=== PATIENT | female | born 1965 | race Caucasian/White ===

== ENCOUNTER 2016-08-20 14:30 | Emergency (ER) | payer OTHER ==
[~2016-08-20] VITALS: Ht 170.2 cm; Wt 111.0 kg
[~2016-08-20 14:30] MED LIST: ACET-1311 PO; FLVHFA110 INH; HYDR-5688 PO; LISI-729 PO; TRIA1SPR4 NAE
[2016-08-20 14:40] VITALS: TEMP 36.8; Ht 170.2 cm; Wt 111.0 kg
[2016-08-20] MEDS ORDERED: HYDROCODONE/ACETAMOPHEN 5/325MG TAB PO ONE (15:15)
--- NOTE | 2016-08-20 15:47 | DIAGNOSTIC IMAGING REPORT ---
LEFT FEMUR 2 VIEWS ROUTINE CLINICAL HISTORY: Pain status post fall COMPARISON: Left hip radiographs June 28, 2016. FINDINGS: Alignment of the left hip is anatomic. No acute fracture is identified. Joint space is preserved. There is mild osteophytosis of the left hip. There is mild arthritis of the left knee. There is spurring of the patella at insertion the quadriceps. There may be a trace left knee joint effusion. IMPRESSION: No acute fracture of the left femur. Electronically signed by: Anthony Ortiz M.D. 08/20/2016 3:45 PM Dictated Date/Time: 08/20/2016 3:44 PM
--- NOTE | 2016-08-20 15:48 | DIAGNOSTIC IMAGING REPORT ---
CT SCAN OF THE BRAIN WITHOUT IV CONTRAST CLINICAL HISTORY: Fall. Headache. COMPARISON STUDY: CT of the brain dated 06/29/2016. TECHNIQUE: Unenhanced axial CT scan of the brain is performed from the vertex to the skull base. Automated dose control exposure was utilized. FINDINGS: Brain parenchyma: The brain parenchyma is normal in appearance. There is no hemorrhage, mass effect, or evidence of acute territorial ischemia by CT criteria. Ralph-white matter is preserved. No extra-axial fluid collection is seen. Ventricles, sulci, cisterns: Normal in configuration. Intracranial vasculature: There is mild atherosclerotic calcification of the cavernous carotid and vertebral arteries. Calvarium: There is no depressed calvarial fracture. Sinuses and mastoids: The visualized paranasal sinuses are clear. The mastoid air cells are well pneumatized. Orbits: The bony orbits are grossly intact. IMPRESSION: No acute intracranial abnormality. Electronically signed by: Everett Boland M.D. 08/20/2016 3:46 PM Dictated Date/Time: 08/20/2016 3:44 PM
--- NOTE | 2016-08-20 15:49 | DIAGNOSTIC IMAGING REPORT ---
PELVIS 1 OR 2 VIEW ROUTINE CLINICAL HISTORY: LEFT hip pain s/p fall COMPARISON STUDY: Left hip 06/28/2016. FINDINGS: No fracture or dislocation within the pelvis or hips. The sacrum appears intact. Moderate osteoarthritis within the bilateral hips is again noted. IMPRESSION: No fracture or dislocation within the pelvis or hips. Electronically signed by: Fortunato Weston M.D. 08/20/2016 3:47 PM Dictated Date/Time: 08/20/2016 3:45 PM
--- NOTE | 2016-08-20 15:49 | DIAGNOSTIC IMAGING REPORT ---
RIGHT ELBOW 3 VIEWS CLINICAL HISTORY: Fall with right arm pain. FINDINGS: 3 views of the right elbow are obtained. No prior studies are available for comparison at the time of dictation. The skeletal structures are osteopenic. There is no radiographic evidence of acute fracture. Enthesophytes arise from the humeral epicondyles, and there is also a large enthesophyte at the triceps insertion. There is spurring seen along the medial joint space, as well as minimal spurring from the radial head. No joint effusion is identified. Mild dorsal soft tissue edema is noted. IMPRESSION: 1. Mild dorsal soft tissue swelling with no radiographic evidence of right elbow fracture. 2. Osteopenia and degenerative changes/spurring is above. Electronically signed by: Everett Boland M.D. 08/20/2016 3:48 PM Dictated Date/Time: 08/20/2016 3:44 PM
[2016-08-20] MEDS ORDERED: DiphenhydrAMINE HCL 50 MG/ML VIAL IV STA (15:50)
[2016-08-20] MEDS ORDERED: METHYLPREDNISOLONE 125 MG VIAL IV STA (15:50)
[2016-08-20] MEDS ORDERED: FAMOTIDINE 20MG/102 ML D5W IV STA (15:50)
[2016-08-20] MEDS ORDERED: SODIUM CHLORIDE 0.9% 1000ML 1,000 ML IV STA (15:50)
--- NOTE | 2016-08-20 15:53 | DIAGNOSTIC IMAGING REPORT ---
CT SCAN OF THE CERVICAL SPINE CLINICAL HISTORY: Fall. Neck pain. COMPARISON STUDY: CT scan of cervical spine dated 06/29/2016. TECHNIQUE: CT scan of the cervical spine is performed from the skull base to the upper thoracic spine. Images are reviewed in the axial, sagittal, and coronal planes. IV contrast was not administered for this examination. CT DOSE: 1141.73 mGy.cm FINDINGS: Skeletal structures: The skeletal structures are osteopenic. There is no evidence of fracture or subluxation involving the cervical spine. Vertebral body height and alignment are maintained. The odontoid process and lateral masses are intact. The atlantoaxial articulation is preserved noting productive degenerative change. The spinous processes appear intact. Anterior osteophytes are seen throughout. There is mild to moderate multilevel cervical spondylosis. Uncovertebral and facet arthropathy contribute to foraminal narrowing at several levels. Intervertebral discs: There is mild to moderate degenerative disc space narrowing seen at C7-T1. Only mild narrowing is seen at the remaining cervical levels. Central canal: Posterior disc osteophyte complexes at C3-C4 and C4-C5 may contribute to mild acquired compromise of the central canal. Soft tissues: The prevertebral and paraspinous soft tissues are within normal limits. There is atherosclerotic calcification of the carotid bulbs. There is a 1.6 cm low-attenuation nodule seen in the left lobe of the thyroid gland. Calvarium: The visualized calvarium at the skull base appears intact. Brain parenchyma: Partially visualized brain parenchyma the skull base is within normal limits. Sinuses and mastoids: The visualized paranasal sinuses are clear. The mastoid air cells are well pneumatized. Lung apices: Clear as visualized. IMPRESSION: 1. There is no evidence of fracture or subluxation involving the cervical spine. 2. Osteopenia and spondylotic change as above. 3. There is a 1.6 cm low-attenuation nodule in the left lobe of the thyroid gland. If not previously performed, a nonemergent thyroid ultrasound is recommended for further assessment. Electronically signed by: Everett Boland M.D. 08/20/2016 3:52 PM Dictated Date/Time: 08/20/2016 3:48 PM
[2016-08-20 16:19] VITALS: O2SAT 98
[2016-08-20] MEDS ORDERED: OXYCODONE HCL IR 5 MG TAB (IMMEDIATE RELEASE) PO STA (17:36)
[2016-08-20] MEDS ORDERED: OXYC1TAB3 PO (17:44)
--- NOTE | 2016-08-20 17:46 | EMERGENCY ROOM VISIT NOTE ---
History First contact with patient: 14:54 Chief Complaint: FALL Stated Complaint: FALL/HIP PAIN/ HEADACHE History of Present Illness The patient is a 51 year old female who presents to the Emergency Department via EMS for evaluation of her LEFT hip pain, RIGHT elbow pain, headache, neck pain. The patient reports that she was sustaining next to a table and clean backwards onto the table. The table was on wheels. It gave out from under her causing her to fall and strike her hip, elbow, and head on the ground. She did not lose consciousness. She was unable to ambulate secondary to discomfort to the LEFT hip. The patient complains of pain rating her discomfort 8/10. She denies any numbness or tingling is the distal extremities. Patient reports a history of injury to her neck similar type of fall recently. The patient has tried Tylenol and routes the emergency department with moderate relief of symptoms. Patient denies any blurry vision, double vision, slurred speech, facial droop, unilateral weakness/numbness, low back pain, chest pain, palpitations, or abdominal pain. Review of Systems A complete 10-point Review of Systems was discussed with the patient, with pertinent positives and negatives listed in the History of Present Illness. All remaining Review of Systems questions can be considered negative unless otherwise specified. Past Medical/Surgical History Medical Problems: (1) CAD (coronary artery disease) (2) Chronic bronchitis (3) Depression (4) Dyslipidemia (5) Dyslipidemia (6) History of heart disease (7) HTN (hypertension) (8) HTN (hypertension) Surgical Problems: (1) History of coronary artery stent placement (2) Hx of cholecystectomy Family History Diabetes mellitus BROTHER SISTER Gallbladder disease Heart disease Hypertension Kidney disease Social History Smoking Status: Former Smoker Alcohol Use: none Drug Use: none Housing Status: lives with family Occupation Status: employed Current/Historical Medications Scheduled Aspirin (Aspirin Ec), 81 MG PO DAILY Atorvastatin (Atorvastatin Calcium), 20 MG PO DAILY Fluticasone Propionate (Flovent Hfa), 2 PUFFS INH BID Lisinopril (Zestril), 5 MG PO DAILY Metoprolol Tartrate (Lopressor) (Lopressor), 12.5 MG PO BID Sertraline (Zoloft), 50 MG PO DAILY Trazodone Hcl (Trazodone), 50 MG PO HS Scheduled PRN Acetaminophen (Tylenol), 650 MG PO Q4H PRN for Pain Albuterol (Ventolin Hfa), 2 PUFFS INH QID PRN for SOB/Wheezing Hydrocodone/Acetaminophen 5MG/325MG (Emily 5MG/325MG), 1-2 TABLET PO Q4H PRN for Pain Ibuprofen (Motrin), 800 MG PO Q6H PRN for Pain Mometasone Furoate-Formoterol (Dulera 200/5 Mcg), 2 PUFFS INH BID PRN for SOB/ Wheezing Nitroglycerin (Nitrostat), 0.4 MG UT UD PRN for Chest Pain Oxycodone Ir (Roxicodone Ir), 1-2 TAB PO Q4H PRN for Pain Allergies Coded Allergies: Loratadine (Verified Allergy, Severe, 06/29/16) FACE SWELLED--NEEDED O2 Ketorolac Tromethamine (Verified Allergy, Intermediate, DIAPHORESIS, RASH , 06/29/16) Iodinated Diagnostic Agents (Verified Allergy, Mild, ITCHING, 06/29/16) Physical Exam Vital Signs Date Time Temp Pulse Resp B/P Pulse Ox O2 Delivery O2 Flow Rate FiO2 08/20/16 17:49 80 18 143/81 95 Room Air 08/20/16 16:27 75 08/20/16 16:19 98 Room Air 08/20/16 16:15 78 16 134/83 98 08/20/16 14:40 36.8 78 18 158/107 97 Room Air Pain Rating (0-10): 8 Physical Exam VITAL SIGNS - Vital signs and nursing notes were reviewed. GENERAL - 51-year-old female appearing her stated age. Communicates well with provider and answers questions appropriately. HEAD - Normocephalic, Atraumatic. No Ma's Sign or Raccoon's Eyes. No depressed skull fractures palpable. EYES - PERRL with EOMI bilaterally. Without subconjunctival hemorrhage. Palpebral conjunctiva pink and moist with no injection. EARS - No deformities of external structures noted on gross examination bilaterally. No hemotympanum present. No tympanic perforation noted. Handle of malleus, umbo, cone of light, pars tensa/flaccid all easily visualized. NOSE - Midline and without cyanosis. No epistaxis or clear watery discharge noted. Septum midline without deviation. No septal hematoma noted. No overlying ecchymosis noted. MOUTH/OROPHARYNX - Without perioral cyanosis. Tongue midline with equal elevation of palate bilaterally. No blood noted in the oropharynx. No tonsillar hypertrophy, erythema, or exudates noted. No dental fractures noted. NECK - No tenderness to palpation over the cervical spinous processes. No cervical paraspinal muscle tenderness noted. LUNGS - Chest wall symmetric without accessory muscle use, intercostals retractions, or central cyanosis. Normal vesicular breath sounds CTA B/L. No wheezes, rales, or rhonchi appreciated. CARDIAC - RRR with S1/S2. No murmur, rubs, or gallops appreciated. ABDOMEN - Abdominal contour obese without pulsations or visible masses. BS normoactive all four quadrants. No rebound tenderness or guarding noted. Negative Cadillac's or Abraham Hendrix's Signs. No tenderness, palpable masses, hepatosplenomegaly, or ascites noted. EXTREMITIES - No gross deformities noted of the extremities. Moderate tenderness to palpation to the lateral aspect of the LEFT hip and RIGHT elbow. + 3/5 radial and dorsalis pedis pulses palpated throughout. FROM with no tremors, fasciculations, or clonus noted on PROM throughout. +5/5 strength noted in UE/ LE bilaterally. NEUROLOGIC - Cranial nerves II through XII grossly intact. Sensory intact to light touch throughout. Patellar reflexes +2/4. Patient able to perform rapid alternating movements appropriately. PSYCH - A&Ox3 and cooperates fully with examiner. Pt is very pleasant and interacts well with examiner. Medical Decision & Procedures ER Provider Diagnostic Interpretation: Radiological imaging and reports were reviewed by myself. Radiologist's Interpretation as follows: PELVIS 1 OR 2 VIEW ROUTINE CLINICAL HISTORY: LEFT hip pain s/p fall COMPARISON STUDY: Left hip 06/28/2016. FINDINGS: No fracture or dislocation within the pelvis or hips. The sacrum appears intact. Moderate osteoarthritis within the bilateral hips is again noted. IMPRESSION: No fracture or dislocation within the pelvis or hips. LEFT FEMUR 2 VIEWS ROUTINE CLINICAL HISTORY: Pain status post fall COMPARISON: Left hip radiographs June 28, 2016. FINDINGS: Alignment of the left hip is anatomic. No acute fracture is identified. Joint space is preserved. There is mild osteophytosis of the left hip. There is mild arthritis of the left knee. There is spurring of the patella at insertion the quadriceps. There may be a trace left knee joint effusion. IMPRESSION: No acute fracture of the left femur. RIGHT ELBOW 3 VIEWS CLINICAL HISTORY: Fall with right arm pain. FINDINGS: 3 views of the right elbow are obtained. No prior studies are available for comparison at the time of dictation. The skeletal structures are osteopenic. There is no radiographic evidence of acute fracture. Enthesophytes arise from the humeral epicondyles, and there is also a large enthesophyte at the triceps insertion. There is spurring seen along the medial joint space, as well as minimal spurring from the radial head. No joint effusion is identified. Mild dorsal soft tissue edema is noted. IMPRESSION: 1. Mild dorsal soft tissue swelling with no radiographic evidence of right elbow fracture. 2. Osteopenia and degenerative changes/spurring is above. CT SCAN OF THE BRAIN WITHOUT IV CONTRAST CLINICAL HISTORY: Fall. Headache. COMPARISON STUDY: CT of the brain dated 06/29/2016. TECHNIQUE: Unenhanced axial CT scan of the brain is performed from the vertex to the skull base. Automated dose control exposure was utilized. FINDINGS: Brain parenchyma: The brain parenchyma is normal in appearance. There is no hemorrhage, mass effect, or evidence of acute territorial ischemia by CT criteria. Ralph-white matter is preserved. No extra-axial fluid collection is seen. Ventricles, sulci, cisterns: Normal in configuration. Intracranial vasculature: There is mild atherosclerotic calcification of the cavernous carotid and vertebral arteries. Calvarium: There is no depressed calvarial fracture. Sinuses and mastoids: The visualized paranasal sinuses are clear. The mastoid air cells are well pneumatized. Orbits: The bony orbits are grossly intact. IMPRESSION: No acute intracranial abnormality. CT SCAN OF THE CERVICAL SPINE CLINICAL HISTORY: Fall. Neck pain. COMPARISON STUDY: CT scan of cervical spine dated 06/29/2016. TECHNIQUE: CT scan of the cervical spine is performed from the skull base to the upper thoracic spine. Images are reviewed in the axial, sagittal, and coronal planes. IV contrast was not administered for this examination. CT DOSE: 1141.73 mGy.cm FINDINGS: Skeletal structures: The skeletal structures are osteopenic. There is no evidence of fracture or subluxation involving the cervical spine. Vertebral body height and alignment are maintained. The odontoid process and lateral masses are intact. The atlantoaxial articulation is preserved noting productive degenerative change. The spinous processes appear intact. Anterior osteophytes are seen throughout. There is mild to moderate multilevel cervical spondylosis. Uncovertebral and facet arthropathy contribute to foraminal narrowing at several levels. Intervertebral discs: There is mild to moderate degenerative disc space narrowing seen at C7-T1. Only mild narrowing is seen at the remaining cervical levels. Central canal: Posterior disc osteophyte complexes at C3-C4 and C4-C5 may contribute to mild acquired compromise of the central canal. Soft tissues: The prevertebral and paraspinous soft tissues are within normal limits. There is atherosclerotic calcification of the carotid bulbs. There is a 1.6 cm low-attenuation nodule seen in the left lobe of the thyroid gland. Calvarium: The visualized calvarium at the skull base appears intact. Brain parenchyma: Partially visualized brain parenchyma the skull base is within normal limits. Sinuses and mastoids: The visualized paranasal sinuses are clear. The mastoid air cells are well pneumatized. Lung apices: Clear as visualized. IMPRESSION: 1. There is no evidence of fracture or subluxation involving the cervical spine. 2. Osteopenia and spondylotic change as above. 3. There is a 1.6 cm low-attenuation nodule in the left lobe of the thyroid gland. If not previously performed, a nonemergent thyroid ultrasound is recommended for further assessment. Medications Administered Medications (Trade) Dose Ordered Sig/Gerda Route Start Time Stop Time Status Last Admin Dose Admin Acetaminophen/ Hydrocodone Bitart (Emily 5/325 Tab) 1 tab NOW ONCE PO 08/20/16 15:15 08/20/16 15:16 DC 08/20/16 15:15 1 TAB Methylprednisolone Sodium Succinate (Solu-Medrol IV) 125 mg NOW STAT IV 08/20/16 15:50 08/20/16 15:51 DC 08/20/16 16:15 125 MG Diphenhydramine HCl (Benadryl Inj) 25 mg NOW STAT IV 08/20/16 15:50 08/20/16 15:51 DC 08/20/16 16:15 25 MG Famotidine 20 mg 20 mg ONE STAT IV 08/20/16 15:50 08/20/16 15:51 DC 08/20/16 16:15 20 MG Sodium Chloride (Nss 1000ml) 1,000 ml @ 999 mls/hr Q1H1M STAT IV 08/20/16 15:50 08/20/16 16:50 DC 2/15/17 16:16 999 MLS/HR Oxycodone HCl (Roxicodone Immediate Rel Tab) 5 mg NOW STAT PO 08/20/16 17:36 08/20/16 17:37 DC 08/20/16 17:51 5 MG ED Course Patient was seen and evaluated by myself. Patient was provided one Emily for pain. CT of the head and neck as well as x-rays of the pelvis, femur, and elbow were obtained. Upon returning from CT, the patient is complaining of itchiness. IV lock was established and the patient was treated with 125 mg Solu -Medrol, 25 mg Benadryl, 20 mg Pepcid, and a 1000 mL normal saline bolus. Imaging studies were otherwise unremarkable. The patient was educated on imaging studies. She was provided a walker for ambulation. She'll follow-up with Worker's Compensation from today's visit. She will return for any changing /worsening symptoms. Patient discharged home afebrile and in good condition. Medical Decision Given the patient's presentation and stated complaints, I did elect to perform the above-mentioned workup. The patient presents today after sustaining a mechanical fall. There is no loss of consciousness. She has multiple areas of his comfort. Her exam is otherwise unremarkable. She has no focal neurological deficits. CT the head, cervical spine, and x-rays were otherwise unremarkable. She did have a reaction and I'm suspicious that this may be related to nausea received in route. Regardless, she responded to the medications as prescribed. She will be placed on oxycodone for breakthrough symptoms. She'll follow-up with her primary care provider or Workmen's Compensation provider. She will return for any changing/worsening symptoms. Patient discharged home afebrile and in good condition. In the evaluation and treatment of this patient, the following differential diagnoses were considered: Concussion, Contrecoup Injury, Brain Tumor, Depression, Encephalitis, Hypothyroidism, Meningitis, CVA, TIA, Migraine, Cluster Headache, Intracranial Abnormality, Intracranial Hemorrhage, Subdural Hematoma, Subarachnoid Hemorrhage, Hydrocephalus. Impression Primary Impression: Fall Additional Impressions: Contusion of left hip Elbow contusion Departure Information Dispostion Home / Self-Care Condition GOOD Prescriptions Oxycodone Ir (Roxicodone Ir) 5 Mg Tab 1-2 TAB PO Q4H Y for Pain, #6 TAB For Initial Treatment Prov: Tunde Lindsay, PALizabeth 08/20/16 Referrals Lennie Steven DO (PCP) Patient Instructions My [facility] Additional Instructions You've been seen in the emergency department today for your LEFT hip contusion and RIGHT elbow contusion after sustaining a fall. You have been prescribed OxyIR to be used for pain control. This is a narcotic medication. You cannot drive or consume alcohol while on this medicine. This medicine should only be used for pain that cannot be controlled with over-the- counter pain medicines. For pain control, you can use the following [id number] medicines (if >12 yo): - Regular strength (325mg/tab) Tylenol (acetaminophen) 2 tabs every 4-6 hours as needed. Do not exceed 12 tablets in a 24 hour period. Avoid taking more than 4 grams (4000 mg) of Tylenol per day. This includes any other sources of acetaminophen you may take on a regular basis. - Regular strength (200 mg/tab) Advil (ibuprofen) 1-2 tabs every 4-6 hours as needed. Do not exceed a dose of 3200 mg per day. Follow-up with workman's compensation approval provider in the next 24-48 hours for recheck. Return for any changing or worsening symptoms. Problem Qualifiers Primary Impression: Fall Encounter type: initial encounter Qualified Codes: W19.XXXA - Unspecified fall, initial encounter Additional Impressions: Contusion of left hip Encounter type: initial encounter Qualified Codes: S70.02XA - Contusion of left hip, initial encounter Elbow contusion Encounter type: initial encounter Laterality: right Qualified Codes: S50.01XA - Contusion of right elbow, initial encounter
[2016-08-20 17:49] VITALS: BP 143/81; PULSE 80; O2SAT 95
[2016-11-23] MEDS ORDERED: IBUP-1428 PO (06:08)
[2016-11-23] MEDS ORDERED: TRAZ50TA35 PO (11:11)
[2016-11-23] MEDS ORDERED: PRVHFAIN INH (13:12)
[2016-11-23] MEDS ORDERED: SERT50TA PO (13:54)
== END 2016-08-20 18:13 | disposition home or self-care (01) ==
LOC: EDBD 14:30 → C.EDA 14:31
DX: S70.02XA Contusion of left hip, initial encounter (principal); S50.01XA Contusion of right elbow, initial encounter; R51 Headache; M54.2 Cervicalgia; I25.10 Atherosclerotic heart disease of native coronary artery without angina pectoris; E78.5 Hyperlipidemia, unspecified; I10 Essential (primary) hypertension; F32.9 Major depressive disorder, single episode, unspecified; E66.9 Obesity, unspecified; Z79.82 Long term (current) use of aspirin; Z79.899 Other long term (current) drug therapy; Z88.8 Allergy status to other drugs, medicaments and biological substances; Z91.041 Radiographic dye allergy status; Z98.61 Coronary angioplasty status; Z82.49 Family history of ischemic heart disease and other diseases of the circulatory system; Z83.3 Family history of diabetes mellitus; Z83.79 Family history of other diseases of the digestive system; Z84.1 Family history of disorders of kidney and ureter; W19.XXXA Unspecified fall, initial encounter

== ENCOUNTER 2016-08-25 09:02 | Emergency (ER) | payer OTHER ==
[~2016-08-25] VITALS: Ht 167.6 cm; Wt 120.4 kg
[~2016-08-25 09:02] MED LIST changes: +OXYC1TAB3 PO; -TRIA1SPR4 NAE
[2016-08-25 09:06] VITALS: TEMP 37; Ht 167.6 cm; Wt 120.4 kg
[2016-08-25] MEDS ORDERED: HYDROmorphone INJ 0.5 MG/0.5 ML SYR IV STA (10:18)
[2016-08-25] MEDS ORDERED: SODIUM CHLORIDE 0.9% 1000ML 1,000 ML IV STA (10:18)
[2016-08-25] MEDS ORDERED: ONDANSETRON 8 MG/54 ML D5W IV STA (10:18)
[2016-08-25] MEDS ORDERED: METOPROLOL TARTRATE 25 MG TAB PO STA (10:24)
[2016-08-25 10:28] VITALS: O2SAT 96
[2016-08-25] MEDS ORDERED: LISINOPRIL 5 MG TAB PO ONE (10:30)
[2016-08-25] MEDS ORDERED: ATORVASTATIN 10 MG TAB PO ONE (10:30)
[2016-08-25 10:53] LABS: BASO % 0.5 %; BASO ABS # 0.04 K/uL (0-0.2); COMPLETE YES; EOS % 3.3 %; HEMATOCRIT 36.9 % (37-47); IG% 0.3 %; LYMPH ABS # 1.89 K/uL (1.2-3.4); MEAN CELL VOLUME 80.7 fL (80-100); MEAN CORPUSCULAR HEMOGLOBIN 26.3 pg (25-34); MEAN CORPUSCULAR HGB CONC 32.5 g/dl (32-36); MEAN PLATELET VOLUME 8.8 fL (7.4-10.4); MONO % 7.7 %; NEUT % 64.2 %; PLATELET COUNT 370 K/uL (130-400); RED BLOOD COUNT 4.57 M/uL (4.2-5.4); WHITE BLOOD COUNT 7.89 K/uL (4.8-10.8)
[2016-08-25 11:01] LABS: PROTHROMBIN TIME (PATIENT) 10.7 SECONDS (9.0-12.0)
--- NOTE | 2016-08-25 11:06 | DIAGNOSTIC IMAGING REPORT ---
CT HEAD WITHOUT CONTRAST (CT) CLINICAL HISTORY: Severe headache status post head trauma COMPARISON STUDY: 08/20/2016 TECHNIQUE: Axial CT of the brain is performed from the vertex to the skull base. IV contrast was not administered for this examination. CT DOSE: 537.48 mGy.cm FINDINGS: No intra or extra-axial mass lesions are visualized. There is no CT evidence of acute cortical infarction. There is no evidence of midline shift. There is no acute hemorrhage. No calvarial fractures are visualized. There is no evidence of pathologic ventricular dilatation. There is no evidence of acute sinusitis IMPRESSION: No change from the prior study. No acute intracranial findings. Electronically signed by: Juno Sanchez M.D. 08/25/2016 11:04 AM Dictated Date/Time: 08/25/2016 11:03 AM
[2016-08-25 11:13] LABS: ALT/SGPT 110 U/L (12-78); AST/SGOT 30 U/L (15-37); BLOOD UREA NITROGEN 11 mg/dl (7-18); BUN/CREATININE RATIO 17.9 (10-20); CALCIUM 9.2 mg/dl (8.5-10.1); CARBON DIOXIDE 29 mmol/L (21-32); CHLORIDE 104 mmol/L (98-107); CREATININE 0.62 mg/dl (0.60-1.20); GLUCOSE 85 mg/dl (70-99); POTASSIUM 4.1 mmol/L (3.5-5.1); SODIUM 141 mmol/L (136-145)
[2016-08-25 11:23] LABS: ALKALINE PHOSPHATASE 143 U/L (45-117); THYROID STIMULATING HORMONE < 0.005 uIu/ml (0.300-4.500)
[2016-08-25 12:52] LABS: URINE APPEARANCE CLEAR (CLEAR); URINE BILIRUBIN NEG (NEG); URINE COLOR YELLOW; URINE EPITHELIAL CELL AUTO 0-5 /lpf (0-5); URINE NITRITE NEG (NEG); URINE PH 5.5 (4.5-7.5); URINE SPECIFIC GRAVITY 1.007 (1.000-1.030); UROBILINOGEN NEG (NEG)
[2016-08-25 12:55] LABS: MANUAL MICROSCOPIC REQUIRED? NO; REVIEW REQ? NO
[2016-08-25 14:57] VITALS: BP 167/96; PULSE 84; O2SAT 96
--- NOTE | 2016-08-25 15:53 | EMERGENCY ROOM VISIT NOTE ---
History Report prepared by Jose: Hollie Norton Under the Supervision of: Dr. Alessandro Bower M.D. First contact with patient: 09:45 Chief Complaint: HEAD PAIN Stated Complaint: HEADACHE, PAIN IN BACK OF NECK History of Present Illness The patient is a 51 year old female who presents to the Emergency Room with complaints of persistent headache and neck pain which started 5 days ago after she fell at work. The patient currently rates her discomfort as a 9/10. The patient reports that last week she fell backwards into a metal table injuring her head and neck. Prior to the fall, she was feeling well. She visited the ED where they did CT of her head and neck which were found to be normal, so she was discharged home with pain medication. The patient reports feeling nauseous and vomiting 2 days ago. She also felt like she was gasping for air and used her inhaler with complete relief. She does notes that she has a history of asthma. She has no breathing issues currently. She went to urgent care initially this morning for her pain but was sent to the ED. She has not had any additional falls since last week. She reports that she is currently hypertensive , but reports that she has not missed any of her medications other than this morning's doses. Currently, she is feeling slightly nauseated. Pt denies LOC, fevers, chills, diaphoresis, visual changes, chest pain, abdominal pain, back pain, melena, hematochezia, urinary symptoms, numbness, weakness, lymphadenopathy, rash, or other complaints. Source of History: patient Onset: 5 days ago Position: head, neck Symptom Intensity: 9/10 Timing: other (persistent) Associated Symptoms: + SOB (resolved with Inhaler), + nausea, + vomiting ( resolved) Review of Systems See HPI for pertinent positives and negatives. A total of ten systems were reviewed and were otherwise negative. Past Medical & Surgical Medical Problems: (1) CAD (coronary artery disease) (2) Chronic bronchitis (3) Depression (4) Dyslipidemia (5) Dyslipidemia (6) History of heart disease (7) HTN (hypertension) (8) HTN (hypertension) Surgical Problems: (1) History of coronary artery stent placement (2) Hx of cholecystectomy Family History Diabetes mellitus BROTHER SISTER Gallbladder disease Heart disease Hypertension Kidney disease Social History Smoking Status: Former Smoker Alcohol Use: none Drug Use: none Housing Status: lives with family Occupation Status: employed Current/Historical Medications Scheduled Aspirin (Aspirin Ec), 81 MG PO DAILY Atorvastatin (Atorvastatin Calcium), 20 MG PO DAILY Lisinopril (Zestril), 5 MG PO DAILY Metoprolol Tartrate (Lopressor) (Lopressor), 12.5 MG PO BID Sertraline (Zoloft), 50 MG PO DAILY Trazodone Hcl (Trazodone), 50 MG PO HS Scheduled PRN Acetaminophen (Tylenol), 650 MG PO Q4H PRN for Pain Albuterol (Ventolin Hfa), 2 PUFFS INH QID PRN for SOB/Wheezing Hydrocodone/Acetaminophen 5MG/325MG ([place] 5MG/325MG), 1-2 TABLET PO Q4H PRN for Pain Ibuprofen (Motrin), 800 MG PO Q6H PRN for Pain Mometasone Furoate-Formoterol (Dulera 200/5 Mcg), 2 PUFFS INH BID PRN for SOB/ Wheezing Nitroglycerin (Nitrostat), 0.4 MG UT UD PRN for Chest Pain Oxycodone Ir (Roxicodone Ir), 1-2 TAB PO Q4H PRN for Pain Allergies Coded Allergies: Loratadine (Verified Allergy, Severe, 08/25/16) FACE SWELLED--NEEDED O2 Ketorolac Tromethamine (Verified Allergy, Intermediate, DIAPHORESIS, RASH , 08/25/16) Iodinated Diagnostic Agents (Verified Allergy, Mild, ITCHING, 08/25/16) Physical Exam Vital Signs Date Time Temp Pulse Resp B/P Pulse Ox O2 Delivery O2 Flow Rate FiO2 08/25/16 14:57 84 16 167/96 96 Room Air 08/25/16 14:26 84 12 165/102 98 Room Air 08/25/16 12:17 72 16 154/82 98 Room Air 08/25/16 10:41 81 08/25/16 10:38 78 16 137/81 96 Room Air 08/25/16 10:28 96 Room Air 08/25/16 09:06 37.0 87 18 190/93 96 Room Air Physical Exam GENERAL: Awake, alert, well-appearing, in no distress HENT: Normocephalic, atraumatic. Oropharynx unremarkable. EYES: Normal conjunctiva. Sclera non-icteric. PERRLA. EOMI. NECK: Supple. No nuchal rigidity. FROM. No JVD. Tender in cervical paraspinal muscles. RESPIRATORY: Clear to auscultation. CARDIAC: Regular rate, normal rhythm. Extremities warm and well perfused. Pulses equal. ABDOMEN: Soft, non-distended. No tenderness to palpation. No rebound or guarding. No masses. RECTAL: Deferred. MUSCULOSKELETAL: Chest examination reveals no tenderness. The back is symmetrical on inspection without obvious abnormality. There is no CVA tenderness to palpation. No joint edema. LOWER EXTREMITIES: Calves are equal size bilaterally and non-tender. No edema. No discoloration. NEURO: Normal sensorium. No sensory or motor deficits noted. SKIN: No rash or jaundice noted. Medical Decision & Procedures ER Provider Diagnostic Interpretation: Radiology results as stated below per my review and radiologist interpretation: CT HEAD WITHOUT CONTRAST (CT) CLINICAL HISTORY: Severe headache status post head trauma COMPARISON STUDY: 08/20/2016 TECHNIQUE: Axial CT of the brain is performed from the vertex to the skull base. IV contrast was not administered for this examination. CT DOSE: 537.48 mGy.cm FINDINGS: No intra or extra-axial mass lesions are visualized. There is no CT evidence of acute cortical infarction. There is no evidence of midline shift. There is no acute hemorrhage. No calvarial fractures are visualized. There is no evidence of pathologic ventricular dilatation. There is no evidence of acute sinusitis IMPRESSION: No change from the prior study. No acute intracranial findings. Electronically signed by: Juno Sanchez M.D. 08/25/2016 11:04 AM Dictated Date/Time: 08/25/2016 11:03 AM Laboratory Results 08/25/16 10:20 Red Blood Count 4.57, Mean Corpuscular Volume 80.7, Mean Corpuscular Hemoglobin 26.3, Mean Corpuscular Hemoglobin Concent 32.5, Mean Platelet Volume 8.8, Neutrophils (%) (Auto) 64.2, Lymphocytes (%) (Auto) 24.0, Monocytes (%) (Auto) 7.7, Eosinophils (%) (Auto) 3.3, Basophils (%) (Auto) 0.5, Neutrophils # (Auto) 5.07, Lymphocytes # (Auto) 1.89, Monocytes # (Auto) 0.61, Eosinophils # (Auto) 0.26, Basophils # (Auto) 0.04 08/25/16 10:20 Test 08/25/16 10:20 08/25/16 12:25 White Blood Count 7.89 K/uL (4.8-10.8) Red Blood Count 4.57 M/uL (4.2-5.4) Hemoglobin 12.0 g/dL (12.0-16.0) Hematocrit 36.9 % (37-47) Mean Corpuscular Volume 80.7 fL (80-100) Mean Corpuscular Hemoglobin 26.3 pg (25-34) Mean Corpuscular Hemoglobin Concent 32.5 g/dl (32-36) Platelet Count 370 K/uL (130-400) Mean Platelet Volume 8.8 fL (7.4-10.4) Neutrophils (%) (Auto) 64.2 % Lymphocytes (%) (Auto) 24.0 % Monocytes (%) (Auto) 7.7 % Eosinophils (%) (Auto) 3.3 % Basophils (%) (Auto) 0.5 % Neutrophils # (Auto) 5.07 K/uL (1.4-6.5) Lymphocytes # (Auto) 1.89 K/uL (1.2-3.4) Monocytes # (Auto) 0.61 K/uL (0.11-0.59) Eosinophils # (Auto) 0.26 K/uL (0-0.5) Basophils # (Auto) 0.04 K/uL (0-0.2) RDW Standard Deviation 40.0 fL (36.4-46.3) RDW Coefficient of Variation 13.5 % (11.5-14.5) Immature Granulocyte % (Auto) 0.3 % Immature Granulocyte # (Auto) 0.02 K/uL (0.00-0.02) Prothrombin Time 10.7 SECONDS (9.0-12.0) Prothromb Time International Ratio 1.0 (0.9-1.1) Activated Partial Thromboplast Time 27.1 SECONDS (21.0-31.0) Partial Thromboplastin Ratio 1.0 Anion Gap 8.0 mmol/L (3-11) Est Creatinine Clear Calc Drug Dose 140.3 ml/min Estimated GFR () 120.2 Estimated GFR (Non- 103.7 BUN/Creatinine Ratio 17.9 (10-20) Calcium Level 9.2 mg/dl (8.5-10.1) Total Bilirubin 0.2 mg/dl (0.2-1) Direct Bilirubin < 0.1 mg/dl (0-0.2) Aspartate Amino Transf (AST/SGOT) 30 U/L (15-37) Alanine Aminotransferase (ALT/SGPT) 110 U/L (12-78) Alkaline Phosphatase 143 U/L (45-117) Troponin I < 0.015 ng/ml (0-0.045) Total Protein 7.7 gm/dl (6.4-8.2) Albumin 3.4 gm/dl (3.4-5.0) Lipase 212 U/L (73-393) Thyroid Stimulating Hormone (TSH) < 0.005 uIu/ml (0.300-4.500) Free Thyroxine 1.44 ng/dl (0.80-1.60) Free Triiodothyronine 5.24 pg/ml (2.30-4.20) Urine Color YELLOW Urine Appearance CLEAR (CLEAR) Urine pH 5.5 (4.5-7.5) Urine Specific [place] 1.007 (1.000-1.030) Urine Protein NEG (NEG) Urine Glucose (UA) NEG (NEG) Urine Ketones NEG (NEG) Urine Occult Blood TRACE (NEG) Urine Nitrite NEG (NEG) Urine Bilirubin NEG (NEG) Urine Urobilinogen NEG (NEG) Urine Leukocyte Esterase NEG (NEG) Urine WBC (Auto) 0 /hpf (0-5) Urine RBC (Auto) 0-4 /hpf (0-4) Urine Hyaline Casts (Auto) 0 /lpf (0-5) Urine Epithelial Cells (Auto) 0-5 /lpf (0-5) Urine Bacteria (Auto) NEG (NEG) Laboratory results reviewed by me Medications Administered Medications (Trade) Dose Ordered Sig/Gerda Route Start Time Stop Time Status Last Admin Dose Admin Sodium Chloride (Nss 1000ml) 1,000 ml @ 999 mls/hr Q1H1M STAT IV 08/25/16 10:18 08/25/16 11:18 DC 08/25/16 10:35 999 MLS/HR Ondansetron HCl (Zofran 8mg Iv) 8 mg NOW STAT IV 08/25/16 10:18 08/25/16 10:20 DC 08/25/16 10:33 8 MG Hydromorphone HCl (Dilaudid Inj) 0.5 mg NOW STAT IV 08/25/16 10:18 08/25/16 10:20 DC 08/25/16 10:35 0.5 MG Lisinopril (Zestril Tab) 5 mg NOW ONCE PO 08/25/16 10:30 08/25/16 10:31 DC 08/25/16 11:12 5 MG Atorvastatin Calcium (Lipitor Tab) 20 mg NOW ONCE PO 08/25/16 10:30 08/25/16 10:31 DC 08/25/16 11:12 20 MG Metoprolol Tartrate (Lopressor Tab) 12.5 mg NOW STAT PO 08/25/16 10:24 08/25/16 10:25 DC 08/25/16 11:12 12.5 MG ECG Indication: nausea Rate (beats per minute): 78 Rhythm: normal sinus Findings: no acute ischemic change, no ectopy ED Course 1014: The patient was evaluated in room B4. A complete history and physical exam was performed. 1018: Ordered Dilaudid Inj 0.5 mg IV, Zofran 8 mg IV, NSS 1000 ml @ 999 mls/hr IV, NSS 1000 ml @ 999 mls/hr IV. 1024: Ordered Metoprolol Tartrate 12.5 mg PO. 1030: Ordered Lipitor Tab 20 mg PO, Lisinopril 5 mg PO. 1330: I reassessed the patient. She is doing better and feeling well. 1451: I reevaluated the patient. Discussed results and discharge instructions: She verbalized understanding and agreement. The patient is ready for discharge. Case management is setting the patient up for an outpatient appointment. Medical Decision Triage Nursing notes reviewed. The patient's presentation and history were concerning for concussion symptoms, neck strain, hypertension. Etiologies such as cervical strain, intracranial bleed, hypertensive emergency, benign hypertension, cardiovascular pathology, pheochromocytoma, electrolyte abnormality, renal disease, endorgan damage, as well as others were entertained. Patient was evaluated here a few days ago. CT imaging of the neck were unremarkable. She didn't have a thyroid nodule noted. Blood work was obtained. The patient had a unremarkable CBC, chemistry panel, cardiac markers however her TSH was low. T4 was normal but free T3 was elevated. The patient was given a blood pressure medication and this improved. She was given normal saline and Dilaudid for symptom control and felt much better. I suspect that she has a cervical strain given her tenderness is over her lateral neck musculature and she has concussive symptoms. She has mild hypertension with a negative head CT scan. Her blood work is unremarkable. We did contact her primary office to set up a follow-up appointment for this Thursday. The patient will need further evaluation of this thyroid nodule and mild hyperthyroidism. The patient will also need her blood pressure evaluated and the concussive symptoms as well. The patient has a few oxycodone at home and will use this and Tylenol. If she has any problems persist or recur she will come back to the emergency from for reevaluation. By the evaluation outlined above other emergent etiologies such as those listed in the differential, as well as others, were deemed relatively unlikely. The patient was informed about the findings as listed above. All questions were answered and she was pleased with the treatment. Return instructions were outlined and the patient was discharged in stable condition. The patient was referred to her primary physician this Thursday for follow-up for a recheck of the current condition. The chart was completed utilizing [employer] Speech voice recognition software. Grammatical errors, random word insertions, pronoun errors, and incomplete sentences are an occasional consequence of this system due to software limitations, ambient noise, and hardware issues. Any formal questions or concerns about the content, text, or information contained within the body of this dictation should be directly addressed to the physician for clarification. Impression Primary Impression: Concussion Additional Impressions: Hypertension Hyperthyroidism Cervical strain Scribe Attestation The scribe's documentation has been prepared under my direction and personally reviewed by me in its entirety. I confirm that the note above accurately reflects all work, treatment, procedures, and medical decision making performed by me. Departure Information Dispostion Home / Self-Care Referrals Lennie Steven DO (PCP) Patient Instructions My [facility] Additional Instructions Blood pressure was elevated. This will need close outpatient follow-up with your primary doctor. Continue current medications. Your thyroid function is also elevated. This needs further evaluation by your primary doctor. CONCUSSION DISCHARGE INSTRUCTIONS: What is a concussion? A concussion is a disturbance in the function of the brain caused by a direct or indirect force to the head. It results in a variety of symptoms like: headache, balance problems, nausea, vomiting, vision problems, hearing problems/ringing, drowsiness, irritability, and/or difficulty concentrating or remembering. A concussion may, or may not involve memory problems or loss of consciousness. Concussion instructions: Stop and stay away from ALL physical activity until you are symptom free from: Headaches Balance problems Feeling "dinged" Poor concentration Drowsy Fatigued Rest and avoid strenuous activities for the next few days. Get 8-10 hours of sleep per night. Limit activities that involve significant concentration and attention during this time to speed your recovery. This includes studying, attending school, playing video games, and heavy reading. Your brain needs to rest. Eat right and eat often. Now is the time to feed your brain. Well balanced diets that avoid high sugar foods, sodas, caffeine, etc. are better for your brain. NO ALCOHOL OR DRUGS! Avoid stimulants like caffeine, red bull, mountain dew, "energy" drinks, etc. Tylenol(acetaminophen) may be used for headaches. Use 1000mg every six hours as needed. Avoid using more than 4000mg in a 24 hour period. Avoid anti-inflammatories such as aspirin, ibuprofen, Alleve, naprosyn, Motrin, or Advil as these can interfere with blood clotting and lead to bleeding within the brain after a traumatic injury. FOLLOW UP INSTRUCTIONS: Follow-up with your primary physician as scheduled by us on August 29 at 11:20 AM. POST CONCUSSIVE SYNDROME: Occasionally patients can experience a postconcussive syndrome which includes prolonged headaches and memory difficulties. This may occur over the next several days, weeks or rarely, even months. It is important to have a primary care physician follow-up in order to help if the situation develops. Problems could arise over the next 24 to 48 hours. You should not be left alone and MUST go to the hospital immediately if you: -Have a headache that suddenly gets worse. -Are very drowsy or cannot be woken up from sleep. -Can't recognize people or places. -Have repeated vomiting. -Behave unusually, seemed confused, or start acting irritable. -Have a seizure (arms and legs start jerking uncontrollably). -Have weak or numb arms or legs. -Are unsteady on your feet -Experience slurred speech or difficulty speaking. Problem Qualifiers
[2016-11-23] MEDS ORDERED: IBUP-1428 PO (06:08)
[2016-11-23] MEDS ORDERED: TRAZ50TA35 PO (11:11)
[2016-11-23] MEDS ORDERED: PRVHFAIN INH (13:12)
[2016-11-23] MEDS ORDERED: SERT50TA PO (13:54)
== END 2016-08-25 15:15 | disposition home or self-care (01) ==
LOC: C.EDB 09:04
DX: S06.0X0A Concussion without loss of consciousness, initial encounter (principal); S16.1XXA Strain of muscle, fascia and tendon at neck level, initial encounter; W19.XXXA Unspecified fall, initial encounter; Y92.89 Other specified places as the place of occurrence of the external cause; Y99.0 Civilian activity done for income or pay; I10 Essential (primary) hypertension; E05.90 Thyrotoxicosis, unspecified without thyrotoxic crisis or storm; I25.10 Atherosclerotic heart disease of native coronary artery without angina pectoris; F32.9 Major depressive disorder, single episode, unspecified; E78.5 Hyperlipidemia, unspecified; Z83.3 Family history of diabetes mellitus; Z83.79 Family history of other diseases of the digestive system; Z82.49 Family history of ischemic heart disease and other diseases of the circulatory system; Z84.1 Family history of disorders of kidney and ureter; Z87.891 Personal history of nicotine dependence; Z79.899 Other long term (current) drug therapy

== ENCOUNTER 2016-11-23 16:44 | Emergency (ER) | payer OTHER ==
[~2016-11-23] VITALS: Ht 170.2 cm; Wt 128.0 kg
[~2016-11-23 16:44] MED LIST changes: -FLVHFA110 INH; +IBUP-1428 PO; +PRVHFAIN INH; +SERT50TA PO; +TRAZ50TA35 PO
[2016-11-23 16:57] VITALS: TEMP 36.5; Ht 170.2 cm; Wt 128.0 kg
[2016-11-23] MEDS ORDERED: LORAZEPAM 1 MG TAB SL STA (17:05)
[2016-11-23] MEDS ORDERED: ACETAMINOPHEN 500 MG TAB PO STA (17:05)
[2016-11-23 17:32] LABS: URINE APPEARANCE CLEAR (CLEAR); URINE BILIRUBIN NEG (NEG); URINE COLOR YELLOW; URINE EPITHELIAL CELL AUTO >30 /lpf (0-5); URINE NITRITE NEG (NEG); URINE PH 5.5 (4.5-7.5); UROBILINOGEN NEG (NEG)
[2016-11-23 17:33] LABS: MANUAL MICROSCOPIC REQUIRED? NO; REVIEW REQ? NO
[2016-11-23 17:46] LABS: BASO % 0.3 %; BASO ABS # 0.03 K/uL (0-0.2); COMPLETE YES; EOS % 0.9 %; HEMATOCRIT 34.3 % (37-47); IG% 0.3 %; LYMPH % 17.6 %; LYMPH ABS # 1.64 K/uL (1.2-3.4); MEAN CELL VOLUME 82.3 fL (80-100); MEAN CORPUSCULAR HEMOGLOBIN 26.1 pg (25-34); MEAN CORPUSCULAR HGB CONC 31.8 g/dl (32-36); MEAN PLATELET VOLUME 8.4 fL (7.4-10.4); MONO % 8.7 %; NEUT % 72.2 %; PLATELET COUNT 353 K/uL (130-400); RED BLOOD COUNT 4.17 M/uL (4.2-5.4); WHITE BLOOD COUNT 9.31 K/uL (4.8-10.8)
[2016-11-23 17:49] LABS: BENZODIAZEPINE, URINE NEG (NEG); COCAINE,URINE NEG (NEG); PHENCYCLIDINE, URINE NEG (NEG)
[2016-11-23 18:07] LABS: ALT/SGPT 19 U/L (12-78); AST/SGOT 16 U/L (15-37); BLOOD UREA NITROGEN 16 mg/dl (7-18); BUN/CREATININE RATIO 20.3 (10-20); CALCIUM 8.8 mg/dl (8.5-10.1); CARBON DIOXIDE 31 mmol/L (21-32); CHLORIDE 105 mmol/L (98-107); CREATININE 0.77 mg/dl (0.60-1.20); GLUCOSE 88 mg/dl (70-99); POTASSIUM 4.4 mmol/L (3.5-5.1); PREG INTERNAL NEGATIVE QC NEG CLEAR BACKGROUND; PREG INTERNAL POSITIVE QC POS CONTROL LINE; SODIUM 142 mmol/L (136-145)
[2016-11-23 18:18] LABS: ALKALINE PHOSPHATASE 89 U/L (45-117); THYROID STIMULATING HORMONE < 0.005 uIu/ml (0.300-4.500)
[2016-11-23 18:20] LABS: ACETAMINOPHEN < 2 ug/ml (10-30)
[2016-11-23] MEDS ORDERED: LISI-461 PO (18:40)
[2016-11-23] MEDS ORDERED: ACET500T57 PO (18:40)
[2016-11-23] MEDS ORDERED: MOME200A INH (19:11)
[2016-11-23] MEDS ORDERED: LPT/20 PO (19:11)
[2016-11-23] MEDS ORDERED: ASPI81TA28 PO (20:03)
[2016-11-23] MEDS ORDERED: METO25TA56 PO (20:03)
[2016-11-23] MEDS ORDERED: NITR0.4S UT (20:03)
[2016-11-23 21:04] VITALS: BP 142/77; PULSE 78; O2SAT 95
--- NOTE | 2016-11-23 23:01 | EMERGENCY ROOM VISIT NOTE ---
History Report prepared by Jose: Ovidio Perera Under the Supervision of: Dr. Alessandro Bower M.D. First contact with patient: 16:49 Stated Complaint: MHID History of Present Illness The patient is a 51 year old female who presents to the Emergency Room via ambulance for an acute mental health evaluation. The patient has been extremely stressed out over the past week. She states that "she just wants to go to sleep. " The patient denies any specific suicidal plans or homicidal ideations. The patient's best friend committed suicide six days ago. She was very close to this individual and was even engaged to him in the past. The patient came home from work today to her roommate "screaming at her." Her blood pressure became excessively high at 195 systolic today. She also complains of a headache. The patient has been admitted at [facility] before for depression. She notes that her mental health was worse when she was admitted at [facility]. She has a prescription for Zoloft. The patient follows up with the [facility] group. The patient has a history of coronary artery disease s/p stent placement. She also has history of asthma. She also takes baby aspirin, metoprolol, lisinopril, and trazodone. Source of History: patient Onset: today Position: other (psyche) Quality: other (mental health evaluation) Timing: other (acute) Associated Symptoms: + headache Review of Systems See HPI for pertinent positives and negatives. A total of ten systems were reviewed and were otherwise negative. Past Medical & Surgical Medical Problems: (1) CAD (coronary artery disease) (2) Chronic bronchitis (3) Depression (4) Dyslipidemia (5) Dyslipidemia (6) History of heart disease (7) HTN (hypertension) (8) HTN (hypertension) Surgical Problems: (1) History of coronary artery stent placement (2) Hx of cholecystectomy Family History Diabetes mellitus BROTHER SISTER Gallbladder disease Heart disease Hypertension Kidney disease Social History Smoking Status: Former Smoker Alcohol Use: none Drug Use: none Housing Status: lives with family Occupation Status: employed Current/Historical Medications Scheduled Aspirin (Aspirin Ec), 81 MG PO DAILY Atorvastatin (Atorvastatin Calcium), 20 MG PO DAILY Lisinopril (Zestril), 10 MG PO DAILY Metoprolol Tartrate (Lopressor) (Lopressor), 12.5 MG PO BID Sertraline (Zoloft), 50 MG PO DAILY Trazodone Hcl (Trazodone), 50 MG PO HS Scheduled PRN Acetaminophen (Acetaminophen), 1,000 MG PO Q6H PRN for Pain Albuterol (Ventolin Hfa), 2 PUFFS INH QID PRN for SOB/Wheezing Ibuprofen (Motrin), 800 MG PO Q6H PRN for Pain Mometasone Furoate-Formoterol (Dulera 200/5 Mcg), 2 PUFFS INH BID PRN for SOB/ Wheezing Nitroglycerin (Nitrostat), 0.4 MG UT UD PRN for Chest Pain Allergies Coded Allergies: Loratadine (Verified Allergy, Severe, 08/25/16) FACE SWELLED--NEEDED O2 Ketorolac Tromethamine (Verified Allergy, Intermediate, DIAPHORESIS, RASH , 08/25/16) Iodinated Diagnostic Agents (Verified Allergy, Mild, ITCHING, 08/25/16) Physical Exam Vital Signs Date Time Temp Pulse Resp B/P Pulse Ox O2 Delivery O2 Flow Rate FiO2 11/23/16 21:04 78 16 142/77 95 11/23/16 18:51 76 18 147/80 99 Room Air 11/23/16 16:57 36.5 93 22 178/82 97 Room Air Physical Exam GENERAL: Awake, alert, tearful and anxious appearing. HENT: Normocephalic, atraumatic. TM's normal. Oropharynx unremarkable. EYES: PERRL. EOMI. Normal conjunctiva. Sclera non-icteric. NECK: Supple. No nuchal rigidity. FROM. No JVD or bruit. RESPIRATORY: CTA CARDIAC: RRR. No murmur. ABDOMEN: Soft, non distended. No tenderness to palpation. No rebound or guarding. No masses. MUSCULOSKELETAL: Unremarkable. No edema. No discoloration. Gross motor strength symmetric. NEURO: Cranial nerves 2-12 grossly intact. Normal sensorium. No sensory or motor deficits noted. Speech normal. No pronator drift. SKIN: No rash or jaundice noted. LYMPH: No adenopathy. PSYCH: Depressed mood, flat affect. No suicidal ideation currently. No homicidal ideation. Moderate insight and judgement. Medical Decision & Procedures Laboratory Results 11/23/16 17:33 Red Blood Count 4.17, Mean Corpuscular Volume 82.3, Mean Corpuscular Hemoglobin 26.1, Mean Corpuscular Hemoglobin Concent 31.8, Mean Platelet Volume 8.4, Neutrophils (%) (Auto) 72.2, Lymphocytes (%) (Auto) 17.6, Monocytes (%) (Auto) 8.7, Eosinophils (%) (Auto) 0.9, Basophils (%) (Auto) 0.3, Neutrophils # (Auto) 6.72, Lymphocytes # (Auto) 1.64, Monocytes # (Auto) 0.81, Eosinophils # (Auto) 0.08, Basophils # (Auto) 0.03 11/23/16 17:33 Test 11/23/16 17:00 11/23/16 17:15 11/23/16 17:33 Urine Color YELLOW Urine Appearance CLEAR (CLEAR) Urine pH 5.5 (4.5-7.5) Urine Specific [place] 1.010 (1.000-1.030) Urine Protein NEG (NEG) Urine Glucose (UA) NEG (NEG) Urine Ketones NEG (NEG) Urine Occult Blood TRACE (NEG) Urine Nitrite NEG (NEG) Urine Bilirubin NEG (NEG) Urine Urobilinogen NEG (NEG) Urine Leukocyte Esterase TRACE (NEG) Urine WBC (Auto) 1-5 /hpf (0-5) Urine RBC (Auto) 5-10 /hpf (0-4) Urine Hyaline Casts (Auto) 1-5 /lpf (0-5) Urine Epithelial Cells (Auto) >30 /lpf (0-5) Urine Bacteria (Auto) NEG (NEG) Urine Opiates Screen NEG (NEG) Urine Methadone, Qualitative NEG (NEG) Urine Barbiturates NEG (NEG) Urine Phencyclidine (PCP) Level NEG (NEG) Ur Amphetamine/Methamphetamine NEG (NEG) MDMA (Ecstasy) Screen NEG (NEG) Urine Benzodiazepines Screen NEG (NEG) Urine Cocaine Metabolite NEG (NEG) Urine Marijuana (THC) NEG (NEG) Bedside Glucose 97 mg/dl (70-90) White Blood Count 9.31 K/uL (4.8-10.8) Red Blood Count 4.17 M/uL (4.2-5.4) Hemoglobin 10.9 g/dL (12.0-16.0) Hematocrit 34.3 % (37-47) Mean Corpuscular Volume 82.3 fL (80-100) Mean Corpuscular Hemoglobin 26.1 pg (25-34) Mean Corpuscular Hemoglobin Concent 31.8 g/dl (32-36) Platelet Count 353 K/uL (130-400) Mean Platelet Volume 8.4 fL (7.4-10.4) Neutrophils (%) (Auto) 72.2 % Lymphocytes (%) (Auto) 17.6 % Monocytes (%) (Auto) 8.7 % Eosinophils (%) (Auto) 0.9 % Basophils (%) (Auto) 0.3 % Neutrophils # (Auto) 6.72 K/uL (1.4-6.5) Lymphocytes # (Auto) 1.64 K/uL (1.2-3.4) Monocytes # (Auto) 0.81 K/uL (0.11-0.59) Eosinophils # (Auto) 0.08 K/uL (0-0.5) Basophils # (Auto) 0.03 K/uL (0-0.2) RDW Standard Deviation 41.0 fL (36.4-46.3) RDW Coefficient of Variation 13.6 % (11.5-14.5) Immature Granulocyte % (Auto) 0.3 % Immature Granulocyte # (Auto) 0.03 K/uL (0.00-0.02) Anion Gap 6.0 mmol/L (3-11) Est Creatinine Clear Calc Drug Dose 119.0 ml/min Estimated GFR () 102.9 Estimated GFR (Non- 88.8 BUN/Creatinine Ratio 20.3 (10-20) Calcium Level 8.8 mg/dl (8.5-10.1) Total Bilirubin 0.1 mg/dl (0.2-1) Direct Bilirubin < 0.1 mg/dl (0-0.2) Aspartate Amino Transf (AST/SGOT) 16 U/L (15-37) Alanine Aminotransferase (ALT/SGPT) 19 U/L (12-78) Alkaline Phosphatase 89 U/L (45-117) Total Protein 7.6 gm/dl (6.4-8.2) Albumin 3.4 gm/dl (3.4-5.0) Thyroid Stimulating Hormone (TSH) < 0.005 uIu/ml (0.300-4.500) Free Thyroxine 1.00 ng/dl (0.80-1.60) Free Triiodothyronine 3.72 pg/ml (2.30-4.20) Human Chorionic Gonadotropin, Qual NEG (NEG) Salicylates Level < 1.7 mg/dl (2.8-20) Acetaminophen Level < 2 ug/ml (10-30) Ethyl Alcohol mg/dL < 3.0 mg/dl (0-3) Laboratory results reviewed by me Medications Administered Medications (Trade) Dose Ordered Sig/Gerda Route Start Time Stop Time Status Last Admin Dose Admin Acetaminophen (Tylenol Tab) 1,000 mg NOW STAT PO 11/23/16 17:05 11/23/16 17:06 DC 11/23/16 17:23 1,000 MG Lorazepam (Ativan Tab) 1 mg NOW STAT SL 11/23/16 17:05 11/23/16 17:06 DC 11/23/16 17:23 1 MG ECG Indication: other (hypothyroidism) Rate (beats per minute): 79 Rhythm: normal sinus Findings: no acute ischemic change, no ectopy ED Course 1699: The patient was evaluated in room A7. A complete history and physical exam was performed. 1704: Ativan 1 mg SL, Tylenol 1000 mg PO. 1908: The patient is feeling better. The bottle caser is seeing her. The patient states that her family doctor told her that "her thyroid is off." The patient is not sure what this means. 2044: Updated the patient. She met with case management and does not meet admission criteria. The patient is comfortable going home. Medical Decision Prior records/ancillary studies reviewed. Triage Nursing notes reviewed and agree them. The patient's history was concerning for possible psychiatric disturbance. Differential diagnosis: Etiologies such as mood disorder, infection, hypoglycemia, electrolyte abnormalities, cardiac sources, intracerebral event, toxicologic, neurologic, as well as others were entertained. Physical examination: The physical examination was performed as above and was completely benign. No emergent medical pathologies were noted. Mild hypertension noted. The patient was informed. ER treatment provided: Tylenol Ativan sublingual On reassessment the patient felt much better. She was not suicidal. Diagnostic interpretation by me: No diagnostic studies were performed based upon the history and physical examination. The electrocardiogram was negative for pathologic change. The labs revealed an unremarkable CBC and chemistry panel. TSH was low however T3 and T4 were normal. Imaging studies: Deferred The patient was evaluated by the mental health bottle caser in the emergency department and admission was felt to be not warranted. The patient is not suicidal or homicidal. She was stressed and upset because of her friend's suicide. After rest here she was feeling much better. I discussed conservative management with her. She felt comfortable. Case management found no issues warranting admission at this time. The patient wishes to follow-up as an outpatient. Case management did refer the patient. She will also follow- up with her primary physician for that low TSH. By the evaluation outlined above emergent etiologies such as infection, hypoglycemia, electrolyte abnormalities, cardiac sources, intracerebral event, toxicologic, neurologic,as well as others were deemed relatively unlikely. It appears the patient is dealing with a psychiatric disturbance. The patient was informed about the findings as listed above. All questions were answered and she was pleased with the treatment. Return instructions were outlined and the patient was discharged in stable condition. Outpatient prescription management: No change Referral: Outpatient services were discussed by case management. The patient will follow- up this week or return to the emergency department if symptoms worsen. The patient was referred back to her primary care physician for follow-up in 2 to 3 days for a recheck of the current condition. The chart was completed utilizing [employer] voice recognition software. Grammatical errors, random word insertions, pronoun errors, and incomplete sentences are an occasional consequence of this system due to software limitations, ambient noise, and hardware issues. Any formal questions or concerns about the content, text, or information contained within the body of this dictation should be directly addressed to the physician for clarification. Impression Primary Impression: Mood disorder Scribe Attestation The scribe's documentation has been prepared under my direction and personally reviewed by me in its entirety. I confirm that the note above accurately reflects all work, treatment, procedures, and medical decision making performed by me. Departure Information Dispostion Home / Self-Care Referrals Lennie Steven DO (PCP) Forms HOME CARE DOCUMENTATION FORM, IMPORTANT VISIT INFORMATION Patient Instructions My [facility] Additional Instructions PSYCHIATRIC INSTRUCTIONS: Continue your current medications. Return to the ER for severe anxiety or depression, thoughts of hurting yourself or others, inability to function, hallucinations, worsening of your condition, or as needed. Follow up with outpatient services as arranged by psychiatry/mental health. Follow up with your primary care physician this week for a recheck of your current condition and continued care. Discuss your thyroid function. Your TSH measurement was low in the Emergency Room. Basic thyroid hormone levels were normal.
== END 2016-11-23 21:05 | disposition home or self-care (01) ==
LOC: EDBD 16:44 → C.EDA 16:45
DX: F39 Unspecified mood [affective] disorder (principal); E78.5 Hyperlipidemia, unspecified; I10 Essential (primary) hypertension; I25.10 Atherosclerotic heart disease of native coronary artery without angina pectoris; F32.9 Major depressive disorder, single episode, unspecified; I51.9 Heart disease, unspecified; Z98.61 Coronary angioplasty status; Z90.49 Acquired absence of other specified parts of digestive tract; Z87.891 Personal history of nicotine dependence; Z79.82 Long term (current) use of aspirin; Z79.899 Other long term (current) drug therapy; Z88.8 Allergy status to other drugs, medicaments and biological substances; Z91.041 Radiographic dye allergy status; Z83.3 Family history of diabetes mellitus; Z83.79 Family history of other diseases of the digestive system; Z82.49 Family history of ischemic heart disease and other diseases of the circulatory system; Z84.1 Family history of disorders of kidney and ureter

== ENCOUNTER 2016-12-08 23:45 | Emergency (ER) | payer OTHER ==
[~2016-12-08] VITALS: Ht 167.6 cm; Wt 128.0 kg
[~2016-12-08 23:45] MED LIST changes: -ACET-1311 PO; +ACET500T57 PO; +ASPI81TA28 PO; -HYDR-5688 PO; +LISI-461 PO; -LISI-729 PO; +LPT/20 PO; +METO25TA56 PO; +MOME200A INH; +NITR0.4S UT; -OXYC1TAB3 PO
[2016-12-08 23:49] VITALS: Ht 167.6 cm; Wt 128.0 kg
[2016-12-09 00:19] LABS: BASO % 0.3 %; BASO ABS # 0.03 K/uL (0-0.2); COMPLETE YES; EOS % 1.6 %; HEMATOCRIT 36.1 % (37-47); IG% 0.3 %; LYMPH % 6.9 %; LYMPH ABS # 0.74 K/uL (1.2-3.4); MEAN CELL VOLUME 81.9 fL (80-100); MEAN CORPUSCULAR HEMOGLOBIN 26.3 pg (25-34); MEAN CORPUSCULAR HGB CONC 32.1 g/dl (32-36); MEAN PLATELET VOLUME 8.7 fL (7.4-10.4); MONO % 6.9 %; PLATELET COUNT 308 K/uL (130-400); RED BLOOD COUNT 4.41 M/uL (4.2-5.4); WHITE BLOOD COUNT 10.68 K/uL (4.8-10.8)
[2016-12-09] MEDS ORDERED: ACETAMINOPHEN 500 MG TAB PO STA (00:28)
[2016-12-09 00:32] LABS: PARTIAL THROMBOPLASTIN RATIO 1.2; PROTHROMBIN TIME (PATIENT) 10.7 SECONDS (9.0-12.0)
[2016-12-09 00:34] VITALS: O2SAT 93
[2016-12-09 00:36] LABS: BUN/CREATININE RATIO 15.5 (10-20); CREATININE 0.66 mg/dl (0.60-1.20); POTASSIUM 3.8 mmol/L (3.5-5.1)
[2016-12-09 00:38] LABS: ALB/GLOB RATIO 0.7 (0.9-2)
[2016-12-09 01:06] LABS: MANUAL MICROSCOPIC REQUIRED? NO; REVIEW REQ? NO; URINE APPEARANCE CLEAR (CLEAR); URINE BILIRUBIN NEG (NEG); URINE COLOR YELLOW; URINE EPITHELIAL CELL AUTO >30 /lpf (0-5); URINE NITRITE NEG (NEG); URINE SPECIFIC GRAVITY 1.022 (1.000-1.030); UROBILINOGEN NEG (NEG); ZZUR CULT IF INDIC CLEAN CATCH NO
[2016-12-09] MEDS ORDERED: OXYCODONE HCL IR 5 MG TAB (IMMEDIATE RELEASE) PO STA (01:06)
[2016-12-09] MEDS ORDERED: AZITHROMYCIN 250 MG TAB PO STA (01:07)
[2016-12-09 01:16] VITALS: TEMP 37.2
[2016-12-09] MEDS ORDERED: HYDR5SYP11 PO (01:59)
[2016-12-09] MEDS ORDERED: AZIT500T26 PO (01:59)
[2016-12-09 02:18] VITALS: BP 137/76; PULSE 84; O2SAT 95
--- NOTE | 2016-12-09 06:08 | EMERGENCY ROOM VISIT NOTE ---
History Report prepared by Jose: Kelly Ramos Under the Supervision of: Dr. Kaitlin Monet D.O. First contact with patient: 23:51 Chief Complaint: RESPIRATORY PROBLEMS Stated Complaint: RESPIRATORY DIFFICULTY Nursing Triage Summary: Patient with cold symptoms for about 2 days. Tonight told by PCP to take Robitussin which she did about 1800 but then tonight began to feel worse. Increased SOB and chest tightness. History of 2 cardiac stents and HTN. History of Present Illness The patient is a 51 year old female who presents to the Emergency Room with complaints of an episode of shortness of breath starting prior to arrival. The patient reports that yesterday she woke up with a sore throat and a cough. She states that she does cough up a substance. She notes that she has coughed so hard that she has vomited today. The patient reports that she called her PCP this morning, but they were out of town. The patient reports that she went to sleep tonight but awoke with chest pain and shortness of breath. She states that she was going to take her inhaler, but had already done so earlier and didn 't want to again. The patient complains of a fever, left sided back pain, diaphoresis, and chills. She notes that she took Tylenol and Robitussin for her symptom with little relief. The patient denies abdominal pain, difficulty moving bowels, urinary symptoms, and cramping in legs. The patient notes a history of bronchitis and pneumonia. Source of History: patient Onset: prior to arrival Position: other (global) Quality: other (global) Timing: other (episode) Associated Symptoms: + fevers, + chills, + diaphoresis, + cough, + chest pain, + vomiting (from coughing so hard), + back pain, No abdominal pain, No urinary symptoms Note: The patient complains of a sore throat, coughing up a substance. The patient denies difficulty moving her bowels and cramping in her legs. Review of Systems See HPI for pertinent positives & negatives. A total of 10 systems reviewed and were otherwise negative. Past Medical & Surgical Medical Problems: (1) Acute asthma (2) CAD (coronary artery disease) (3) Chronic bronchitis (4) Depression (5) Dyslipidemia (6) Dyslipidemia (7) History of heart disease (8) HTN (hypertension) (9) HTN (hypertension) Surgical Problems: (1) History of coronary artery stent placement (2) Hx of cholecystectomy Family History Diabetes mellitus BROTHER SISTER Gallbladder disease Heart disease Hypertension Kidney disease Social History Smoking Status: Never Smoker Alcohol Use: none Drug Use: none Housing Status: lives with family Occupation Status: employed Current/Historical Medications Scheduled Aspirin (Aspirin Ec), 81 MG PO DAILY Atorvastatin (Atorvastatin Calcium), 20 MG PO DAILY Azithromycin (Zithromax), 500 MG PO DAILY Hydrocodone W/ Homatropine (Hycodan 5/1.5MG 5 Ml), 10 ML PO Q6 Lisinopril (Zestril), 10 MG PO DAILY Metoprolol Tartrate (Lopressor) (Lopressor), 12.5 MG PO BID Sertraline (Zoloft), 50 MG PO DAILY Trazodone Hcl (Trazodone), 50 MG PO HS Scheduled PRN Acetaminophen (Acetaminophen), 1,000 MG PO Q6H PRN for Pain Albuterol (Ventolin Hfa), 2 PUFFS INH QID PRN for SOB/Wheezing Ibuprofen (Motrin), 800 MG PO Q6H PRN for Pain Mometasone Furoate-Formoterol (Dulera 200/5 Mcg), 2 PUFFS INH BID PRN for SOB/ Wheezing Nitroglycerin (Nitrostat), 0.4 MG UT UD PRN for Chest Pain Allergies Coded Allergies: Loratadine (Verified Allergy, Severe, 12/09/16) FACE SWELLED--NEEDED O2 Ketorolac Tromethamine (Verified Allergy, Intermediate, DIAPHORESIS, RASH , 12/09/16) Iodinated Diagnostic Agents (Verified Allergy, Mild, ITCHING, 12/09/16) Physical Exam Vital Signs Date Time Temp Pulse Resp B/P (MAP) Pulse Ox O2 Delivery O2 Flow Rate FiO2 12/09/16 02:18 84 18 137/76 95 12/09/16 01:16 37.2 94 20 146/69 94 Room Air 12/09/16 00:34 93 Room Air 12/08/16 23:55 111 12/08/16 23:52 Room Air 12/08/16 23:49 38.0 111 24 184/84 92 Room Air Physical Exam HEENT: Head - normocephalic and atraumatic. Pupils are equal, round, and reactive to light. Extraocular eye muscles are intact and sclera are anicteric. Ears - bilaterally patent canals with noninjected tympanic membranes and no evidence of hemotympanum. Nose - moist nasal mucosa without discharge. Mouth - moist buccal mucosa. Oropharynx is nonerythematous and there is no tonsillar exudate or edema noted. Oropharynx has moderate post nasal drip. Neck: Supple; no JVD, nuchal rigidity, cervical lymphadenopathy. Heart: Regular rhythm. Tachycardic rate. There is a normal S1 and S2 with no murmurs, clicks, or gallops appreciated. Lungs: Clear to auscultation bilaterally with no wheezes, rales, or rhonchi. Abdomen: Soft, completely nontender, nondistended, with good bowel sounds. There are no palpable pulsatile masses or hepatosplenomegaly. There is no guarding, rigidity, or rebound noted. Extremities: No evidence of cyanosis, clubbing, or edema. There are easily palpable peripheral pulses. Neuro:The patient is awake and alert, oriented to day, time, and place. Muscle strength is 5/5 in all 4 extremities. The patient has equal mechanical engineering director strength and equal pedal push and pull. There are no cerebellar signs. Skin: cheeks are flushed and skin is hot. Medical Decision & Procedures ER Provider Diagnostic Interpretation: Radiology results as stated below per my review and the radiologist's interpretation: CHEST XRAY Findings: no cardiomegaly, no pulmonary or infiltrated consolidation Laboratory Results 12/08/16 23:35 Red Blood Count 4.41, Mean Corpuscular Volume 81.9, Mean Corpuscular Hemoglobin 26.3, Mean Corpuscular Hemoglobin Concent 32.1, Mean Platelet Volume 8.7, Neutrophils (%) (Auto) 84.0, Lymphocytes (%) (Auto) 6.9, Monocytes (%) (Auto) 6.9, Eosinophils (%) (Auto) 1.6, Basophils (%) (Auto) 0.3, Neutrophils # (Auto) 8.97, Lymphocytes # (Auto) 0.74, Monocytes # (Auto) 0.74, Eosinophils # (Auto) 0.17, Basophils # (Auto) 0.03 12/08/16 23:35 Test 12/08/16 23:35 12/09/16 00:43 12/09/16 00:50 White Blood Count 10.68 K/uL (4.8-10.8) Red Blood Count 4.41 M/uL (4.2-5.4) Hemoglobin 11.6 g/dL (12.0-16.0) Hematocrit 36.1 % (37-47) Mean Corpuscular Volume 81.9 fL (80-100) Mean Corpuscular Hemoglobin 26.3 pg (25-34) Mean Corpuscular Hemoglobin Concent 32.1 g/dl (32-36) Platelet Count 308 K/uL (130-400) Mean Platelet Volume 8.7 fL (7.4-10.4) Neutrophils (%) (Auto) 84.0 % Lymphocytes (%) (Auto) 6.9 % Monocytes (%) (Auto) 6.9 % Eosinophils (%) (Auto) 1.6 % Basophils (%) (Auto) 0.3 % Neutrophils # (Auto) 8.97 K/uL (1.4-6.5) Lymphocytes # (Auto) 0.74 K/uL (1.2-3.4) Monocytes # (Auto) 0.74 K/uL (0.11-0.59) Eosinophils # (Auto) 0.17 K/uL (0-0.5) Basophils # (Auto) 0.03 K/uL (0-0.2) RDW Standard Deviation 41.6 fL (36.4-46.3) RDW Coefficient of Variation 13.7 % (11.5-14.5) Immature Granulocyte % (Auto) 0.3 % Immature Granulocyte # (Auto) 0.03 K/uL (0.00-0.02) Prothrombin Time 10.7 SECONDS (9.0-12.0) Prothromb Time International Ratio 1.0 (0.9-1.1) Activated Partial Thromboplast Time 32.0 SECONDS (21.0-31.0) Partial Thromboplastin Ratio 1.2 Anion Gap 7.0 mmol/L (3-11) Est Creatinine Clear Calc Drug Dose 136.6 ml/min Estimated GFR () 117.7 Estimated GFR (Non- 101.6 BUN/Creatinine Ratio 15.5 (10-20) Calcium Level 9.0 mg/dl (8.5-10.1) Total Bilirubin 0.4 mg/dl (0.2-1) Aspartate Amino Transf (AST/SGOT) 18 U/L (15-37) Alanine Aminotransferase (ALT/SGPT) 18 U/L (12-78) Alkaline Phosphatase 95 U/L (45-117) Total Protein 8.1 gm/dl (6.4-8.2) Albumin 3.4 gm/dl (3.4-5.0) Globulin 4.7 gm/dl (2.5-4.0) Albumin/Globulin Ratio 0.7 (0.9-2) Bedside Lactic Acid Venous 0.50 mmol/L (0.90-1.70) Urine Color YELLOW Urine Appearance CLEAR (CLEAR) Urine pH 5.0 (4.5-7.5) Urine Specific [place] 1.022 (1.000-1.030) Urine Protein TRACE (NEG) Urine Glucose (UA) NEG (NEG) Urine Ketones TRACE (NEG) Urine Occult Blood 2+ (NEG) Urine Nitrite NEG (NEG) Urine Bilirubin NEG (NEG) Urine Urobilinogen NEG (NEG) Urine Leukocyte Esterase NEG (NEG) Urine WBC (Auto) 1-5 /hpf (0-5) Urine RBC (Auto) 5-10 /hpf (0-4) Urine Hyaline Casts (Auto) 1-5 /lpf (0-5) Urine Epithelial Cells (Auto) >30 /lpf (0-5) Urine Bacteria (Auto) NEG (NEG) Laboratory results per my review. Medications Administered Medications (Trade) Dose Ordered Sig/Gerda Route Start Time Stop Time Status Last Admin Dose Admin Acetaminophen (Tylenol Tab) 1,000 mg NOW STAT PO 12/09/16 00:28 12/09/16 00:29 DC 12/09/16 00:44 1,000 MG Oxycodone HCl (Roxicodone Immediate Rel Tab) 10 mg NOW STAT PO 12/09/16 01:06 12/09/16 01:08 DC 12/09/16 01:17 10 MG Azithromycin (Zithromax Tab) 500 mg NOW STAT PO 12/09/16 01:07 12/09/16 01:09 DC 12/09/16 01:17 500 MG Procedure Tylenol Tab PO Oxycodone HCl PO Zithromax PO ECG Indication: SOB/dyspnea Rate (beats per minute): 107 Rhythm: sinus tachycardia Findings: no acute ischemic change, no ectopy ED Course 2355: Past medical records reviewed. The patient was evaluated in room C3. A complete history and physical exam was performed. An IV lock was initiated and labs were drawn as above. A twelve-lead EKG was obtained as described above. The patient went for chest x-ray as described above. 0028: Ordered Tylenol Tab 1000 mg PO. 0104: I revaluated the patient and she is still complaining of a severe sore throat and cough. I ordered her Oxy IR and Zithromax. I discussed her lab findings and results. We are currently waiting on the results of urinalysis. 0106: Ordered Oxycodone HCl 10 mg PO. 0107: Ordered Zithromax Tab 500 mg PO. 0150: I went over the urinalysis with the patient. She has hematuria. She proceeded to tell me that she is coughing up a brown substance. The patient verbalized agreement of the treatment plan. The patient will be discharged home. Medical Decision The patient is a 51 year old female who presents to the Emergency Room with complaints of an episode of sore throat and cough I attest that I have personally reviewed the patient's current medication list. Patient was found to have an elevated blood pressure and was referred to their primary doctor for recheck and further treatment. Differential diagnoses include bronchitis, pneumonia, sepsis, URI, asthma exacerbation. LABS: No leukocytosis Hemoglobin 11.6 Lactic acid 0.5 Glucose 124 Normal renal functions Noraml LFTs Coags neg Urine 2+ blood With 5-10 red blood cells This is a 51-year-old male patient with asthma who presents to the emergency department with sore throat, cough, and posttussive emesis. Vital signs remained stable here in the emergency department. She had no significant leukocytosis. She was not wheezing on my exam. She was given an initial dose of Zithromax for bronchitis. She does have a history of bronchitis and pneumonia. I also gave her prescription for Hycodan cough syrup to use. I've asked her to follow-up with her PCP within the next 48 hours if symptoms are not improving. She will also need to have repeat urinalysis by the PCPIf symptoms worsen, she should return here to the ER Impression Primary Impression: Acute bronchitis Additional Impression: Hematuria Scribe Attestation The scribe's documentation has been prepared under my direction and personally reviewed by me in its entirety. I confirm that the note above accurately reflects all work, treatment, procedures, and medical decision making performed by me. Departure Information Dispostion Home / Self-Care Prescriptions Azithromycin (Zithromax) 500 Mg Tab 500 MG PO DAILY, #6 TAB Prov: Kaitlin Monet D.O. 12/09/16 Hydrocodone W/ Homatropine (HYCODAN 5/1.5MG 5 ML) 1 Syp Syp 10 ML PO Q6 for Cough, #100 ML Prov: Kaitlin Monet D.O. 12/09/16 Referrals Lennie Steven, (PCP) Forms HOME CARE DOCUMENTATION FORM, IMPORTANT VISIT INFORMATION, WORK / SCHOOL INSTRUCTIONS Patient Instructions My [facility] Additional Instructions Rest. Take zithromax daily for next 6 days Hycodan - 10ml every 6 hours for cough. No driving while on this med. Follow up with PCP in next 1-2 weeks for a recheck of the urine Problem Qualifiers
--- NOTE | 2016-12-09 06:40 | DIAGNOSTIC IMAGING REPORT ---
CHEST 2 VIEWS ROUTINE CLINICAL HISTORY: Cough. Fever. COMPARISON STUDY: Chest radiograph May 04, 2016. FINDINGS: Lung volumes are normal. There is no pneumothorax or pleural effusion. Cardiac size is normal. Mediastinal contours are normal. There is no evidence of pulmonary edema. IMPRESSION: No acute cardiopulmonary findings. Electronically signed by: Anthony Ortiz M.D. 12/09/2016 6:38 AM Dictated Date/Time: 12/09/2016 6:38 AM
== END 2016-12-09 02:19 | disposition home or self-care (01) ==
LOC: EDBD 23:45 → C.EDC 23:49
DX: J20.9 Acute bronchitis, unspecified (principal); R31.9 Hematuria, unspecified; I10 Essential (primary) hypertension; Z87.01 Personal history of pneumonia (recurrent); I25.10 Atherosclerotic heart disease of native coronary artery without angina pectoris; F32.9 Major depressive disorder, single episode, unspecified; E78.5 Hyperlipidemia, unspecified; Z90.49 Acquired absence of other specified parts of digestive tract; Z83.3 Family history of diabetes mellitus; Z82.49 Family history of ischemic heart disease and other diseases of the circulatory system; Z84.1 Family history of disorders of kidney and ureter; Z79.82 Long term (current) use of aspirin; Z79.899 Other long term (current) drug therapy

== ENCOUNTER 2017-08-31 21:20 | Emergency (ER) | payer OTHER ==
[~2017-08-31] VITALS: Ht 167.6 cm; Wt 131.5 kg
[~2017-08-31 21:20] MED LIST changes: -ACET500T57 PO; +ACET500T58 PO; -LPT/20 PO; +LPT20 PO
[2017-08-31 21:26] VITALS: TEMP 37; Ht 167.6 cm; Wt 131.5 kg
[2017-08-31] MEDS ORDERED: LORAZEPAM 2 MG/ML 1 ML VIAL IV STA (22:00)
[2017-08-31 22:12] LABS: BASO % 0.6 %; BASO ABS # 0.06 K/uL (0-0.2); EOS % 2.9 %; EOS ABS # 0.28 K/uL (0-0.5); HEMOGLOBIN 10.7 g/dL (12.0-16.0); IG# 0.02 K/uL (0.00-0.02); LYMPH % 27.3 %; LYMPH ABS # 2.64 K/uL (1.2-3.4); MEAN CELL VOLUME 79.5 fL (80-100); MEAN CORPUSCULAR HEMOGLOBIN 25.8 pg (25-34); MEAN CORPUSCULAR HGB CONC 32.4 g/dl (32-36); MEAN PLATELET VOLUME 8.4 fL (7.4-10.4); MONO % 8.8 %; MONO ABS # 0.85 K/uL (0.11-0.59); NEUT % 60.2 %; NEUT ABS # 5.83 K/uL (1.4-6.5); PLATELET COUNT 343 K/uL (130-400); RED CELL DISTRIBUTION WIDTH CV 13.6 % (11.5-14.5); RED CELL DISTRIBUTION WIDTH SD 39.3 fL (36.4-46.3); WHITE BLOOD COUNT 9.68 K/uL (4.8-10.8)
[2017-08-31 22:22] LABS: ALBUMIN 3.1 gm/dl (3.4-5.0); ALT/SGPT 20 U/L (12-78); BLOOD UREA NITROGEN 19 mg/dl (7-18); CALCIUM 8.5 mg/dl (8.5-10.1); CARBON DIOXIDE 27 mmol/L (21-32); CREATININE 0.71 mg/dl (0.60-1.20); GLUCOSE 124 mg/dl (70-99); LIPASE 289 U/L (73-393); POTASSIUM 3.8 mmol/L (3.5-5.1); SODIUM 136 mmol/L (136-145)
[2017-08-31] MEDS ORDERED: ATOR-22 PO (22:25)
[2017-08-31] MEDS ORDERED: ACET-1256 PO (22:26)
[2017-08-31 22:27] LABS: ALKALINE PHOSPHATASE 96 U/L (45-117); AST/SGOT 14 U/L (15-37); TOTAL PROTEIN 7.5 gm/dl (6.4-8.2)
[2017-08-31] MEDS ORDERED: VNTHFA/IN INH (22:28)
[2017-08-31] MEDS ORDERED: IBUP-1428 PO (22:30)
[2017-08-31] MEDS ORDERED: LISI-461 PO (22:32)
[2017-08-31] MEDS ORDERED: METO25TA56 PO (22:33)
[2017-08-31] MEDS ORDERED: MOME200A INH (22:34)
[2017-08-31] MEDS ORDERED: NTRGSL/4 UT (22:35)
[2017-08-31] MEDS ORDERED: SERT50TA PO (22:38)
--- NOTE | 2017-08-31 22:42 | DIAGNOSTIC IMAGING REPORT ---
CERVICAL SPINE CT CT DOSE: 452.37 mGy.cm HISTORY: neck pain down left arm TECHNIQUE: Multiaxial CT images of the cervical spine were performed and reformatted in the sagittal and coronal plane without the use of contrast. A dose lowering technique was utilized adhering to the principles of ALARA. COMPARISON: Cervical spine CT 08/20/2016. FINDINGS: No fracture or subluxation. Prevertebral soft tissues and the C1-C2 interval are intact. The visualized posterior fossa appears unremarkable. There is a heterogeneous 2.7 cm nodule within the left thyroid lobe. This was likely under estimated on the prior study. The lung apices are clear. No pneumothorax. Mild to moderate multilevel cervical spondylosis is again noted. Evaluation of the central canal suboptimal due to the CT technique. However, there is ossification of the posterior longitudinal ligament at the C3 and C4 levels resulting and [id number] central canal narrowing. This is not significantly changed. There is also multilevel bilateral neural foraminal narrowing most pronounced at the right side of the C2-C3 level due to the vertebral and facet hypertrophy. Large anterior osteophytes seen within the lower cervical spine. IMPRESSION: 1. No significant change compared to the prior study. 2. No fracture or subluxation. 3. Multilevel cervical spondylosis as described above. This is most pronounced at the C3 and C4 levels where there is mild to moderate central canal narrowing due to the ossification of the posterior longitudinal ligament. 4. A 2.7 cm heterogeneous nodule within the left thyroid lobe. Recommend nonemergent thyroid ultrasound follow-up for further evaluation. Electronically signed by: Fortunato Weston M.D. 08/31/2017 10:41 PM Dictated Date/Time: 08/31/2017 10:34 PM
--- NOTE | 2017-08-31 23:03 | DIAGNOSTIC IMAGING REPORT ---
CHEST ONE VIEW PORTABLE HISTORY: Atypical CHEST PAIN COMPARISON: Chest 12/09/2016. FINDINGS: The heart is top normal in size. No pleural effusions. No pneumothorax. The right lung is clear. Questionable 9 mm left suprahilar nodule. This may be due to the overlapping second rib. IMPRESSION: No acute process within the chest. Questionable left suprahilar 9 mm nodule. This is likely due to the adjacent pulmonary vessels and overlapping second rib. Nonemergent PA and lateral view of the chest or chest CT can be used for confirmation. Electronically signed by: Fortunato Weston M.D. 08/31/2017 11:02 PM Dictated Date/Time: 08/31/2017 10:59 PM
[2017-09-01 00:56] VITALS: BP 163/86; PULSE 78; O2SAT 95
--- NOTE | 2017-09-01 04:52 | EMERGENCY ROOM VISIT NOTE ---
History First contact with patient: 21:53 Chief Complaint: CHEST PAIN Stated Complaint: CHEST PAIN Nursing Triage Summary: pt reports started with L shoulder pain this AM pt reports taking tylenol for this when it did not go away called for EMS pt took nitro X 1 at home give [id number] by EMS pt reports pain in L shoulder cont. with tingling down L arm pt reports hx of asthma denies increased sob History of Present Illness The patient is a 52 year old female who presents to the Emergency Room with complaints of neck pain that radiates down her left arm for the past day described as aching, ranging in severity 6 out of 10. Nothing makes it better or worse. EMS gave her aspirin and she took a nitro with no change of her symptoms. Patient is concerned this could be her heart. She has had prior heart disease. Her pain has been ongoing throughout the day. There was no injury. Patient denies chest pain, dyspnea, back pain, leg pain or swelling, numbness, tingling, weakness, abdominal pain, recent illness. No trauma to the area. Review of Systems An 10 system review of systems was completed with positives and pertinent negatives listed in the HPI. Past Medical/Surgical History Medical Problems: (1) Acute asthma (2) CAD (coronary artery disease) (3) Chronic bronchitis (4) Depression (5) Dyslipidemia (6) Dyslipidemia (7) History of heart disease (8) HTN (hypertension) (9) HTN (hypertension) Surgical Problems: (1) History of coronary artery stent placement (2) Hx of cholecystectomy Family History Diabetes mellitus BROTHER SISTER Gallbladder disease Heart disease Hypertension Kidney disease Social History Smoking Status: Never Smoker Alcohol Use: none Drug Use: none Housing Status: lives with family Occupation Status: employed Current/Historical Medications Scheduled Atorvastatin (Lipitor), 20 MG PO DAILY Lisinopril (Zestril), 10 MG PO DAILY Metoprolol Tartrate (Lopressor) (Lopressor), 12.5 MG PO BID Nitroglycerin (Nitrostat), 0.4 MG UT PRN Sertraline (Zoloft), 50 MG PO DAILY Scheduled PRN Acetaminophen (Tylenol), 1,000 MG PO Q6H PRN for Pain Albuterol Hfa (Ventolin Hfa), 22 PUFFS INH Q6H PRN for SOB/Wheezing Ibuprofen (Motrin), 800 MG PO Q6H PRN for Pain Mometasone Furoate-Formoterol (Dulera 200/5 Mcg), 2 PUFFS INH BID PRN for SOB/ Wheezing Physical Exam Vital Signs Date Time Temp Pulse Resp B/P (MAP) Pulse Ox O2 Delivery O2 Flow Rate FiO2 09/01/17 00:56 78 18 163/86 95 09/01/17 00:40 81 18 163/86 97 Room Air 08/31/17 23:11 87 18 176/88 98 Room Air 08/31/17 21:32 89 08/31/17 21:26 37.0 88 18 169/82 99 Room Air Physical Exam VITALS: Vitals are noted on the nurse's note and reviewed by myself. Vital signs hypertensive GENERAL: Pleasant female, in no acute distress, nondiaphoretic, well-developed well-nourished. SKIN: The skin was without rashes, erythema, edema, or bruising. There is no tenting of the skin. Capillary reflex less than 2 seconds. HEAD: Normocephalic atraumatic. EARS: External auditory canals clear, tympanic membranes pearly avina without erythema or effusion bilaterally. EYES: Pupils equal round and reactive to light and accommodation. Conjunctivae without injection, sclerae without icterus. Extraocular movements intact. NOSE: Patent, turbinates without inflammation or discharge. MOUTH: Mucous membranes moist. Pharynx without erythema or exudate. Uvula midline. Airway patent. Tongue does not deviate. NECK: Supple without nuchal rigidity. No lymphadenopathy. No thyromegaly. Cervical spine is nontender. No JVD. HEART: Regular rate and rhythm without murmurs gallops or rubs. LUNGS: Clear to auscultation bilaterally without wheezes, rales or rhonchi. No dullness to percussion. No retractions or accessory muscle use. ABDOMEN: Positive bowel sounds x 4. Normal tympanic percussion. Soft, nontender, without masses or organomegaly. Douglass sign negative. No guarding or rebound tenderness. MUSCULOSKELETAL: No muscle atrophy, erythema, or edema noted. Full range of motion without joint tenderness in all extremities. No tenderness to palpation. Normal gait. Strength 5/5 throughout. NEURO: Patient was alert and oriented to person place and time. Normal sensation to light and sharp touch. No focal neurological deficits. Medical Decision & Procedures Laboratory Results 08/31/17 21:33 Red Blood Count 4.15, Mean Corpuscular Volume 79.5, Mean Corpuscular Hemoglobin 25.8, Mean Corpuscular Hemoglobin Concent 32.4, Mean Platelet Volume 8.4, Neutrophils (%) (Auto) 60.2, Lymphocytes (%) (Auto) 27.3, Monocytes (%) (Auto) 8.8, Eosinophils (%) (Auto) 2.9, Basophils (%) (Auto) 0.6, Neutrophils # (Auto) 5.83, Lymphocytes # (Auto) 2.64, Monocytes # (Auto) 0.85, Eosinophils # (Auto) 0.28, Basophils # (Auto) 0.06 08/31/17 21:33 Test 08/31/17 21:33 09/01/17 00:05 White Blood Count 9.68 K/uL (4.8-10.8) Red Blood Count 4.15 M/uL (4.2-5.4) Hemoglobin 10.7 g/dL (12.0-16.0) Hematocrit 33.0 % (37-47) Mean Corpuscular Volume 79.5 fL (80-100) Mean Corpuscular Hemoglobin 25.8 pg (25-34) Mean Corpuscular Hemoglobin Concent 32.4 g/dl (32-36) Platelet Count 343 K/uL (130-400) Mean Platelet Volume 8.4 fL (7.4-10.4) Neutrophils (%) (Auto) 60.2 % Lymphocytes (%) (Auto) 27.3 % Monocytes (%) (Auto) 8.8 % Eosinophils (%) (Auto) 2.9 % Basophils (%) (Auto) 0.6 % Neutrophils # (Auto) 5.83 K/uL (1.4-6.5) Lymphocytes # (Auto) 2.64 K/uL (1.2-3.4) Monocytes # (Auto) 0.85 K/uL (0.11-0.59) Eosinophils # (Auto) 0.28 K/uL (0-0.5) Basophils # (Auto) 0.06 K/uL (0-0.2) RDW Standard Deviation 39.3 fL (36.4-46.3) RDW Coefficient of Variation 13.6 % (11.5-14.5) Immature Granulocyte % (Auto) 0.2 % Immature Granulocyte # (Auto) 0.02 K/uL (0.00-0.02) Anion Gap 6.0 mmol/L (3-11) Est Creatinine Clear Calc Drug Dose 127.5 ml/min Estimated GFR () 112.7 Estimated GFR (Non- 97.2 BUN/Creatinine Ratio 26.9 (10-20) Calcium Level 8.5 mg/dl (8.5-10.1) Total Bilirubin 0.1 mg/dl (0.2-1) Direct Bilirubin < 0.1 mg/dl (0-0.2) Aspartate Amino Transf (AST/SGOT) 14 U/L (15-37) Alanine Aminotransferase (ALT/SGPT) 20 U/L (12-78) Alkaline Phosphatase 96 U/L (45-117) Total Protein 7.5 gm/dl (6.4-8.2) Albumin 3.1 gm/dl (3.4-5.0) Lipase 289 U/L (73-393) Troponin I < 0.015 ng/ml (0-0.045) Medications Administered Medications (Trade) Dose Ordered Sig/Gerda Route Start Time Stop Time Status Last Admin Dose Admin Lorazepam (Ativan Inj) 0.5 mg NOW STAT IV 08/31/17 22:00 08/31/17 22:02 DC 08/31/17 22:07 0.5 MG ED Course Prior records/ancillary studies reviewed. Triage Nursing notes reviewed. The patient's history was concerning for neck pain that goes down her left arm Differential diagnosis: Etiologies such as cervical radiculopathy, brachial plexus problem, muscle skeletal, cardiac ischemia, aortic dissection, pulmonary embolism, pneumonia, pneumothorax, musculoskeletal, infections, pericarditis, myocarditis, esophageal rupture, gastrointestinal, as well as others were entertained. Physical examination: As above. ER treatment provided: Ativan On reassessment the patient felt better. Diagnostic interpretation by me: The electrocardiogram was negative for pathologic change. Normal sinus, normal intervals, no acute ST-T wave changes. Impression normal size and debris by myself. Repeat EKG is unchanged. The labs revealed 2 negative troponins greater than 2 hours apart, mild anemia. Hyperglycemia without DKA Imaging studies: Chest x-ray as above CHEST ONE VIEW PORTABLE HISTORY: Atypical CHEST PAIN COMPARISON: Chest 12/09/2016. FINDINGS: The heart is top normal in size. No pleural effusions. No pneumothorax. The right lung is clear. Questionable 9 mm left suprahilar nodule. This may be due to the overlapping second rib. IMPRESSION: No acute process within the chest. Questionable left suprahilar 9 mm nodule. This is likely due to the adjacent pulmonary vessels and overlapping second rib. Nonemergent PA and lateral view of the chest or chest CT can be used for confirmation. CT DOSE: 452.37 mGy.cm HISTORY: neck pain down left arm TECHNIQUE: Multiaxial CT images of the cervical spine were performed and reformatted in the sagittal and coronal plane without the use of contrast. A dose lowering technique was utilized adhering to the principles of ALARA. COMPARISON: Cervical spine CT 08/20/2016. FINDINGS: No fracture or subluxation. Prevertebral soft tissues and the C1-C2 interval are intact. The visualized posterior fossa appears unremarkable. There is a heterogeneous 2.7 cm nodule within the left thyroid lobe. This was likely under estimated on the prior study. The lung apices are clear. No pneumothorax. Mild to moderate multilevel cervical spondylosis is again noted. Evaluation of the central canal suboptimal due to the CT technique. 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 This is not significantly changed. There is also multilevel bilateral neural foraminal narrowing most pronounced at the right side of the C2-C3 level due to the vertebral and facet hypertrophy. Large anterior osteophytes seen within the lower cervical spine. IMPRESSION: 1. No significant change compared to the prior study. 2. No fracture or subluxation. 3. Multilevel cervical spondylosis as described above. This is most pronounced at the C3 and C4 levels where there is mild to moderate central canal narrowing due to the ossification of the posterior longitudinal ligament. 4. A 2.7 cm heterogeneous nodule within the left thyroid lobe. Recommend nonemergent thyroid ultrasound follow-up for further evaluation. Electronically signed by: Fortunato Weston M.D. Electronically signed by: Fortunato Weston M.D. Exam and history seem consistent with cervical radiculopathy. Patient had a normal EKG. [address] of the C-spine was concerning for degenerative disc disease. Patient was neurovascularly and neurologically intact. Patient had no deficits on exam. She is well-appearing. She is advised to follow-up with family care in a few days for further evaluation and workup for her symptoms and for abnormalities found on imaging today. She is advised to return to the ER admitted for chest pain, difficulty breathing, numbness, tingling, weakness, worsening signs or symptoms or as needed. By the evaluation outlined above emergent etiologies such as cardiac ischemia, aortic dissection, pulmonary embolism, pneumonia, pneumothorax, infections, pericarditis, myocarditis, gastrointestinal, as well as others were deemed relatively unlikely. The pt informed about the findings as listed above. All questions were answered and pleased with the treatment. Return instructions were outlined and the patient was discharged in stable condition. Case reviewed with my attending Referral: The patient was referred back to primary care physician for follow-up in 2 to 3 days for a recheck of the current condition. The chart was completed utilizing [employer] voice recognition software. Grammatical errors, random word insertions, pronoun errors, and incomplete sentences are an occassional consequence of this system due to software limitations, ambient noise, and hardware issues. Any formal questions or concerns about the content, text, or information contained within the body of this dictation should be directly addressed to the physician executive sales assistant for clarification. Medical Decision As above Medication Reconcilliation Current Medication List: was personally reviewed by me Blood Pressure Screening Patient's blood pressure: Elevated blood pressure Blood pressure disposition: Referred to PCP Impression Primary Impression: Cervical radiculopathy Departure Information Dispostion Home / Self-Care Condition GOOD Forms Call Back Authorization, HOME CARE DOCUMENTATION FORM, Work Instructions, Return To Work: 1 day IMPORTANT VISIT INFORMATION Patient Instructions [facility], ED Cervical Radiculopathy Additional Instructions Ibuprofen(Motrin, Advil) may be used for fever or pain. Use 600mg every six hours as needed. Take with food. Avoid using more than 2400mg in a 24 hour period. Do not use 2400mg per day for more than three consecutive days without physician direction. Prolonged inappropriate use can lead to stomach upset or ulcers. (AND/OR) Acetaminophen(Tylenol) may be used for fever or pain. Use 1000mg every six hours as needed. Avoid using more than 3000mg in a 24 hour period. Rest and drink plenty of fluids as tolerated. Continue current medications. Avoid strenuous activities and anything that worsens your pain. Resume normal activities once your symptoms resolve. Return to the ER immediately for worsening or persistent chest pain, abdominal pain, vomiting, fevers, chest pains, difficulty breathing, worsening of your condition, or as needed. Follow up with your primary physician in 2-3 days for a recheck of your current condition. Work Instructions Return To Work: 1 day
== END 2017-09-01 00:58 | disposition home or self-care (01) ==
LOC: EDBD 21:20 → C.EDA 21:22
DX: M54.12 Radiculopathy, cervical region (principal); J45.909 Unspecified asthma, uncomplicated; I25.10 Atherosclerotic heart disease of native coronary artery without angina pectoris; F32.9 Major depressive disorder, single episode, unspecified; E78.5 Hyperlipidemia, unspecified; I10 Essential (primary) hypertension; Z95.5 Presence of coronary angioplasty implant and graft; Z83.3 Family history of diabetes mellitus; Z83.79 Family history of other diseases of the digestive system; Z82.49 Family history of ischemic heart disease and other diseases of the circulatory system; Z84.1 Family history of disorders of kidney and ureter

== ENCOUNTER 2017-09-05 20:04 | Inpatient (IN) | payer OTHER ==
[~2017-09-05] VITALS: Ht 170.2 cm; Wt 133.3 kg
[~2017-09-05 20:04] MED LIST changes: +ACET-1256 PO; -ACET500T58 PO; -ASPI81TA28 PO; +ATOR-22 PO; -LPT20 PO; -NITR0.4S UT; +NTRGSL/4 UT; -PRVHFAIN INH; -TRAZ50TA35 PO; +VNTHFA/IN INH
[2017-09-05] MEDS ORDERED: MoRPHine SULFATE 4 MG/ML 1 ML CARP\\VIAL IV STA (20:23)
[2017-09-05] MEDS ORDERED: ASPIRIN 81 MG CHEW PO STA (20:23)
[2017-09-05 20:33] LABS: BASO % 0.2 %; BASO ABS # 0.02 K/uL (0-0.2); EOS % 0.2 %; EOS ABS # 0.02 K/uL (0-0.5); HEMATOCRIT 32.1 % (37-47); HEMOGLOBIN 10.3 g/dL (12.0-16.0); IG# 0.02 K/uL (0.00-0.02); LYMPH % 18.3 %; LYMPH ABS # 1.79 K/uL (1.2-3.4); MEAN CELL VOLUME 81.7 fL (80-100); MEAN CORPUSCULAR HEMOGLOBIN 26.2 pg (25-34); MEAN CORPUSCULAR HGB CONC 32.1 g/dl (32-36); MEAN PLATELET VOLUME 8.4 fL (7.4-10.4); MONO % 9.5 %; MONO ABS # 0.93 K/uL (0.11-0.59); NEUT % 71.6 %; NEUT ABS # 6.98 K/uL (1.4-6.5); PLATELET COUNT 371 K/uL (130-400); RED CELL DISTRIBUTION WIDTH CV 13.8 % (11.5-14.5); WHITE BLOOD COUNT 9.76 K/uL (4.8-10.8)
[2017-09-05] MEDS ORDERED: FAMOTIDINE 20MG/5ML IV PUSH IV STA (20:37)
[2017-09-05] MEDS ORDERED: GI COCKTAIL PO STA (20:37)
[2017-09-05 20:52] LABS: INR 0.9 (0.9-1.1); PTT PATIENT 26.3 SECONDS (21.0-31.0)
[2017-09-05 20:54] LABS: ALBUMIN 2.9 gm/dl (3.4-5.0); BLOOD UREA NITROGEN 19 mg/dl (7-18); CARBON DIOXIDE 28 mmol/L (21-32); CREATININE 0.73 mg/dl (0.60-1.20); GLUCOSE 165 mg/dl (70-99); LIPASE 245 U/L (73-393); POTASSIUM 4.1 mmol/L (3.5-5.1); SODIUM 139 mmol/L (136-145)
[2017-09-05 20:59] LABS: ALKALINE PHOSPHATASE 113 U/L (45-117); ALT/SGPT 21 U/L (12-78); AST/SGOT 14 U/L (15-37); TOTAL PROTEIN 7.3 gm/dl (6.4-8.2)
[2017-09-05] MEDS ORDERED: LIDOCAINE HCL 2% VISC SOLN 20 ML UDC ONE (20:59)
[2017-09-05] MEDS ORDERED: ALUMINUM/MAGNESIUM SUSP 30 ML UDC ONE (20:59)
--- NOTE | 2017-09-05 21:07 | DIAGNOSTIC IMAGING REPORT ---
CHEST 2 VIEWS ROUTINE CLINICAL HISTORY: 52 years-old Female presenting with CHEST PAIN. TECHNIQUE: PA and lateral views of the chest were obtained. COMPARISON: 08/31/2017. FINDINGS: Cardiomediastinal silhouette normal. Lungs and pleural spaces clear. Degenerative changes of the thoracic spine. Upper abdomen normal. IMPRESSION: 1. No acute cardiopulmonary disease. Electronically signed by: Angel Garg M.D. 09/05/2017 9:06 PM Dictated Date/Time: 09/05/2017 9:05 PM
[2017-09-05] MEDS ORDERED: PRED10TA PO (21:36)
[2017-09-05] MEDS ORDERED: RANI300T2 PO (21:36)
--- NOTE | 2017-09-05 21:37 | EMERGENCY ROOM VISIT NOTE ---
ED Visit Note First contact with patient: 20:07 CHIEF COMPLAINT: Shortness of breath and chest pain HISTORY OF PRESENTING ILLNESS: This is a 52-year-old female who presents to the emergency department via EMS with complaint of shortness of breath and chest pain. She states her symptoms started this morning at around 7 AM while she was at work. Patient states that the chest pain is in the center of her chest, radiates to her right shoulder blade, describes as a burning sensation like indigestion and a constant pressure, worse with exertion and lying flat, better with sitting upright and rest, currently rates as 7/10. Patient states she thought that she was having an asthma attack, she took her albuterol inhaler with no improvement. She also took some Zantac this morning without any improvement in her chest pain. She does have a history of coronary artery disease with 2 stents placed about 5 years ago, she states after she had an abnormal stress test. She denies a history of SD. She takes a baby aspirin daily, she is no longer on Plavix and she does not take any other blood thinners. She is a former smoker, she is obese, she has a history of hypertension and hyperlipidemia, and she has family history for heart disease as well. She denies any headaches, vision changes, abdominal pain, nausea or vomiting, diaphoresis, dizziness or syncope, leg pain or swelling, hemoptysis, recent travel or immobilization, exogenous estrogen, diarrhea or constipation, bloody or black stools, urinary symptoms, or rash. REVIEW OF SYSTEMS: A complete 10 point review of systems was reviewed with the patient with pertinent positives and negatives as per history of present illness. All else were negative. PAST MEDICAL HISTORY: SOCIAL HISTORY: Lives at home. She denies tobacco use, alcohol or recreational drug use. ALLERGIES: Reviewed in chart. PHYSICAL EXAM: CONSTITUTIONAL: Pleasant and cooperative. No acute distress, but appears uncomfortable and in pain. Obese. Able to speak in full sentences. HEENT: Normocephalic, atraumatic. Pupils equal, round and reactive to light, EOMI. TMs normal. Pharynx normal. NECK: Supple, full active range of motion without discomfort. RESPIRATORY: Clear to auscultation bilaterally with no wheezing, crackles, rhonchi or stridor. Slightly diminished in the bases. No tachypnea. No accessory muscle use. Equal expansion bilaterally. CARDIOVASCULAR: Regular rate and rhythm with no murmurs, rubs or gallops. Normal peripheral perfusion. No edema. GASTROINTESTINAL: Soft, nontender, nondistended, obese. No palpable masses or HSM. Bowel sounds present in all quadrants. MUSCULOSKELETAL: Full range of motion of all joints without discomfort. INTEGUMENTARY: No rash or other significant dermatologic conditions noted. NEUROLOGIC: Alert and oriented X 4 with normal affect. Cranial nerves II-XII grossly intact. No focal neurologic deficits noted. Normal strength and sensation in all 4 extremities. Normal speech. ED COURSE AND MEDICAL DECISION MAKING: CC: Patient presenting with complaint of shortness of breath and chest pain DIFFERENTIAL DIAGNOSIS: Includes, but not limited to acute coronary syndrome, pulmonary embolism, aortic dissection, pneumothorax, pericarditis, asthma exacerbation, COPD, CHF, bronchitis, pneumonia, anxiety, musculoskeletal pain, GERD, costochondritis, among others. INTERPRETATION OF LABS: No leukocytosis, mild anemia (appears consistent with baseline), no significant loculated abnormalities, elevated BUN with normal creatinine, normal liver enzymes and lipase. Elevated troponin. Mildly elevated pro-BNP. Coagulation factors within normal limits. IMAGIN view chest x-ray reviewed by myself and radiology and shows no acute cardiopulmonary abnormality by my interpretation. EKG: Shows normal sinus rhythm with a rate of 94 bpm, no ectopy, no acute ischemic changes noted, no significant change when compared to EKG from 2017 by my interpretation. MEDICATION RECONCILIATION: I attest that I have personally reviewed the patient 's current medication list. INITIAL VITAL SIGNS REVIEW: I reviewed the patient's initial vital signs and interpret them as follows: T: Afebrile; BP: Hypertensive; HR: Within normal limits; RR: Within normal limits; Pulse Ox: Within normal limits on room air. Blood pressure screening: The patient was found to have an elevated blood pressure and was referred to the inpatient hospitalist team for further management. SUMMARY: Patient was evaluated at bedside, history and physical exam performed. Patient is alert and oriented, no acute distress, but does appear uncomfortable , resting in the stretcher. The lungs are clear throughout with no wheezes on auscultation. She is not tachypneic. Sats 99% on room air. Patient describing a constant indigestion-like chest pain that radiates into her right shoulder blade. Her symptoms have been unrelieved with antacids and use of her albuterol inhaler. Patient's past medical history was reviewed with her, she does report a history of coronary artery disease and placement of 2 stents approximately 5 years ago. She states she did take a baby aspirin earlier today. She has not taken any of her nitroglycerin. EKG reviewed at bedside, noting normal sinus rhythm with no acute ischemic changes noted. Orders were placed at bedside for labs, aspirin, IV morphine for pain, IV Pepcid and GI cocktail to treat indigestion, CXR to evaluate for cardiopulmonary disease. Patient discussed with Dr. Duff, who agrees with my assessment and plan. Labs and imaging reviewed as above, notable for elevated troponin of 0.140 in the setting of chest pain and shortness of breath. Patient was reassessed after aspirin, morphine, Pepcid and GI cocktail. She states her pain is slightly improved, she now rates as 5/10. She states her shortness of breath also feels slightly improved, but is not resolved. Sublingual nitroglycerin ordered, on reassessment she states her pain is now 1/10. Patient was offered a second sublingual nitroglycerin and attempts to get her chest pain to 0, however she refused at this time. I spoke with Dr. Barry, hospitalist, who agrees to evaluate the patient for admission. Patient reassessed multiple times throughout ED stay, patient remains stable, her blood pressure has improved after the nitro and her pain remains at a 1/10. Patient was updated on all results and plan for admission, she verbalized understanding and was agreeable to this plan. The patient was stable at time of admission. Problem List Medical Problems: (1) CAD (coronary artery disease) Status: Chronic (2) Chronic bronchitis Status: Chronic (3) Depression Status: Chronic (4) Dyslipidemia Status: Chronic (5) Dyslipidemia Status: Chronic (6) History of heart disease Status: Chronic (7) HTN (hypertension) Status: Chronic (8) HTN (hypertension) Status: Chronic Surgical Problems: (1) History of coronary artery stent placement Permanent Comment: stent x 2 in mid LAD in 2012 Status: Resolved (2) Hx of cholecystectomy Status: Resolved Current/Historical Medications Scheduled Atorvastatin (Lipitor), 20 MG PO DAILY Lisinopril (Zestril), 10 MG PO DAILY Metoprolol Tartrate (Lopressor) (Lopressor), 12.5 MG PO BID Nitroglycerin (Nitrostat), 0.4 MG UT PRN Prednisone Tab (Prednisone), Unknown Dose PO TAPER UD Sertraline (Zoloft), 50 MG PO DAILY Scheduled PRN Acetaminophen (Tylenol), 1,000 MG PO Q6H PRN for Pain Albuterol Hfa (Ventolin Hfa), 22 PUFFS INH Q6H PRN for SOB/Wheezing Ibuprofen (Motrin), 800 MG PO Q6H PRN for Pain Mometasone Furoate-Formoterol (Dulera 200/5 Mcg), 2 PUFFS INH BID PRN for SOB/ Wheezing Ranitidine Hcl (Zantac), 300 MG PO DAILY PRN for ACID REFLUX Allergies Coded Allergies: Loratadine (Verified Allergy, Severe, 12/09/16) FACE SWELLED--NEEDED O2 Ketorolac Tromethamine (Verified Allergy, Intermediate, DIAPHORESIS, RASH , 12/09/16) Iodinated Diagnostic Agents (Verified Allergy, Mild, ITCHING, 12/09/16) Vital Signs Date Time Temp Pulse Resp B/P (MAP) Pulse Ox O2 Delivery O2 Flow Rate FiO2 09/05/17 22:05 90 20 127/67 98 Room Air 09/05/17 21:51 90 20 151/88 98 Room Air 09/05/17 20:28 96 Room Air 09/05/17 20:22 96 Room Air 09/05/17 20:22 92 09/05/17 20:20 96 Room Air 09/05/17 20:12 36.7 91 18 156/122 98 Room Air Laboratory Results 09/05/17 20:15 Red Blood Count 3.93, Mean Corpuscular Volume 81.7, Mean Corpuscular Hemoglobin 26.2, Mean Corpuscular Hemoglobin Concent 32.1, Mean Platelet Volume 8.4, Neutrophils (%) (Auto) 71.6, Lymphocytes (%) (Auto) 18.3, Monocytes (%) (Auto) 9.5, Eosinophils (%) (Auto) 0.2, Basophils (%) (Auto) 0.2, Neutrophils # (Auto) 6.98, Lymphocytes # (Auto) 1.79, Monocytes # (Auto) 0.93, Eosinophils # (Auto) 0.02, Basophils # (Auto) 0.02 3/3/18 20:15 Test 09/05/17 20:15 09/05/17 20:30 09/05/17 22:40 White Blood Count 9.76 K/uL (4.8-10.8) Red Blood Count 3.93 M/uL (4.2-5.4) Hemoglobin 10.3 g/dL (12.0-16.0) Hematocrit 32.1 % (37-47) Mean Corpuscular Volume 81.7 fL (80-100) Mean Corpuscular Hemoglobin 26.2 pg (25-34) Mean Corpuscular Hemoglobin Concent 32.1 g/dl (32-36) Platelet Count 371 K/uL (130-400) Mean Platelet Volume 8.4 fL (7.4-10.4) Neutrophils (%) (Auto) 71.6 % Lymphocytes (%) (Auto) 18.3 % Monocytes (%) (Auto) 9.5 % Eosinophils (%) (Auto) 0.2 % Basophils (%) (Auto) 0.2 % Neutrophils # (Auto) 6.98 K/uL (1.4-6.5) Lymphocytes # (Auto) 1.79 K/uL (1.2-3.4) Monocytes # (Auto) 0.93 K/uL (0.11-0.59) Eosinophils # (Auto) 0.02 K/uL (0-0.5) Basophils # (Auto) 0.02 K/uL (0-0.2) RDW Standard Deviation 42.0 fL (36.4-46.3) RDW Coefficient of Variation 13.8 % (11.5-14.5) Immature Granulocyte % (Auto) 0.2 % Immature Granulocyte # (Auto) 0.02 K/uL (0.00-0.02) Prothrombin Time 9.6 SECONDS (9.0-12.0) Prothromb Time International Ratio 0.9 (0.9-1.1) Activated Partial Thromboplast Time 26.3 SECONDS (21.0-31.0) Partial Thromboplastin Ratio 1.0 Anion Gap 6.0 mmol/L (3-11) Est Creatinine Clear Calc Drug Dose 124.8 ml/min Estimated GFR () 109.0 Estimated GFR (Non- 94.0 BUN/Creatinine Ratio 26.2 (10-20) Calcium Level 9.0 mg/dl (8.5-10.1) Total Bilirubin < 0.1 mg/dl (0.2-1) Direct Bilirubin < 0.1 mg/dl (0-0.2) Aspartate Amino Transf (AST/SGOT) 14 U/L (15-37) Alanine Aminotransferase (ALT/SGPT) 21 U/L (12-78) Alkaline Phosphatase 113 U/L (45-117) Pro-B-Type Natriuretic Peptide 939 pg/ml (0-900) Total Protein 7.3 gm/dl (6.4-8.2) Albumin 2.9 gm/dl (3.4-5.0) Lipase 245 U/L (73-393) Bedside Troponin I 0.140 ng/ml (0-0.045) Medications Administered Medications (Trade) Dose Ordered Sig/Gerda Route Start Time Stop Time Status Last Admin Dose Admin Morphine Sulfate (MoRPHine SULFATE INJ) 4 mg NOW STAT IV 09/05/17 20:23 09/05/17 20:28 DC 09/05/17 20:33 4 MG Aspirin (Aspirin Chew) 243 mg NOW STAT PO 09/05/17 20:23 09/05/17 20:28 DC 09/05/17 20:32 243 MG Famotidine (Pepcid 20mg Iv Push) 20 mg NOW STAT IV 09/05/17 20:37 09/05/17 20:39 DC 09/05/17 21:01 20 MG Al Hydroxide/Mg Hydroxide (Maalox Susp) 30 ml STK-MED ONCE .ROUTE 09/05/17 20:59 09/05/17 21:00 DC 09/05/17 21:01 30 ML Lidocaine HCl (Viscous Lidocaine 2% Soln) 20 ml STK-MED ONCE .ROUTE 09/05/17 20:59 09/05/17 21:00 DC 09/05/17 21:01 20 ML Nitroglycerin (Nitrostat Tab) 0.4 mg ONE STAT SL 09/05/17 21:45 09/05/17 21:46 DC 09/05/17 21:51 0.4 MG Departure Information Impression Primary Impression: Elevated troponin I level Additional Impression: Acute chest pain Dispostion Admitted as an inpatient Condition FAIR Referrals Lennie Steven DO (PCP) Patient Instructions Formerly [facility] Problem Qualifiers
[2017-09-05] MEDS ORDERED: NITROGLYCERIN 0.4 MG SL PER TAB CHARGE SL STA (21:45)
[2017-09-05] MEDS ORDERED: METOPROLOL TARTRATE 25 MG TAB PO ONE ×2 (23:08→23:39)
[2017-09-05] MEDS ORDERED: IV FLUIDS COMPLETED PRN (23:15)
[2017-09-05] MEDS ORDERED: ACETAMINOPHEN 325 MG TAB PO PRN (23:30)
[2017-09-05] MEDS ORDERED: LEVALBUTEROL/IPRATROPIUM NEB INH PRN (23:30)
[2017-09-05] MEDS ORDERED: LORAZEPAM 2 MG/ML 1 ML VIAL IV PRN (23:30)
[2017-09-05] MEDS ORDERED: SODIUM CHLORIDE 0.9% 1000ML 1,000 ML IV ONE (23:30)
[2017-09-05] MEDS ORDERED: NITROGLYCERIN 0.4 MG SL PER TAB CHARGE SL PRN (23:30)
[2017-09-05] MEDS ORDERED: RANITIDINE HCL 150 MG TAB PO PRN (23:30)
[2017-09-05] MEDS ORDERED: PROCHLORPERAZINE INJ 5 MG in SYRINGE 4 ML IV PRN (23:30)
[2017-09-05] MEDS ORDERED: TRAMADOL HCL 50 MG TAB PO PRN (23:30)
[2017-09-05] MEDS ORDERED: HYDROmorphone INJ 1 MG/ML SYR IV PRN (23:30)
[2017-09-06] VITALS (10 sets, daily range): BP systolic 124–169; BP diastolic 76–91; PULSE 79–122; TEMP 36.5–37; O2SAT 94–98; Ht 170.2 cm; Wt 133.3 kg
[2017-09-06] MEDS ORDERED: PANTOprazole INJ 40 MG in SYRINGE 0 ML IV ONE (01:00)
[2017-09-06] MEDS ORDERED: LEVALBUTEROL 1.25MG/0.5ML NEB INH PRN (02:15)
[2017-09-06] MEDS ORDERED: LORAZEPAM INJ 0.5 MG in SYRINGE 0.75 ML IV PRN (02:15)
[2017-09-06] MEDS ORDERED: IPRATROPIUM BROMIDE NEB SOLN 0.02% 2.5 ML VIAL INH PRN (02:15)
[2017-09-06] MEDS: ENOXAPARIN 40 MG/0.4 ML SYR SC SCH (05:42)
[2017-09-06 06:58] LABS: BASO % 0.5 %; BASO ABS # 0.04 K/uL (0-0.2); EOS % 1.1 %; EOS ABS # 0.09 K/uL (0-0.5); HEMATOCRIT 29.9 % (37-47); HEMOGLOBIN 9.5 g/dL (12.0-16.0); IG# 0.03 K/uL (0.00-0.02); LYMPH % 29.8 %; LYMPH ABS # 2.54 K/uL (1.2-3.4); MEAN CELL VOLUME 81.3 fL (80-100); MEAN CORPUSCULAR HEMOGLOBIN 25.8 pg (25-34); MEAN CORPUSCULAR HGB CONC 31.8 g/dl (32-36); MEAN PLATELET VOLUME 8.4 fL (7.4-10.4); MONO % 9.6 %; MONO ABS # 0.82 K/uL (0.11-0.59); NEUT % 58.6 %; NEUT ABS # 5.01 K/uL (1.4-6.5); PLATELET COUNT 344 K/uL (130-400); RED CELL DISTRIBUTION WIDTH CV 14.3 % (11.5-14.5); RED CELL DISTRIBUTION WIDTH SD 42.3 fL (36.4-46.3); WHITE BLOOD COUNT 8.53 K/uL (4.8-10.8)
[2017-09-06 07:00] LABS: CALCIUM 8.4 mg/dl (8.5-10.1); CREATININE 0.58 mg/dl (0.60-1.20); POTASSIUM 3.7 mmol/L (3.5-5.1)
[2017-09-06] MEDS: ATORVASTATIN 20 MG TAB PO SCH (07:58)
[2017-09-06] MEDS: SERTRALINE HCL 50 MG TAB PO SCH (07:58)
[2017-09-06] MEDS: LISINOPRIL 10 MG TAB PO SCH (07:59)
[2017-09-06] MEDS ORDERED: NURSING VERBAL MED ORDER ONE (08:45)
[2017-09-06] MEDS ORDERED: METOPROLOL TARTRATE 25 MG TAB PO SCH (09:00)
[2017-09-06] MEDS ORDERED: OPTIRAY 320 IV PRN (10:30)
--- NOTE | 2017-09-06 11:37 | HISTORY & PHYSICAL EXAMINATION ---
DATE OF ADMISSION: 09/05/2017 PRIMARY CARE PHYSICIAN: Dr. Steven. CHIEF COMPLAINT: Right-sided chest pain. HISTORY OF PRESENT ILLNESS: History obtained from patient and records. Medical history significant for CAD status post stenting, hypertension, hyperlipidemia, past tobacco abuse, chronic anemia (baseline hemoglobin 10) Recent confinement April 2016 for atypical chest pain. Negative dobutamine stress study during confinement. Patient seen in the ER last week for left shoulder pain. The patient had a cervical spine CT which showed no fracture or subluxation, multilevel bilateral neural foraminal narrowing, most pronounced in the right side due to vertebral facet hypertrophy. Prescribed prednisone course for cervical radiculopathy, increased heartburn noted. Increasing reflux symptoms going to the chest, right-sided chest pain with some shortness of breath, no fever, no chills. Some relief with nitroglycerin in the Emergency Room. As per patient, home blood pressure uncontrolled. SBP 180s occasionally. MEDICAL HISTORY: As above. Patient also noted painful swallowing issues for some time now. PCP concerned about possible thyroid issues Outpatient neck ultrasound to be scheduled. SURGERIES: She has had cholecystectomy. HOME MEDICATIONS: Include Ventolin, Lipitor, Tylenol, Motrin, Zestril, Dulera, Lopressor, Nitrostat, Zantac, Zoloft. ALLERGIES: LORATADINE, DYE, TORADOL. FAMILY HISTORY: Diabetes, heart disease. PERSONAL AND SOCIAL HISTORY: Past tobacco use. No chronic intake of alcoholic beverages. [employer] employee. REVIEW OF SYSTEMS: As per HPI, all 10 systems reviewed. All other ROS negative. PHYSICAL EXAMINATION: VITAL SIGNS: Blood pressure noted to be 156/122, pulse rate 91, RR 18, temperature 37 O2 98RA. GENERAL: Obese, comfortable, pleasant, no respiratory distress. SKIN: Pallor, warm. HEENT: Pale palpebral conjunctiva. No ptosis. Dry mucosa. minimal pharyngeal congestion NECK: Short neck. Nontender. LUNGS: Decreased breath sounds. No tenderness. HEART: Regular rate and rhythm, no murmur. ABDOMEN: Some distention, nontender. EXTREMITIES: Minimal LE edema, no tenderness. No gross deformities. NEUROLOGIC: Coherent. No gross focality. LABORATORY DATA: Hemoglobin was noted to be 10.2, hematocrit 32, white blood cell count 9, platelets 371. Sodium 139, potassium 4.1, chloride 101, BUN 19, creatinine 0.7, glucose 162. Troponin was noted to be 0.268. Chest x-ray showed no acute cardiopulmonary disease. EKG as per my interpretation, normal sinus rhythm, normal axis, no ischemia. ASSESSMENT: 1. Atypical chest pain likely secondary to worsening reflux after ongoing steroid course for cervical radiculopathy. 2. troponin elevation may be from suboptimal HTN control Suboptimal BP control at home by patient's admission. SBP 180s at home. 3. Coronary artery disease status post stenting. 4. Past tobacco abuse. 5. Chronic anemia, hemoglobin baseline. 6. Odynophagia Subacute symptoms possible thyroid enlargement as etio as per patient's PCP. PLAN: Observation PCU initiate PPI for uncontrolled reflux while on steroid therapy for cervical radiculopathy Follow cardiac markers. 2D echo RE troponin elevation. May need Cardio consult if with progression of troponin elevation. (Patient known to [facility].) Titrate antihypertensive meds outpatient neck ultrasound for odynophagia secondary to possible thyroid enlargement. DVT prophylaxis with Lovenox subQ. Full code. MTDD
--- NOTE | 2017-09-06 12:57 | DIAGNOSTIC IMAGING REPORT ---
CT ANGIOGRAM OF THE CHEST CLINICAL HISTORY: Atypical chest pain. COMPARISON STUDY: Chest x-ray dated 09/05/2017. Chest CT scans dated 09/22/2015 and 05/21/2009. TECHNIQUE: Following the IV administration of 95 cc of Optiray 320, CT angiogram of the chest was performed from the upper abdomen to the thoracic inlet utilizing the pulmonary embolus protocol. Images are reviewed in the axial, sagittal, and coronal planes. 3-D MIPS images are created and assessed. The patient was reportedly premedicated for history of contrast allergy. IV contrast was administered without complication. A dose lowering technique was utilized adhering to the principles of ALARA. The examination is compromised by motion artifact. CT DOSE: 532.86 mGy.cm FINDINGS: Thyroid: The left thyroid lobe appears enlarged. Low-attenuation nodules in the left lobe measure up to 1.4 cm. Thoracic aorta: The thoracic aorta is normal in caliber and demonstrates 5-vessel arch anatomy. 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 No dissection is seen. Pulmonary vasculature: The pulmonary trunk is normal in caliber. There are no filling defects identified in main, lobar, or proximal segmental pulmonary branches to suggest pulmonary embolus. Evaluation of the peripheral branches is degraded by motion artifact. Heart: The heart is normal in size and without pericardial effusion. The coronary arteries are densely calcified. Lungs and pleural spaces: Evaluation of the lung parenchyma is degraded by motion artifact. No airspace consolidation or pleural effusion is identified. The trachea and central airways are clear. Mediastinum: There is no mediastinal lymphadenopathy. Candice: Clear. Axillae: There is no axillary lymphadenopathy. Upper abdomen: There is a small hiatal hernia. Partially visualized upper abdominal viscera is otherwise within normal limits. Skeletal structures: The skeletal structures appear osteopenic. Degenerative change is noted throughout the thoracic spine. No lytic or blastic bony lesions are seen. IMPRESSION: 1. There is no evidence of central pulmonary embolus in the main, lobar, or proximal segmental pulmonary arteries. 2. There is no airspace consolidation or pleural effusion. 3. The lungs are clear. 4. Nodules are present in the left thyroid lobe. These have been present dating back to 2008. If not already performed, consider nonemergent sonographic follow-up. 5. An aberrant right subclavian artery is incidentally noted. Electronically signed by: Everett Boland M.D. 09/06/2017 12:56 PM Dictated Date/Time: 09/06/2017 12:50 PM
[2017-09-06] MEDS ORDERED: ALUMINUM/MAGNESIUM/SIMETH (MAALOX MAX) 30 ML UDC PO STA (13:49)
[2017-09-06] MEDS ORDERED: ALUMINUM/MAGNESIUM SUSP 30 ML UDC ONE (13:51)
[2017-09-06] MEDS ORDERED: ALUMINUM/MAGNESIUM/SIMETH (MAALOX MAX) 30 ML UDC PO PRN ×2 (14:15)
--- NOTE | 2017-09-06 16:06 | ECHOCARDIOGRAM REPORT ---
*NOTICE TO RECEIVING CONSTITUTION PARTY AGENCY This information is strictly Confidential and protected under [place] law. [place] law prohibits you from making any further disclosure of this information unless further disclosure is expressly permitted by the written consent of the person to whom it pertains or is authorized by law. A general authorization for the release of medical or other information is not sufficient for this purpose. Hospital accepts no responsibility if the information is made available to any other person, INCLUDING THE PATIENT. Interpretation Summary * Name: JULISSA CHEEMA Study Date: 09/06/2017 01:22 PM BP: 124/81 mmHg * Patient Location: .2T\S\S238\S\1 HR: 85 * : 1965 (M/d/yyyy) Gender: Female Height: 67 in * Age: 52 yrs Ethnicity: CA Weight: 294 lb * Ordering Physician: Pradeep Ortiz * Referring Physician: UNKNOWN * Performed By: Marcie Blakely RDCS * * Reason For Study: Trop elevation * BSA: 2.4 m2 * -- Conclusions -- * The left ventricle is normal in size. * Left ventricular systolic function is normal. * Ejection Fraction = 60-65%. * The right ventricular systolic function is normal. * The left atrial size is normal. * Right atrial size is normal. * No significant valvular pathology. Procedure Details * A complete two-dimensional transthoracic echocardiogram was performed (2D, M-mode, Doppler and color flow Doppler). * A contrast injection of Definity was performed to improve assessment of LV function. * Contrast was injected into an intravenous site in the left arm. * One vial of Definity ultrasound contrast was diluted in normal saline to a total volume of 10 ml. A total of '2' ml of solution was administered during imaging. * Lot # [id number] of Definity utilized for procedure. * Expiration date AUG 24. * The attending nurse who injected the contrast agent was Angelina Burt RN. Left Ventricle * The left ventricle is normal in size. * There is normal left ventricular wall thickness. * Ejection Fraction = 60-65%. * Left ventricular systolic function is normal. * The left ventricular wall motion is normal. Right Ventricle * The right ventricle is normal size. * The right ventricular systolic function is normal. Atria * The left atrial size is normal. * Right atrial size is normal. * The interatrial septum is intact with no evidence for an atrial septal defect. Mitral Valve * The mitral valve anatomy is normal. * Significant mitral regurgitation is absent. Tricuspid Valve * The tricuspid valve anatomy is normal. * Significant tricuspid regurgitation is absent. Aortic Valve * The aortic valve is tricuspid. The leaflet thickness if normal. There is no aortic stenosis, and no significant insufficiency. * The aortic valve is normal in structure and function. * No hemodynamically significant valvular aortic stenosis. * There is no significant aortic regurgitation. Pulmonic Valve * The pulmonic valve is not well visualized. Great Vessels * The aortic root and proximal ascending aorta are normal sized. Pericardium/Pleural * There is no pericardial effusion. MMode 2D Measurements and Calculations IVSd 0.74 cm LVIDd 4.6 cm LVIDs 3.1 cm LVPWd 0.68 cm IVS/LVPW 1.1 FS 31.9 % EDV(Teich) 98.0 ml ESV(Teich) 39.1 ml EF(Teich) 60.1 % EDV(cubed) 98.2 ml ESV(cubed) 31.0 ml EF(cubed) 68.5 % LV mass(C)d 101.7 grams LV mass(C)dI 42.7 grams/m\S\2 SV(Teich) 58.9 ml SI(Teich) 24.7 ml/m\S\2 SV(cubed) 67.2 ml SI(cubed) 28.2 ml/m\S\2 Ao root diam 2.0 cm Ao root area 3.0 cm\S\2 ACS 1.5 cm LA dimension 3.4 cm asc Aorta Diam 2.3 cm LA/Ao 1.7 LVOT diam 2.0 cm LVOT area 3.0 cm\S\2 LVAd ap4 32.9 cm\S\2 LVLd ap4 8.5 cm EDV(MOD-sp4) 100.0 ml EDV(sp4-el) 107.3 ml LVAs ap4 17.2 cm\S\2 LVLs ap4 6.7 cm ESV(MOD-sp4) 36.1 ml ESV(sp4-el) 37.4 ml EF(MOD-sp4) 63.9 % EF(sp4-el) 65.2 % LVAd ap2 31.0 cm\S\2 LVLd ap2 7.6 cm EDV(MOD-sp2) 102.2 ml EDV(sp2-el) 107.9 ml LVAs ap2 18.6 cm\S\2 LVLs ap2 7.0 cm ESV(MOD-sp2) 39.3 ml ESV(sp2-el) 42.2 ml EF(MOD-sp2) 61.6 % EF(sp2-el) 60.9 % LVLd %diff -12.75 % EDV(MOD-bp) 108.4 ml LVLs %diff 3.4 % ESV(MOD-bp) 38.5 ml EF(MOD-bp) 64.5 % SV(MOD-sp4) 63.9 ml SI(MOD-sp4) 26.8 ml/m\S\2 SV(MOD-sp2) 62.9 ml SI(MOD-sp2) 26.4 ml/m\S\2 SV(MOD-bp) 69.9 ml SI(MOD-bp) 29.3 ml/m\S\2 SV(sp4-el) 69.9 ml SI(sp4-el) 29.4 ml/m\S\2 SV(sp2-el) 65.7 ml SI(sp2-el) 27.6 ml/m\S\2 Doppler Measurements and Calculations MV E max soumya 143.3 cm/sec MV A max soumya 134.0 cm/sec MV E/A 1.1 MV dec time 0.20 sec Ao V2 max 157.1 cm/sec Ao max PG 9.9 mmHg Ao max PG (full) 5.0 mmHg SHIRLEY(V,A) 2.1 cm\S\2 SHIRLEY(V,D) 2.1 cm\S\2 LV V1 max PG 4.8 mmHg LV V1 max 109.9 cm/sec PA V2 max 120.8 cm/sec PA max PG 5.8 mmHg PA acc slope 1126.7 cm/sec\S\2 PA acc time 0.10 sec PA pr(Accel) 34.6 mmHg
--- NOTE | 2017-09-06 17:23 | Progress Note ---
Internal Med Progress Note Date of Service: Sep 06, 2017. Provider Documentation: SUBJECTIVE: says she had right sided chest pain radiating to neck and shoulder yesterday also having heart burn from prednisone denies sob no nausea currently resting comfortably and hemodynamically stable no abdominal pain OBJECTIVE: Vital Signs-as noted below Exam: General-alert and Oriented. Not in distress.Obese ENT-Normal hearing Neck-no neck masses Lungs-cta b/l no wheezing or crackles Heart-s1 and s2 heard regular no murmurs Abdomen-soft bowel sounds present non tender no distension Extremities-no erythema Neuro-alert and awake moves extremities Lab data as noted below. ASSESSMENT & PLAN: 1. Atypical chest pain likely secondary to worsening reflux after ongoing steroid course for cervical radiculopathy. Mild troponin elevation posble demand ischemia from uncontrolled htn? CT chest No PE Echo unremarkable consulted cardiology monitor in tele' 3. Coronary artery disease status post stenting. on statin and b parisa. 4. Past tobacco abuse. 5. Chronic anemia, hemoglobin baseline. hb 9.5 today 6. Odynophagia Subacute symptoms possible thyroid enlargement as etio as per patient's PCP. f/u with pcp DVT PROPHYLAXIS Lovenox DISPOSITION monitor in tele possible d/c in am Vital Signs: Date Time Temp Pulse Resp B/P (MAP) Pulse Ox O2 Delivery O2 Flow Rate FiO2 09/06/17 16:00 Room Air 09/06/17 15:27 37.0 92 20 144/81 (102) 96 Room Air 09/06/17 12:50 122 20 154/91 (112) 95 09/06/17 12:00 Room Air 09/06/17 11:56 36.9 109 18 132/76 (94) 94 09/06/17 08:00 Room Air 09/06/17 07:42 36.9 85 20 124/81 (95) 97 Room Air 09/06/17 04:00 97 Room Air 09/06/17 04:00 36.7 79 20 147/81 (103) 97 Room Air 09/06/17 00:32 36.6 84 18 156/90 94 Room Air 09/05/17 23:40 84 20 148/79 98 Room Air 09/05/17 22:05 90 20 127/67 98 Room Air 09/05/17 21:51 90 20 151/88 98 Room Air 09/05/17 20:28 96 Room Air 09/05/17 20:22 96 Room Air 09/05/17 20:22 92 09/05/17 20:20 96 Room Air 09/05/17 20:12 36.7 91 18 156/122 98 Room Air Lab Results: Results Past 24 Hours Test 09/05/17 20:15 09/05/17 20:30 09/05/17 23:42 09/06/17 05:25 Range/Units White Blood Count 9.76 8.53 4.8-10.8 K/uL Red Blood Count 3.93 3.68 4.2-5.4 M/uL Hemoglobin 10.3 9.5 12.0-16.0 g/dL Hematocrit 32.1 29.9 37-47 % Mean Corpuscular Volume 81.7 81.3 80-100 fL Mean Corpuscular Hemoglobin 26.2 25.8 25-34 pg Mean Corpuscular Hemoglobin Concent 32.1 31.8 32-36 g/dl Platelet Count 371 344 130-400 K/uL Mean Platelet Volume 8.4 8.4 7.4-10.4 fL Neutrophils (%) (Auto) 71.6 58.6 % Lymphocytes (%) (Auto) 18.3 29.8 % Monocytes (%) (Auto) 9.5 9.6 % Eosinophils (%) (Auto) 0.2 1.1 % Basophils (%) (Auto) 0.2 0.5 % Neutrophils # (Auto) 6.98 5.01 1.4-6.5 K/uL Lymphocytes # (Auto) 1.79 2.54 1.2-3.4 K/uL Monocytes # (Auto) 0.93 0.82 0.11-0.59 K/uL Eosinophils # (Auto) 0.02 0.09 0-0.5 K/uL Basophils # (Auto) 0.02 0.04 0-0.2 K/uL RDW Standard Deviation 42.0 42.3 36.4-46.3 fL RDW Coefficient of Variation 13.8 14.3 11.5-14.5 % Immature Granulocyte % (Auto) 0.2 0.4 % Immature Granulocyte # (Auto) 0.02 0.03 0.00-0.02 K/uL Prothrombin Time 9.6 9.0-12.0 SECONDS Prothromb Time International Ratio 0.9 0.9-1.1 Activated Partial Thromboplast Time 26.3 21.0-31.0 SECONDS Partial Thromboplastin Ratio 1.0 Sodium Level 139 140 136-145 mmol/L Potassium Level 4.1 3.7 3.5-5.1 mmol/L Chloride Level 106 107 98-107 mmol/L Carbon Dioxide Level 28 25 21-32 mmol/L Anion Gap 6.0 8.0 3-11 mmol/L Blood Urea Nitrogen 19 20 7-18 mg/dl Creatinine 0.73 0.58 0.60-1.20 mg/dl Est Creatinine Clear Calc Drug Dose 124.8 160.1 ml/min Estimated GFR () 109.0 122.0 Estimated GFR (Non- 94.0 105.2 BUN/Creatinine Ratio 26.2 35.5 10-20 Random Glucose 165 81 70-99 mg/dl Calcium Level 9.0 8.4 8.5-10.1 mg/dl Magnesium Level 2.0 1.8-2.4 mg/dl Total Bilirubin < 0.1 0.2-1 mg/dl Direct Bilirubin < 0.1 0-0.2 mg/dl Aspartate Amino Transf (AST/SGOT) 14 15-37 U/L Alanine Aminotransferase (ALT/SGPT) 21 12-78 U/L Alkaline Phosphatase 113 45-117 U/L Pro-B-Type Natriuretic Peptide 939 0-900 pg/ml Total Protein 7.3 6.4-8.2 gm/dl Albumin 2.9 3.4-5.0 gm/dl Lipase 245 73-393 U/L Thyroid Stimulating Hormone (TSH) < 0.005 0.300-4.500 uIu/ml Bedside Troponin I 0.140 0-0.045 ng/ml Troponin I 0.268 0.338 0-0.045 ng/ml Free Thyroxine 1.36 0.80-1.60 ng/dl Total Triiodothyronine 1.75 0.60-1.81 ng/ml Test 09/06/17 05:38 09/06/17 05:43 09/06/17 09:45 09/06/17 12:48 Range/Units Hepatitis C Antibody Screen NEG NEG Activated Partial Thromboplast Time 25.0 21.0-31.0 SECONDS Partial Thromboplastin Ratio 1.0 Troponin I 0.312 0.166 0-0.045 ng/ml
[2017-09-06] MEDS: PANTOprazole SOD 40 MG TAB PO SCH (20:10)
[2017-09-06] MEDS: METOPROLOL TARTRATE 25 MG TAB PO SCH (20:12)
[2017-09-07] VITALS (17 sets, daily range): BP systolic 128–155; BP diastolic 67–86; PULSE 71–86; TEMP 36.2–37; O2SAT 93–98
[2017-09-07] MEDS: ENOXAPARIN 40 MG/0.4 ML SYR SC SCH (05:52)
--- NOTE | 2017-09-07 08:01 | Cardiology Consultation ---
Cardiology Consultation Date of Service Sep 06, 2017. Cardiology Consultation Indication: Consultation for chest pain History: This is a 52-year-old female who was living in [place] in 2013 drug- eluting stents within the LAD and diagonal arteries. After that procedure from a cardiac standpoint she did well. She was followed by Dr. Reddy until 2016, thereafter there are multiple cancellations and she was lost to follow-up. She has a history of hypertension, obesity, dyslipidemia, polycystic kidney disease and asthmatic lung disease. The patient was in her usual state health until approximately a week ago she began to have cervical discomfort radiating into her arms and chest. She was seen in the emergency department, evaluated and discharged. Cervical radiculopathy and started on prednisone. The patient has a strong history for GERD. She states that almost immediately after starting the prednisone she began to have what she describes as severe heartburn and reflux.. The chest pain is atypical in that it is not related to activity. It's been more or less continuous for several days. She has been taking Zantac 150 mg twice a day on her own. She presented to the emergency department where she is now admitted. She has had 2 EKGs on admission which are completely normal. Her cardiac markers have been persistently borderline elevated with no significant increase or decrease indicating most likely a type II elevation. Presently with no complaints. Allergies: Iodinated contrast agents, Ketorolac, Loratadine Past medical history: As outlined above the patient has a history of coronary artery disease and received coronary stents 2013 while in [place]. Patient has a history of hypertension, obesity, dyslipidemia, polycystic kidney and asthma. She also has a history of severe GERD reflux. She has no history in the medical record diabetes but does mention that her blood sugars have been elevated while on the prednisone. Social history: There is history of cigarette smoking. Family medical history: Noncontributory General: The patient denies weight change, night sweats, fever, chills. Head: The patient denies headache and prior head trauma. Cardiovascular: The patient denies chest pain or chest discomfort, dyspnea on exertion, palpitations, PND, orthopnea, edema, spontaneous shortness of breath, syncope and near syncope. Pulmonary: The patient denies cough, wheeze, pleurisy, hemoptysis, sputum, and excessive snoring. Gastrointestinal: The patient denies nausea, vomiting, diarrhea, constipation, bloating, hematemesis, hematochezia, and abdominal pain. Skin: The patient denies diaphoresis and rash. Musculoskeletal: The patient denies joint pain, joint swelling, myalgia, back pain, neck pain and prior injuries. Neurological: The patient denies prior stroke and seizures Vital Signs Past 12 Hours Date Time Temp Pulse Resp B/P (MAP) Pulse Ox O2 Delivery O2 Flow Rate FiO2 09/06/17 11:56 36.9 109 18 132/76 (94) 94 09/06/17 08:00 Room Air 09/06/17 07:42 36.9 85 20 124/81 (95) 97 Room Air 09/06/17 04:00 97 Room Air 09/06/17 04:00 36.7 79 20 147/81 (103) 97 Room Air 09/06/17 00:32 36.6 84 18 156/90 94 Room Air General Appearance: Alert and Oriented x3. NAD. Head: Normocephalic Atraumatic. Eyes: PERRLA, EOMI, conjunctiva and sclera clear Neck: Supple. No carotid bruits noted. No JVD. No HJD. Respiratory: Breath sounds clear to auscultation bilaterally. No w/r/r. Cardiovascular: Reg rate and rhythm. S1 and S2 noted. No murmurs, rubs, gallops. PMI non displace. Abdomen: Normal bowel sounds, soft nontender. no abdominal bruits. Extremities: No edema, no clubbing or cyanosis. distal pulses 2/4 bilaterally. Neuro: No focal deficits. Psychiatric: Normal affect. Last 24 Hours Test 09/05/17 20:15 09/05/17 20:30 09/05/17 23:42 09/06/17 05:25 White Blood Count 9.76 K/uL 8.53 K/uL Red Blood Count 3.93 M/uL 3.68 M/uL Hemoglobin 10.3 g/dL 9.5 g/dL Hematocrit 32.1 % 29.9 % Mean Corpuscular Volume 81.7 fL 81.3 fL Mean Corpuscular Hemoglobin 26.2 pg 25.8 pg Mean Corpuscular Hemoglobin Concent 32.1 g/dl 31.8 g/dl Platelet Count 371 K/uL 344 K/uL Mean Platelet Volume 8.4 fL 8.4 fL Neutrophils (%) (Auto) 71.6 % 58.6 % Lymphocytes (%) (Auto) 18.3 % 29.8 % Monocytes (%) (Auto) 9.5 % 9.6 % Eosinophils (%) (Auto) 0.2 % 1.1 % Basophils (%) (Auto) 0.2 % 0.5 % Neutrophils # (Auto) 6.98 K/uL 5.01 K/uL Lymphocytes # (Auto) 1.79 K/uL 2.54 K/uL Monocytes # (Auto) 0.93 K/uL 0.82 K/uL Eosinophils # (Auto) 0.02 K/uL 0.09 K/uL Basophils # (Auto) 0.02 K/uL 0.04 K/uL RDW Standard Deviation 42.0 fL 42.3 fL RDW Coefficient of Variation 13.8 % 14.3 % Immature Granulocyte % (Auto) 0.2 % 0.4 % Immature Granulocyte # (Auto) 0.02 K/uL 0.03 K/uL Prothrombin Time 9.6 SECONDS Prothromb Time International Ratio 0.9 Activated Partial Thromboplast Time 26.3 SECONDS Partial Thromboplastin Ratio 1.0 Sodium Level 139 mmol/L 140 mmol/L Potassium Level 4.1 mmol/L 3.7 mmol/L Chloride Level 106 mmol/L 107 mmol/L Carbon Dioxide Level 28 mmol/L 25 mmol/L Anion Gap 6.0 mmol/L 8.0 mmol/L Blood Urea Nitrogen 19 mg/dl 20 mg/dl Creatinine 0.73 mg/dl 0.58 mg/dl Est Creatinine Clear Calc Drug Dose 124.8 ml/min 160.1 ml/min Estimated GFR () 109.0 122.0 Estimated GFR (Non- 94.0 105.2 BUN/Creatinine Ratio 26.2 35.5 Random Glucose 165 mg/dl 81 mg/dl Calcium Level 9.0 mg/dl 8.4 mg/dl Magnesium Level 2.0 mg/dl Total Bilirubin < 0.1 mg/dl Direct Bilirubin < 0.1 mg/dl Aspartate Amino Transf (AST/SGOT) 14 U/L Alanine Aminotransferase (ALT/SGPT) 21 U/L Alkaline Phosphatase 113 U/L Pro-B-Type Natriuretic Peptide 939 pg/ml Total Protein 7.3 gm/dl Albumin 2.9 gm/dl Lipase 245 U/L Thyroid Stimulating Hormone (TSH) < 0.005 uIu/ml Bedside Troponin I 0.140 ng/ml Troponin I 0.268 ng/ml 0.338 ng/ml Free Thyroxine 1.36 ng/dl Total Triiodothyronine 1.75 ng/ml Test 09/06/17 05:38 09/06/17 05:43 09/06/17 09:45 Hepatitis C Antibody Screen NEG Activated Partial Thromboplast Time 25.0 SECONDS Partial Thromboplastin Ratio 1.0 Troponin I 0.312 ng/ml Impression/recommendations: This is a 52-year-old female with a history of coronary artery disease and prior coronary stents were placed in 2012. She has been lost to follow-up. Recently she was started on prednisone for cervical radiculopathy and she developed severe epigastric and retrosternal discomfort along with reflux. She does have a history of GERD. She has a normal EKG on presentation however, her troponins were borderline elevated. My clinical impression is that this is noncardiac, but I will draw additional troponins and wait for the echocardiogram to be completed for my review. If she has no significant increase or decrease in the troponins with time, and she has no additional chest pain, then I believe we can proceed with a screening dobutamine stress echocardiogram and proceed from there.
--- NOTE | 2017-09-07 09:36 | Progress Note ---
Internal Med Progress Note Date of Service: Sep 07, 2017. Provider Documentation: SUBJECTIVE: says did not sleep well last night feels heavy in chest slightly anxious' denies sob no fevrs no nausea or abdominal pain awaiting stress test OBJECTIVE: Vital Signs-as noted below Exam: General-alert and Oriented. Not in distress.Obese ENT-Normal hearing Neck-no neck masses Lungs-cta b/l no wheezing or crackles Heart-s1 and s2 heard regular no murmurs Abdomen-soft bowel sounds present non tender no distension Extremities-no erythema Neuro-alert and awake moves extremities Lab data as noted below. ASSESSMENT & PLAN: 1. Atypical chest pain likely secondary to worsening reflux after ongoing steroid course for cervical radiculopathy. Mild troponin elevation possible demand ischemia from uncontrolled htn? CT chest No PE Echo unremarkable consulted cardiology-possible stress test? monitor in tele' 3. Coronary artery disease status post stenting. on statin and b parisa.Will monitor 4. Past tobacco abuse. 5. Chronic anemia, hemoglobin baseline. hb 9.5 today 6. Odynophagia Subacute symptoms possible thyroid enlargement as etio as per patient's PCP. f/u with pcp DVT PROPHYLAXIS Lovenox DISPOSITION monitor in tele possible d/c if stress negative Vital Signs: Date Time Temp Pulse Resp B/P (MAP) Pulse Ox O2 Delivery O2 Flow Rate FiO2 09/07/17 08:00 Room Air 09/07/17 07:37 36.2 76 19 155/83 (107) 95 Room Air 09/07/17 04:00 36.7 76 20 135/79 (97) 97 Room Air 09/07/17 04:00 98 Room Air 09/06/17 23:59 98 Room Air 09/06/17 23:08 36.5 82 20 142/78 (99) 98 Room Air 09/06/17 20:00 96 Room Air 09/06/17 19:33 36.6 84 18 169/85 (113) 96 Room Air 09/06/17 16:00 Room Air 09/06/17 15:27 37.0 92 20 144/81 (102) 96 Room Air 09/06/17 12:50 122 20 154/91 (112) 95 09/06/17 12:00 Room Air 09/06/17 11:56 36.9 109 18 132/76 (94) 94 Lab Results: Results Past 24 Hours Test 09/06/17 09:45 3/4/18 12:48 Range/Units Troponin I 0.312 0.166 0-0.045 ng/ml
--- NOTE | 2017-09-07 10:52 | Cardiology Follow-Up ---
Subjective Subjective Date of Service: Sep 07, 2017. Pt evaluation today including: conversation w/ patient, physical exam, chart review, lab review, review of studies, conversation w/ showroom consultant, review of inpatient medication list Additional Details: The patient had an uneventful night. No additional chest pain. Cardiac markers are trending and had not gone 0. Plan will be to check another troponin. If they have completely normalized then I am concerned that she probably received a cardiac catheterization. If they remain borderline elevated however, and I think this is less likely to be a cardiac origin and we can proceed with a stress test. We will await the next troponin. Problem List Medical Problems: (1) Acute chest pain Status: Acute (2) Bronchitis Status: Acute (3) Cervical radiculopathy Status: Acute (4) Cervical strain Status: Acute (5) Cervical strain Status: Acute (6) Concussion Status: Acute (7) Dyslipidemia Status: Chronic (8) Elbow contusion Status: Acute (9) Elevated troponin I level Status: Acute (10) Fall Status: Acute (11) Fall Status: Acute (12) Headache Status: Acute (13) Hematuria Status: Acute (14) History of heart disease Status: Chronic (15) HTN (hypertension) Status: Chronic (16) Hypertension Status: Acute (17) Hyperthyroidism Status: Acute (18) Precordial chest pain Status: Acute Objective Vital Signs Last Vital Signs Documentation Date Time Temp Pulse Resp B/P (MAP) Pulse Ox O2 Delivery O2 Flow Rate FiO2 09/07/17 08:00 Room Air 09/07/17 07:37 36.2 76 19 155/83 (107) 95 Physical Exam: General Appearance: WD/WN, no apparent distress ENT: normal ENT inspection Neck: no adenopathy, thyroid normal, no JVD Respiratory/Chest: lungs clear, normal breath sounds Cardiovascular: regular rate, rhythm, no JVD, no murmur Abdomen: normal bowel sounds, non tender, soft Extremities: no pedal edema, no calf tenderness 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 Chest pain 2. History of coronary artery disease with prior coronary stents 2012 3. GERD Recommendations: As outlined in my consult the patient has a normal EKG and her symptoms are somewhat atypical. With her history of GERD and starting recently on steroids which seems to have flared her reflux, we have to consider that the and troponin elevation is a type II. I rashawn another troponin today. If it remains borderline elevated then I think that this is most likely noncardiac and we will proceed with a dobutamine stress echocardiogram. If the troponin completely normalizes however, then I am concerned that this may be acute coronary syndrome and we will proceed with cardiac catheterization. Medications: Current Inpatient Medications Medications (Trade) Dose Ordered Sig/Gerda Route Start Time Stop Time Status Last Admin Dose Admin Miscellaneous (Iv Fluids Completed) 1 ea PRN PRN N/A 09/05/17 23:15 09/05/18 23:14 Enoxaparin Sodium (Lovenox Inj) 40 mg Q24H SC 09/06/17 06:00 10/06/17 05:59 09/07/17 05:52 40 MG Acetaminophen (Tylenol Tab) 650 mg Q4H PRN PO 09/05/17 23:30 10/05/17 23:29 Nitroglycerin (Nitrostat Tab) 0.4 mg UD PRN SL 09/05/17 23:30 10/05/17 23:29 Tramadol HCl (Ultram Tab) not relieved ... Q6H PRN PO 09/05/17 23:30 10/05/17 23:29 Hydromorphone HCl (Dilaudid Inj) 1 mg Q3H PRN IV 09/05/17 23:30 09/19/17 23:29 Prochlorperazine Edisylate 5 mg/ Syringe 5 ml @ 5 mls/min Q6H PRN IV 09/05/17 23:30 10/05/17 23:29 Atorvastatin Calcium (Lipitor Tab) 20 mg DAILY PO 09/06/17 09:00 10/06/17 08:59 09/06/17 07:58 20 MG Lisinopril (Zestril Tab) 10 mg DAILY PO 09/06/17 09:00 10/06/17 08:59 09/06/17 07:59 10 MG Ranitidine HCl (zANTac TAB) 300 mg DAILY PRN PO 09/05/17 23:30 10/05/17 23:29 Sertraline HCl (Zoloft Tab) 50 mg DAILY PO 09/06/17 09:00 10/06/17 08:59 09/06/17 07:58 50 MG Miscellaneous Information (Order Awaiting Action) 1 ea QS N/A 09/06/17 08:00 10/06/17 07:59 Prednisone (PredniSONE TAB) 60 mg Taper QAM PO 09/06/17 09:00 09/15/17 08:59 09/06/17 07:59 60 MG Pantoprazole Sodium (Protonix Tab) 40 mg HS PO 09/06/17 21:00 10/06/17 20:59 09/06/17 20:10 40 MG Lorazepam (Ativan Inj) 0.5 mg Q4H PRN IV 09/05/17 23:30 10/05/17 23:29 Metoprolol Tartrate (Lopressor Tab) 12.5 mg BID PO 09/06/17 21:00 10/06/17 08:59 09/06/17 20:12 12.5 MG Ipratropium Osprey (Atrovent 0.02% 0.5MG/2.5ML Neb) 0.5 mg Q4H PRN INH 09/06/17 02:15 10/06/17 02:14 Levalbuterol (Xopenex 1.25MG/ 0.5ML Neb) 1.25 mg Q4H PRN INH 09/06/17 02:15 10/06/17 02:14 Lorazepam 0.5 mg/ Syringe 1 ml @ 1 mls/min Q4H PRN IV 09/06/17 02:15 10/06/17 02:14 Ioversol (Optiray 320) 125 ml UD PRN IV 09/06/17 10:30 09/10/17 10:29 Al Hydrox/Mg Hydrox/Simethicone (Maalox Max Susp) 30 ml Q6H PRN PO 09/06/17 14:15 10/06/17 14:14 Lab Results: Last 24 Hours Test 09/06/17 12:48 09/07/17 10:33 Troponin I 0.166 ng/ml
[2017-09-07] MEDS ORDERED: SODIUM CHLORIDE 0.9% 1000ML 1,000 ML IV SCH (12:45)
[2017-09-07] MEDS ORDERED: METHYLPREDNISOLONE 125 MG VIAL ONE (14:44)
[2017-09-07] MEDS ORDERED: DiphenhydrAMINE HCL 50 MG/ML VIAL ONE (14:45)
[2017-09-07] MEDS ORDERED: RANITIDINE HCL 25 MG/ML INJ ONE (14:45)
[2017-09-07] MEDS ORDERED: HEPARIN SOD (PORCINE) 1000 UNIT/ML 10 ML VIAL ONE (14:54)
[2017-09-07] MEDS ORDERED: MIDAZOLAM HCL 1 MG/ML 2ML VIAL ONE (14:54)
[2017-09-07] MEDS ORDERED: FENTANYL CITRATE INJ 50 MCG/1 ML 2 ML VIAL ONE (14:54)
[2017-09-07] MEDS ORDERED: NiCARDipine HCL INJ 2.5 MG/ML 10 ML AMP ONE (14:54)
[2017-09-07] MEDS ORDERED: NITROGLYCERIN/D5W 100MCG/ML 20ML SYR ONE (14:57)
[2017-09-07] MEDS ORDERED: METOPROLOL TARTRATE 1 MG/ML VIAL ONE (15:44)
[2017-09-07] MEDS ORDERED: SODIUM CHLORIDE 0.9% 1000ML 250 ML IV PRN (15:50)
--- NOTE | 2017-09-07 15:52 | Pre Sedation Assessment ---
Pre Sedation Assessment General Date of Sedation: Sep 07, 2017. Vital Signs Past 12 Hours Date Time Temp Pulse Resp B/P (MAP) Pulse Ox O2 Delivery O2 Flow Rate FiO2 09/07/17 12:00 Room Air 09/07/17 11:35 36.5 78 20 141/80 (100) 97 Room Air 09/07/17 08:00 Room Air 09/07/17 07:37 36.2 76 19 155/83 (107) 95 Room Air 09/07/17 04:00 36.7 76 20 135/79 (97) 97 Room Air 09/07/17 04:00 98 Room Air Review Cardiovascular: regular rate, rhythm Lungs: lungs clear Pre-Sedation Airway Assessment Smoking Status: Former Smoker Hx of Sleep Apnea: No Hx of difficult intubation: No Short Thick Neck: Yes Thyro-mental Distance: < or =3 Finger Breadths Oral Cavity: WNL Mallampati Classification: Class II (Sft palate,uvula,fauces visib.) ASA Classification: Class II NPO Status Date of Last Intake of Fluids: Sep 06, 2017 Time of Last Intake of Fluids: 2300 Date of Last Intake of Solids: Sep 06, 2017 Time of Last Intake of Solids: 1800 Procedure Planning Contraindications for Sedation: None Current Medications Reviewed: Yes Notes The planned sedation has been discussed with the patient. Informed Consent was obtained. I have identified the patient, determined the appropriateness of sedation and have assessed the patient immediately prior to the procedure. All medicine(s) and interventions are by my order.
--- NOTE | 2017-09-07 15:53 | Post Sedation Assessment ---
Post Sedation Assessment General Date of Sedation Sep 07, 2017. Vital Signs: Vital Signs Past 12 Hours Date Time Temp Pulse Resp B/P (MAP) Pulse Ox O2 Delivery O2 Flow Rate FiO2 09/07/17 12:00 Room Air 09/07/17 11:35 36.5 78 20 141/80 (100) 97 Room Air 09/07/17 08:00 Room Air 09/07/17 07:37 36.2 76 19 155/83 (107) 95 Room Air 09/07/17 04:00 36.7 76 20 135/79 (97) 97 Room Air 09/07/17 04:00 98 Room Air Post Procedure Recovery Score Activity: (2) Moves 4 extremities * Respiration: (2) Deep breath/cough Circulation: (2) +/-20% PreAnes Value Consciousness: (2) Fully Awake Oxygen Saturation: (2) > 92% On Room Air Post Anesthesia Score: 10 Discharge Sedation Level of Care: Fast Track Phase II Post Sedation Plan On clinical assessment, the patient appears to have tolerated the sedation without complications. Patient is recovering as anticipated. Patient will continue to be monitored by nursing and may be discharged when sedation discharge criteria are met per below protocol. Upon Completions of procedure and additional 15 minutes continue every 5 minute vital signs and the P.A.R. score; then discharge to a Phase I or Fast Track to Phase II per the following guidelines: * Discharge Patient to appropriate Phase II area if PAR is 8 or greater or return to pre- procedure baseline. The post - procedure orders will be as directed. * If PAR score is less than 8 or not return to pre-procedure baseline then patient will follow Phase I monitoring till PAR is reached for Phase II. The Phase I may be done in procedure room or may call to secure a Phase I area. * If naloxone or flumazenil are used for reversal, hold in Phase I for an additional 60 -120 minutes before discharge to Phase II. Please call the Sedation Physician to re-evaluate and complete post-note for discharge to Phase II area. Do NOT discharge from procedure sedation or Phase 1 until post- sedation evaluation note is complete by procedure /sedation MD Sedation Discharge Instructions to be given to the patient at discharge to home.
[2017-09-07] MEDS ORDERED: ACETAMINOPHEN 325 MG TAB PO PRN (16:00)
[2017-09-07] MEDS ORDERED: ATROPINE SULFATE 0.1 MG/ML 5ML SYR IV PRN (16:00)
[2017-09-07] MEDS ORDERED: ONDANSETRON INJ 2 MG/ML 2 ML VIAL IV PRN (16:00)
--- NOTE | 2017-09-07 16:01 | Procedure Note ---
Cardiac Cath Report Procedure: Coronary angiography and left heart cath History: This is a 52-year-old female who has a history of coronary stents who presented with chest pain and elevation in her cardiac markers Procedure summary: A right transradial approach was attempted. We were able to do coronary angiography of the LAD however we had difficulty finding the left circumflex artery. The patient became uncomfortable and developed spasm in the right radial artery. The right transradial approach was aborted and the sheath was taken out. Patient was then prepped for right transfemoral approach. We were able to gain access in complete coronary angiography. The right femoral artery site was then closed using a minks device and the patient was returned to her room in stable condition. Coronary angiography: Selective injections of the LAD reveal minor luminal irregularities in the proximal and mid segment. There is evidence of her previous and coronary stent in the LAD which gels a large diagonal branch. This coronary stent is widely patent along with the remainder of the LAD to the apex of the heart. The diagonal branch which is jailed has an ostial stenosis. 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 Selective injections of the right coronary artery revealed both the left circumflex and right coronary arteries. The right coronary artery and left circumflex arteries are widely patent. 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 The coronary anatomy is widely patent including the previous stented site in the LAD. The LVEDP was 27.
--- NOTE | 2017-09-07 16:07 | Cardiac Catheterization ---
Procedure Note Procedure Date Sep 07, 2017. Pre-Procedure Diagnosis Angina AUC Score 7 Post-Procedure Diagnosis Mild CAD Procedure(s) Performed Coronary Angiography, Left Heart Cath Freezing Room Worker Dr. Fox Cost Clerk(s) None Estimated Blood Loss None Medication(s) Versed, Lidocaine 1%, Diphenhydramine The patient received Benadryl, Zantac and Solu-Medrol preprocedure due to a dye allergy. Summary of Findings See dictated report Hemodynamics Rest Ao: 165/93 Final Ao: 171/92 LV: 178/24 Recommendations Medical therapy and/or Counseling Specimens None Radiation Exposure (mGy) 3187 Contrast (mls) 132 Procedural Complication(s) None Disposition PCU ACC Data Cardiac Status Clinical evaluation leading to the procedure CAD Presntation: Unstable angina Anginal Classification: CCS II Heart Failure: No Cardiogenic Shock w/in 24Hrs: No Cardiac Arrest w/in 24Hrs: No Imaging studies past 6 months: Yes Stress studies past 6 months: No Coronary Anatomy Dominant: Right Left Main (% Stenosis): Normal LAD (% Stenosis): Normal Circumflex (% Stenosis): Normal (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
[2017-09-07] MEDS: SODIUM CHLORIDE 0.9% 1000ML 1,000 ML IV SCH (16:14)
[2017-09-07] MEDS: ATORVASTATIN 20 MG TAB PO SCH (17:54)
[2017-09-07] MEDS: SERTRALINE HCL 50 MG TAB PO SCH (17:55)
[2017-09-07] MEDS: LISINOPRIL 10 MG TAB PO SCH (17:55)
[2017-09-07] MEDS: METOPROLOL TARTRATE 25 MG TAB PO SCH (20:37)
[2017-09-07] MEDS: PANTOprazole SOD 40 MG TAB PO SCH (20:38)
[2017-09-08] MEDS ORDERED: DC ALL ANTICOAGULANTS ONE
[2017-09-08] MEDS ORDERED: SODIUM CHLORIDE 0.9% 1000ML 1,000 ML IV SCH
[2017-09-08 03:05] VITALS: BP 144/81; PULSE 76; TEMP 36.8; O2SAT 95
[2017-09-08] MEDS: SODIUM CHLORIDE 0.9% 1000ML 1,000 ML IV SCH (04:39)
[2017-09-08 07:41] VITALS: BP 160/80; PULSE 86; TEMP 36.4; O2SAT 95
[2017-09-08] MEDS: METOPROLOL TARTRATE 25 MG TAB PO SCH (07:47)
[2017-09-08] MEDS ORDERED: NURSING VERBAL MED ORDER ONE (08:00)
[2017-09-08] MEDS: ATORVASTATIN 20 MG TAB PO SCH (08:27)
[2017-09-08] MEDS: LISINOPRIL 10 MG TAB PO SCH (08:27)
[2017-09-08] MEDS: SERTRALINE HCL 50 MG TAB PO SCH (09:28)
[2017-09-08] MEDS ORDERED: ASPI-232 PO (11:09)
[2017-09-08] MEDS ORDERED: GUAISYP4 PO (11:11)
[2017-09-08] MEDS ORDERED: DOXY100C41 PO (11:11)
--- NOTE | 2017-09-08 11:14 | Discharge Instructions ---
Discharge Instructions Date of Service Sep 08, 2017. Admission Reason for Admission: Chest Pain Discharge Discharge Diagnosis / Problem: chest pain Discharge Goals Goal(s): Decrease discomfort, Improve function Activity Recommendations Activity Limitations: resume your previous activity . Instructions / Follow-Up Instructions / Follow-Up FOLLOWUP WITH FAMILY DOCTOR ON September 10:45AM FOLLOWUP WITH CARDIOLOGY SCHEDULED FOLLOWUP WITH FAMILY DOCTOR FOR LEFT THYROID NODULE. AVOID TAKING IBUPROFEN, ALEVE,MOTRIN OR NAPROSYN OR MELOXICAM OR ANY OTHER NSAID 'S FOR NURSING HOME THEY CAN CAUSE HEART ATTACKS, GASTRIC ULCERS AND RENAL FAILURE. ALSO DON'T TAKE THEM WHILE ON PREDNISONE. TAKE ASPIRIN AND ALL OTHER MEDICATIONS PRESCRIBED. Current Hospital Diet Patient's current hospital diet: AHA Diet (Heart Healthy) Discharge Diet Recommended Diet: AHA Diet (Heart Healthy) Pending Studies Studies pending at discharge: no Laboratory Results Hemoglobin A1c Test 09/05/17 20:15 Range/Units Estimated Average Glucose 126 mg/dl Hemoglobin A1c 6.0 H 4.5-5.6 % Medical Emergencies . Who to Call and When: Medical Emergencies: If at any time you feel your situation is an emergency, please call 911 immediately. . Non-Emergent Contact Non-Emergency issues call your: Primary Care Provider . . "Provider Documentation" section prepared by Amos Shrestha. .
--- NOTE | 2017-09-08 11:25 | Progress Note ---
Internal Med Progress Note Date of Service: Sep 08, 2017. Provider Documentation: SUBJECTIVE: says HAVING LOT OF DRY COUGH AFEBRILE DENIES CHEST PAIN OR SOB NO NAUSEA OK FOR DISCHARGE OBJECTIVE: Vital Signs-as noted below Exam: General-alert and Oriented. Not in distress.Obese ENT-Normal hearing Neck-no neck masses Lungs-cta b/l no wheezing or crackles Heart-s1 and s2 heard regular no murmurs Abdomen-soft bowel sounds present non tender no distension Extremities-no erythema Neuro-alert and awake moves extremities Lab data as noted below. ASSESSMENT & PLAN: 1. Atypical chest pain likely secondary to worsening reflux after ongoing steroid course for cervical radiculopathy. Mild troponin elevation possible demand ischemia from uncontrolled htn? CT chest No PE Echo unremarkable consulted cardiology- s/p cardiac cath mild CAD. Medical management stable f/u with pcp and cardiology 3. Coronary artery disease status post stenting. on statin and b parisa and aspirin.stable 4. Past tobacco abuse. 5. Chronic anemia, hemoglobin baseline. hb 9.5 f/u with pcp 6. Odynophagia Subacute symptoms possible thyroid enlargement as etio as per patient's PCP. f/u with pcp. left thyroid nodule on ct chest seems to be there since 2008 COUGH D/C ON DOXYCYCLINE Discharge home Vital Signs: Date Time Temp Pulse Resp B/P (MAP) Pulse Ox O2 Delivery O2 Flow Rate FiO2 09/08/17 11:28 36.4 86 19 95 Room Air 09/08/17 11:12 Room Air 09/08/17 08:00 Room Air 09/08/17 07:41 36.4 86 19 160/80 (106) 95 Room Air 09/08/17 04:00 Room Air 09/08/17 03:05 36.8 76 19 144/81 (102) 95 Room Air 09/07/17 23:59 Room Air 09/07/17 23:15 37.0 74 19 142/82 (102) 96 Room Air 09/07/17 21:36 72 18 128/67 (87) 95 Room Air 09/07/17 20:36 79 18 141/82 (101) 95 Room Air 09/07/17 20:00 94 Room Air 09/07/17 20:00 36.7 09/07/17 19:36 81 81 139/80 (99) 94 Room Air 09/07/17 19:35 36.7 86 18 137/69 (91) 95 Room Air 09/07/17 18:36 73 18 141/84 (103) 93 Room Air 73 09/07/17 17:36 73 18 141/84 (103) 93 Room Air 73 09/07/17 17:06 74 18 143/83 (103) 95 Room Air 74 09/07/17 16:36 73 18 141/81 (101) 94 Room Air 73 09/07/17 16:21 71 18 138/84 (102) 94 Room Air 71 09/07/17 16:06 72 18 141/84 (103) 93 Room Air 72 09/07/17 16:00 94 Room Air 09/07/17 15:56 70 16 152/98 (116) 96 Room Air 09/07/17 15:51 36.3 76 18 141/86 (104) 94 Room Air 76 09/07/17 15:47 70 16 168/98 (121) 96 Room Air 09/07/17 12:00 Room Air
[2017-09-08 11:28] VITALS: BP 160/80; PULSE 86; TEMP 36.4; O2SAT 95
--- NOTE | 2017-09-08 11:36 | Discharge Summary ---
Discharge Summary Date of Service Sep 08, 2017. Discharge Summary Admission Date: Sep 07, 2017 at 18:27 Discharge Date: Sep 08, 2017 Discharge Disposition: Home Principal Diagnosis: CHEST PAIN Secondary Diagnoses/Problems: CAD status post stenting, hypertension, hyperlipidemia, past tobacco abuse, chronic anemia (baseline hemoglobin 10) Procedures: CTA CHEST: 1. There is no evidence of central pulmonary embolus in the main, lobar, or proximal segmental pulmonary arteries. 2. There is no airspace consolidation or pleural effusion. 3. The lungs are clear. 4. Nodules are present in the left thyroid lobe. These have been present dating back to 2008. If not already performed, consider nonemergent sonographic follow-up. ECHO: * The left ventricle is normal in size. * Left ventricular systolic function is normal. * Ejection Fraction = 60-65%. * The right ventricular systolic function is normal. * The left atrial size is normal. * Right atrial size is normal. No significant valvular pathology S/P CARDIAC CATH Consultations: CARDIOLOGY Medication Reconciliation New Medications: Doxycycline (Monohydrate) (Monodox) 100 Mg Cap 100 MG PO BID for 5 Days, #10 CAP Guaifenesin/Codeine (Robitussin-Ac Syrup) Syrp 5 ML PO Q6H PRN for Cough for 6 Days, #120 ML Continued Medications: Acetaminophen (Tylenol) 500 Mg Tab 1000 MG PO Q6H PRN for Pain, TAB Albuterol Hfa (Ventolin Hfa) 200 Puffs/20472 Mcg Aers 22 PUFFS INH Q6H PRN for SOB/Wheezing Aspirin (Aspir-81) 81 Mg Tab 1 TAB PO DAILY for 30 Days, #30 TAB 1 Refill Atorvastatin (Lipitor) 20 Mg Tab 20 MG PO DAILY, TAB Lisinopril (Zestril) 10 Mg Tab 10 MG PO DAILY, TAB Metoprolol Tartrate (Lopressor) (Lopressor) 25 Mg Tab 12.5 MG PO BID, TAB Mometasone Furoate-Formoterol (Dulera 200/5 Mcg) 1 Aer Aer 2 PUFFS INH BID PRN for SOB/Wheezing, GM Nitroglycerin (Nitrostat) 0.4 Mg Tab 0.4 MG UT PRN, BTL NEEDED FOR CHEST PAIN: ONE TABLET UNDER THE TONGUE EVERY 5 MINUTES, UP TO 3 DOSES. Prednisone Tab (Prednisone) Unknown Strength Tab Unknown Dose PO TAPER UD, TAB START 09/04/2017 Ranitidine Hcl (Zantac) 300 Mg Tab 300 MG PO DAILY PRN for ACID REFLUX, TAB Sertraline (Zoloft) 50 Mg Tab 50 MG PO DAILY, TAB Discontinued Medications: Ibuprofen (Motrin) 800 Mg Tab 800 MG PO Q6H PRN for Pain, TAB Admission Information HPI (per Admitting provider): History obtained from patient and records. Medical history significant for CAD status post stenting, hypertension, hyperlipidemia, past tobacco abuse, chronic anemia (baseline hemoglobin 10) Recent confinement April 2016 for atypical chest pain. Negative dobutamine stress study during confinement. Patient seen in the ER last week for left shoulder pain. The patient had a cervical spine CT which showed no fracture or subluxation, multilevel bilateral neural foraminal narrowing, most pronounced in the right side due to vertebral facet hypertrophy. Prescribed prednisone course for cervical radiculopathy, increased heartburn noted. Increasing reflux symptoms going to the chest, right-sided chest pain with some shortness of breath, no fever, no chills. Some relief with nitroglycerin in the Emergency Room. As per patient, home blood pressure uncontrolled. SBP 180s occasionally. Physical Exam (per Admitting): VITAL SIGNS: Blood pressure noted to be 156/122, pulse rate 91, RR 18, temperature 37 O2 98RA. GENERAL: Obese, comfortable, pleasant, no respiratory distress. SKIN: Pallor, warm. HEENT: Pale palpebral conjunctiva. No ptosis. Dry mucosa. minimal pharyngeal congestion NECK: Short neck. Nontender. LUNGS: Decreased breath sounds. No tenderness. HEART: Regular rate and rhythm, no murmur. ABDOMEN: Some distention, nontender. EXTREMITIES: Minimal LE edema, no tenderness. No gross deformities. NEUROLOGIC: Coherent. No gross focality. Hospital Course 1. Atypical chest pain likely secondary to worsening reflux after ongoing steroid course for cervical radiculopathy. Mild troponin elevation possible demand ischemia from uncontrolled htn? CT chest No PE Echo unremarkable consulted cardiology- s/p cardiac cath mild CAD. Medical management stable f/u with pcp and cardiology 3. Coronary artery disease status post stenting. on statin and b parisa and aspirin.stable 4. Past tobacco abuse. 5. Chronic anemia, hemoglobin baseline. hb 9.5 f/u with pcp 6. Odynophagia Subacute symptoms possible thyroid enlargement as etio as per patient's PCP. f/u with pcp. left thyroid nodule on ct chest seems to be there since 2008 COUGH D/C ON DOXYCYCLINE Discharge home Total time spent on discharge = 35MINUTES This includes examination of the patient, discharge planning, medication reconciliation, and communication with other providers. Discharge Instructions Discharge Instructions Date of Service Sep 08, 2017. Admission Reason for Admission: Chest Pain Discharge Discharge Diagnosis / Problem: chest pain Discharge Goals Goal(s): Decrease discomfort, Improve function Activity Recommendations Activity Limitations: resume your previous activity . Instructions / Follow-Up Instructions / Follow-Up FOLLOWUP WITH FAMILY DOCTOR ON September 10:45AM FOLLOWUP WITH CARDIOLOGY SCHEDULED FOLLOWUP WITH FAMILY DOCTOR FOR LEFT THYROID NODULE. AVOID TAKING IBUPROFEN, ALEVE,MOTRIN OR NAPROSYN OR MELOXICAM OR ANY OTHER NSAID 'S FOR SKILLED NURSING THEY CAN CAUSE HEART ATTACKS, GASTRIC ULCERS AND RENAL FAILURE. ALSO DON'T TAKE THEM WHILE ON PREDNISONE. TAKE ASPIRIN AND ALL OTHER MEDICATIONS PRESCRIBED. Current Hospital Diet Patient's current hospital diet: AHA Diet (Heart Healthy) Discharge Diet Recommended Diet: AHA Diet (Heart Healthy) Pending Studies Studies pending at discharge: no Laboratory Results Hemoglobin A1c Test 09/05/17 20:15 Range/Units Estimated Average Glucose 126 mg/dl Hemoglobin A1c 6.0 H 4.5-5.6 % Medical Emergencies . Who to Call and When: Medical Emergencies: If at any time you feel your situation is an emergency, please call 911 immediately. . Non-Emergent Contact Non-Emergency issues call your: Primary Care Provider . .
[2017-09-08 11:37] VITALS: BP 138/80; PULSE 79; TEMP 36.4; O2SAT 97
== END 2017-09-08 13:35 | disposition home or self-care (01) | DRG 287 ==
LOC: EDBD 20:04 → C.EDB 20:06 → C.2T 22:47 → ENRESERV 22:55 → OBSVTOIN 09-07 18:27
PROVIDERS: ADMIT Internal Medicine; ATTEND Internal Medicine
PROC: B211YZZ Fluoroscopy of Multiple Coronary Arteries using Other Contrast (ICD-10-PCS; principal; 2017-09-07 15:01)
PROC: 4A023N7 Measurement of Cardiac Sampling and Pressure, Left Heart, Percutaneous Approach (ICD-10-PCS; principal; 2017-09-07 15:01)
DX: I24.8 Other forms of acute ischemic heart disease (principal); Z68.42 Body mass index [BMI] 45.0-49.9, adult; I25.110 Atherosclerotic heart disease of native coronary artery with unstable angina pectoris; K21.9 Gastro-esophageal reflux disease without esophagitis; I11.9 Hypertensive heart disease without heart failure; R13.10 Dysphagia, unspecified; E04.9 Nontoxic goiter, unspecified; D64.9 Anemia, unspecified; M54.12 Radiculopathy, cervical region; E78.5 Hyperlipidemia, unspecified; F32.9 Major depressive disorder, single episode, unspecified; J45.909 Unspecified asthma, uncomplicated; E66.9 Obesity, unspecified; Z51.81 Encounter for therapeutic drug level monitoring; Z79.899 Other long term (current) drug therapy; Z79.82 Long term (current) use of aspirin; Z95.5 Presence of coronary angioplasty implant and graft; Z87.891 Personal history of nicotine dependence; Z88.8 Allergy status to other drugs, medicaments and biological substances; Z88.6 Allergy status to analgesic agent; Z88.5 Allergy status to narcotic agent; Z91.041 Radiographic dye allergy status; Z82.49 Family history of ischemic heart disease and other diseases of the circulatory system

== ENCOUNTER 2017-11-17 08:28 | Emergency (ER) | payer OTHER ==
[~2017-11-17] VITALS: Ht 167.6 cm; Wt 133.9 kg
[~2017-11-17 08:28] MED LIST changes: +ASPI-232 PO; -IBUP-1428 PO; +PRED10TA PO; +RANI300T2 PO
[2017-11-17 08:32] VITALS: TEMP 36.4; Ht 167.6 cm; Wt 133.9 kg
[2017-11-17] MEDS ORDERED: OXYC1TAB3 PO (08:51)
[2017-11-17] MEDS ORDERED: RANI150T85 PO (09:11)
[2017-11-17 09:18] VITALS: BP 179/84; PULSE 78; O2SAT 95
--- NOTE | 2017-11-17 09:32 | EMERGENCY ROOM VISIT NOTE ---
History First contact with patient: 08:34 Chief Complaint: SHOULDER PAIN Stated Complaint: RIGHT SHOULDER AND NECK PAIN History of Present Illness The patient is a 52 year old female who presents to the Emergency Room with complaints of neck pain radiating into her right shoulder blade and right shoulder/upper arm region. The patient reports that her symptoms have been worsening for the past 2 days. The patient reports that she saw her orthopedic surgeon 2 months ago and had an injection in the shoulder. She was told that she would need a shoulder replacement. The patient reports that her sound truck operator, Dr. Reddy, will not allow her surgery because of heart disease. The patient reports that her pain is worsened with movement of the neck. She denies any paresthesias, numbness or burning in the right upper extremity. She also denies any decreasing medical lab tech instructor in the right hand. She does occasionally have discomfort radiating into the left upper extremity. The patient denies any headaches, nausea, diaphoresis, chest pain or shortness of breath. She rates her discomfort an 8 out of 10. Review of Systems 10 system review was performed and was negative except for pertinent positives and negatives as indicated in history of present illness Past Medical/Surgical History Medical Problems: (1) Acute asthma (2) CAD (coronary artery disease) (3) Chest pain (4) Chronic bronchitis (5) Depression (6) Dyslipidemia (7) Dyslipidemia (8) History of heart disease (9) HTN (hypertension) (10) HTN (hypertension) Surgical Problems: (1) History of coronary artery stent placement (2) Hx of cholecystectomy Family History Diabetes mellitus BROTHER SISTER Gallbladder disease Heart disease Hypertension Kidney disease Social History Smoking Status: Former Smoker Alcohol Use: none Drug Use: none Housing Status: lives with family Occupation Status: employed Current/Historical Medications Scheduled Aspirin (Aspir-81), 1 TAB PO DAILY Atorvastatin (Lipitor), 20 MG PO DAILY Lisinopril (Zestril), 10 MG PO DAILY Metoprolol Tartrate (Lopressor) (Lopressor), 12.5 MG PO BID Nitroglycerin (Nitrostat), 0.4 MG UT PRN Ranitidine (Zantac), 150 MG PO BID Sertraline (Zoloft), 50 MG PO DAILY Scheduled PRN Acetaminophen (Tylenol), 1,000 MG PO Q6H PRN for Pain Albuterol Hfa (Ventolin Hfa), 22 PUFFS INH Q6H PRN for SOB/Wheezing Mometasone Furoate-Formoterol (Dulera 200/5 Mcg), 2 PUFFS INH BID PRN for SOB/ Wheezing Oxycodone Ir (Roxicodone Ir), 1-2 TAB PO Q4H PRN for Pain Physical Exam Vital Signs Date Time Temp Pulse Resp B/P (MAP) Pulse Ox O2 Delivery O2 Flow Rate FiO2 11/17/17 09:18 78 18 179/84 95 11/17/17 08:32 36.4 88 20 180/79 98 Room Air Physical Exam CONSTITUTIONAL: Healthy and well nourished. Alert and oriented X 3 with positive affect. Patient appears in mild to moderate discomfort. HEENT: Normocephalic, atraumatic. Pupils equal, round and reactive. Ears and nares are clear. No scleral icterus or conjunctival injection/pallor. NECK: Left lateral gaze reproduces the patient's discomfort into her right scapula, neck and shoulder region. RESPIRATORY: Clear to auscultation bilaterally with no wheezing, crackles, rhonchi or stridor. CARDIOVASCULAR: Regular rate and rhythm with no murmurs, rubs or gallops. GASTROINTESTINAL: Bowel sounds present in all quadrants. Soft and nontender to palpation. Negative Douglass sign. Negative CVA tenderness. No obvious hepatosplenomegaly. MUSCULOSKELETAL: Patient has mild tenderness to palpation about the right acromioclavicular joint. She has limited range of motion of the right shoulder which also causes discomfort. No scapular winging. No tenderness to palpation over the posterior or anterior ribs. INTEGUMENTARY: No rash or other significant dermatologic conditions noted. NEUROLOGIC: No focal neurologic deficits noted. Right deltoid sensation is intact. Right hand median, radial and ulnar motor and sensory are intact. Medical Decision & Procedures ER Provider Diagnostic Interpretation: I did review a cervical spine CT that was taken at our facility on 08/31/17. I personally reviewed imaging results. Radiologist report from that study is as follows: CERVICAL SPINE CT CT DOSE: 452.37 mGy.cm HISTORY: neck pain down left arm TECHNIQUE: Multiaxial CT images of the cervical spine were performed and reformatted in the sagittal and coronal plane without the use of contrast. A dose lowering technique was utilized adhering to the principles of ALARA. COMPARISON: Cervical spine CT 08/20/2016. FINDINGS: No fracture or subluxation. Prevertebral soft tissues and the C1-C2 interval are intact. The visualized posterior fossa appears unremarkable. There is a heterogeneous 2.7 cm nodule within the left thyroid lobe. This was likely under estimated on the prior study. The lung apices are clear. No pneumothorax. Mild to moderate multilevel cervical spondylosis is again noted. Evaluation of the central canal suboptimal due to the CT technique. 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 This is not significantly changed. There is also multilevel bilateral neural foraminal narrowing most pronounced at the right side of the C2-C3 level due to the vertebral and facet hypertrophy. Large anterior osteophytes seen within the lower cervical spine. IMPRESSION: 1. No significant change compared to the prior study. 2. No fracture or subluxation. 3. Multilevel cervical spondylosis as described above. This is most pronounced at the C3 and C4 levels where there is mild to moderate central canal narrowing due to the ossification of the posterior longitudinal ligament. 4. A 2.7 cm heterogeneous nodule within the left thyroid lobe. Recommend nonemergent thyroid ultrasound follow-up for further evaluation. ED Course Patient history and physical exam were performed. Nurse's notes were reviewed. Vital signs were reviewed, showing an elevated blood pressure 180/79. The patient reports that she typically has an elevated blood pressure, especially when she is in pain. I reviewed documentation from the patient's ER visit in when the patient was experiencing pain radiating into the left upper extremity. Her clinical exam in the emergency department at that time was suggestive of a left cervical radiculitis. Today the patient is complaining of pain within the right neck, shoulder blade and right upper extremity region. Her clinical exam is certainly consistent with an acute cervical radiculitis. I did review CT studies with the patient, and advised her that her symptoms today are more suggestive of neck origin as opposed to right shoulder origin. I did encourage the patient to follow-up with her orthopedic surgeon for further reevaluation. If she is unable to get into them for further follow-up, I suggested that she contact her PCP for referral to a spine surgeon. The patient is requesting some medicine to help her sleep at night. The patient was provided a prescription for OxyIR 5 mg. The [place] Prescription Drug Monitoring Program was queried without any red flags. The patient was instructed to return to the emergency department for any developing chest pain, shortness of breath, nausea, diaphoresis or other symptoms that would be suggestive of possible cardiac etiology. The patient was happy with plan of care, voiced understanding of all discharge instructions, refused any analgesics while in the emergency department, and rated her discomfort a 6 out of 10 at the conclusion of my exam. I did encourage the patient to follow-up with her PCP or sound truck operator for further blood pressure management Medical Decision [place] Drug Monitoring Program Search Results: patient reviewed within database, no issues identified Medication Reconcilliation Current Medication List: was personally reviewed by me Blood Pressure Screening Patient's blood pressure: Elevated blood pressure Blood pressure disposition: Referred to PCP Impression Primary Impression: Radiculitis of right cervical region Departure Information Prescriptions Oxycodone Ir (Roxicodone Ir) 5 Mg Tab 1-2 TAB PO Q4H Y for Pain, #15 TAB For Initial Treatment Prov: Derrick Perez PA 11/17/17 Forms HOME CARE DOCUMENTATION FORM, IMPORTANT VISIT INFORMATION Patient Instructions My [facility], ED Cervical Radiculopathy Additional Instructions Intermittently apply ice to neck. Take Tylenol 1000 mg every 6-8 hours. OxyIR if needed for worse pain. Do not drink alcohol or drive while taking OxyIR. Follow-up with your orthopedic surgeon for further reevaluation. Alternatively you can contact your family doctor for referral to a spine surgeon.
== END 2017-11-17 09:19 | disposition home or self-care (01) ==
LOC: C.EDB 08:29
DX: M54.12 Radiculopathy, cervical region (principal); J45.909 Unspecified asthma, uncomplicated; I25.10 Atherosclerotic heart disease of native coronary artery without angina pectoris; F32.9 Major depressive disorder, single episode, unspecified; E78.5 Hyperlipidemia, unspecified; I10 Essential (primary) hypertension; Z90.49 Acquired absence of other specified parts of digestive tract; Z95.5 Presence of coronary angioplasty implant and graft; Z83.3 Family history of diabetes mellitus; Z82.49 Family history of ischemic heart disease and other diseases of the circulatory system; Z84.1 Family history of disorders of kidney and ureter; Z80.0 Family history of malignant neoplasm of digestive organs; Z87.891 Personal history of nicotine dependence; Z79.82 Long term (current) use of aspirin; Z79.899 Other long term (current) drug therapy

== ENCOUNTER 2018-02-07 13:51 | Emergency (ER) | payer OTHER ==
[~2018-02-07] VITALS: Ht 167.6 cm; Wt 134.0 kg
[~2018-02-07 13:51] MED LIST changes: +FERR1TAB23 PO; -PRED10TA PO; +RANI150T85 PO; -RANI300T2 PO
[2018-02-07 13:53] VITALS: BP 141/69; PULSE 100; TEMP 36.9; O2SAT 93; Ht 167.6 cm; Wt 134.0 kg
--- NOTE | 2018-02-07 17:30 | EMERGENCY ROOM VISIT NOTE ---
History First contact with patient: 13:56 Chief Complaint: FOOT PAIN Stated Complaint: L BOTTOM OF FOOT BURNING AND CANT WALK History of Present Illness The patient is a 52 year old female who presents to the Emergency Room with complaints of persistent left foot pain after cutting the bottom of her foot last week at [facility]. The patient reports that her daughter cut a small piece of the skin off recently, and encouraged her to keep an antibiotic ointment and dressing on the bottom of the foot. She reports pain with any weightbearing, and a burning sensation. She denies stepping on any foreign objects. She rates her discomfort an 8 out of 10 with weightbearing. She denies any paresthesias or numbness. She has not noticed any redness or drainage from the wound. Review of Systems 10 system review was performed and was negative except for pertinent positives and negatives as indicated in history of present illness Past Medical/Surgical History Medical Problems: (1) Acute asthma (2) CAD (coronary artery disease) (3) Chest pain (4) Chronic bronchitis (5) Depression (6) Dyslipidemia (7) Dyslipidemia (8) History of heart disease (9) HTN (hypertension) (10) HTN (hypertension) Surgical Problems: (1) History of coronary artery stent placement (2) Hx of cholecystectomy Family History Diabetes mellitus BROTHER SISTER Gallbladder disease Heart disease Hypertension Kidney disease Social History Smoking Status: Former Smoker Alcohol Use: none Drug Use: none Housing Status: lives with family Occupation Status: employed Current/Historical Medications Scheduled Aspirin (Aspir-81), 1 TAB PO DAILY Atorvastatin (Lipitor), 20 MG PO DAILY Lisinopril (Zestril), 10 MG PO DAILY Metoprolol Tartrate (Lopressor) (Lopressor), 12.5 MG PO BID Nitroglycerin (Nitrostat), 0.4 MG UT PRN Ranitidine (Zantac), 150 MG PO BID Sertraline (Zoloft), 50 MG PO DAILY Scheduled PRN Acetaminophen (Tylenol), 1,000 MG PO Q6H PRN for Pain Albuterol Hfa (Ventolin Hfa), 22 PUFFS INH Q6H PRN for SOB/Wheezing Mometasone Furoate-Formoterol (Dulera 200/5 Mcg), 2 PUFFS INH BID PRN for SOB/ Wheezing Miscellaneous Medications Ferrous Sulfate (Iron), 1 TAB PO Physical Exam Vital Signs Date Time Temp Pulse Resp B/P (MAP) Pulse Ox O2 Delivery O2 Flow Rate FiO2 02/07/18 13:53 36.9 100 18 141/69 93 Room Air Physical Exam CONSTITUTIONAL: Healthy and well nourished. Alert and oriented X 3 with positive affect. Patient does not appear in any acute distress. HEENT: Normocephalic, atraumatic. Pupils equal, round and reactive. NECK: Full active range of motion without discomfort. MUSCULOSKELETAL: Examination of the left foot shows a small lateral midfoot laceration of the sole measures approximately 5 mm. It is situated over a large area of thickened, hypertrophic skin/callus. There does not appear to be any underlying bleeding, erythema, fluctuance or induration. The patient has no pain with subtalar motion. Pedal pulses and capillary refill are intact. INTEGUMENTARY: No rash or other significant dermatologic conditions noted. NEUROLOGIC: Left foot and toes are sensory intact. Medical Decision & Procedures ED Course Patient history and physical exam were performed. Nurse's notes were reviewed. Vital signs were reviewed and normal. The patient was advised that her symptoms are likely secondary to a laceration that is not healing because she continues to weight-bear. She was advised that there is no signs of infection. The patient reports that she does have crutches at home. She was encouraged to use these to remain limited weightbearing. I also encouraged her to keep the wound covered with an antibiotic ointment and dressing to help promote healing. She was encouraged to follow-up with her PCP as needed for further wound management, returning to the emergency department for any signs of infection. Ibuprofen or Tylenol as needed for pain. The patient was happy with plan of care, voiced understanding of all discharge instructions, and rated her pain a 4 out of 10 at the conclusion of my exam. Medical Decision Medication Reconcilliation Current Medication List: was personally reviewed by me Blood Pressure Screening Patient's blood pressure: Normal blood pressure Impression Primary Impression: Laceration of left foot Departure Information Dispostion Home / Self-Care Condition GOOD Forms HOME CARE DOCUMENTATION FORM, IMPORTANT VISIT INFORMATION Patient Instructions [facility] Additional Instructions Keep area covered with an antibiotic ointment and Band-Aid. Use your home crutches to keep weight off of the foot to allow the wound to heal. Ibuprofen or Tylenol as needed for pain. Follow-up with your family doctor as needed for further wound management.
== END 2018-02-07 14:17 | disposition home or self-care (01) ==
LOC: C.EDB 13:53 → C.EDD 14:17
DX: S91.312A Laceration without foreign body, left foot, initial encounter (principal); W26.9XXA Contact with unspecified sharp object(s), initial encounter; Y92.89 Other specified places as the place of occurrence of the external cause; J45.909 Unspecified asthma, uncomplicated; I25.10 Atherosclerotic heart disease of native coronary artery without angina pectoris; F32.9 Major depressive disorder, single episode, unspecified; E78.5 Hyperlipidemia, unspecified; I10 Essential (primary) hypertension; Z90.49 Acquired absence of other specified parts of digestive tract; Z95.5 Presence of coronary angioplasty implant and graft; Z83.3 Family history of diabetes mellitus; Z83.79 Family history of other diseases of the digestive system; Z82.49 Family history of ischemic heart disease and other diseases of the circulatory system; Z84.1 Family history of disorders of kidney and ureter; Z87.891 Personal history of nicotine dependence; Z79.82 Long term (current) use of aspirin; Z79.899 Other long term (current) drug therapy

== ENCOUNTER 2018-02-26 10:09 | Emergency (ER) | payer SELFPAY ==
[2018-02-26 10:13] VITALS: TEMP 36.4; Ht 167.6 cm
[2018-02-26] MEDS ORDERED: TRAZ50TA35 PO (10:40)
[2018-02-26] MEDS ORDERED: LISI20TA3 PO (10:40)
[2018-02-26] MEDS ORDERED: TRAM-10 PO (11:07)
--- NOTE | 2018-02-26 11:08 | EMERGENCY ROOM VISIT NOTE ---
ED Visit Note First contact with patient: 10:17 CHIEF COMPLAINT: Pain in arch of right foot x 2 days HPI: Patient is a 52-year-old female who presents the emergency department for evaluation of plantar right foot pain over the last 2 days. Patient reports a remote history of a fracture in this foot about 4 or 5 years ago. She she often has pain in the foot and follows with Dr. Michel. She reports that she has a walking boot at home that she uses when her foot begins to bother her. 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 She also states that she was walking around a lot at the [employer] yesterday. Her foot actually began to bother her 2 days ago, she had someone rub it. Yesterday she felt well enough to walk around [place]. This morning when she woke up, she had significant, 10/10 pain in the bottom of her foot. It is worse with weightbearing. She took Tylenol. She was not able to wear her boot to work. She was sent home because of the amount of pain that she was in. She notes the pain is in the arch of her foot only. It is worse with weightbearing. It makes it difficult for her to move her toes or her ankle. She denies any new trauma or injury to the area. REVIEW OF SYSTEMS: Review of systems as per HPI. All other systems reviewed were negative. At least 6 systems reviewed. PMH: Electronic medical records are reviewed and summarized as above/below. See Problem List. SOCIAL HISTORY: Patient lives at home. She is employed. PHYSICAL EXAM: Vital Signs: Reviewed Nurse's notes. GENERAL: Obese 62-year-old female who is awake and alert and in no acute distress. MUSCULOSKELETAL: Examination of the right foot does not reveal any obvious deformity. She has slight planovalgus alignment. There is no erythema, increased warmth or induration. Ankle is nontender to palpation. No ankle joint effusion is noted. She can dorsiflex and plantarflex without ankle discomfort, but does cause pain in the plantar aspect of her foot. There is no pain across the dorsum of the foot. There is no pain over the heels or the metatarsal heads. Pain is located completely in the mid foot plantar aspect, over the plantar fascia distribution. Right lower extremity is neurovascularly intact. EMERGENCY DEPARTMENT COURSE: The patient was seen and evaluated as above. She has a history of chronic right foot pain from a remote fracture. She is followed with orthopedics. She reports that she has a walking boot with an arch support, but did not wear it today. Her exam is more consistent with a plantar fasciitis, possibly a tendinitis or a sprain. Given lack of trauma, radiographs were deferred. She does not have any findings to indicate gouty arthropathy, certainly no findings to suspect cellulitis. She was encouraged to wear her walking boot and follow-up with her legal specialist as she has scheduled next week. She was encouraged to ice and take anti-inflammatory medicines but was provided with a small prescription for tramadol to use as needed for severe pain. Medication reconciliation: I attest that I have personally reviewed the patient' s current medication list. Blood pressure screening: Patient was found to have a slightly elevated blood pressure due to circumstances. I do not believe that the patient requires hypertension monitoring. Patient was reviewed in the [facility] Prescription Drug Monitoring Program, and there were no red flags noted. Problem List Medical Problems: (1) Achilles tendonitis Status: Resolved (2) Acute asthma Status: Resolved (3) Acute bronchitis Status: Resolved (4) Acute chest pain Status: Resolved (5) CAD (coronary artery disease) Status: Chronic (6) Cervical radiculopathy Status: Resolved (7) Chest pain Status: Resolved (8) Chronic bronchitis Status: Chronic (9) Contusion of left hip Status: Resolved (10) Depression Status: Chronic (11) Dyslipidemia Status: Chronic (12) Dyslipidemia Status: Chronic (13) Elevated troponin I level Status: Resolved (14) Foot pain Status: Resolved (15) Hematuria Status: Resolved (16) History of heart disease Status: Chronic (17) HTN (hypertension) Status: Chronic (18) HTN (hypertension) Status: Chronic (19) Laceration of left foot Status: Resolved (20) Mood disorder Status: Resolved (21) Radiculitis of right cervical region Status: Resolved Surgical Problems: (1) History of coronary artery stent placement Permanent Comment: stent x 2 in mid LAD in 2013 Status: Resolved (2) Hx of cholecystectomy Status: Resolved Current/Historical Medications Scheduled Aspirin (Aspir-81), 1 TAB PO DAILY Atorvastatin (Lipitor), 20 MG PO DAILY Lisinopril (Prinivil), 20 MG PO DAILY Metoprolol Tartrate (Lopressor) (Lopressor), 12.5 MG PO BID Nitroglycerin (Nitrostat), 0.4 MG UT PRN Ranitidine (Zantac), 150 MG PO BID Sertraline (Zoloft), 50 MG PO DAILY Trazodone Hcl (Trazodone), 50 MG PO DAILY Scheduled PRN Acetaminophen (Tylenol), 1,000 MG PO Q6H PRN for Pain Albuterol Hfa (Ventolin Hfa), 22 PUFFS INH Q6H PRN for SOB/Wheezing Mometasone Furoate-Formoterol (Dulera 200/5 Mcg), 2 PUFFS INH BID PRN for SOB/ Wheezing Tramadol (Ultram), 1-2 TABS PO Q4H PRN for Pain Miscellaneous Medications Ferrous Sulfate (Iron), 1 TAB PO Allergies Coded Allergies: Loratadine (Verified Allergy, Severe, 02/26/18) FACE SWELLED--NEEDED O2 Ketorolac Tromethamine (Verified Allergy, Intermediate, DIAPHORESIS, RASH , 02/26/18) Iodinated Diagnostic Agents (Verified Allergy, Mild, ITCHING, 02/26/18) Vital Signs Date Time Temp Pulse Resp B/P (MAP) Pulse Ox O2 Delivery O2 Flow Rate FiO2 02/26/18 11:51 76 18 191/93 96 02/26/18 10:13 36.4 77 20 154/80 98 Room Air Departure Information Impression Primary Impression: Right foot pain Prescriptions Tramadol (Ultram) 50 Mg Tab 1-2 TABS PO Q4H Y for Pain, #15 TAB For Initial Treatment Prov: Ching Luis PA 02/26/18 Referrals Lennie Steven DO (PCP) Patient Instructions [facility] Additional Instructions Tramadol (Ultram) 50mg: Take 1-2 pills every four hours for breakthrough pain. Avoid alcohol, operating machinery or dangerous equipment, working on ladders or roofs, DRIVING, or situations where being under the influence may be dangerous. It is recommended to use an [id number] stool softener such as Colace, 100mg twice daily while taking this medication to avoid constipation. Ibuprofen(Motrin, Advil) may be used for fever or pain. Use 600mg every six hours as needed. Take with food. Avoid using more than 2400mg in a 24 hour period. Do not use 2400mg per day for more than three consecutive days without physician direction. Prolonged inappropriate use can lead to stomach upset or ulcers. This medication can be taken if you need to drive, work, or perform activities which may be dangerous when taking narcotic pain medication. (AND/OR) Acetaminophen(Tylenol) may be used for fever or pain. Use 1000mg every six hours as needed. Avoid using more than 3000mg in a 24 hour period. This medication can be taken if you need to drive, work, or perform activities which may be dangerous when taking narcotic pain medication. Ice compresses for 20 minutes at a time four times daily for 2-3 days. Use your walking boot as previously instructed. Rest and elevate your injury. Continue current medications. Follow-up with your orthopedic physician for further care and management as you have scheduled.
[2018-02-26 11:51] VITALS: BP 191/93; PULSE 76; O2SAT 96
== END 2018-02-26 11:53 | disposition home or self-care (01) ==
LOC: C.EDB 10:10 → C.EDA 11:53
DX: M79.671 Pain in right foot (principal); E66.9 Obesity, unspecified; Z87.828 Personal history of other (healed) physical injury and trauma; E78.5 Hyperlipidemia, unspecified; I10 Essential (primary) hypertension; F32.9 Major depressive disorder, single episode, unspecified; Z79.82 Long term (current) use of aspirin; Z88.8 Allergy status to other drugs, medicaments and biological substances; Z88.6 Allergy status to analgesic agent; Z91.041 Radiographic dye allergy status

== ENCOUNTER 2019-04-10 06:43 | Observation (INO) ==
[2019-04-10] MEDS ORDERED: NITROGLYCERIN SL 0.4 MG/TAB TAB SL PRN ×2 (06:54→10:05)
[2019-04-10] MEDS ORDERED: ASPIRIN CHEW 324 MG PO STA (06:54)
[2019-04-10 07:32] LABS: Basophils # (auto) 0.05 K/uL (0-0.2); Basophils % (auto) 0.8 %; Eosinophils # (auto) 0.23 K/uL (0-0.5); Eosinophils % (auto) 3.7 %; Hemoglobin 9.4 g/dL (12.0-16.0); Immature Granulocytes # (auto) 0.01 K/uL (0.00-0.02); Immature Granulocytes % (auto) 0.2 %; Lymphocytes # (auto) 1.42 K/uL (1.2-3.4); Lymphocytes % (auto) 22.6 %; Mean Corpuscular Hemoglobin 25.3 pg (25-34); Mean Corpuscular Hgb Conc 31.3 g/dL (32-36); Mean Corpuscular Volume 80.9 fL (80-100); Mean Platelet Volume 8.4 fL (7.4-10.4); Monocytes # (auto) 0.57 K/uL (0.11-0.59); Monocytes % (auto) 9.1 %; Neutrophils # (auto) 4.01 K/uL (1.4-6.5); Neutrophils % (auto) 63.6 %; Platelet Count 332 K/uL (130-400); RDW Coefficient of Variation 13.5 % (11.5-14.5); RDW Standard Deviation 40.7 fL (36.4-46.3); Red Blood Count 3.71 M/uL (4.2-5.4); White Blood Count 6.29 K/uL (4.8-10.8)
[2019-04-10] MEDS ORDERED: NITROGLYCERIN 2% OINTMENT 30GM TUBE EXT STA (07:33)
--- NOTE | 2019-04-10 07:40 | XRay Report ---
XR chest 1V portable HISTORY: Atypical Chest Pain COMPARISON: Chest 03/11/2019. FINDINGS: The heart remains enlarged. No pleural effusions. No pneumothorax. The lungs are clear. IMPRESSION: Stable borderline cardiomegaly. Electronically signed by: Fortunato Weston M.D. 04/10/2019 7:39 AM
[2019-04-10 07:47] LABS: Alanine Aminotransferase 19 U/L (12-78); Albumin Level 2.8 gm/dl (3.4-5.0); Aspartate Aminotransferase 21 U/L (15-37); BUN Creatinine Ratio 22.8 (10-20); Blood Urea Nitrogen 15 mg/dl (7-18); Calcium 8.8 mg/dl (8.5-10.1); Carbon Dioxide 27 mmol/L (21-32); Chloride 106 mmol/L (98-107); Est GFR (African American) 114.9; Est GFR (Non-African American) 99.2; Glucose 113 mg/dl (70-99); Lipase 148 U/L (73-393); Potassium 3.5 mmol/L (3.5-5.1); Sodium 140 mmol/L (136-145)
[2019-04-10 07:52] LABS: Albumin Globulin Ratio 0.7 (0.9-2); Alkaline Phosphatase 96 U/L (45-117); Bilirubin,Total 0.2 mg/dl (0.2-1); Creatine Kinase 78 U/L (26-192); Globulin 4.2 gm/dl (2.5-4.0); Troponin I 0.019 ng/ml (0-0.045)
--- NOTE | 2019-04-10 09:01 | History & Physical Report ---
Date of Service April 10, 2019 Assessment & Plan (1) Chest pain: Chest pain: Presented to the ER with chest heaviness substernal radiating to left arm Persisted with shortness of breath Symptom was relieved after sublingual nitro, addition of Nitropaste leading to improvement of blood pressure Possible unstable angina Patient has multiple risk factor for ACS: Prior history of coronary artery disease, status post stent, high blood pressure, hyperlipidemia Will be observed in telemetry floor, Initial cardiac marker within normal limit, EKG does not show any ischemic change, multiple PVCs noted Will be ordered resting echocardiogram, Serial cardiac markers will be checked, cardiology consulted for further recommendation Hypertensive Urgency Presentation blood pressure was significantly high 198/90 Possible causing substernal chest discomfort/angina Blood pressure improved after addition of nitro paste, got sublingual nitro Last BP check at 7:33 AM 148/79 Patient reports resolution of chest heaviness, no shortness of breath No headache, no blurred vision no weakness or paresthesia Observe in telemetry, patient's out patient antihypertensives HCTZ/lisinopril: Continued (renal function remains stable Added Nitropaste continue beta-parisa Echo ordered to assess for hypertensive cardiomyopathy Check TSH Cardiology consulted for further recommendation Patient was given 325 mg of aspirin in ER We will continue with low-dose aspirin 81 mg daily starting from tomorrow Was taking naproxen 500 mg twice daily as needed, discontinued as it can possible contribute to hypertensive episode (2) CAD (coronary artery disease): History of coronary artery disease status post ALEXI stent x 2(in LAD and diagonal) in 2012 Follows with [facility] cardiology Cardiac cath on 09/08/[address] 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 Widely patent RCA and left circumflex arteries noted Widely patent previous stented site in LAD Echo cardiogram on 09/06 2017: Left ventricle is normal in size. Left ventricular systolic function is normal. Ejection fraction 60-65%. The right ventricular systolic function is normal. the left atrial size is normal. right atrial size is normal. No significant valvular pathology Presents with substernal chest discomfort/anginal symptoms possibly secondary to hypertensive urgency, Continue BP control Cardiac ischemia/angina: Work-up: Serial troponin, telemetry, resting echo ordered [facility] cardiology consulted for evaluation (3) HTN (hypertension): Noted with hypertensive urgency, systolic blood pressure elevated more than 190 (possible leading to angina symptoms) Added Nitropaste: Leading to significant improvement of blood pressure and resolution of angina Patient is continued on Lopressor 12.5 twice daily On lisinopril/HCTZ 04/29 patient takes half tablet daily Patient will need further titration of BP meds-cardiology consult requested for recommendation Chronic anemia Chronic anemia reported on blood work in the past, baseline hemoglobin ~ 10 On admission hemoglobin 9.4 /hematocrit 30 Normal MCV No report of GI bleed Ordered for iron studies Repeat CBC in a.m. (4) Dyslipidemia: Lipitor 20 mg daily: Given history of coronary artery disease, will increase Lipitor to 40 mg daily: For high intensity statin treatment Fasting lipid panel ordered in a.m. labs (5) History of coronary artery stent placement: Discussion as above CODE STATUS: Full code DVT prophylaxis: Subcu heparin Patient is encouraged to ambulate Disposition: Expected to be discharged home when medically stable Family physician follow-up with Dr. Steven History of Present Illness Chief Complaint: Chest pain: Primary Care Provider: Lennie Steven, DO Is a 53-year-old female with past medical history of hypertension, hyperlipidemia coronary artery disease status post stent in 2012 Came to ER with complaint of substernal chest pain discomfort radiating to her left arm, Patient mentions she woke up this morning with substernal chest discomfort, felt dizzy and lightheaded, Went to her work at [employer], on her way while driving patient continued to feel very lightheaded, After arriving to her workplace, her colleague noted to be very pale, diaphoretic Patient was brought to the ER by family members, Blood pressure 198/90 Patient reports that she took her morning blood pressure meds earlier around 4 AM She was given sublingual nitro, full-strength aspirin Placed on nitro paste Patient reports improvement of chest heaviness after sublingual nitro, During my time of interview patient sit still have mild aching/discomfort substernally, Shortness of breath, no dizzy spell or lightheadedness No arrhythmia noted on telemetry Blood pressure 141/75 she has noted increased fatigue, more dyspnea on exertion when climbing up a flight of stairs EKG shows no ischemic ST-T wave changes, Initial troponin marker negative, ordered for serial exams She will be monitored in telemetry Allergies Allergy/AdvReac Type Severity Reaction Status Date / Time loratadine Allergy Severe DEPLETED Verified 04/10/19 07:53 O2 FROM BODY, WAS PUT IN OXYGEN CHAMBER. ketorolac Allergy Intermediate DIAPHORESIS, Verified 04/10/19 07:53 RASH Iodinated Contrast Media Allergy Mild ITCHING Verified 04/10/19 07:53 prednisone AdvReac Mild Vomiting Verified 04/10/19 07:53 Home Medications Home Medications Medication Instructions Recorded Confirmed Type albuterol sulfate [Ventolin HFA] 2 puff INHALATION QID PRN 05/16/18 04/10/19 History aspirin [Aspirin Low Dose] 81 mg PO QAM 05/16/18 04/10/19 History atorvastatin [Lipitor] 20 mg PO QAM 05/16/18 04/10/19 History metoprolol tartrate 12.5 mg PO BID 05/16/18 04/10/19 History nitroglycerin [Nitrostat] 0.4 mg SUBLINGUAL UD 05/16/18 04/10/19 History sertraline [Zoloft] 50 mg PO QAM 05/16/18 04/10/19 History acetaminophen [Tylenol Extra 500 mg PO Q6H PRN 07/16/18 04/10/19 History Strength] naproxen 500 mg PO BID PRN #14 tab 07/16/18 04/10/19 Rx ranitidine HCl 300 mg PO BID 11/01/18 04/10/19 History ondansetron HCl [Zofran] 4 mg PO Q6H PRN #10 tab 11/03/18 04/10/19 Rx lisinopril-hydrochlorothiazide 0.5 tab PO QAM 03/11/19 04/10/19 History Past Med/Surg History Medical History CAD (coronary artery disease) (Chronic) HTN (hypertension) (Chronic) Dyslipidemia (Chronic) Depression (Chronic) Chronic bronchitis (Chronic) Achilles tendonitis (Resolved) Contusion of left hip (Resolved) Mood disorder (Resolved) Cervical radiculopathy (Resolved) Elevated troponin I level (Resolved) Foot pain (Resolved) Hematuria (Resolved) Radiculitis of right cervical region (Resolved) Surgical History History of coronary artery stent placement (Resolved) "stent x 2 in mid LAD in 2012" Family History Other Family history non-contributory Social History Preferred Language: Romansh Communication Ability: Effective Inspection Supervisor Required: No Beliefs That Will Affect Care: None Current Living Situation: Family Current Living Situation Comment: [place] current occupational status: employed Other Information That Helps Us Care for You: No Feels Safe at Home: Yes Safety Concerns: Feels Safe At This Time Smoking Status: Never smoker Hx Alcohol Use: Yes Hx Substance Use: No Physical Exam Constitutional: WD/WN, vitals as above no acute distress Eyes: PERRL, conjunctivae normal, anicteric sclerae ENMT: external ear and nose normal, oropharynx normal Neck: trachea midline, no thyromegaly Respiratory: normal respiratory effort, lungs clear to auscultation Cardiovascular: RRR, no murmur, no edema Gastrointestinal (Abdomen): normal bowel sounds, soft, nontender, no hepatosplenomegaly Musculoskeletal: no cyanosis or clubbing, extremities motor strength 5/5 Skin: no rashes, warm and dry Neurologic: PERRL, EOMI, accommodation nl, no face palsy, no dysarthria Psychiatric: A+Ox3, euthymic affect Results & Data Vital Signs (Past 12 Hours) Vital Signs Temp Pulse Pulse Resp BP BP Pulse Ox 04/10/19 07:33 78 18 148/79 H 96 04/10/19 06:48 36.5 C 90 20 198/90 H 98 Code Status & VTE Plan VTE Prophylaxis Plan VTE Prophylaxis will be ordered: Yes (1) CAD (coronary artery disease) Associated angina: with stable angina Coronary Disease-Associated Artery/Lesion type: [place] artery [place] vs. transplanted heart: lime heart Qualified Code(s): I25.118 - Atherosclerotic heart disease of lime coronary artery with other forms of angina pectoris (2) Chest pain Chest pain type: other chest pain Qualified Code(s): R07.89 - Other chest pain; R07.8 - Other chest pain (3) HTN (hypertension) Hypertension type: essential hypertension Qualified Code(s): I10 - Essential (primary) hypertension
[2019-04-10] MEDS ORDERED: ONDANSETRON INJ 2 MG/ML 2 ML VIAL IV PRN (10:05)
[2019-04-10] MEDS ORDERED: MAGNESIUM HYDROXIDE SUSP 30 ML UDC PO PRN (10:05)
[2019-04-10] MEDS ORDERED: POLYETHYLENE (MIRALAX) 17 GM PACK PO PRN (10:05)
[2019-04-10] MEDS ORDERED: ONDANSETRON 4 MG TAB PO PRN (10:05)
[2019-04-10] MEDS ORDERED: ATORVASTATIN 20 MG TAB PO SCH (10:05)
[2019-04-10] MEDS ORDERED: ALUMINUM/MAGNESIUM SUSP 30 ML UDC PO PRN (10:05)
[2019-04-10] MEDS ORDERED: ALBUTEROL HFA 8 GM INHALER INH PRN (10:05)
[2019-04-10] MEDS ORDERED: ACETAMINOPHEN 500 MG TAB PO PRN (10:05)
[2019-04-10] MEDS: NITROGLYCERIN 2% OINTMENT 30GM TUBE EXT SCH ×3 (11:45→20:32)
[2019-04-10] MEDS: METOPROLOL TARTRATE 25 MG TAB PO SCH ×2 (11:46→20:29)
[2019-04-10] MEDS: LISINOPRIL/HCTZ 20/25MG 1 TAB PO SCH (11:46)
[2019-04-10] MEDS: ASPIRIN 81 MG ECTAB PO SCH (11:46)
[2019-04-10] MEDS: SERTRALINE HCL 50 MG TABLET PO SCH (11:47)
--- NOTE | 2019-04-10 14:20 | Emergency Department Note ---
Entered by Marjorie Thorne acting as a scribe for Zachery Ortiz MD History of Present Illness General Chief complaint: Chest Pain Stated complaint: CHEST PAIN AND LEFT ARM Time Seen by Provider: 04/10/19 06:51 Source: patient History of Present Illness Onset (ago): hour(s) 1 Location: chest (upper left side) Radiation: extremity (left arm) Pain Consistency: + other (episode) Maximum Pain Intensity: 10 Relieved By: not by movement (lying flat) Exacerbated By: + movement (standing); not by other (palpation) Associated symptoms: + denies other symptoms (abdominal pain) and + shortness of breath The patient is a 53 year old female that is presenting to the Emergency Room with complaints of an episode of chest pain that started around 1 hour ago when the patient left for work. The patient reports some associated shortness of breath. She states that the pain is located in the upper left side of her chest and radiates into her left arm. She notes that the pain worsens with standing but states that the pain is present when lying flat. She denies any abdominal pain. She denies that the pain worsens with palpation of the area. She denies taking any Nitro prior to arrival but notes that she was carrying Nitro in her purse. She reports that she has a history of a coronary stent placement in 2012 in [place]. The patient notes that she used to take Plavix following the surgery but states that she has since been taken off the medication. She states that she takes a baby aspirin daily as well as Lisinopril. She notes that she is status post a cholecystectomy. Home Medications Home Medications Medication Instructions Recorded Confirmed Type albuterol sulfate [Ventolin HFA] 2 puff INHALATION QID PRN 05/16/18 04/10/19 History aspirin [Aspirin Low Dose] 81 mg PO QAM 05/16/18 04/10/19 History metoprolol tartrate 12.5 mg PO BID 05/16/18 04/10/19 History nitroglycerin [Nitrostat] 0.4 mg SUBLINGUAL UD 05/16/18 04/10/19 History sertraline [Zoloft] 50 mg PO QAM 05/16/18 04/10/19 History acetaminophen [Tylenol Extra 500 mg PO Q6H PRN 07/16/18 04/10/19 History Strength] ranitidine HCl 300 mg PO BID 04/29/19 10/06/19 History ondansetron HCl [Zofran] 4 mg PO Q6H PRN #10 tab 11/03/18 04/10/19 Rx amlodipine [Norvasc] 5 mg PO QAM 30 Days #30 tab 04/11/19 Rx atorvastatin [Lipitor] 40 mg PO QAM #30 tab 04/11/19 04/10/19 Rx ferrous sulfate [iron] 325 mg PO Q OTHER DAY #30 tab 04/11/19 Rx hydrochlorothiazide 25 mg PO DAILY #30 tab 04/11/19 Rx lisinopril 10 mg PO DAILY #30 tab 04/11/19 Rx Allergies Allergy/AdvReac Type Severity Reaction Status Date / Time loratadine Allergy Severe DEPLETED Verified 04/10/19 07:53 O2 FROM BODY, WAS PUT IN OXYGEN CHAMBER. ketorolac Allergy Intermediate DIAPHORESIS, Verified 04/10/19 07:53 RASH Iodinated Contrast Media Allergy Mild ITCHING Verified 04/10/19 07:53 prednisone AdvReac Mild Vomiting Verified 04/10/19 07:53 Past Med/Surg History Medical History CAD (coronary artery disease) (Chronic) HTN (hypertension) (Chronic) Dyslipidemia (Chronic) Depression (Chronic) Chronic bronchitis (Chronic) Achilles tendonitis (Resolved) Contusion of left hip (Resolved) Mood disorder (Resolved) Cervical radiculopathy (Resolved) Elevated troponin I level (Resolved) Foot pain (Resolved) Hematuria (Resolved) Radiculitis of right cervical region (Resolved) Surgical History History of coronary artery stent placement (Resolved) "stent x 2 in mid LAD in 2012" Family History Other Family history non-contributory Social History Preferred Language: Hebrew Communication Ability: Effective 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 and A total of 10 systems reviewed and were otherwise negative Physical Exam Vital Signs Vital Signs - 24 hr 04/10/19 06:48 04/10/19 07:33 Temperature 36.5 C Temperature Source Oral Sepsis Recent Fever Within 48 Hours No Sepsis Action Taken by Nursing No Action Required Pulse Rate 90 Pulse Rate [Apical] 78 Pulse Rhythm Regular Pulse Rhythm [Apical] Regular Pulse Strength Normal Respiratory Rate 20 18 Respiratory Effort / Characteristics Non-Labored Spontaneous Non-Labored Spontaneous Respiratory Depth Normal Normal Respiratory Pattern Regular Regular Blood Pressure 198/90 H Blood Pressure [Left Arm] 148/79 H Blood Pressure Mean 126 Blood Pressure Mean [Left Arm] 102 Blood Pressure Position Sitting Pulse Oximetry 98 96 Oxygen Delivery Method Room Air Room Air GENERAL: Awake, alert, well-appearing, in no acute distress HENT: Normocephalic, atraumatic. Oropharynx unremarkable. EYES: Normal conjunctiva. Sclera non-icteric. NECK: Supple. No nuchal rigidity. FROM. No JVD. RESPIRATORY: Clear to auscultation. CARDIAC: Regular rate, normal rhythm. Extremities warm and well perfused. Pulses equal. ABDOMEN: Soft, non-distended. No tenderness to palpation. No rebound or guarding. No masses. RECTAL: Deferred. MUSCULOSKELETAL: Chest examination reveals no tenderness. The back is symmetrical on inspection without obvious abnormality. There is no CVA tenderness to palpation. No joint edema. LOWER EXTREMITIES: Calves are equal size bilaterally and non-tender. No edema. No discoloration. NEURO: Normal sensorium. No sensory or motor deficits noted. SKIN: No rash or jaundice noted. Course 0651:The patient was evaluated in room A02. A complete history and physical examination was performed. 0733: I reevaluated the patient at this time. She states that she is feeling better after receiving Nitro. 0827: I discussed the patient's case with Dylan Marin, who will evaluate the patient for further management and care. 0830: Upon reevaluation, the patient is resting comfortably. I discussed laboratory and radiographic results with the patient. She verbalized agreement of the treatment plan. The patient will be evaluated for further management and care. Consultations Consultation #1: I discussed the patient's case with Dylan Marin, who will evaluate the patient for further management and care. Time: 08:27 Administered Medications Discontinued Medications Acetaminophen (Tylenol) 650 mg PO Q4H PRN PRN Reason: Pain or Fever Stop: 05/10/19 10:04 Last Admin: 04/11/19 05:55 Dose: 650 mg Documented by: [id number] Admin: 04/10/19 22:45 Dose: 650 mg Documented by: [id number] Admin: 04/10/19 14:47 Dose: 650 mg Documented by: [id number] Amlodipine Besylate (Norvasc) 5 mg PO [facility] Stop: 05/10/19 15:29 Last Admin: 04/11/19 09:52 Dose: 5 mg Documented by: [id number] Admin: 04/10/19 15:47 Dose: 5 mg Documented by: [id number] Aspirin (Aspirin) 324 mg PO [facility] Stop: 04/10/19 06:55 Last Admin: 04/10/19 07:05 Dose: 324 mg Documented by: [id number] Aspirin (Ecotrin Ectab) 81 mg PO [facility] Stop: 05/10/19 10:04 Last Admin: 04/11/19 09:52 Dose: 81 mg Documented by: [id number] Admin: 04/10/19 11:46 Dose: Not Given Documented by: [id number] Atorvastatin Calcium (Lipitor) 20 mg PO [facility] Stop: 05/10/19 10:04 Last Admin: 04/10/19 11:46 Dose: Not Given Documented by: [id number] Atorvastatin Calcium (Lipitor) 40 mg PO [facility] Stop: 05/11/19 08:59 Last Admin: 04/11/19 09:51 Dose: 40 mg Documented by: [id number] Lisinopril/HCTZ (Prinzide 20/25mg) 0.5 tab PO [facility] Stop: 05/10/19 10:04 Last Admin: 04/11/19 09:51 Dose: 0.5 tab Documented by: [id number] Admin: 04/10/19 11:46 Dose: Not Given Documented by: [id number] Heparin Sodium (Porcine) (Heparin Sodium (Porcine)) 5,000 units SQ Q8 [facility] Stop: 05/10/19 13:59 Last Admin: 04/11/19 14:42 Dose: Not Given Documented by: [id number] Admin: 04/11/19 05:51 Dose: 5,000 units Documented by: [id number] Cosigned by: [id number] Admin: 04/10/19 20:28 Dose: 5,000 units Documented by: [id number] Cosigned by: [id number] Admin: 04/10/19 15:47 Dose: 5,000 units Documented by: [id number] Cosigned by: [id number] Metoprolol Tartrate (Lopressor) 12.5 mg PO BID [facility] Stop: 05/10/19 10:04 Last Admin: 04/11/19 09:51 Dose: 12.5 mg Documented by: [id number] Admin: 04/10/19 20:29 Dose: 12.5 mg Documented by: [id number] Admin: 04/10/19 11:46 Dose: Not Given Documented by: [id number] Nitroglycerin (Nitrostat) 0.4 mg SL UD PRN PRN Reason: Chest Pain Stop: 05/10/19 06:53 Last Admin: 04/10/19 07:05 Dose: 0.4 mg Documented by: [id number] Nitroglycerin (Nitro-Bid 2%) 1 inch EXT NOW STA Stop: 04/10/19 07:34 Last Admin: 04/10/19 07:39 Dose: 1 inch Documented by: [id number] Nitroglycerin (Nitro-Bid 2%) 1 inch EXT Q6H [facility] Stop: 05/10/19 10:04 Last Admin: 04/11/19 05:51 Dose: 1 inch Documented by: [id number] Admin: 04/10/19 20:32 Dose: 1 inch Documented by: [id number] Admin: 04/10/19 17:18 Dose: 1 inch Documented by: [id number] Admin: 04/10/19 11:45 Dose: Not Given Documented by: [id number] Ranitidine HCl (Zantac) 300 mg PO BID [facility] Stop: 05/10/19 10:04 Last Admin: 04/11/19 09:50 Dose: 150 mg Documented by: [id number] Admin: 04/10/19 20:28 Dose: 150 mg Documented by: [id number] Admin: 04/10/19 11:46 Dose: Not Given Documented by: [id number] Sertraline HCl (Zoloft) 50 mg PO QAM [facility] Stop: 05/10/19 10:04 Last Admin: 04/11/19 09:51 Dose: 50 mg Documented by: [id number] Admin: 04/10/19 11:47 Dose: Not Given Documented by: [id number] Medical Decision Making Differential Diagnosis Differential diagnoses includes but is not limited to acute coronary syndrome, myocardial infarction, pericarditis, pulmonary embolus, aortic dissection, pneumonia, pneumothorax, musculoskeletal, shingles, esophageal. Medical Records Attestation: I reviewed the patient's medical records. Home Medications Current Medication List: was personally reviewed by me Laboratory Data Attestation: I reviewed the patient's lab results. Result diagrams: 04/11/19 06:36 04/10/19 07:23 Lab Results 04/10/19 04/10/19 Range/Units 07:23 07:23 WBC 6.29 (4.8-10.8) K/uL RBC 3.71 L (4.2-5.4) M/uL Hgb 9.4 L (12.0-16.0) g/dL Hct 30.0 L (37-47) % MCV 80.9 (80-100) fL MCH 25.3 (25-34) pg MCHC 31.3 L (32-36) g/dL RDW Std Deviation 40.7 (36.4-46.3) fL RDW Coeff of Samantha 13.5 (11.5-14.5) % Plt Count 332 (130-400) K/uL MPV 8.4 (7.4-10.4) fL Immature Gran % (Auto) 0.2 % Neut % (Auto) 63.6 % Lymph % (Auto) 22.6 % [place] % (Auto) 9.1 % Eos % (Auto) 3.7 % Baso % (Auto) 0.8 % Immature Gran # (Auto) 0.01 (0.00-0.02) K/uL Neut # (Auto) 4.01 (1.4-6.5) K/uL Lymph # (Auto) 1.42 (1.2-3.4) K/uL [place] # (Auto) 0.57 (0.11-0.59) K/uL Eos # (Auto) 0.23 (0-0.5) K/uL Baso # (Auto) 0.05 (0-0.2) K/uL Sodium 140 (136-145) mmol/L Potassium 3.5 (3.5-5.1) mmol/L Chloride 106 (98-107) mmol/L Carbon Dioxide 27 (21-32) mmol/L Anion Gap 6.0 (3-11) BUN 15 (7-18) mg/dl Creatinine 0.68 (0.6-1.2) mg/dl Est Cr Clr Drug Dosing Not Reportable Est GFR ( Amer) 114.9 Est GFR (Non-Af Amer) 99.2 BUN/Creatinine Ratio 22.8 H (10-20) Glucose 113 H (70-99) mg/dl Calcium 8.8 (8.5-10.1) mg/dl Total Bilirubin 0.2 (0.2-1) mg/dl AST 21 (15-37) U/L ALT 19 (12-78) U/L Alkaline Phosphatase 96 (45-117) U/L Total Creatine Kinase 78 (26-192) U/L CK-MB (CK-2) 1.0 (0.5-3.6) ng/ml CK/CKMB % Calc 1.3 (0-3.0) Troponin I 0.019 (0-0.045) ng/ml Total Protein 7.0 (6.4-8.2) gm/dl Albumin 2.8 L (3.4-5.0) gm/dl Globulin 4.2 H (2.5-4.0) gm/dl Albumin/Globulin Ratio 0.7 L (0.9-2) Lipase 148 (73-393) U/L Imaging Data Radiologist's Impression: Radiology results as stated below per my review and the radiologist's interpretation: XR chest 1V portable HISTORY: Atypical Chest Pain COMPARISON: Chest 03/11/2019. FINDINGS: The heart remains enlarged. No pleural effusions. No pneumothorax. The lungs are clear. IMPRESSION: Stable borderline cardiomegaly. Electronically signed by: Fortunato Weston M.D. 04/10/2019 7:39 AM ECG Data Attestation: I personally reviewed and interpreted this ECG as follows: Indication: chest pain Rate (beats per minute): 86 Rhythm: sinus rhythm Findings: + PVC; no ST depression, no ST elevation and no acute ischemic change Blood Pressure Blood Pressure Findings: Elevated blood pressure Blood Pressure Disposition: elevated BP felt to be situational MDM Narrative This is a 53-year-old female who presents emergency department complaining of chest pain. Patient's chest pain was relieved by nitro in the emergency department and she was placed on Nitropaste. Her laboratory work does show an elevation in her troponin level. Because of this I did discuss the case with the hospitalist service who agreed to admit the patient. Patient was in agreement with the treatment plan. Impression & Plan HTN (hypertension), Chest pain, Elevated troponin, Anemia Discharge Plan Visit Data *Final* Discharge Date/Time: 04/10/19 09:46 Chief Complaint: Chest Pain Stated Complaint: CHEST PAIN AND LEFT ARM ED Provider: Zachery Ortiz Discharge Problem: HTN (hypertension), Chest pain, Elevated troponin, Anemia Patient Disposition: Admitted As Inpatient Discharge Instructions Interventions: ED Discharge Assessment Last Done: 04/10/19 09:46 The scribe's documentation has been prepared under my direction and personally reviewed by me in its entirety. I confirm that the note above accurately reflects all work, treatment, procedures, and medical decision making performed by me.
[2019-04-10] MEDS: ACETAMINOPHEN 325 MG TAB PO PRN ×2 (14:47→22:45)
--- NOTE | 2019-04-10 15:02 | Cardiology Consultation ---
Date of Consultation April 10, 2019 Assessment & Plan (1) Hypertensive urgency: Patient presents now with symptoms of chest pressure shortness of breath without evidence of myocardial injury by EKG enzyme or echocardiogram. Suspect hypertension is contributing Recent reduction in lisinopril from 20mg to 10 mg with addition of low-dose hydrochlorothiazide We will add amlodipine 5 mg p.o. daily first dose today Consider stress testing in the morning and less EKGs and enzymes evolve (2) Chest pain: (3) History of coronary artery stent placement: (4) Dyslipidemia: History of Present Illness Reason for Consultation: Chest pain exertional dyspnea, hypertensive urgency Requesting Physician: Dr. Turner Attending Physician: Mckenna Turner MD History of Present Illness Patient is a 53-year-old female with complex medical constellation of issues as below 1. Atherosclerotic coronary disease status post coronary intervention with drug-eluting stents to a high-grade lesion in the mid left anterior descending and diagonal in 2012. Repeat diagnostic cardiac catheterization for atypical chest pain with mild luminal irregularities and patent stent September 2017 2. Hypertension. 3. Hyperlipidemia. 4. Polycystic kidney disease. 5. Asthmatic lung disease. 6. Cervical radiculopathy. Patient presents this admission noting recent change in medications with reduction in lisinopril in addition of low-dose diuretic to regimen. She presents now as chest pain elevated blood pressures and exertional dyspnea. No syncope or near syncope. No unexplained fevers or infections. No melena hematochezia dysuria hematuria has been taking medications as prescribed. Has been noted per patient to be anemic Allergies Allergy/AdvReac Type Severity Reaction Status Date / Time loratadine Allergy Severe DEPLETED Verified 04/10/19 07:53 O2 FROM BODY, WAS PUT IN OXYGEN CHAMBER. ketorolac Allergy Intermediate DIAPHORESIS, Verified 04/10/19 07:53 RASH Iodinated Contrast Media Allergy Mild ITCHING Verified 04/10/19 07:53 prednisone AdvReac Mild Vomiting Verified 04/10/19 07:53 Home Medications Home Medications Medication Instructions Recorded Confirmed Type albuterol sulfate [Ventolin HFA] 2 puff INHALATION QID PRN 05/16/18 04/10/19 History aspirin [Aspirin Low Dose] 81 mg PO QAM 05/16/18 04/10/19 History atorvastatin [Lipitor] 20 mg PO QAM 05/16/18 04/10/19 History metoprolol tartrate 12.5 mg PO BID 05/16/18 04/10/19 History nitroglycerin [Nitrostat] 0.4 mg SUBLINGUAL UD 05/16/18 04/10/19 History sertraline [Zoloft] 50 mg PO QAM 05/16/18 04/10/19 History acetaminophen [Tylenol Extra 500 mg PO Q6H PRN 07/16/18 04/10/19 History Strength] naproxen 500 mg PO BID PRN #14 tab 07/16/18 04/10/19 Rx ranitidine HCl 300 mg PO BID 11/01/18 04/10/19 History ondansetron HCl [Zofran] 4 mg PO Q6H PRN #10 tab 11/03/18 04/10/19 Rx lisinopril-hydrochlorothiazide 0.5 tab PO QAM 03/11/19 04/10/19 History Patient History Medical History CAD (coronary artery disease) (Chronic) HTN (hypertension) (Chronic) Dyslipidemia (Chronic) Depression (Chronic) Chronic bronchitis (Chronic) Achilles tendonitis (Resolved) Contusion of left hip (Resolved) Mood disorder (Resolved) Cervical radiculopathy (Resolved) Elevated troponin I level (Resolved) Foot pain (Resolved) Hematuria (Resolved) Radiculitis of right cervical region (Resolved) Surgical History History of coronary artery stent placement (Resolved) "stent x 2 in mid LAD in 2012" Family History Other Family history non-contributory Social History Preferred Language: Nepali Communication Ability: Effective Personnel Specialist Required: No Beliefs That Will Affect Care: None Current Living Situation: Family Current Living Situation Comment: [place] current occupational status: employed Other Information That Helps Us Care for You: No Feels Safe at Home: Yes Safety Concerns: Feels Safe At This Time Smoking Status: Never smoker Hx Alcohol Use: Yes Hx Substance Use: No Physical Exam Constitutional: WD/WN, vitals as above + obese Eyes: PERRL, conjunctivae normal, anicteric sclerae ENMT: external ear and nose normal, oropharynx normal Neck: trachea midline, no thyromegaly Respiratory: normal respiratory effort, lungs clear to auscultation Cardiovascular: Rate/Rhythm: regular rate and regular rhythm Heart Sounds: normal S1 and normal S2; no gallop and no murmur Palpation: normal PMI Vessels: normal carotid upstroke and radial pulses present; no JVD and no carotid bruit Extremities: + edema (Trivial ) Chest (Breasts): Chest: normal inspection of chest Gastrointestinal (Abdomen): normal bowel sounds, soft, nontender, no hepatosplenomegaly Musculoskeletal: no cyanosis or clubbing, extremities motor strength 5/5 Skin: no rashes, warm and dry Neurologic: PERRL, EOMI, accommodation nl, no face palsy, no dysarthria Psychiatric: A+Ox3, euthymic affect Results & Data Vital Signs (Past 12 Hours) Vital Signs Temp Pulse Pulse Resp BP BP Pulse Ox 04/10/19 11:02 36.4 C L 83 20 148/74 H 94 04/10/19 10:44 73 04/10/19 10:28 36.6 C 71 18 141/75 H 95 04/10/19 10:05 36.6 C 71 141/75 H 95 04/10/19 09:46 70 20 138/68 98 04/10/19 07:33 78 18 148/79 H 96 04/10/19 06:48 36.5 C 90 20 198/90 H 98 Pulse Ox 04/10/19 11:02 04/10/19 10:44 04/10/19 10:28 04/10/19 10:05 95 04/10/19 09:46 04/10/19 07:33 04/10/19 06:48 Laboratory Results Laboratory Results - last 24 hr 04/10/19 04/10/19 04/10/19 07:23 07:23 10:34 WBC 6.29 RBC 3.71 L Hgb 9.4 L Hct 30.0 L MCV 80.9 MCH 25.3 MCHC 31.3 L RDW Std Deviation 40.7 RDW Coeff of Samantha 13.5 Plt Count 332 MPV 8.4 Immature Gran % (Auto) 0.2 Neut % (Auto) 63.6 Lymph % (Auto) 22.6 [place] % (Auto) 9.1 Eos % (Auto) 3.7 Baso % (Auto) 0.8 Immature Gran # (Auto) 0.01 Neut # (Auto) 4.01 Lymph # (Auto) 1.42 [place] # (Auto) 0.57 Eos # (Auto) 0.23 Baso # (Auto) 0.05 Sodium 140 Potassium 3.5 Chloride 106 Carbon Dioxide 27 Anion Gap 6.0 BUN 15 Creatinine 0.68 Est Cr Clr Drug Dosing Not Reportable Est GFR ( Amer) 114.9 Est GFR (Non-Af Amer) 99.2 BUN/Creatinine Ratio 22.8 H Glucose 113 H Calcium 8.8 Total Bilirubin 0.2 AST 21 ALT 19 Alkaline Phosphatase 96 Total Creatine Kinase 78 CK-MB (CK-2) 1.0 CK/CKMB % Calc 1.3 Troponin I 0.019 Total Protein 7.0 Albumin 2.8 L Globulin 4.2 H Albumin/Globulin Ratio 0.7 L Lipase 148 TSH < 0.005 L 04/10/19 14:03 WBC RBC Hgb Hct MCV MCH MCHC RDW Std Deviation RDW Coeff of Samantha Plt Count MPV Immature Gran % (Auto) Neut % (Auto) Lymph % (Auto) [place] % (Auto) Eos % (Auto) Baso % (Auto) Immature Gran # (Auto) Neut # (Auto) Lymph # (Auto) [place] # (Auto) Eos # (Auto) Baso # (Auto) Sodium Potassium Chloride Carbon Dioxide Anion Gap BUN Creatinine Est Cr Clr Drug Dosing Est GFR ( Amer) Est GFR (Non-Af Amer) BUN/Creatinine Ratio Glucose Calcium Total Bilirubin AST ALT Alkaline Phosphatase Total Creatine Kinase CK-MB (CK-2) CK/CKMB % Calc Troponin I 0.543 H* Total Protein Albumin Globulin Albumin/Globulin Ratio Lipase TSH (1) Chest pain Chest pain type: other chest pain Qualified Code(s): R07.89 - Other chest pain; R07.8 - Other chest pain
[2019-04-10] MEDS: HEPARIN SOD 5,000 UNIT/0.5 ML VIAL SQ SCH ×2 (15:47→20:28)
[2019-04-10] MEDS: AMLODIPINE BESYLATE 5 MG TAB PO SCH (15:47)
[2019-04-10] MEDS ORDERED: INFLUENZA VIRUS QUAD VACCINE 0.5 ML SYR IM ONE (20:45)
[2019-04-10] MEDS ORDERED: INFLUENZA ADMINISTRATION CHARGE ONE (20:45)
[2019-04-11] MEDS: NITROGLYCERIN 2% OINTMENT 30GM TUBE EXT SCH (05:51)
[2019-04-11] MEDS: HEPARIN SOD 5,000 UNIT/0.5 ML VIAL SQ SCH ×2 (05:51→14:42)
[2019-04-11] MEDS: ACETAMINOPHEN 325 MG TAB PO PRN (05:55)
[2019-04-11 06:52] LABS: Hematocrit (blood only) 29.1 % (37-47); Hemoglobin 9.1 g/dL (12.0-16.0); Mean Corpuscular Hemoglobin 25.3 pg (25-34); Mean Corpuscular Hgb Conc 31.3 g/dL (32-36); Mean Corpuscular Volume 80.8 fL (80-100); Mean Platelet Volume 8.6 fL (7.4-10.4); Platelet Count 298 K/uL (130-400); RDW Coefficient of Variation 13.5 % (11.5-14.5); RDW Standard Deviation 40.4 fL (36.4-46.3); White Blood Count 5.41 K/uL (4.8-10.8)
[2019-04-11 07:26] LABS: Chol HDL Ratio 3; Cholesterol 135 mg/dl (0-200); HDL Cholesterol 52 mg/dl; LDL Cholesterol Calculated 65 mg/dl; Triglycerides 91 mg/dl (0-150); VLDL Cholesterol 18 mg/dl
[2019-04-11 08:17] LABS: Estimated Average Glucose 128 mg/dl; Hemoglobin A1C 6.1 % (4.5-5.6)
[2019-04-11] MEDS ORDERED: ATORVASTATIN 20 MG TAB PO SCH (09:00)
[2019-04-11] MEDS: LISINOPRIL/HCTZ 20/25MG 1 TAB PO SCH (09:51)
[2019-04-11] MEDS: METOPROLOL TARTRATE 25 MG TAB PO SCH (09:51)
[2019-04-11] MEDS: SERTRALINE HCL 50 MG TABLET PO SCH (09:51)
[2019-04-11] MEDS: ASPIRIN 81 MG ECTAB PO SCH (09:52)
[2019-04-11] MEDS: AMLODIPINE BESYLATE 5 MG TAB PO SCH (09:52)
--- NOTE | 2019-04-11 10:34 | Cardiology Progress Note ---
Date of Service April 11, 2019 Assessment & Plan (1) Hypertensive urgency: Patient presents now with symptoms of chest pressure shortness of breath without evidence of myocardial injury by EKG enzyme or echocardiogram. Suspect hypertension is contributing Troponins did rise overnight question whether this represents myocardial ischemia versus hypertensive urgency. No associated symptoms with change no EKG changes Diagnostic cardiac catheterization last study performed September 2017 in similar setting, elevated blood pressures and troponins without obstruction Plan proceed with stress echocardiography today if abnormal or equivocal proceed with diagnostic cardiac catheterization (2) Chest pain: (3) History of coronary artery stent placement: (4) Dyslipidemia: Subjective Complained of headache overnight. No chest pain or shortness of breath. No dizziness or lightheadedness. Blood pressure trending towards better control. Headache likely secondary to topical nitrates. No fevers chills Physical Exam Constitutional: WD/WN, vitals as above + obese Eyes: PERRL, conjunctivae normal, anicteric sclerae ENMT: external ear and nose normal, oropharynx normal Neck: trachea midline, no thyromegaly Respiratory: normal respiratory effort, lungs clear to auscultation Cardiovascular: Rate/Rhythm: regular rate and regular rhythm Heart Sounds: normal S1 and normal S2; no gallop and no murmur Palpation: normal PMI Vessels: normal carotid upstroke and radial pulses present; no JVD and no carotid bruit Extremities: + edema (Trivial ) Chest (Breasts): Chest: normal inspection of chest Gastrointestinal (Abdomen): normal bowel sounds, soft, nontender, no hepatosplenomegaly Musculoskeletal: no cyanosis or clubbing, extremities motor strength 5/5 Skin: no rashes, warm and dry Neurologic: PERRL, EOMI, accommodation nl, no face palsy, no dysarthria Psychiatric: A+Ox3, euthymic affect Results & Data Vital Signs (Past 12 Hours) Vital Signs Temp Pulse Resp BP Pulse Ox 04/11/19 07:16 36.6 C 79 18 142/45 H 95 04/11/19 03:20 36.9 C 80 18 117/64 96 04/10/19 23:42 37.0 C 78 16 133/65 95 Laboratory Results Laboratory Results - last 24 hr 04/10/19 04/10/19 04/10/19 10:34 14:03 19:46 WBC RBC Hgb Hct MCV MCH MCHC RDW Std Deviation RDW Coeff of Samantha Plt Count MPV Estimat Average Glucose Hemoglobin A1c Troponin I 0.543 H* 0.357 H* Triglycerides Cholesterol LDL Cholesterol, Calc VLDL Cholesterol, Calc HDL Cholesterol Cholesterol/HDL Ratio TSH < 0.005 L 04/11/19 04/11/19 04/11/19 06:36 06:36 06:36 WBC 5.41 RBC 3.60 L Hgb 9.1 L Hct 29.1 L MCV 80.8 MCH 25.3 MCHC 31.3 L RDW Std Deviation 40.4 RDW Coeff of Samantha 13.5 Plt Count 298 MPV 8.6 Estimat Average Glucose 128 Hemoglobin A1c 6.1 H Troponin I Triglycerides 91 Cholesterol 135 LDL Cholesterol, Calc 65 VLDL Cholesterol, Calc 18 HDL Cholesterol 52 Cholesterol/HDL Ratio 3 TSH (1) Chest pain Chest pain type: other chest pain Qualified Code(s): R07.89 - Other chest pain; R07.8 - Other chest pain
--- NOTE | 2019-04-11 12:43 | Cardiology Progress Note ---
Date of Service April 11, 2019 Assessment & Plan (1) Hypertensive urgency: Patient in evaluation of hypertensive urgency, elevated troponins and breathlessness with exertion underwent stress echocardiography today. Stress to cardiography revealed moderate exercise tolerance achieving 3 minutes and 15 seconds on a Carlos Enrique protocol achieving 85% age-predicted maximum heart rate. Patient stopped secondary to leg fatigue. She experienced no chest pain or discomfort. There are no stress-induced ischemic changes by EKG or echocardiographic criteria Current presentation is secondary to hypertensive urgency including elevated troponins Plan: Continue to aggressively treat hypertension If symptoms recur or worsen would have low threshold for proceeding to diagnostic cardiac catheterization, no indications at this time Medications: Amlodipine 5 mg p.o. daily (new) Metoprolol tartrate 12.5 mg p.o. twice daily (continue) Lisinopril 10 mg p.o. daily Hydrochlorothiazide 25 mill grams p.o. daily lisinopril hydrochlorothiazide prescription and to be given new prescriptions for both Follow-up Dr. Reddy 2 to 3 weeks time, Dr. Steven 04/15/2019 Results & Data Vital Signs (Past 12 Hours) Vital Signs Temp Pulse Resp BP Pulse Ox 04/11/19 11:31 36.7 C 73 20 133/79 94 04/11/19 07:16 36.6 C 79 18 142/45 H 95 04/11/19 03:20 36.9 C 80 18 117/64 96
--- NOTE | 2019-04-11 15:14 | Discharge Summary ---
Date of Service April 11, 2019 Admission HPI Per Admitting Provider Is a 53-year-old female with past medical history of hypertension, hyperlipidemia coronary artery disease status post stent in 2012 Came to ER with complaint of substernal chest pain discomfort radiating to her left arm, Patient mentions she woke up this morning with substernal chest discomfort, felt dizzy and lightheaded, Went to her work at [employer], on her way while driving patient continued to feel very lightheaded, After arriving to her workplace, her colleague noted to be very pale, diaphoretic Patient was brought to the ER by family members, Blood pressure 198/90 Patient reports that she took her morning blood pressure meds earlier around 4 AM She was given sublingual nitro, full-strength aspirin Placed on nitro paste Patient reports improvement of chest heaviness after sublingual nitro, During my time of interview patient sit still have mild aching/discomfort substernally, Shortness of breath, no dizzy spell or lightheadedness No arrhythmia noted on telemetry Blood pressure 141/75 she has noted increased fatigue, more dyspnea on exertion when climbing up a flight of stairs EKG shows no ischemic ST-T wave changes, Initial troponin marker negative, ordered for serial exams She will be monitored in telemetry Principal Diagnosis CHEST PAIN/NEGATIVE CARDIAC STRESS TEST/HYPERTENSIVE URGENCY Discharge Exam Constitutional WD/WN, vitals as above no acute distress Eyes PERRL, conjunctivae normal, anicteric sclerae ENMT external ear and nose normal, oropharynx normal Neck trachea midline, no thyromegaly Respiratory normal respiratory effort, lungs clear to auscultation Cardiovascular RRR, no murmur, no edema Gastrointestinal (Abdomen) normal bowel sounds, soft, nontender, no hepatosplenomegaly Musculoskeletal no cyanosis or clubbing, extremities motor strength 5/5 Skin no rashes, warm and dry Neurologic PERRL, EOMI, accommodation nl, no face palsy, no dysarthria Psychiatric A+Ox3, euthymic affect Discharge Data Allergies Allergy/AdvReac Type Severity Reaction Status Date / Time loratadine Allergy Severe DEPLETED Verified 04/10/19 07:53 O2 FROM BODY, WAS PUT IN OXYGEN CHAMBER. ketorolac Allergy Intermediate DIAPHORESIS, Verified 04/10/19 07:53 RASH Iodinated Contrast Media Allergy Mild ITCHING Verified 04/10/19 07:53 prednisone AdvReac Mild Vomiting Verified 04/10/19 07:53 Consultations 04/10/19 08:28 ED Decision to Admit Stat 04/10/19 10:05 Consult Cardiology Routine Hospital Course (1) Chest pain: Chest pain: Has resolved since admission, Presented to the ER with chest heaviness substernal radiating to left arm- possible secondary to hypertensive urgency Associated with shortness of breath Symptom was relieved after sublingual nitro, addition of Nitropaste leading to improvement of blood pressure Patient has multiple risk factor for ACS: Prior history of coronary artery disease, status post stent, high blood pressure, hyperlipidemia Cardiac markers been negative, Appreciate cardiology input Echocardiogram (resting) 04/10/2019: Left ventricle is normal in size. There is mild concentric left ventricular hypertrophy Left ventricular wall motion is normal. ejection fraction 65-70% Grade 1 diastolic dysfunction (abnormal relaxation pattern) No significant valvular pathology. There is no pericardial effusion. Patient had mild elevation of troponin possible secondary to hypertensive urgency, no recurrence of chest pain or angina Underwent exercise cardiac stress test today: No evidence of stress induced ischemia Blood pressure medication adjusted by cardiology Able to be discharged home today Hypertensive Urgency Presentation blood pressure was significantly high 198/90 Possible cause of substernal chest discomfort/angina Blood pressure improved after addition of nitro paste, got sublingual nitro Resting echo, exercise cardiac stress test as outlined above Appreciate input from cardiology Added Norvasc 5 mg p.o. daily Patient is asked to continue Lopressor 12.5 twice daily Patient will continue take lisinopril 10 mg daily And HCTZ 25 mg daily(higher dose than prior) Discontinue combination pill of lisinopril/25 mg daily: Patient was taking half tablet Blood pressure significantly improved after titration of BP meds To be discharged home today Provided counseling to avoid NSAIDs except for low-dose aspirin that she is prescribed for her coronary artery disease Counseling provided for free low-fat diet We will continue with low-dose aspirin 81 mg daily starting from tomorrow Was taking naproxen 500 mg twice daily as needed, discontinued as it can possible contribute to hypertensive episode (2) CAD (coronary artery disease): History of coronary artery disease status post ALEXI stent x 2(in LAD and diagonal) in 2012 Follows with [facility] cardiology Cardiac cath on 09/08/[address] 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 Widely patent RCA and left circumflex arteries noted Widely patent previous stented site in LAD Appreciate input from Dr. Reddy, Resting echo, cardiac stress echocardiogram as outlined above No evidence of of acute coronary event, Stable to be discharged home today, no further cardiac intervention needed (3) HTN (hypertension): Presented with hypertensive urgency, systolic blood pressure elevated more than 190 (possible leading to angina symptoms) Added Nitropaste: Leading to significant improvement of blood pressure and resolution of angina BP meds adjusted by cardiology as outlined above Chronic anemia Chronic anemia reported on blood work in the past, baseline hemoglobin ~ 10 On admission hemoglobin 9.4 /hematocrit 30 Normal MCV No report of GI bleed ordered iron supplement (4) Dyslipidemia: Lipitor 20 mg daily: Given history of coronary artery disease, will increase Lipitor to 40 mg daily: For high intensity statin treatment (5) History of coronary artery stent placement: Discussion as above CODE STATUS: Full code DVT prophylaxis: Subcu heparin Patient is encouraged to ambulate Disposition: Stable to be discharged home today, Hospital follow-up with Dr. Steven on 04/15/2019 Cardiology follow-up with Dr. Reddy in 2-3 weeks Total Time Total Time Spent Total Time Spent (In Minutes): Approximately 35 minutes Total Time Includes: Examination of the Patient, Discharge Planning, Medication Reconciliation and Communication With Other Providers Discharge Plan Discharge Items Patient Disposition: Home - Self-Care Reason For Visit: CHEST PAIN Discharge Diagnosis: CHEST PAIN /HYPERTENSIVE URGENCY Activity: Resume your previous activity Non-emergency contact: Primary Care Provider Call non-emergency contact if: you have any medication questions Follow-up/Referrals: Lennie Steven DO [Primary Care Provider] - 04/15/19 11:05 am Diet: Carb Consistent or DM2 and Heart Healthy Addtl Attending Provider Instructions: HOSPITAL FOLLOW UP WITH DR STEVEN ON Thursday04/15/2019 @11:05 AM MEDICATIONS ADJUSTMENT FOR HIGH BLOOD PRESSURE : Amlodipine 5 mg p.o. daily (new) Metoprolol tartrate 12.5 mg p.o. twice daily (continue) Lisinopril 10 mg p.o. daily -New Hydrochlorothiazide 25 mill grams p.o. daily -New STOP TAKING MEDICATION: DO NOT TAKE NAPROXEN -MAY CONTRIBUTING TO YOU HIGH BLOOD PRESSURE LISINOPRIL HYDROCHLOROTHIAZIDE 20/25 MG -1/2 DAILY CHANGE IN MEDICATION : LIPITOR 40 MG DAILY ( WAS 20 MG DAILY ) Take iron supplement for chronic anemia Pending Studies at Discharge: No Stand-Alone Forms: Call Back Authorization, My [facility], Work/School Release (Inpt) Medications and DC Order Prescriptions: New amlodipine [Norvasc] 5 mg Tablet 5 mg PO QAM 30 Days Qty: 30 RF: 3 lisinopril 10 mg tablet 10 mg PO DAILY Qty: 30 RF: 3 hydrochlorothiazide 25 mg tablet 25 mg PO DAILY Qty: 30 RF: 3 ferrous sulfate [iron] 325 mg (65 mg iron) tablet 325 mg PO Q OTHER DAY Qty: 30 RF: 0 Continued aspirin [Aspirin Low Dose] 81 mg Tablet,Delayed Release (Dr/Ec) 81 mg PO QAM RF: 0 nitroglycerin [Nitrostat] 0.4 mg Tablet, Sublingual 0.4 mg Sublingual UD RF: 0 albuterol sulfate [Ventolin HFA] 90 mcg/actuation Hfa Aerosol Inhaler 2 puff INHALATION QID PRN (Reason: Shortness Of Breath Or Wheezing) RF: 0 sertraline [Zoloft] 50 mg Tablet 50 mg PO QAM RF: 0 metoprolol tartrate 25 mg Tablet 12.5 mg PO BID RF: 0 acetaminophen [Tylenol Extra Strength] 500 mg Tablet 500 mg PO Q6H PRN (Reason: Pain) RF: 0 ranitidine HCl 300 mg Tablet 300 mg PO BID RF: 0 ondansetron HCl [Zofran] 4 mg tablet 4 mg PO Q6H PRN (Reason: nausea and vomiting) Qty: 10 RF: 0 Changed atorvastatin [Lipitor] 20 mg Tablet 40 mg PO QAM Qty: 30 RF: 3 Discontinued naproxen 500 mg tablet 500 mg PO BID PRN (Reason: pain) Qty: 14 RF: 0 lisinopril-hydrochlorothiazide 20-25 mg tablet 0.5 tab PO QAM RF: 0 Discharge Orders: Discharge Order (Routine); Ordered 04/11/19 Ordered By: Mckenna Oneal/Other Patient Handouts: Prediabetes, Diabetes Student Loan Counselor Complications, Diabetes Resources, Diabetes Healthy Meals, Diabetes Carbs, Diabetes Exercise Benefits, Diabetes Exercise Get Started, Diabetes Activity Tips, Diabetes Manage A1C Test Admission Data Admit Date/Time: 04/10/19 08:48 Attending Provider: Mckenna Turner Admit Provider: Mckenna Turner Primary Care Provider: Lennie Steven Other Providers: Mckenna Turner ; Huseyin Felix ; Angel Kitchen ; Logan Reddy ; Freedom Elliott ; Rodrick Fox ; Bob Mistry ; Sylvia Vasques ; Sarah Lucero Other Interventions: Discharge Summary Assessment (RN) Last Done: 04/11/19 13:22
== END 2019-04-11 16:12 | disposition home or self-care (01) ==
LOC: 2S 06:43 → ED 06:43 → 2S 09:46

== ENCOUNTER 2020-06-02 03:27 | Observation (INO) ==
[2020-06-02 04:13] LABS: Basophils # (auto) 0.04 K/uL (0-0.2); Basophils % (auto) 0.6 %; Eosinophils # (auto) 0.31 K/uL (0-0.5); Eosinophils % (auto) 4.9 %; Hematocrit (blood only) 28.6 % (37-47); Hemoglobin 8.9 g/dL (12.0-16.0); Immature Granulocytes # (auto) 0.01 K/uL (0.00-0.02); Immature Granulocytes % (auto) 0.2 %; Lymphocytes # (auto) 1.73 K/uL (1.2-3.4); Lymphocytes % (auto) 27.2 %; Mean Corpuscular Hemoglobin 25.9 pg (25-34); Mean Corpuscular Hgb Conc 31.1 g/dL (32-36); Mean Corpuscular Volume 83.4 fL (80-100); Mean Platelet Volume 8.5 fL (7.4-10.4); Monocytes # (auto) 0.58 K/uL (0.11-0.59); Monocytes % (auto) 9.1 %; Neutrophils # (auto) 3.68 K/uL (1.4-6.5); Platelet Count 346 K/uL (130-400); RDW Coefficient of Variation 13.7 % (11.5-14.5); RDW Standard Deviation 41.4 fL (36.4-46.3); Red Blood Count 3.43 M/uL (4.2-5.4); White Blood Count 6.35 K/uL (4.8-10.8)
[2020-06-02 04:23] LABS: Partial Thromboplastin Time 26.6 Seconds (21.0-31.0); Prothrombin Time 10.8 Seconds (9.0-12.0)
[2020-06-02 04:36] LABS: Alanine Aminotransferase 16 U/L (12-78); Albumin Level 2.8 gm/dl (3.4-5.0); Aspartate Aminotransferase 11 U/L (15-37); BUN Creatinine Ratio 24.7 (10-20); Blood Urea Nitrogen 24 mg/dl (7-18); Calcium 9.1 mg/dl (8.5-10.1); Carbon Dioxide 27 mmol/L (21-32); Chloride 110 mmol/L (98-107); Creatinine Clr Calc Pharmacy 91.6 ml/min; Est GFR (African American) 76.2; Est GFR (Non-African American) 65.8; Glucose 111 mg/dl (70-99); Lipase 215 U/L (73-393); Potassium 3.8 mmol/L (3.5-5.1); Sodium 139 mmol/L (136-145)
[2020-06-02 04:41] LABS: Albumin Globulin Ratio 0.7 (0.9-2); Alkaline Phosphatase 91 U/L (45-117); Bilirubin,Total 0.3 mg/dl (0.2-1); Globulin 4.2 gm/dl (2.5-4.0); Troponin I < 0.015 ng/ml (0-0.045)
--- NOTE | 2020-06-02 05:02 | Emergency Department Note ---
History of Present Illness General Chief Complaint: Chest Pain Stated Complaint: CHEST PAIN/SHORT OF BREATH Time Seen by Provider: 06/02/20 03:34 Source: patient Mode of arrival: ambulatory Limitations: no limitations History of Present Illness Provider Complaint: chest pain Onset (ago): hour(s) 4 Time: 00:30 Duration: constant and progressively worsening Onset: during rest and awoke with symptoms Pain Location: substernal and left chest Pain Radiation: LUE Severity: moderate Maximum Pain Intensity: 8 Current Pain Intensity: 5 Quality: + sharp Relieved By: + other (sitting upright) Exacerbated By: + supine, + palpation and + movement Context: + other (Hx. similar symptoms with CO) Treatments prior to arrival: aspirin (243mg) and nitroglycerin (nitro spray x3) This 54-year-old female patient presents to the emergency department today via ambulance for evaluation of chest pain. The patient states at 830 this evening, she lay down and was generally not feeling well. By 1230, she awoke with severe substernal chest pain radiating into the left shoulder and left arm. She states this was associated with some difficulty breathing. The pain progressively worsened, prompting her to contact EMS. The patient states while in route, she received 3 baby aspirin and 3 nitro sprays. She states her pain is now significantly better. The pain does get better with sitting upright and worse with lying supine. She states she ate supper at 430 this evening, and had Thanksgiving leftovers of turkey, stuffing, potatoes. Patient reports history of similar symptoms associated with CO requiring stent placement when in [place] in 2012. She does report history of chest pain requiring admission and rule out, but no MIs since her stent was placed. She reports a history of sometimes uncontrolled hypertension, but denies this to be a concern recently. Related Data On Oral Contraceptives: No Home Medications Medication Instructions Recorded Confirmed Type aspirin [Aspirin Low Dose] 81 mg PO QAM 05/16/18 06/02/20 History metoprolol tartrate 12.5 mg PO BID 05/16/18 06/02/20 History nitroglycerin [Nitrostat] 0.4 mg SUBLINGUAL DIRECTED PRN 05/16/18 06/02/20 History sertraline [Zoloft] 50 mg PO QAM 05/16/18 06/02/20 History hydrochlorothiazide 25 mg PO QAM 09/01/19 06/02/20 History omeprazole magnesium [Prilosec OTC] 20 mg PO QAM 09/01/19 06/02/20 History Vitron-C 1 tab PO DAILY 01/26/20 06/02/20 History amlodipine [Norvasc] 5 mg PO DAILY 01/26/20 06/02/20 History ferrous sulfate 325 mg PO DAILY 01/26/20 06/02/20 History lisinopril 20 mg PO DAILY 01/26/20 06/02/20 History atorvastatin 40 mg PO DAILY 06/02/20 06/02/20 History Allergies Allergy/AdvReac Type Severity Reaction Status Date / Time loratadine Allergy Severe DEPLETED Verified 06/02/20 04:00 O2 FROM BODY, WAS PUT IN OXYGEN CHAMBER. ketorolac Allergy Intermediate DIAPHORESIS, Verified 06/02/20 04:00 RASH Iodinated Contrast Media Allergy Mild ITCHING Verified 06/02/20 04:00 prednisone AdvReac Mild Vomiting Verified 06/02/20 04:00 ceftriaxone [From Rocephin] AdvReac Unknown Unknown Verified 06/02/20 04:00 Past Med/Surg History Medical History (Updated 06/02/20 @ 05:10 by Maye Stacy PA-C) Achilles tendonitis Acute kidney injury CAD (coronary artery disease) Cervical radiculopathy Chronic bronchitis Contusion of left hip Depression Dyslipidemia HTN (hypertension) Surgical History History of coronary artery stent placement "stent x 2 in mid LAD in 2012" Family History Other Heart disease Social History Smoking Status: Former smoker Cigarettes Per Day: 1; Hx Alcohol Use: Yes Alcohol type: wine Hx Substance Use: No Preferred Language: Faroese Communication Ability: Effective Forensic Psychiatrist Required: No Beliefs That Will Affect Care: None marital status: Current Living Situation: Family Current Living Situation Comment: [place] current occupational status: employed Feels Safe at Home: Yes Assistive Devices: None Review of Systems A total of 10 systems reviewed and were otherwise negative Physical Exam Vital Signs Vital Signs - 24 hr 06/02/20 03:38 06/02/20 03:46 06/02/20 04:00 Temperature 36.7 C Temperature Source Oral Pulse Rate 86 Pulse Rate [Apical] 81 Respiratory Rate 21 18 Blood Pressure 134/60 Blood Pressure [Right Arm] 126/59 L Blood Pressure Mean 84 Blood Pressure Mean [Right Arm] 81 Pulse Oximetry 96 96 96 Oxygen Delivery Method Room Air Room Air Room Air Sepsis Recent Fever Within 48 Hours No Sepsis New/Unexplained Change in Mental Status No Sepsis Action Taken by Nursing No Action Required VITALS: Vitals are noted on the nurse's note and reviewed by myself. Patient is normotensive, not tachycardic. She is afebrile. O2 saturation 96%. GENERAL: This is a 54-year-old obese white female, in no acute distress, nondiaphoretic, well-developed well-nourished. SKIN: The skin was without rashes, erythema, edema, or bruising. There is no tenting of the skin. Capillary refill less than 2 seconds. HEAD: Normocephalic atraumatic. EYES: Conjunctivae without injection, sclerae without icterus. NECK: Supple without nuchal rigidity. No lymphadenopathy. No thyromegaly. Cervical spine is nontender. No JVD. CHEST: Somewhat reproducible chest wall tenderness to palpation. HEART: Regular rate and rhythm without murmurs gallops or rubs. LUNGS: Clear to auscultation bilaterally without wheezes, rales or rhonchi. No retractions or accessory muscle use. ABDOMEN: Positive bowel sounds x 4. Normal tympanic percussion. Soft, nontender, without masses or organomegaly. Douglass sign negative. No guarding or rebound tenderness. MUSCULOSKELETAL: No muscle atrophy, erythema, or edema noted. Full range of motion without joint tenderness in all extremities. No tenderness to palpation. Normal gait. Strength 5/5 throughout. NEURO: Patient was alert and oriented to person place and time. No focal neurological deficits. Course Course The patient was seen and evaluated as above. An order was placed for continuous cardiac monitoring. The monitor shows a normal sinus rhythm at a rate of 81 bpm. IV access obtained, labs drawn. Imaging performed and reviewed by myself as noted. Labs reviewed by myself. I discussed the findings with the patient at bedside. I discussed the case with the manager sales and marketing. I discussed the case with Dr. Shrestha, [facility] hospitalist physician. He did agree to see and evaluate the patient for admission. Medical Decision Making Differential Diagnosis + pneumothorax, + stable angina, + unstable angina pectoris, + atypical chest pain, + st elevation myocardial infarction, + costochondritis, + chest pain, + biliary colic, + cardiac ischemia, + myocarditis, + pericarditis, + costochondritis, + pleurisy, + aortic dissection, + pulmonary embolism, + pneumonia, + musculoskeletal, + infections, + cholecystitis, + pancreatitis and + esophageal rupture Medical Records Attestation: I reviewed the patient's medical records. Home Medications Current Medication List: was personally reviewed by me Laboratory Data Attestation: I reviewed the patient's lab results. Lab results narrative: No leukocytosis. Anemia with a hemoglobin of 8.9 does appear to be chronic. No thrombocytopenia. Renal, hepatic function electrolytes without significant abnormality. Coags normal. Troponin negative. Lipase 215. Result diagrams: 06/02/20 04:00 06/02/20 04:00 Labs: Lab Results 06/02/20 06/02/20 06/02/20 Range/Units 04:00 04:00 04:00 WBC 6.35 (4.8-10.8) K/uL RBC 3.43 L (4.2-5.4) M/uL Hgb 8.9 L (12.0-16.0) g/dL Hct 28.6 L (37-47) % MCV 83.4 (80-100) fL MCH 25.9 (25-34) pg MCHC 31.1 L (32-36) g/dL RDW Std Deviation 41.4 (36.4-46.3) fL RDW Coeff of Samantha 13.7 (11.5-14.5) % Plt Count 346 (130-400) K/uL MPV 8.5 (7.4-10.4) fL Immature Gran % (Auto) 0.2 % Neut % (Auto) 58.0 % Lymph % (Auto) 27.2 % Burnet % (Auto) 9.1 % Eos % (Auto) 4.9 % Baso % (Auto) 0.6 % Neut # (Auto) 3.68 (1.4-6.5) K/uL Lymph # (Auto) 1.73 (1.2-3.4) K/uL Burnet # (Auto) 0.58 (0.11-0.59) K/uL Eos # (Auto) 0.31 (0-0.5) K/uL Baso # (Auto) 0.04 (0-0.2) K/uL Immature Gran # (Auto) 0.01 (0.00-0.02) K/uL PT 10.8 (9.0-12.0) Seconds INR 1.0 (0.9-1.1) APTT 26.6 (21.0-31.0) Seconds PTT Ratio 1.0 Sodium 139 (136-145) mmol/L Potassium 3.8 (3.5-5.1) mmol/L Chloride 110 H (98-107) mmol/L Carbon Dioxide 27 (21-32) mmol/L Anion Gap 2.0 L (3-11) BUN 24 H (7-18) mg/dl Creatinine 0.97 (0.6-1.2) mg/dl Est Cr Clr Drug Dosing 91.6 ml/min Est GFR ( Amer) 76.2 Est GFR (Non-Af Amer) 65.8 BUN/Creatinine Ratio 24.7 H (10-20) Glucose 111 H (70-99) mg/dl Calcium 9.1 (8.5-10.1) mg/dl Total Bilirubin 0.3 (0.2-1) mg/dl AST 11 L (15-37) U/L ALT 16 (12-78) U/L Alkaline Phosphatase 91 (45-117) U/L Troponin I < 0.015 (0-0.045) ng/ml Total Protein 7.0 (6.4-8.2) gm/dl Albumin 2.8 L (3.4-5.0) gm/dl Globulin 4.2 H (2.5-4.0) gm/dl Albumin/Globulin Ratio 0.7 L (0.9-2) Lipase 215 (73-393) U/L Imaging Data Chest x-ray: Attestation: I personally reviewed and interpreted this imaging study as follows: My impression: Chest x-ray. Findings: A chest x-ray was performed and revealed no pneumothorax, effusion, infiltrate, pulmonary edema, free air under the diaphragm, or wide mediastinum. ECG Data Attestation: I personally reviewed and interpreted this ECG as follows: Indication: chest pain Rate (beats per minute): 88 Rhythm: normal sinus Findings: no ST depression, no T-wave inversion, no ST elevation and no acute ischemic change Comparison ECG Date: from (01/16/2020) Change: no significant change Blood Pressure Blood Pressure Findings: Normal blood pressure MDM Narrative This 54-year-old female patient presents to the emergency department today for evaluation of chest pain. Symptoms began approximately 4 hours prior to arrival. The patient does have a history of acute coronary syndrome and stent placement. Given this history, we did elect to perform further work-up to include labs, imaging, and EKG. Initial cardiac work-up negative. No evidence of infectious etiology. Initial troponin negative. EKG without acute ischemic changes. I do recommend inpatient evaluation for chest pain and trend cardiac enzymes. The patient will be admitted to the [facility]ist service. Please see their dictation regarding ongoing management and care. The chart was completed utilizing [employer] Speech voice recognition software. Grammatical errors, random word insertions, pronoun errors, and incomplete sentences are an occasional consequence of this system due to software limitations, ambient noise, and hardware issues. Any formal questions or concer ns about the content, text, or information contained within the body of this dictation should be directly addressed to the provider for clarification. Impression & Plan Atypical chest pain Discharge Plan Visit Data Chief Complaint: Chest Pain Stated Complaint: CHEST PAIN/SHORT OF BREATH ED Provider: Kaitlin Monet ED Midlevel Provider: Maye Stacy Discharge Problem: Atypical chest pain Patient Disposition: Admitted As Inpatient Forms Stand Alone Forms: [facility], [facility] Prescriptions Prescriptions: No Action lisinopril 20 mg tablet 20 mg PO DAILY RF: 0 amlodipine [Norvasc] 5 mg tablet 5 mg PO DAILY RF: 0 ferrous sulfate 325 mg (65 mg iron) Tablet 325 mg PO DAILY RF: 0 Vitron-C 65 mg iron- 125 mg Tablet,Delayed Release (Dr/Ec) 1 tab PO DAILY RF: 0 aspirin [Aspirin Low Dose] 81 mg Tablet,Delayed Release (Dr/Ec) 81 mg PO QAM RF: 0 nitroglycerin [Nitrostat] 0.4 mg Tablet, Sublingual 0.4 mg Sublingual DIRECTED PRN (Reason: Chest Pain) RF: 0 sertraline [Zoloft] 50 mg Tablet 50 mg PO QAM RF: 0 metoprolol tartrate 25 mg Tablet 12.5 mg PO BID RF: 0 omeprazole magnesium [Prilosec OTC] 20 mg Tablet,Delayed Release (Dr/Ec) 20 mg PO QAM RF: 0 hydrochlorothiazide 25 mg tablet 25 mg PO QAM RF: 0 atorvastatin 40 mg tablet 40 mg PO DAILY RF: 0 Referrals Referrals: Lennie Steven, [Primary Care Provider] -
[2020-06-02] MEDS ORDERED: NON-FORMULARY MEDICATION (Ferrous Sulfate 325 mg (65 mg iron) Tablet) PO SCH (08:25)
[2020-06-02] MEDS ORDERED: NITROGLYCERIN SL 0.4 MG/TAB TAB SL PRN ×2 (08:25)
[2020-06-02] MEDS ORDERED: ONDANSETRON INJ 2 MG/ML 2 ML VIAL IV PRN (08:25)
[2020-06-02] MEDS ORDERED: ACETAMINOPHEN 325 MG TAB PO PRN (08:25)
--- NOTE | 2020-06-02 08:26 | XRay Report ---
XR chest 1V portable HISTORY: 54 years-old Female Chest Pain acute atypical chest pain COMPARISON: Chest radiograph 01/16/2020 TECHNIQUE: Portable AP view of the chest FINDINGS: Cardiomediastinal and hilar silhouettes are within normal limits. There is no pneumothorax, pleural e ffusion, airspace consolidation or overt pulmonary edema. Degenerative changes of the shoulders and s pine. IMPRESSION: No acute process. ACT 112: Negative or not required by law. The above report was generated using voice recognition software. It may contain grammatical, syntax o r spelling errors. Electronically signed by: Freddy Hester M.D. 06/02/2020 8:25 AM
--- NOTE | 2020-06-02 08:55 | History and Physical Report ---
DATE OF ADMISSION: 06/02/2020 CHIEF COMPLAINT: Chest pain. HISTORY OF PRESENT ILLNESS: This 54-year-old female with past medical history significant for hyperlipidemia, prediabetes, chronic bronchitis, hypertension, CAD, obesity, chronic anemia, mood disorder, presents with chest pain. The patient says she was okay up to 12:00 in the nighttime when she suddenly had chest pain radiating to her arm, about 8/10 in severity with some shortness of breath. She could not lie flat, so she came here, she took 3 baby aspirin and 3 nitro sprays and pain is better now, resting comfortable and hemodynamically stable. Denies any nausea, vomiting. No abdominal pain, headache from nitro. No blurred visions. No earache, no runny nose, no sore throat, no loss of sense of smell or taste. No cough, no fevers. No abdominal pain. Normal bowel and bladder movements. No rash, no swelling in the legs. ALLERGIES: LORATADINE, KETOROLAC, IODINATED CONTRAST MEDIA, PREDNISONE, ROCEPHIN. PAST MEDICAL HISTORY: As mentioned above. PAST SURGICAL HISTORY: Cardiac stent placements x2, colonoscopy, EGDs, EGD with endoscopic ultrasound, small bowel endoscopy with biopsy. MEDICATIONS: Currently, the patient is on amlodipine 5 mg p.o. daily, aspirin 81 mg p.o. daily, atorvastatin 40 mg p.o. daily, ferrous sulfate 325 mg p.o. daily, hydrochlorothiazide 25 mg p.o. a.m., lisinopril 20 mg p.o. daily, metoprolol tartrate 12.5 mg p.o. b.i.d., nitroglycerin 0.4 mg sublingual p.r.n., omeprazole 20 mg p.o. a.m., Zoloft 50 mg p.o. a.m., Vitron-C 1 tablet p.o. daily. FAMILY HISTORY: Significant for father had heart disorder. Mother had CHF. SOCIAL HISTORY: , lives with her sister, currently quit smoking in 2000, prior to that smoked 2 packs a day for 10 years. Alcohol rarely. No drug use. REVIEW OF SYMPTOMS: As per HPI. Rest of review of symptoms negative. PHYSICAL EXAMINATION: GENERAL: The patient is morbidly obese, not in acute distress. VITAL SIGNS: Temperature 36.7, pulse 75, respiratory rate 18, blood pressure 118/53, oxygen 95% on room air. HEENT: Pupils equal, round, reactive to light. Oral mucosa moist. NECK: No JVD, no neck masses. CARDIOVASCULAR: S1, S2 heard, regular rate and rhythm, no murmur, no gallop. RESPIRATORY SYSTEM: Normal AP diameter. No accessory muscle use. No wheezing, no crackles. ABDOMEN: Soft, bowel sounds present, nontender. No distention. CENTRAL NERVOUS SYSTEM: Cranial nerves II-XII grossly intact. Nonfocal. EXTREMITIES: No edema, no erythema. LABORATORY DATA: WBC 6.3, hemoglobin 8.9, hematocrit 28.6, platelets 346. PT 10.8, INR 1, APTT 26.6. Sodium 139, potassium 3.8, chloride 110, bicarbonate 27, BUN 24, creatinine 0.9, serum glucose 111, calcium 9.1, total bilirubin 0.3, AST 11, ALT 16, alkaline phosphatase 91. Troponin I less than 0.015. Lipase 215. SARS-COVID negative. Chest x-ray, no acute findings. EKG: Normal sinus rhythm, rate of 88, no acute ST changes seen. ASSESSMENT AND PLAN: This is a 54-year-old female who presents with chest pain. 1. Chest pain, history of coronary artery disease status post stent. Initial workup negative. We will follow serial enzymes, echocardiogram, keep her n.p.o. Consult cardiology and further recommendation. Continue her home medication of statin, beta parisa and aspirin. 2. History of coronary artery disease status post stent. Continue aspirin, statin, beta parisa. 3. Hypertension. Continue her metoprolol , amlodipine and hydrochlorothiazide. We will monitor the blood pressure. 4. Hyperlipidemia. Continue statin. 5. Gastroesophageal reflux disease. Omeprazole. 6. Depression. Zoloft. 7. Chronic anemia, hemoglobin 8.9 seems to be close to her baseline. Continue her home iron supplements. No obvious signs of bleeding. 8. Deep venous thrombosis prophylaxis, sequential compression devices. DISPOSITION: Closely monitor in the [facility]. Level 1 full code. Expect discharge home and follow with family doctor. JOHNSON
[2020-06-02] MEDS ORDERED: METOPROLOL TARTRATE 25 MG TAB PO SCH (09:00)
[2020-06-02] MEDS ORDERED: NON-FORMULARY MEDICATION (Iron,Carbonyl-Vitamin C [Vitron-C] 65 mg iron- 125 mg Tablet,Del PO SCH (09:00)
--- NOTE | 2020-06-02 09:43 | Electrocardiogram Report ---
Test Reason : Blood Pressure : / mmHG Vent. Rate : 088 BPM Atrial Rate : 088 BPM P-R Int : 178 ms QRS Dur : 092 ms QT Int : 366 ms P-R-T Axes : 068 007 046 degrees QTc Int : 442 ms Poor data quality, interpretation may be adversely affected Normal sinus rhythm Normal ECG When compared with ECG of 16-JAN-2020 16:21, No significant change was found Confirmed by Neil Guillaume ([id number]) on 06/02/2020 9:43:37 AM Referred By: REFERRED SELF Confirmed By:Neil Guillaume
[2020-06-02] MEDS: FERROUS SULFATE 325 MG TAB PO SCH (10:12)
[2020-06-02] MEDS: ASCORBIC ACID 500 MG TAB PO SCH (10:12)
[2020-06-02] MEDS: ATORVASTATIN 40 MG TAB PO SCH (10:13)
[2020-06-02] MEDS: amLODIPine BESYLATE 5 MG TAB PO SCH (10:14)
[2020-06-02] MEDS: hydroCHLOROthiazide 25 MG TAB PO SCH (10:14)
[2020-06-02] MEDS: lisinopril 20 MG TAB PO SCH (10:14)
[2020-06-02] MEDS: SERTRALINE HCL 50 MG TABLET PO SCH (10:15)
[2020-06-02] MEDS: PANTOprazole 40 MG TAB PO SCH (10:15)
[2020-06-02] MEDS: ASPIRIN 81 MG ECTAB PO SCH (10:16)
--- NOTE | 2020-06-02 11:46 | Cardiology Consultation ---
Date of Consultation June 02, 2020 Assessment & Plan (1) Precordial chest pain: Patient is a 54-year-old female with history of prior coronary intervention, hypertension hyperlipidemia past noncardiac chest pain who last evening awakened from sleep with chest pain neck pain and shoulder discomfort relieved by aspirin nitroglycerin in route to hospital. Initial EKGs are normal as is initial troponin Echocardiogram Plan: Complete serial EKGs and troponin, will review echocardiogram. Unless evolution in EKG or enzymes likely proceed with stress echocardiogram as course of evaluation. Blood pressure and heart rate have been mildly elevated will increase metoprolol tartrate to 25 mg twice per day (2) CAD (coronary artery disease): (3) HTN (hypertension): (4) Dyslipidemia: (5) Anemia: History of Present Illness Reason for Consultation: Chest pain, pressure Requesting Physician: Dr. Almazan Attending Physician: Gian Almazan MD History of Present Illness Patient is a 54-year-old female with underlying issues which include 1. Atherosclerotic coronary disease status post drug-eluting stent to mid left anterior descending and diagonal 2012 2. Repeat cardiac catheterization 09/2017 without progression or obstruction 3. Longstanding hypertension with hypertensive urgency April 10, 2019 4. Hyperlipidemia on therapy 5. Polycystic kidney disease 6. Asthmatic lung disease 7. Chronic anemia with iron deficient parameters, negative GI work-up Patient presents now noting having had a heavy meal last evening. Went to bed approximately 830 not feeling well but awakened approximately midnight with pain radiating to the neck and back and shoulder. Mild dyspnea. Symptoms concerning and paramedics were called. Patient received aspirin and nitroglycerin in route to hospital with symptoms gradually resolving. No further chest pain. Currently only "tired". No recent change in medications. No fevers chills or unexplained infections. Generally active without limitations. Works on her feet throughout the days without difficulty. No acute weight loss or gain. No bleeding difficulties that are explained. Chronic anemia remains present Allergies Allergy/AdvReac Type Severity Reaction Status Date / Time loratadine Allergy Severe DEPLETED Verified 06/02/20 04:00 O2 FROM BODY, WAS PUT IN OXYGEN CHAMBER. ketorolac Allergy Intermediate DIAPHORESIS, Verified 06/02/20 04:00 RASH Iodinated Contrast Media Allergy Mild ITCHING Verified 06/02/20 04:00 prednisone AdvReac Mild Vomiting Verified 06/02/20 04:00 ceftriaxone [From Rocephin] AdvReac Unknown Unknown Verified 06/02/20 04:00 Home Medications Medication Instructions Recorded Confirmed Type aspirin [Aspirin Low Dose] 81 mg PO QAM 05/16/18 06/02/20 History metoprolol tartrate 12.5 mg PO BID 05/16/18 06/02/20 History nitroglycerin [Nitrostat] 0.4 mg SUBLINGUAL DIRECTED PRN 05/16/18 06/02/20 History sertraline [Zoloft] 50 mg PO QAM 05/16/18 06/02/20 History hydrochlorothiazide 25 mg PO QAM 09/01/19 06/02/20 History omeprazole magnesium [Prilosec OTC] 20 mg PO QAM 09/01/19 06/02/20 History Vitron-C 1 tab PO DAILY 01/26/20 06/02/20 History amlodipine [Norvasc] 5 mg PO DAILY 01/26/20 06/02/20 History ferrous sulfate 325 mg PO Q OTHER DAY 01/26/20 06/02/20 History lisinopril 20 mg PO DAILY 01/26/20 06/02/20 History atorvastatin 40 mg PO DAILY 06/02/20 06/02/20 History Patient History Medical History Achilles tendonitis Acute kidney injury CAD (coronary artery disease) Cervical radiculopathy Chronic bronchitis Contusion of left hip Depression Dyslipidemia HTN (hypertension) Surgical History History of coronary artery stent placement "stent x 2 in mid LAD in 2012" Family History Other Heart disease Social History Smoking Status: Never smoker Cigarettes Per Day: 1; Second Hand Exposure: No; Do You Dip or Chew Tobacco: No; Tobacco Cessation Education Requested by Patient: No Hx Alcohol Use: No Hx Substance Use: No Preferred Language: [place] Communication Ability: [employer] Required: No Beliefs That Will Affect Care: None marital status: Current Living Situation: Family Current Living Situation Comment: neice current occupational status: employed Other Information That Helps Us Care for You: No Feels Safe at Home: Yes Safety Concerns: Feels Safe At This Time Assistive Devices: None Review of Systems Review of Systems: All systems reviewed & are unremarkable except as noted in HPI & below Physical Exam Constitutional: WD/WN, vitals as above + obese; no acute distress Eyes: PERRL, conjunctivae normal, anicteric sclerae ENMT: external ear and nose normal, oropharynx normal Neck: trachea midline, no thyromegaly Respiratory: normal respiratory effort, lungs clear to auscultation Cardiovascular: Rate/Rhythm: regular rate and regular rhythm Heart Sounds: normal S1 and normal S2; no gallop and no murmur Palpation: normal PMI Vessels: normal carotid upstroke and radial pulses present; no JVD and no carotid bruit Extremities: no edema Gastrointestinal (Abdomen): normal bowel sounds, soft, nontender, no hepatosplenomegaly Musculoskeletal: no cyanosis or clubbing, extremities motor strength 5/5 Skin: no rashes, warm and dry Neurologic: PERRL, EOMI, accommodation nl, no face palsy, no dysarthria Psychiatric: A+Ox3, euthymic affect Results & Data ([facility]) Vital Signs (Past 12 Hours) Vital Signs Temp Pulse Pulse Pulse Resp BP BP 06/02/20 11:19 36.9 C 75 18 149/73 H 06/02/20 08:05 37.2 C 76 87 20 122/55 L 141/72 H 06/02/20 07:09 76 18 129/57 L 06/02/20 06:00 75 18 118/53 L 06/02/20 05:00 74 18 140/70 06/02/20 04:00 81 18 126/59 L 06/02/20 03:46 06/02/20 03:38 36.7 C 86 21 134/60 Pulse Ox 06/02/20 11:19 97 06/02/20 08:05 96 06/02/20 07:09 95 06/02/20 06:00 95 06/02/20 05:00 94 06/02/20 04:00 96 06/02/20 03:46 96 06/02/20 03:38 96 Laboratory Results Laboratory Results - last 24 hr 06/02/20 06/02/20 06/02/20 04:00 04:00 04:00 WBC 6.35 RBC 3.43 L Hgb 8.9 L Hct 28.6 L MCV 83.4 MCH 25.9 MCHC 31.1 L RDW Std Deviation 41.4 RDW Coeff of Samantha 13.7 Plt Count 346 MPV 8.5 Immature Gran % (Auto) 0.2 Neut % (Auto) 58.0 Lymph % (Auto) 27.2 [place] % (Auto) 9.1 Eos % (Auto) 4.9 Baso % (Auto) 0.6 Neut # (Auto) 3.68 Lymph # (Auto) 1.73 [place] # (Auto) 0.58 Eos # (Auto) 0.31 Baso # (Auto) 0.04 Immature Gran # (Auto) 0.01 PT 10.8 INR 1.0 APTT 26.6 PTT Ratio 1.0 Sodium 139 Potassium 3.8 Chloride 110 H Carbon Dioxide 27 Anion Gap 2.0 L BUN 24 H Creatinine 0.97 Est Cr Clr Drug Dosing 91.6 Est GFR ( Amer) 76.2 Est GFR (Non-Af Amer) 65.8 BUN/Creatinine Ratio 24.7 H Glucose 111 H Calcium 9.1 Total Bilirubin 0.3 AST 11 L ALT 16 Alkaline Phosphatase 91 Troponin I < 0.015 Total Protein 7.0 Albumin 2.8 L Globulin 4.2 H Albumin/Globulin Ratio 0.7 L Lipase 215 SARS-CoV-2 Ag (Rapid) 06/02/20 06/02/20 05:23 08:46 WBC RBC Hgb Hct MCV MCH MCHC RDW Std Deviation RDW Coeff of Samantha Plt Count MPV Immature Gran % (Auto) Neut % (Auto) Lymph % (Auto) [place] % (Auto) Eos % (Auto) Baso % (Auto) Neut # (Auto) Lymph # (Auto) [place] # (Auto) Eos # (Auto) Baso # (Auto) Immature Gran # (Auto) PT INR APTT PTT Ratio Sodium Potassium Chloride Carbon Dioxide Anion Gap BUN Creatinine Est Cr Clr Drug Dosing Est GFR ( Amer) Est GFR (Non-Af Amer) BUN/Creatinine Ratio Glucose Calcium Total Bilirubin AST ALT Alkaline Phosphatase Troponin I 0.017 Total Protein Albumin Globulin Albumin/Globulin Ratio Lipase SARS-CoV-2 Ag (Rapid) Negative (1) CAD (coronary artery disease) Coronary Disease-Associated Artery/Lesion type: [place] artery [place] vs. transplanted heart: [place] heart Associated angina: with stable angina Qualified Code(s): I25.118 - Atherosclerotic heart disease of [place] coronary artery with other forms of angina pectoris (2) HTN (hypertension) Hypertension type: unspecified Qualified Code(s): I10 - Essential (primary) hypertension (3) Anemia Anemia type: unspecified type Qualified Code(s): D64.9 - Anemia, unspecified
--- NOTE | 2020-06-02 18:20 | Communication Note ---
Date of Service: June 02, 2020 The patient was seen and examined in medical telemetry unit. She was admitted with the chest pain rule out ACS. Remains free of pain since admission. Relevant investigations including cardiac troponin, EKG remained unremarkable. Will a full follow-up tomorrow.
[2020-06-02] MEDS: METOPROLOL TARTRATE 25 MG TAB PO SCH (19:28)
[2020-06-03 07:00] LABS: Basophils # (auto) 0.02 K/uL (0-0.2); Basophils % (auto) 0.3 %; Eosinophils # (auto) 0.22 K/uL (0-0.5); Hematocrit (blood only) 32.1 % (37-47); Immature Granulocytes # (auto) 0.01 K/uL (0.00-0.02); Immature Granulocytes % (auto) 0.1 %; Lymphocytes # (auto) 1.88 K/uL (1.2-3.4); Lymphocytes % (auto) 25.4 %; Mean Corpuscular Hemoglobin 26.5 pg (25-34); Mean Corpuscular Hgb Conc 31.2 g/dL (32-36); Mean Corpuscular Volume 84.9 fL (80-100); Monocytes # (auto) 0.61 K/uL (0.11-0.59); Monocytes % (auto) 8.3 %; Neutrophils # (auto) 4.65 K/uL (1.4-6.5); Neutrophils % (auto) 62.9 %; Platelet Count 386 K/uL (130-400); RDW Coefficient of Variation 13.6 % (11.5-14.5); RDW Standard Deviation 41.7 fL (36.4-46.3); Red Blood Count 3.78 M/uL (4.2-5.4); White Blood Count 7.39 K/uL (4.8-10.8)
[2020-06-03 07:31] LABS: BUN Creatinine Ratio 26.2 (10-20); Calcium 9.7 mg/dl (8.5-10.1); Creatinine Clr Calc Pharmacy 96.3 ml/min; Est GFR (African American) 81.2; Est GFR (Non-African American) 70.1; Magnesium 2.2 mg/dl (1.8-2.4); Potassium 4.2 mmol/L (3.5-5.1)
[2020-06-03] MEDS: hydroCHLOROthiazide 25 MG TAB PO SCH (07:54)
[2020-06-03] MEDS: amLODIPine BESYLATE 5 MG TAB PO SCH (07:55)
[2020-06-03] MEDS: ATORVASTATIN 40 MG TAB PO SCH (07:55)
[2020-06-03] MEDS: SERTRALINE HCL 50 MG TABLET PO SCH (07:55)
[2020-06-03] MEDS: lisinopril 20 MG TAB PO SCH (07:55)
[2020-06-03] MEDS: METOPROLOL TARTRATE 25 MG TAB PO SCH (07:55)
[2020-06-03] MEDS: PANTOprazole 40 MG TAB PO SCH (07:56)
[2020-06-03] MEDS: ASCORBIC ACID 500 MG TAB PO SCH (07:56)
[2020-06-03] MEDS: FERROUS SULFATE 325 MG TAB PO SCH (07:56)
[2020-06-03] MEDS: ASPIRIN 81 MG ECTAB PO SCH (07:56)
--- NOTE | 2020-06-03 08:47 | Electrocardiogram Report ---
Test Reason : Blood Pressure : / mmHG Vent. Rate : 077 BPM Atrial Rate : 077 BPM P-R Int : 198 ms QRS Dur : 096 ms QT Int : 382 ms P-R-T Axes : 046 015 064 degrees QTc Int : 432 ms Normal sinus rhythm Low voltage QRS Borderline ECG When compared with ECG of 02-JUN-2020 03:35, No significant change was found Confirmed by Neil Guillaume ([id number]) on 06/03/2020 8:47:08 AM Referred By: REFERRED SELF Confirmed By:Neil Guillaume
--- NOTE | 2020-06-03 10:42 | Cardiology Progress Note ---
Date of Service June 03, 2020 Assessment & Plan (1) Precordial chest pain: Patient is a 54-year-old female with history of prior coronary intervention, hypertension hyperlipidemia as well as past noncardiac chest pain who last evening awakened from sleep with chest pain neck pain and shoulder discomfort gradually relieved by aspirin nitroglycerin in route to hospital. Initial EKGs are normal as is initial troponin Echocardiogram normal EKGs normal Troponins negative for ischemia Plan: I reviewed recent and past echocardiograms as well as stress echocardiogram April 2019. Patient at that time had limited images as well as limited exercise capacity. Study was negative for ischemia but not optimal in imaging Recommendations: Discharge to home on current medications representing increase in dose of metoprolol. Will arrange for outpatient stress nuclear imaging with Lexiscan (2) CAD (coronary artery disease): (3) HTN (hypertension): (4) Dyslipidemia: (5) Anemia: Admission and Anticipated Discharge Date Admission Date: June 02, 2020 Subjective Patient seen and examined, chart, medications, telemetry reviewed. Patient had no cardiac complaints overnight. No chest pains, shortness of breath, tachypalpitations. Ambulatory in room without difficulty. No arrhythmias on telemetry. EKGs remain normal. Troponins normal. Echocardiogram reveals normal LV systolic function without wall motion abnormality Physical Exam Constitutional: WD/WN, vitals as above + obese; no acute distress Eyes: PERRL, conjunctivae normal, anicteric sclerae ENMT: external ear and nose normal, oropharynx normal Neck: trachea midline, no thyromegaly Respiratory: normal respiratory effort, lungs clear to auscultation Cardiovascular: Rate/Rhythm: regular rate and regular rhythm Heart Sounds: normal S1 and normal S2; no gallop and no murmur Palpation: normal PMI Vessels: normal carotid upstroke and radial pulses present; no JVD and no carotid bruit Extremities: no edema Gastrointestinal (Abdomen): normal bowel sounds, soft, nontender, no hepatosplenomegaly Musculoskeletal: no cyanosis or clubbing, extremities motor strength 5/5 Skin: no rashes, warm and dry Neurologic: PERRL, EOMI, accommodation nl, no face palsy, no dysarthria Psychiatric: A+Ox3, euthymic affect Results & Data ([facility]) Vital Signs (Past 12 Hours) Vital Signs Temp Pulse Pulse Resp BP BP Pulse Ox 06/03/20 08:49 78 06/03/20 07:16 36.6 C 76 18 148/80 H 94 06/03/20 05:41 87 06/03/20 04:19 36.5 C 72 16 106/61 95 06/03/20 00:25 36.6 C 78 16 99/63 L 96 Laboratory Results Laboratory Results - last 24 hr 06/02/20 06/03/20 06/03/20 15:32 06:24 06:24 WBC 7.39 RBC 3.78 L Hgb 10.0 L Hct 32.1 L MCV 84.9 MCH 26.5 MCHC 31.2 L RDW Std Deviation 41.7 RDW Coeff of Samantha 13.6 Plt Count 386 MPV 9.0 Immature Gran % (Auto) 0.1 Neut % (Auto) 62.9 Lymph % (Auto) 25.4 [place] % (Auto) 8.3 Eos % (Auto) 3.0 Baso % (Auto) 0.3 Neut # (Auto) 4.65 Lymph # (Auto) 1.88 [place] # (Auto) 0.61 H Eos # (Auto) 0.22 Baso # (Auto) 0.02 Immature Gran # (Auto) 0.01 Sodium 140 Potassium 4.2 Chloride 110 H Carbon Dioxide 26 Anion Gap 4.0 BUN 24 H Creatinine 0.92 Est Cr Clr Drug Dosing 96.3 Est GFR ( Amer) 81.2 Est GFR (Non-Af Amer) 70.1 BUN/Creatinine Ratio 26.2 H Glucose 101 H Calcium 9.7 Magnesium 2.2 Troponin I < 0.015 (1) CAD (coronary artery disease) Coronary Disease-Associated Artery/Lesion type: [place] artery [place] vs. transplanted heart: [place] heart Associated angina: with stable angina Qualified Code(s): I25.118 - Atherosclerotic heart disease of [place] coronary artery with other forms of angina pectoris (2) HTN (hypertension) Hypertension type: unspecified Qualified Code(s): I10 - Essential (primary) hypertension (3) Anemia Anemia type: unspecified type Qualified Code(s): D64.9 - Anemia, unspecified
--- NOTE | 2020-06-03 11:45 | Hospitalist Progress Note ---
Date of Service June 03, 2020 Assessment & Plan (1) Precordial chest pain: She was admitted yesterday with precordial chest pain with history of CAD status drug-eluting stent placement to mid left anterior descending and diagonal in 2012 Serial troponins and EKGs were unremarkable She received appropriate treatment for chest pain Appreciate cardiology input and recommendation Her symptoms resolved and echo did not show any evidence of abnormality She remains free of any symptoms and can be discharged this afternoon She will have follow-up with the health professional and will have outpatient stress nuclear imaging with Lexiscan (2) CAD (coronary artery disease): As above (3) HTN (hypertension): Reasonably controlled with her home medication Beta-parisa dose has been increased for better control of blood pressure (4) Dyslipidemia: Continue current statin (5) Depression: No acute symptoms Will be discharged home this afternoon Admission and Anticipated Discharge Date Admission Date: June 02, 2020 Subjective 06/03/2020 The patient was seen and examined in medical telemetry unit She has been feeling a lot better and denies any chest pain and/or shortness of breath She has been ambulating in the room and in the hallway without any symptoms Review of Systems Review of Systems: All systems reviewed and are unremarkable except as noted below Cardiovascular: no chest pain, no dyspnea and no palpitations Physical Exam Physical Exam: Lying in bed comfortably Constitutional: well developed, well nourished and + obese Eyes: PERRL, conjunctivae normal, anicteric sclerae ENMT: external ear and nose normal, oropharynx normal Neck: trachea midline, no thyromegaly Respiratory: no respiratory distress Auscultation: lungs clear to auscultation bilaterally Cardiovascular: Rate/Rhythm: regular rate and regular rhythm Heart Sounds: no murmur Gastrointestinal (Abdomen): Inspection/Auscultation: normal bowel sounds; abdomen not distended Percussion/Palpation: abdomen soft; abdomen nontender Musculoskeletal: No acute arthritis in any joint Neurologic: Alert, awake and oriented x3. No focal sensory and motor deficit appreciated Psychiatric: A+Ox3, euthymic affect Lymphatic: no cervical or axillary lymphadenopathy Results & Data Results & Data ([facility]) Vital Signs (Past 12 Hours) Vital Signs Temp Pulse Pulse Resp BP BP Pulse Ox 06/03/20 08:49 78 06/03/20 07:16 36.6 C 76 18 148/80 H 94 06/03/20 05:41 87 06/03/20 04:19 36.5 C 72 16 106/61 95 06/03/20 00:25 36.6 C 78 16 99/63 L 96 Laboratory Results Short CBC 06/03/20 Range/Units 06:24 WBC 7.39 (4.8-10.8) K/uL Hgb 10.0 L (12.0-16.0) g/dL Hct 32.1 L (37-47) % Plt Count 386 (130-400) K/uL BMP 06/03/20 06:24 Sodium 140 Potassium 4.2 Chloride 110 H Carbon Dioxide 26 BUN 24 H Creatinine 0.92 Glucose 101 H Calcium 9.7 Cardiac Enzymes 06/02/20 Range/Units 15:32 Troponin I < 0.015 (0-0.045) ng/ml Medications Administered Current Inpatient Medications Acetaminophen (Acetaminophen 325 Mg Tab) 650 mg PO Q4H PRN PRN Reason: Pain or Fever Stop: 07/02/20 08:24 Last Admin: 06/02/20 19:27 Dose: 650 mg Documented by: Amlodipine Besylate (Amlodipine Besylate 5 Mg Tab) 5 mg PO DAILY [facility] Stop: 07/02/20 08:59 Last Admin: 06/03/20 07:55 Dose: 5 mg Documented by: Ascorbic Acid (Ascorbic Acid 500 Mg Tab) 125 mg PO QAM [facility] Stop: 07/02/20 08:59 Last Admin: 06/03/20 07:56 Dose: 125 mg Documented by: Aspirin (Aspirin 81 Mg Ectab) 81 mg PO QAM [facility] Stop: 07/02/20 08:59 Last Admin: 06/03/20 07:56 Dose: 81 mg Documented by: Atorvastatin Calcium (Atorvastatin 40 Mg Tab) 40 mg PO DAILY [facility] Stop: 07/02/20 08:59 Last Admin: 06/03/20 07:55 Dose: 40 mg Documented by: Ferrous Sulfate (Ferrous Sulfate 325 Mg Tab) 325 mg PO QAM [facility] Stop: 07/02/20 08:59 Last Admin: 06/03/20 07:56 Dose: 325 mg Documented by: Hydrochlorothiazide (Hydrochlorothiazide 25 Mg Tab) 25 mg PO QAM [facility] Stop: 07/02/20 08:59 Last Admin: 06/03/20 07:54 Dose: 25 mg Documented by: Lisinopril (Lisinopril 20 Mg Tab) 20 mg PO DAILY [facility] Stop: 07/02/20 08:59 Last Admin: 06/03/20 07:55 Dose: 20 mg Documented by: Metoprolol Tartrate (Metoprolol Tartrate 25 Mg Tab) 25 mg PO BID [facility] Stop: 07/02/20 20:59 Last Admin: 06/03/20 07:55 Dose: 25 mg Documented by: Nitroglycerin (Nitroglycerin Sl 0.4 Mg/Tab Tab) 0.4 mg SL UD PRN PRN Reason: Chest Pain Stop: 07/02/20 08:24 Ondansetron HCl (Ondansetron Inj 2 Mg/Ml 2 Ml Vial) 4 mg IV Q6H PRN PRN Reason: Nausea Stop: 07/02/20 08:24 Pantoprazole Sodium (Pantoprazole 40 Mg Tab) 40 mg PO QAM [facility] Stop: 07/02/20 08:59 Last Admin: 06/03/20 07:56 Dose: 40 mg Documented by: Sertraline HCl (Sertraline Hcl 50 Mg Tablet) 50 mg PO QAM [facility] Stop: 07/02/20 08:59 Last Admin: 06/03/20 07:55 Dose: 50 mg Documented by: (1) CAD (coronary artery disease) Coronary Disease-Associated Artery/Lesion type: [place] artery [place] vs. transplanted heart: [place] heart Associated angina: with stable angina Qualified Code(s): I25.118 - Atherosclerotic heart disease of [place] coronary artery with other forms of angina pectoris (2) HTN (hypertension) Hypertension type: unspecified Qualified Code(s): I10 - Essential (primary) hypertension
--- NOTE | 2020-06-04 09:18 | Discharge Summary ---
Date of Service June 04, 2020 Admission HPI Per Admitting Provider DICTATED BY: Amos Shrestha MD DATE OF ADMISSION: 06/02/2020 CHIEF COMPLAINT: Chest pain. HISTORY OF PRESENT ILLNESS: This 54-year-old female with past medical history significant for hyperlipidemia, prediabetes, chronic bronchitis, hypertension, CAD, obesity, chronic anemia, mood disorder, presents with chest pain. The patient says she was okay up to 12:00 in the nighttime when she suddenly had chest pain radiating to her arm, about 8/10 in severity with some shortness of breath. She could not lie flat, so she came here, she took 3 baby aspirin and 3 nitro sprays and pain is better now, resting comfortable and hemodynamically stable. Denies any nausea, vomiting. No abdominal pain, headache from nitro. No blurred visions. No earache, no runny nose, no sore throat, no loss of sense of smell or taste. No cough, no fevers. No abdominal pain. Normal bowel and bladder movements. No rash, no swelling in the legs. Admission Exam Per Admitting Provider GENERAL: The patient is morbidly obese, not in acute distress. VITAL SIGNS: Temperature 36.7, pulse 75, respiratory rate 18, blood pressure 118/53, oxygen 95% on room air. HEENT: Pupils equal, round, reactive to light. Oral mucosa moist. NECK: No JVD, no neck masses. CARDIOVASCULAR: S1, S2 heard, regular rate and rhythm, no murmur, no gallop. RESPIRATORY SYSTEM: Normal AP diameter. No accessory muscle use. No wheezing, no crackles. ABDOMEN: Soft, bowel sounds present, nontender. No distention. CENTRAL NERVOUS SYSTEM: Cranial nerves II-XII grossly intact. Nonfocal. EXTREMITIES: No edema, no erythema. Principal Diagnosis Precordial chest pain-no ACS, CAD status post ALEXI placement in 2012, hypertension, hyperlipidemia Discharge Exam Constitutional well developed, well nourished and + obese Eyes PERRL, conjunctivae normal, anicteric sclerae ENMT external ear and nose normal, oropharynx normal Neck trachea midline, no thyromegaly Respiratory no respiratory distress Auscultation: lungs clear to auscultation bilaterally Cardiovascular Rate/Rhythm: regular rate and regular rhythm Heart Sounds: no murmur Gastrointestinal (Abdomen) Inspection/Auscultation: normal bowel sounds; abdomen not distended Percussion/Palpation: abdomen soft; abdomen nontender Psychiatric A+Ox3, euthymic affect Lymphatic no cervical or axillary lymphadenopathy Discharge Data Allergies Allergy/AdvReac Type Severity Reaction Status Date / Time loratadine Allergy Severe DEPLETED Verified 06/02/20 04:00 O2 FROM BODY, WAS PUT IN OXYGEN CHAMBER. ketorolac Allergy Intermediate DIAPHORESIS, Verified 06/02/20 04:00 RASH Iodinated Contrast Media Allergy Mild ITCHING Verified 06/02/20 04:00 prednisone AdvReac Mild Vomiting Verified 06/02/20 04:00 ceftriaxone [From Rocephin] AdvReac Unknown Unknown Verified 06/02/20 04:00 Consultations 06/02/20 04:54 ED Decision to Admit Stat 06/02/20 08:25 Consult Cardiology Routine Consult Case Management - Discharge Planning Routine Hospital Course (1) Precordial chest pain: She was admitted yesterday with precordial chest pain with history of CAD status drug-eluting stent placement to mid left anterior descending and diagonal in 2012 Serial troponins and EKGs were unremarkable She received appropriate treatment for chest pain Appreciate cardiology input and recommendation Her symptoms resolved and echo did not show any evidence of abnormality She remains free of any symptoms and can be discharged this afternoon She will have follow-up with the cylinder block mechanic and will have outpatient stress nuclear imaging with Lexiscan (2) CAD (coronary artery disease): As above (3) HTN (hypertension): Reasonably controlled with her home medication Beta-parisa dose has been increased for better control of blood pressure (4) Dyslipidemia: Continue current statin (5) Depression: No acute symptoms Will be discharged home this afternoon Total Time Total Time Spent Total Time Spent (In Minutes): 35 minutes Total Time Includes: Examination of the Patient, Discharge Planning, Medication Reconciliation and Communication With Other Providers Discharge Plan Discharge Items Patient Disposition: Home - Self-Care Reason For Visit: CHEST PAIN/SHORT OF BREATH Discharge Diagnosis: Precordial chest pain-no ACS, CAD status post ALEXI placement in 2012, hypertension, hyperlipidemia Condition on Discharge: Good Activity: Resume your previous activity Non-emergency contact: Primary Care Provider Call non-emergency contact if: you have any medication questions and your symptoms worsen Follow-up/Referrals: Lennie Steven, DO [Primary Care Provider] - (Your doctor's office will give you a call tomorrow with an appointment within 1 week) Diet: Heart Healthy Addtl Attending Provider Instructions: Your metoprolol dose has been increased [facility] cardiology office will call with an appointment for further cardiac studies Pending Studies at Discharge: No Stand-Alone Forms: My [facility], Work/School Release (Inpt), Smoking Cessation Medications and DC Order Prescriptions: Continued lisinopril 20 mg tablet 20 mg PO DAILY RF: 0 amlodipine [Norvasc] 5 mg tablet 5 mg PO DAILY RF: 0 ferrous sulfate 325 mg (65 mg iron) Tablet 325 mg PO Q OTHER DAY RF: 0 Vitron-C 65 mg iron- 125 mg Tablet,Delayed Release (Dr/Ec) 1 tab PO DAILY RF: 0 aspirin [Aspirin Low Dose] 81 mg Tablet,Delayed Release (Dr/Ec) 81 mg PO QAM RF: 0 nitroglycerin [Nitrostat] 0.4 mg Tablet, Sublingual 0.4 mg Sublingual DIRECTED PRN (Reason: Chest Pain) RF: 0 sertraline [Zoloft] 50 mg Tablet 50 mg PO QAM RF: 0 omeprazole magnesium [Prilosec OTC] 20 mg Tablet,Delayed Release (Dr/Ec) 20 mg PO QAM RF: 0 hydrochlorothiazide 25 mg tablet 25 mg PO QAM RF: 0 atorvastatin 40 mg tablet 40 mg PO DAILY RF: 0 Changed metoprolol tartrate 25 mg Tablet 25 mg PO BID Qty: 60 RF: 0 Discharge Orders: Discharge Order (Routine); Ordered 06/03/20 Ordered By: Gian Almazan Admission Data Admit Date/Time: 06/02/20 06:22 Attending Provider: Gian Almazan Admit Provider: Amos Shrestha Primary Care Provider: Lennie Steven Other Providers: Amos Shrestha ; Huseyin Felix ; Angel Kitchen ; Logan Reddy ; Freedom Elliott ; Rodrick Fox ; Bob Mistry ; Sylvia Vasques ; Sarah Lucero ; Errol Long Other Interventions: Discharge Summary Assessment (RN) Last Done: 06/03/20 11:55
== END 2020-06-03 12:50 | disposition home or self-care (01) ==
LOC: ED 03:27 → 2N 03:27

== ENCOUNTER 2021-08-26 02:08 | Observation (INO) ==
[2021-08-26] MEDS ORDERED: ACETAMINOPHEN 1,000 MG/100 ML VIAL IV STA (02:17)
--- NOTE | 2021-08-26 02:23 | Emergency Department Note ---
History of Present Illness General Chief Complaint: Chest Pain Stated Complaint: LEFT SIDED CHEST PAIN Time Seen by Provider: 08/26/21 02:11 History of Present Illness This 56 yo presents to the ER complaining of CP Location: chest Quality: discomfort Severity: moderate Duration: tonight Timing: tonight Context: Patient was concerned and came in Modifying factors: better with nitroglycerin; worse with nothing EMS gave aspirin nitroglycerin and Zofran. Patient states he is feeling much better. Patient denies dyspnea, abdominal pain, fever, chills, flulike illness, leg pain or swelling. She follows with Dr. Reddy. She had a stent placed several years ago. Home Medications Medication Instructions Recorded Confirmed Type aspirin 81 mg tablet,delayed 81 mg PO QAM 05/16/18 08/26/21 History release (Aspirin Low Dose) nitroglycerin 0.4 mg sublingual 0.4 mg SUBLINGUAL DIRECTED PRN 05/16/18 08/26/21 History tablet (Nitrostat) sertraline 50 mg tablet (Zoloft) 50 mg PO QAM 05/16/18 08/26/21 History hydrochlorothiazide 25 mg tablet 25 mg PO QAM 09/01/19 08/26/21 History omeprazole magnesium 20 mg 20 mg PO QAM 09/01/19 08/26/21 History tablet,delayed release (Prilosec OTC) amlodipine 5 mg tablet (Norvasc) 5 mg PO DAILY 01/26/20 08/26/21 History ferrous sulfate 325 mg (65 mg 325 mg PO Q OTHER DAY 01/26/20 08/26/21 History iron) tablet lisinopril 20 mg tablet 20 mg PO DAILY 01/26/20 08/26/21 History atorvastatin 40 mg tablet 40 mg PO DAILY 06/02/20 08/26/21 History metoprolol tartrate 25 mg tablet 25 mg PO BID #60 tab 06/03/20 08/26/21 Rx albuterol sulfate 90 mcg/actuation 2 puff INHALATION DIRECTED PRN 08/04/20 08/26/21 History aerosol inhaler ascorbic acid (vitamin C) 500 mg 500 mg PO DAILY 08/04/20 08/26/21 History tablet (Vitamin C) Allergies Allergy/AdvReac Type Severity Reaction Status Date / Time loratadine Allergy Severe DEPLETED Verified 08/26/21 02:50 O2 FROM BODY, WAS PUT IN OXYGEN CHAMBER. ketorolac Allergy Intermediate DIAPHORESIS, Verified 08/26/21 02:50 RASH Iodinated Contrast Media Allergy Mild ITCHING Verified 08/26/21 02:50 prednisone AdvReac Mild Vomiting Verified 08/26/21 02:50 ceftriaxone [From Rocephin] AdvReac Unknown Unknown Verified 08/26/21 02:50 Past Med/Surg History Medical History (Updated 08/26/21 @ 03:29 by Melissa Donovan PA-C) Achilles tendonitis Acute kidney injury CAD (coronary artery disease) Cervical radiculopathy Chronic bronchitis Contusion of left hip Depression Dyslipidemia HTN (hypertension) Surgical History History of coronary artery stent placement "stent x 2 in mid LAD in 2012" Family History Other Heart disease Social History Smoking Status: Former smoker Tobacco Type: Cigarettes Cigarettes Per Day: 1; Second Hand Exposure: No; Hx Alcohol Use: No Hx Substance Use: No Preferred Language: Yakut Communication Ability: Effective Site Medical Director Required: No Beliefs That Will Affect Care: None marital status: Current Living Situation: Family Current Living Situation Comment: [place] current occupational status: employed Feels Safe at Home: Yes Assistive Devices: None Review of Systems A total of 10 systems reviewed and were otherwise negative Physical Exam Vital Signs Vital Signs - 24 hr 08/26/21 02:15 08/26/21 02:18 Temperature 37.3 C Temperature Source Oral Pulse Rate 101 H 94 H Pulse Rate [Apical] 101 H Pulse Rhythm Regular Pulse Rhythm [Apical] Regular Pulse Strength Normal Pulse Strength [Apical] Normal Respiratory Rate 20 20 Respiratory Effort / Characteristics Non-Labored Respiratory Depth Normal Respiratory Pattern Regular Blood Pressure 135/74 Blood Pressure [Left Arm] 135/74 Blood Pressure Mean 94 Blood Pressure Mean [Left Arm] 94 Blood Pressure Position Lying Blood Pressure Position [Left Arm] Lying Pulse Oximetry 95 93 Oxygen Delivery Method Room Air Room Air Oxygen Flow Rate 95 Sepsis Recent Fever Within 48 Hours No Sepsis New/Unexplained Change in Mental Status No Sepsis Action Taken by Nursing No Action Required VITALS: Vitals are noted on the nurse's note and reviewed by myself. Vital signs stable GENERAL: Pleasant female, in no acute distress, nondiaphoretic, well-developed w ell-nourished. SKIN: The skin was without rashes, erythema, edema, or bruising. There is no tenting of the skin. Capillary reflex less than 2 seconds. HEAD: Normocephalic atraumatic. EARS: External auditory canals clear, EYES: Pupils equal round and reactive to light and accommodation. Conjunctivae without injection, sclerae without icterus. Extraocular movements intact. NOSE: Patent, turbinates without inflammation or discharge. MOUTH: Mucous membranes moist. Pharynx without erythema or exudate. Uvula midline. Airway patent. Tongue does not deviate. NECK: Supple without nuchal rigidity. No lymphadenopathy. No thyromegaly. Cervical spine is nontender. No JVD. HEART: Regular rate and rhythm LUNGS: Clear to auscultation bilaterally without wheezes, rales or rhonchi. No retractions or accessory muscle use. ABDOMEN: Positive bowel sounds x 4. Normal tympanic percussion. Soft, nontender, without masses or organomegaly. Douglass sign negative. No guarding or rebound tenderness. No CVA tenderness MUSCULOSKELETAL: No muscle atrophy, erythema, or edema noted. NEURO: Patient was alert and oriented to person place and time. Normal sensation to light and sharp touch. No focal neurological deficits. Course Administered Medications Discontinued Medications Al Hydrox/Mg Hydrox/Simethicone (Gi Cocktail Ed Use) 1 dose PO ONE ONE Stop: 08/26/21 02:26 Last Admin: 08/26/21 02:35 Dose: 1 dose Documented by: [id number] Famotidine (Famotidine 20mg/5ml Iv Push) 20 mg IV ONE STA Stop: 08/26/21 02:26 Last Admin: 08/26/21 02:35 Dose: 20 mg Documented by: [id number] Acetaminophen (Ofirmev) 1,000 mg in 100 mls @ 400 mls/hr IV NOW STA Stop: 08/26/21 02:31 Last Infusion: 08/26/21 03:00 Dose: 0 mls/hr Documented by: [id number] Admin: 08/26/21 02:35 Dose: 400 mls/hr Documented by: [id number] Medical Decision Making Medical Records Attestation: I reviewed the patient's medical records. Home Medications Current Medication List: was personally reviewed by me Laboratory Data Attestation: I reviewed the patient's lab results. Result diagrams: 08/26/21 02:20 08/26/21 02:20 Labs: Lab Results 08/26/21 08/26/21 Range/Units 02:20 02:20 WBC 8.04 (4.8-10.8) K/uL RBC 3.33 L (4.2-5.4) M/uL Hgb 8.4 L (12.0-16.0) g/dL Hct 27.5 L (37-47) % MCV 82.6 (80-100) fL MCH 25.2 (25-34) pg MCHC 30.5 L (32-36) g/dL RDW Std Deviation 45.6 (36.4-46.3) fL RDW Coeff of Samantha 15.1 H (11.5-14.5) % Plt Count 327 (130-400) K/uL MPV 8.5 (7.4-10.4) fL Immature Gran % (Auto) 0.0 % Neut % (Auto) 63.6 % Lymph % (Auto) 22.4 % Mason % (Auto) 9.1 % Eos % (Auto) 4.4 % Baso % (Auto) 0.5 % Neut # (Auto) 5.12 (1.4-6.5) K/uL Lymph # (Auto) 1.80 (1.2-3.4) K/uL Mason # (Auto) 0.73 H (0.11-0.59) K/uL Eos # (Auto) 0.35 (0-0.5) K/uL Baso # (Auto) 0.04 (0-0.2) K/uL Immature Gran # (Auto) 0.00 (0.00-0.02) K/uL Sodium 139 (136-145) mmol/L Potassium 3.6 (3.5-5.1) mmol/L Chloride 108 H (98-107) mmol/L Carbon Dioxide 24 (21-32) mmol/L Anion Gap 7 (3-11) BUN 10 (6-23) mg/dl Creatinine 0.73 (0.6-1.2) mg/dl Est Cr Clr Drug Dosing 115.2 ml/min Est GFR ( Amer) 106.0 ml/min Est GFR (Non-Af Amer) 91.4 ml/min BUN/Creatinine Ratio 13.7 (10-20) Glucose 99 (70-99(Fasting)) mg/dl Calcium 8.4 L (8.5-10.1) mg/dl Total Bilirubin 0.4 (0.2-1.0) mg/dl AST 17 (13-39) U/L ALT 14 (7-52) U/L Alkaline Phosphatase 77 (34-104) U/L Troponin I 0.06 H* (0-0.04) ng/ml Total Protein 6.2 (6.0-8.3) gm/dl Albumin 3.3 L (3.4-5.0) gm/dl Globulin 2.9 (2.5-4.0) gm/dl Albumin/Globulin Ratio 1.1 (0.9-2) Lipase 21 (11-82) U/L MDM Narrative Prior records/ancillary studies reviewed. Triage Nursing notes reviewed. Additional history obtained from EMS. The patient's history was concerning for chest pain. Differential diagnosis: Etiologies such as cardiac ischemia, aortic dissection, pulmonary embolism, pneumonia, pneumothorax, musculoskeletal, infections, pericarditis, myocarditis, esophageal rupture, gastrointestinal, as well as others were entertained. Physical examination: As above. ER treatment provided: An order was placed for continuous cardiac monitoring. The monitor shows a rate of 60-1 50 with a sinus rhythm. Tylenol On reassessment the patient felt better. Diagnostic interpretation by me: #1 the electrocardiogram was negative for pathologic change. Ordered for chest pain EKG: Poor baseline, normal sinus, normal intervals, occasional PVC, no acute ST- T wave changes, rate of 102. Impression sinus tachycardia with occasional PVC interpreted by myself I think arrhythmia is unlikely. EKG shows normal sinus rhythm with no interval abnormalities such as QT prolongation or WPW. There are no findings to suggest Brugada syndrome. Cardiac monitoring in the emergency department reveals no tachycardic or bradycardic dysrhythmia. Hypertrophic cardiomyopathy was considered but there are no clear historical elements pointing toward this. EKG is not suggestive. The QRS voltage is not extremely large #2 EKG ordered for positive troponin EKG: Normal sinus, occasional PVC, no acute ST-T wave changes, rate of eighty- nine. Impression normal sinus rhythm rate of eighty-nine occasional PVCs interpreted by myself I think arrhythmia is unlikely. EKG shows normal sinus rhythm with no interval abnormalities such as QT prolongation or WPW. There are no findings to suggest Brugada syndrome. Cardiac monitoring in the emergency department reveals no tachycardic or bradycardic dysrhythmia. Hypertrophic cardiomyopathy was considered but there are no clear historical elements pointing toward this. EKG is not suggestive. The QRS voltage is not extremely large The labs revealed chronic anemia Positive troponin, repeat was ordered Imaging studies: Chest x-ray with no acute consolidation, pneumothorax or free air per my interpretation HEART SCORE: Hx: high/mod/low suspicion: 0 ECG: ST depression/nonspecific changes/normal: 0 Age: Greater than 65/45-64/less than 45: 1 Risk factors: (Hypertension, hyperlipidemia, diabetes, coronary disease, tobacco use, cocaine use): 2 Troponin: Greater than 2 times normal limits/1-2 times normal limits/normal: 1 Total: 3 Consultation: A consultation was placed with the hospitalist. The case was discussed and diagnostics were reviewed. The patient was evaluated in the ER for further treatment. Exam and history seem consistent with chest pain with positive troponin. Patient is pain-free in the ER. Her symptoms started after eating a large meal. Repeat troponin was ordered. Repeat EKG was ordered and is unchanged Medicine saw consulted. She will be evaluated for admission. By the evaluation outlined above emergent etiologies such as aortic dissection, pulmonary embolism, pneumonia, pneumothorax, infections, pericarditis, myocarditis, gastrointesti nal, as well as others were deemed relatively unlikely. The pt informed about the findings as listed above. All questions were answered and pleased with the treatment. The chart was completed utilizing [employer] Speech voice recognition software. Grammatical errors, random word insertions, pronoun errors, and incomplete sentences are an occassional consequence of this system due to software limitations, ambient noise, and hardware issues. Any formal questions or concerns about the content, text, or information contained within the body of this dictation should be directly addressed to the physician assistant terminal manager for clarification. Impression & Plan Chest pain, Elevated troponin Discharge Plan Visit Data Chief Complaint: Chest Pain Stated Complaint: LEFT SIDED CHEST PAIN ED Provider: Barbie Carbajal ED Midlevel Provider: Melissa Donovan Discharge Problem: Chest pain, Elevated troponin Patient Disposition: Admitted As Inpatient Condition: Good Forms Stand Alone Forms: [facility] Prescriptions Prescriptions: No Action lisinopril 20 mg tablet 20 mg PO DAILY RF: 0 amlodipine [Norvasc] 5 mg tablet 5 mg PO DAILY RF: 0 ferrous sulfate 325 mg (65 mg iron) Tablet 325 mg PO Q OTHER DAY RF: 0 ascorbic acid (vitamin C) [Vitamin C] 500 mg Tablet 500 mg PO DAILY RF: 0 albuterol sulfate 90 mcg/actuation Hfa Aerosol Inhaler 2 puff INHALATION DIRECTED PRN (Reason: Shortness Of Breath) RF: 0 aspirin [Aspirin Low Dose] 81 mg Tablet,Delayed Release (Dr/Ec) 81 mg PO QAM RF: 0 nitroglycerin [Nitrostat] 0.4 mg Tablet, Sublingual 0.4 mg Sublingual DIRECTED PRN (Reason: Chest Pain) RF: 0 sertraline [Zoloft] 50 mg Tablet 50 mg PO QAM RF: 0 omeprazole magnesium [Prilosec OTC] 20 mg Tablet,Delayed Release (Dr/Ec) 20 mg PO QAM RF: 0 hydrochlorothiazide 25 mg tablet 25 mg PO QAM RF: 0 atorvastatin 40 mg tablet 40 mg PO DAILY RF: 0 metoprolol tartrate 25 mg Tablet 25 mg PO BID Qty: 60 RF: 0 Referrals Referrals: Lennie Steven DO [Primary Care Provider] - Discharge Problem: Chest pain Qualifiers: Chest pain type: unspecified Qualified Code(s): R07.9 - Chest pain, unspecified
[2021-08-26] MEDS ORDERED: FAMOTIDINE 20MG/5ML IV PUSH IV STA (02:25)
[2021-08-26] MEDS ORDERED: GI COCKTAIL ED USE PO ONE (02:25)
[2021-08-26 02:40] LABS: Basophils # (auto) 0.04 K/uL (0-0.2); Basophils % (auto) 0.5 %; Eosinophils # (auto) 0.35 K/uL (0-0.5); Eosinophils % (auto) 4.4 %; Hematocrit (blood only) 27.5 % (37-47); Hemoglobin 8.4 g/dL (12.0-16.0); Lymphocytes % (auto) 22.4 %; Mean Corpuscular Hemoglobin 25.2 pg (25-34); Mean Corpuscular Hgb Conc 30.5 g/dL (32-36); Mean Corpuscular Volume 82.6 fL (80-100); Mean Platelet Volume 8.5 fL (7.4-10.4); Monocytes # (auto) 0.73 K/uL (0.11-0.59); Monocytes % (auto) 9.1 %; Neutrophils # (auto) 5.12 K/uL (1.4-6.5); Neutrophils % (auto) 63.6 %; Platelet Count 327 K/uL (130-400); RDW Coefficient of Variation 15.1 % (11.5-14.5); RDW Standard Deviation 45.6 fL (36.4-46.3); Red Blood Count 3.33 M/uL (4.2-5.4); White Blood Count 8.04 K/uL (4.8-10.8)
[2021-08-26 03:04] LABS: Albumin Globulin Ratio 1.1 (0.9-2); Albumin Level 3.3 gm/dl (3.4-5.0); BUN Creatinine Ratio 13.7 (10-20); Bilirubin,Total 0.4 mg/dl (0.2-1.0); Calcium 8.4 mg/dl (8.5-10.1); Creatinine Clr Calc Pharmacy 115.2 ml/min; Est GFR (Non-African American) 91.4 ml/min; Globulin 2.9 gm/dl (2.5-4.0); Potassium 3.6 mmol/L (3.5-5.1); Total Protein 6.2 gm/dl (6.0-8.3)
[2021-08-26 03:14] LABS: Troponin I 0.06 ng/ml (0-0.04)
[2021-08-26] MEDS ORDERED: NITROGLYCERIN SL 0.4 MG/TAB TAB SL PRN (06:20)
[2021-08-26] MEDS ORDERED: ALBUTEROL HFA 8 GM INHALER INH PRN (06:20)
[2021-08-26] MEDS ORDERED: ACETAMINOPHEN 325 MG TAB PO PRN (06:20)
[2021-08-26] MEDS ORDERED: POLYETHYLENE (MIRALAX) 17 GM PACK PO PRN (06:20)
[2021-08-26] MEDS ORDERED: DEXTROSE 50% 50 ML SYRINGE IV PRN (06:30)
[2021-08-26] MEDS ORDERED: GLUCAGON FOR INJ 1 MG VIAL IM PRN (06:30)
[2021-08-26] MEDS ORDERED: GLUCOSE 40% GEL 15 GM TUBE PO PRN (06:30)
[2021-08-26] MEDS ORDERED: CARBOHYDRATES FOR HYPOGLYCEMIA PO PRN (06:30)
[2021-08-26] MEDS ORDERED: GLUCOSE 10 TABS/TUBE PO PRN (06:30)
[2021-08-26] MEDS: INSULIN ASPART PER UNIT SC SCH ×3 (06:43→19:02)
--- NOTE | 2021-08-26 06:56 | XRay Report ---
XR chest 1V portable CLINICAL HISTORY: Atypical chest pain. COMPARISON STUDY: Chest radiograph August 28, 2020. FINDINGS: No pneumothorax or pleural effusion is noted. Cardiac size is at the upper limits of normal . Slight vascular prominence is noted. No consolidation is identified. IMPRESSION: Slight interstitial prominence. This favors pulmonary vascular congestion. An infectious process could appear similar although is considered less likely. ACT 112: Negative or not required by law. Electronically signed by: Anthony Ortiz M.D. 08/26/2021 6:55 AM
--- NOTE | 2021-08-26 08:46 | Cardiology Consultation ---
Date of Consultation August 26, 2021 Assessment & Plan (1) Precordial chest pain: (2) Anemia: (3) Nausea: Patient is a complex 56-year-old female with underlying history is notable for known coronary artery disease with prior coronary intervention 2012 but subsequent follow-up study 2017 without coronary obstruction. She has had difficulties with intermittent chest discomfort as well as chronic anemia. She presents this admission noting evaluation 2 weeks ago for abdominal pain, last evening with symptoms consistent with reflux per her description but with some atypical features with radiation to her shoulder. Symptoms were persistent throughout the night and enough to limit sleep. EKGs without acute evolution however troponins very minimally elevated without distinct rise or fall Plan: We will evaluate symptoms further with dobutamine stress echocardiogram this morning. Last stress testing in April 2019 Study will allow assessment of LV function and ischemia. Suspect multiple issues are contributing to current complaints including anemia, GI complaints, missed doses of diuretic. Further recommendations pending test History of Present Illness Requesting Physician: Dr Almazan Attending Physician: Gian Almazan MD History of Present Illness Patient is a 56-year-old female with ongoing issues which include 1. Atherosclerotic coronary disease status post drug-eluting stent to mid left anterior descending and diagonal 2012 2. Repeat cardiac catheterization 09/2017 without progression or obstruction 3. Longstanding hypertension with hypertensive urgency April 10, 2019 4. Hyperlipidemia 5. Polycystic kidney disease 6. Asthmatic lung disease 7. Chronic anemia Patient presents now on noting symptoms of severe indigestion and heartburn last evening. Symptoms were severe enough to disrupt sleep with patient unable to get comfortable or lie flat due to shortness of breath. Took 1 dose of Prilosec without aid in symptoms and ultimately presented to the emergency room for further evaluation. Notes was seen in the emergency room approximately 2 weeks ago with symptoms of abdominal pain and back pain with evaluation unrevealing. No dizziness or lightheadedness. No fevers chills or unexplained infections. No edema. Hemoglobin is trending downward. Patient not aware of [place] or hematochezia No headaches or visual changes. Blood pressures have been trending higher but patient notes lapse in hydrochlorothiazide due to prescription issues x4 days Multiple coworkers with Covid but patient testing negative today no cough or worsening sputum Works in produce section at [employer] Allergies Allergy/AdvReac Type Severity Reaction Status Date / Time loratadine Allergy Severe DEPLETED Verified 08/26/21 02:50 O2 FROM BODY, WAS PUT IN OXYGEN CHAMBER. ketorolac Allergy Intermediate DIAPHORESIS, Verified 08/26/21 02:50 RASH Iodinated Contrast Media Allergy Mild ITCHING Verified 08/26/21 02:50 prednisone AdvReac Mild Vomiting Verified 08/26/21 02:50 ceftriaxone [From Rocephin] AdvReac Unknown Unknown Verified 08/26/21 02:50 Home Medications Medication Instructions Recorded Confirmed Type aspirin 81 mg tablet,delayed 81 mg PO QAM 05/16/18 08/26/21 History release (Aspirin Low Dose) nitroglycerin 0.4 mg sublingual 0.4 mg SUBLINGUAL DIRECTED PRN 05/16/18 08/26/21 History tablet (Nitrostat) sertraline 50 mg tablet (Zoloft) 50 mg PO QAM 05/16/18 08/26/21 History hydrochlorothiazide 25 mg tablet 25 mg PO QAM 09/01/19 08/26/21 History omeprazole magnesium 20 mg 20 mg PO QAM 09/01/19 08/26/21 History tablet,delayed release (Prilosec OTC) amlodipine 5 mg tablet (Norvasc) 5 mg PO DAILY 01/26/20 08/26/21 History ferrous sulfate 325 mg (65 mg 325 mg PO Q OTHER DAY 01/26/20 08/26/21 History iron) tablet lisinopril 20 mg tablet 20 mg PO DAILY 01/26/20 08/26/21 History atorvastatin 40 mg tablet 40 mg PO DAILY 06/02/20 08/26/21 History metoprolol tartrate 25 mg tablet 25 mg PO BID #60 tab 06/03/20 08/26/21 Rx albuterol sulfate 90 mcg/actuation 2 puff INHALATION DIRECTED PRN 08/04/20 08/26/21 History aerosol inhaler ascorbic acid (vitamin C) 500 mg 500 mg PO DAILY 08/04/20 08/26/21 History tablet (Vitamin C) Patient History Medical History Achilles tendonitis Acute kidney injury CAD (coronary artery disease) Cervical radiculopathy Chronic bronchitis Contusion of left hip Depression Dyslipidemia HTN (hypertension) Surgical History History of coronary artery stent placement "stent x 2 in mid LAD in 2012" Family History Other Heart disease Social History Smoking Status: Former smoker Tobacco Type: Cigarettes Cigarettes Per Day: 1; Second Hand Exposure: No; Do You Dip or Chew Tobacco: No; Tobacco Cessation Education Requested by Patient: No Hx Alcohol Use: No Hx Substance Use: No Preferred Language: Yoruba Communication Ability: Effective Student Financial Services Counselor Required: No Beliefs That Will Affect Care: None marital status: Current Living Situation: Family Current Living Situation Comment: [place] current occupational status: employed Other Information That Helps Us Care for You: No Feels Safe at Home: Yes Safety Concerns: Feels Safe At This Time Assistive Devices: Glasses and Nebulizer Review of Systems Review of Systems: All systems reviewed & are unremarkable except as noted in HPI & below Physical Exam Constitutional: + obese; no acute distress Eyes: PERRL, conjunctivae normal, anicteric sclerae ENMT: external ear and nose normal, oropharynx normal Neck: trachea midline, no thyromegaly Respiratory: normal respiratory effort, lungs clear to auscultation Cardiovascular: Rate/Rhythm: regular rate and regular rhythm Heart Sounds: normal S1 and normal S2; no gallop and no murmur Palpation: normal PMI Vessels: normal carotid upstroke and radial pulses present; no JVD and no carotid bruit Extremities: no edema Gastrointestinal (Abdomen): normal bowel sounds, soft, nontender, no hepatosplenomegaly Musculoskeletal: no cyanosis or clubbing, extremities motor strength 5/5 Skin: no rashes, warm and dry Neurologic: PERRL, EOMI, accommodation nl, no face palsy, no dysarthria Psychiatric: A+Ox3, euthymic affect Results & Data ([facility]) Vital Signs (Past 12 Hours) Vital Signs Temp Pulse Pulse Resp BP BP Pulse Ox 08/26/21 07:41 37.3 C 90 20 124/84 94 08/26/21 07:40 37.3 C 92 H 20 124/84 97 08/26/21 06:24 82 18 136/66 92 08/26/21 06:00 87 16 136/66 93 08/26/21 04:15 88 18 135/74 93 08/26/21 02:18 94 H 20 93 08/26/21 02:15 37.3 C 101 H 101 H 20 135/74 135/74 95 Laboratory Results Laboratory Results - last 24 hr 08/26/21 08/26/21 08/26/21 02:20 02:20 03:35 WBC 8.04 RBC 3.33 L Hgb 8.4 L Hct 27.5 L MCV 82.6 MCH 25.2 MCHC 30.5 L RDW Std Deviation 45.6 RDW Coeff of Samantha 15.1 H Plt Count 327 MPV 8.5 Immature Gran % (Auto) 0.0 Neut % (Auto) 63.6 Lymph % (Auto) 22.4 Barry % (Auto) 9.1 Eos % (Auto) 4.4 Baso % (Auto) 0.5 Neut # (Auto) 5.12 Lymph # (Auto) 1.80 Barry # (Auto) 0.73 H Eos # (Auto) 0.35 Baso # (Auto) 0.04 Immature Gran # (Auto) 0.00 Sodium 139 Potassium 3.6 Chloride 108 H Carbon Dioxide 24 Anion Gap 7 BUN 10 Creatinine 0.73 Est Cr Clr Drug Dosing 115.2 Est GFR ( Amer) 106.0 Est GFR (Non-Af Amer) 91.4 BUN/Creatinine Ratio 13.7 Glucose 99 POC Glucose Calcium 8.4 L Total Bilirubin 0.4 AST 17 ALT 14 Alkaline Phosphatase 77 Troponin I 0.06 H* Total Protein 6.2 Albumin 3.3 L Globulin 2.9 Albumin/Globulin Ratio 1.1 Lipase 21 SARS-CoV-2, RNA, NAAT NEGATIVE 08/26/21 08/26/21 08/26/21 03:45 06:37 08:00 WBC RBC Hgb Hct MCV MCH MCHC RDW Std Deviation RDW Coeff of Samantha Plt Count MPV Immature Gran % (Auto) Neut % (Auto) Lymph % (Auto) Barry % (Auto) Eos % (Auto) Baso % (Auto) Neut # (Auto) Lymph # (Auto) Barry # (Auto) Eos # (Auto) Baso # (Auto) Immature Gran # (Auto) Sodium Potassium Chloride Carbon Dioxide Anion Gap BUN Creatinine Est Cr Clr Drug Dosing Est GFR ( Amer) Est GFR (Non-Af Amer) BUN/Creatinine Ratio Glucose POC Glucose 107 H Calcium Total Bilirubin AST ALT Alkaline Phosphatase Troponin I 0.06 H* 0.04 Total Protein Albumin Globulin Albumin/Globulin Ratio Lipase SARS-CoV-2, RNA, NAAT Diagnostic Findings Chest x-ray mild vascular congestion ECG Additional Comments: 26-AUG-2021 03:26:58 [facility]-EDSTAT ROUTINE RETRIEVAL Sinus rhythm with Premature atrial complexes with Aberrant conduction Cannot rule out Anterior infarct (cited on or before 26-AUG-2021) (1) Anemia Anemia type: unspecified type Qualified Code(s): D64.9 - Anemia, unspecified
[2021-08-26] MEDS ORDERED: ASCORBIC ACID 500 MG TAB PO SCH (09:00)
[2021-08-26] MEDS ORDERED: lisinopril 20 MG TAB PO SCH (09:00)
[2021-08-26] MEDS ORDERED: METOPROLOL TARTRATE 25 MG TAB PO SCH (09:00)
[2021-08-26] MEDS ORDERED: ENOXAPARIN INJ 40 MG/0.4 ML SYR SQ SCH (09:00)
[2021-08-26] MEDS ORDERED: SERTRALINE HCL 50 MG TABLET PO SCH (09:00)
[2021-08-26] MEDS ORDERED: FERROUS SULFATE 325 MG TAB PO SCH (09:00)
[2021-08-26] MEDS ORDERED: ASPIRIN 81 MG ECTAB PO SCH (09:00)
[2021-08-26] MEDS ORDERED: PANTOprazole 40 MG TAB PO SCH (09:00)
[2021-08-26] MEDS ORDERED: ATORVASTATIN 40 MG TAB PO SCH (09:00)
[2021-08-26] MEDS ORDERED: amLODIPine BESYLATE 5 MG TAB PO SCH (09:00)
[2021-08-26] MEDS ORDERED: hydroCHLOROthiazide 25 MG TAB PO SCH (09:00)
--- NOTE | 2021-08-26 10:20 | History and Physical Report ---
DATE OF ADMISSION: 08/26/2021. CHIEF COMPLAINT: Chest pain. HISTORY OF PRESENT ILLNESS: A 56-year-old female with past medical history significant for hyperlipidemia, prediabetes, chronic pancreatitis, hypertension, CAD status post stents, morbid obesity, lumbago, chronic anemia, mood disorder, who presents with chest pain. The patient says around 6:30 p.m. last evening, she noticed left-sided chest pain, severe in nature, radiating to left shoulder, some tingly feeling in the left arm and when she was lying down, she was getting short of breath, which prompted her to come to the ER. She received aspirin, and 3 nitroglycerins and currently pain is about 3/10 in severity, shortness of breath improved. Initially, she had nausea that is better now. She seems to be getting a headache now. Denies any dizziness, no blurred visions, no earaches, no sore throat, no cough, no fever. No abdominal pain. Normal bowel and bladder movements. Ambulating okay. ALLERGIES: LORATADINE, KETOROLAC, IODINATED CONTRAST MEDIA, PREDNISONE, CEFTRIAXONE. PAST MEDICAL HISTORY: As mentioned above. PAST SURGICAL HISTORY: Cardiac stent placement, colonoscopy, EGD, EGD with endoscopic ultrasound, small bowel endoscopy, treated missed first trimester. MEDICATIONS: The patient is on albuterol 2 puffs inhalation q.4 hours p.r.n., amlodipine 5 mg p.o. daily, vitamin C 500 mg p.o. daily, aspirin 81 mg p.o. daily, atorvastatin 40 mg p.o. daily, ferrous sulfate 325 mg p.o. every other day, hydrochlorothiazide 25 mg p.o. daily, lisinopril 20 mg p.o. daily, metoprolol tartrate 25 mg p.o. b.i.d., nitroglycerin 0.4 mg sublingual p.r.n., omeprazole 20 mg p.o. a.m., Zoloft 50 mg p.o. a.m. FAMILY HISTORY: Significant for father has heart disorder; mother has heart disorder. SOCIAL HISTORY: . Quit smoking in 2000, smoked 2 packs a day for 14 years. Alcohol rarely. No drug use. REVIEW OF SYSTEMS: As per HPI. Rest of the review of systems is negative. PHYSICAL EXAMINATION: GENERAL: The patient is morbidly obese, not in acute distress. VITAL SIGNS: Temperature 37.3, pulse 88, respiratory rate 18, blood pressure 135/74, oxygen 93% on room air. HEENT: Pupils equal, round and reactive to light. Oral mucosa moist. NECK: No JVD, no neck masses. CARDIOVASCULAR: S1 and S2 heard. Regular rate and rhythm. No murmur, no gallop. RESPIRATORY SYSTEM: Normal AP diameter. No accessory muscle use. No wheezing, no crackles. ABDOMEN: Soft, bowel sounds present, nontender, no distention. CENTRAL NERVOUS SYSTEM: Cranial nerves II-XII grossly intact, nonfocal. EXTREMITIES: No edema, no erythema. LABORATORY DATA: WBC 8, hemoglobin 8.4, hematocrit 27.5, platelets 327. Sodium 139, potassium 3.6, chloride 108, bicarbonate 24, BUN 10, creatinine 0.7, serum glucose 99, calcium 8.4, total bilirubin 0.4, AST 17, ALT 14, alkaline phosphatase 77. Troponin I of 0.06. Lipase 21. SARS-CoV-2 negative. IMAGING: Chest x-ray: No acute findings. EKG: Sinus rhythm with premature atrial complexes with aberrant conduction at a rate of 89. ASSESSMENT AND PLAN: This 56-year-old female presents with chest pain. 1. Chest pain: Rule out acute coronary syndrome. History of coronary artery disease, status post stents. Initial troponin 0.06, repeat troponin a couple of hours later is still 0.06. Current pain improving with nitroglycerin and aspirin. We will admit to telemetry floor and follow serial enzymes and echocardiogram. Keep her n.p.o. Consult cardiology. If troponin goes up will start on iv heparin. 2. History of coronary artery disease, status post stent: Continue her aspirin, atorvastatin and beta parisa. 3. History of hypertension: Continue lisinopril, metoprolol, amlodipine and hctz.. We will monitor the blood pressure. 4. History of chronic anemia: On iron supplements. Will check stool for Hemoccult. 5. Gastroesophageal reflux disease: On omeprazole. 6. Depression: On Zoloft. 7. Morbid obesity: Needs counseling. 8. Pre-diabetes: We will follow the HbA1c levels. Place on insulin sliding scale. 9. History of asthma: On inhalers p.r.n. 10. Deep venous thrombosis prophylaxis: Sequential compression devices for now. DISPOSITION: Closely monitor in the tele floor. PT, OT prior to discharge. Social service to help with discharge planning. Level 1, full code. Job ID: [id number] [facility]
--- NOTE | 2021-08-26 10:30 | Electrocardiogram Report ---
Test Reason : Blood Pressure : / mmHG Vent. Rate : 102 BPM Atrial Rate : 102 BPM P-R Int : 000 ms QRS Dur : 082 ms QT Int : 360 ms P-R-T Axes : 000 007 062 degrees QTc Int : 469 ms Poor data quality, interpretation may be adversely affected Normal sinus rhythm with occasional Premature ventricular complexes Abnormal ECG Confirmed by Andrew Hernandez ([id number]) on 08/26/2021 10:30:30 AM Referred By: REFERRED SELF Confirmed By:Zack Hernandez
[2021-08-26] MEDS ORDERED: METOPROLOL TARTRATE 1 MG/ML VIAL IV ONE (10:32)
[2021-08-26] MEDS ORDERED: DOBUTamine HCL 12.5 MG/ML 20 ML VIAL IV ONE (10:32)
[2021-08-26] MEDS ORDERED: ATROPINE SULFATE 0.1 MG/ML 10ML SYR IV ONE (10:32)
--- NOTE | 2021-08-26 10:33 | Electrocardiogram Report ---
Test Reason : Blood Pressure : / mmHG Vent. Rate : 089 BPM Atrial Rate : 089 BPM P-R Int : 178 ms QRS Dur : 094 ms QT Int : 400 ms P-R-T Axes : 054 015 066 degrees QTc Int : 486 ms Sinus rhythm with Premature atrial complexes with Aberrant conduction Abnormal ECG Confirmed by Andrew Hernandez ([id number]) on 08/26/2021 10:33:14 AM Referred By: REFERRED SELF Confirmed By:Zack Hernandez
--- NOTE | 2021-08-26 11:54 | Communication Note ---
SelfDate of Service: August 26, 2021 Patient underwent dobutamine stress echocardiogram which was personally supervised. Patient achieved 85% age-predicted maximal heart rate with 20 mcg/kg/min of dobutamine without cardiac symptoms. EKG was notable for occasional ventricular ectopy throughout the study but no ischemic changes. There is a very brief run of atrial flutter at the end of the procedure which returned to sinus rhythm on slowing of heart rate with metoprolol. Echocardiogram demonstrated normal LV systolic function EF 5055% with normal augmentation with dobutamine and no evidence of ischemia. There is mild aortic sclerosis and aortic insufficiency Recommendations resume oral medications. Patient may warrant further investigation of anemia. Hydrochlorothiazide resumed today
[2021-08-26] MEDS ORDERED: POTASSIUM CHLORIDE CRTAB 20 MEQ TABCR PO ONE (12:15)
--- NOTE | 2021-08-26 15:27 | Hospitalist Progress Note ---
Date of Service August 26, 2021 Assessment & Plan (1) Chest pain: Plan: History of CAD status post stent was admitted with precordial chest pain Serial troponins were unremarkable and EKG did not show any significant change Appreciate cardiology input and recommendation Status post negative dobutamine stress echo:: "Patient underwent dobutamine stress echocardiogram which was personally supervised. Patient achieved 85% age-predicted maximal heart rate with 20 mcg/kg/min of dobutamine without cardiac symptoms. EKG was notable for occasional ventricular ectopy throughout the study but no ischemic changes. There is a very brief run of atrial flutter at the end of the procedure which returned to sinus rhythm on slowing of heart rate with metoprolol. Echocardiogram demonstrated normal LV systolic function EF 5055% with normal augmentation with dobutamine and no evidence of ischemia. There is mild aortic sclerosis and aortic insufficiency." She will be discharged home this afternoon and no change in her medication (2) CAD (coronary artery disease): Plan: As above (3) Nausea: Plan: Complaints of nausea with epigastric discomfort This happened after fasting overnight No vomiting Diet was advanced as tolerated Remains stable will be sent home this afternoon (4) HTN (hypertension): Plan: Remains controlled on the upper side (5) Depression: Plan: Continue current medications Admission and Anticipated Discharge Date Admission Date: August 26, 2021 Subjective 08/26/2021 The patient was seen and examined in emergency room holding area She has multiple significant medical conditions as mentioned in H&P and also obesity was admitted with chest pain She has been negative for stress echocardiogram Has been complaining epigastric discomfort following meal this afternoon Likely be discharged this evening Review of Systems Review of Systems: All systems reviewed and are unremarkable except as noted below Physical Exam Physical Exam: Lying in bed comfortably Constitutional: well developed, well nourished and + morbidly obese; not ill appearing Eyes: PERRL, conjunctivae normal, anicteric sclerae ENMT: external ear and nose normal, oropharynx normal Neck: trachea midline, no thyromegaly Respiratory: no respiratory distress Auscultation: lungs clear to auscultation bilaterally Cardiovascular: Rate/Rhythm: regular rate and regular rhythm; not tachycardic Heart Sounds: normal S1 and normal S2; no murmur Extremities: + edema (Trace edema bilaterally) Gastrointestinal (Abdomen): Inspection/Auscultation: normal bowel sounds; abdomen not distended Percussion/Palpation: + abdomen tender (Minimally tender epigastrium) and abdomen soft Musculoskeletal: No acute arthritis in any joint Neurologic: Alert, awake and oriented x3 Results & Data Results & Data ([facility]) Vital Signs (Past 12 Hours) Vital Signs Temp Pulse Pulse Resp BP BP Pulse Ox 08/26/21 15:02 89 16 08/26/21 14:00 84 21 08/26/21 13:30 79 23 08/26/21 13:00 80 21 08/26/21 12:36 08/26/21 12:35 36.8 C 87 86 28 H 149/77 H 149/77 H 95 08/26/21 12:32 87 74/60 L 08/26/21 12:30 94 H 20 154/84 H 94 08/26/21 10:00 92 H 14 132/72 08/26/21 09:30 84 17 91 08/26/21 09:00 97 H 15 152/106 H 98 08/26/21 08:30 94 H 21 93 08/26/21 08:01 96 H 18 141/89 H 96 08/26/21 08:00 95 H 27 H 94 08/26/21 07:41 37.3 C 90 20 124/84 94 08/26/21 07:40 37.3 C 92 H 20 124/84 97 08/26/21 07:33 94 H 14 124/84 88 L 08/26/21 07:30 82 19 92 08/26/21 07:00 89 20 94 08/26/21 06:30 83 17 92 08/26/21 06:24 82 18 136/66 92 08/26/21 06:11 86 18 136/66 93 08/26/21 06:00 83 87 18 136/66 92 08/26/21 05:30 83 17 93 08/26/21 05:00 88 18 93 08/26/21 04:30 88 16 96 08/26/21 04:15 88 18 135/74 93 08/26/21 04:00 92 H 13 94 08/26/21 03:30 90 15 96 Pulse Ox 08/26/21 15:02 08/26/21 14:00 08/26/21 13:30 08/26/21 13:00 08/26/21 12:36 97 08/26/21 12:35 08/26/21 12:32 08/26/21 12:30 08/26/21 10:00 08/26/21 09:30 08/26/21 09:00 08/26/21 08:30 08/26/21 08:01 08/26/21 08:00 08/26/21 07:41 08/26/21 07:40 08/26/21 07:33 08/26/21 07:30 08/26/21 07:00 08/26/21 06:30 08/26/21 06:24 08/26/21 06:11 08/26/21 06:00 08/26/21 05:30 08/26/21 05:00 08/26/21 04:30 08/26/21 04:15 08/26/21 04:00 08/26/21 03:30 Laboratory Results Short CBC 08/26/21 Range/Units 02:20 WBC 8.04 (4.8-10.8) K/uL Hgb 8.4 L (12.0-16.0) g/dL Hct 27.5 L (37-47) % Plt Count 327 (130-400) K/uL BMP 08/26/21 02:20 Sodium 139 Potassium 3.6 Chloride 108 H Carbon Dioxide 24 BUN 10 Creatinine 0.73 Glucose 99 Calcium 8.4 L Cardiac Enzymes 08/26/21 08/26/21 08/26/21 Range/Units 02:20 03:45 08:00 Troponin I 0.06 H* 0.06 H* 0.04 (0-0.04) ng/ml 08/26/21 Range/Units 14:13 Troponin I 0.04 (0-0.04) ng/ml Liver Function 08/26/21 Range/Units 02:20 Total Bilirubin 0.4 (0.2-1.0) mg/dl AST 17 (13-39) U/L ALT 14 (7-52) U/L Alkaline Phosphatase 77 (34-104) U/L Albumin 3.3 L (3.4-5.0) gm/dl Medications Administered Current Inpatient Medications Acetaminophen (Acetaminophen 325 Mg Tab) 650 mg PO Q4H PRN PRN Reason: Pain or Fever Stop: 09/25/21 06:19 Albuterol (Albuterol Hfa 8 Gm Inhaler) 2 puffs INH DAILY PRN PRN Reason: Shortness Of Breath Stop: 09/25/21 06:19 Amlodipine Besylate (Amlodipine Besylate 5 Mg Tab) 5 mg PO DAILY FABIANA Stop: 09/25/21 08:59 Last Admin: 08/26/21 12:37 Dose: 5 mg Documented by: Ascorbic Acid (Ascorbic Acid 500 Mg Tab) 500 mg PO DAILY FABIANA Stop: 09/25/21 08:59 Last Admin: 08/26/21 12:38 Dose: 500 mg Documented by: Aspirin (Aspirin 81 Mg Ectab) 81 mg PO QAM [facility] Stop: 09/25/21 08:59 Last Admin: 08/26/21 12:39 Dose: 81 mg Documented by: Atorvastatin Calcium (Atorvastatin 40 Mg Tab) 40 mg PO DAILY [facility] Stop: 09/25/21 08:59 Last Admin: 08/26/21 12:39 Dose: 40 mg Documented by: Dextrose (Dextrose 50% 50 Ml Syringe) 25 - 50 ml IV UD PRN; Protocol PRN Reason: Hypoglycemia Protocol Stop: 09/25/21 06:29 Enoxaparin Sodium (Enoxaparin Inj 40 Mg/0.4 Ml Syr) 40 mg SQ Q12H FABIANA Stop: 09/25/21 08:59 Last Admin: 08/26/21 12:43 Dose: 40 mg Documented by: Ferrous Sulfate (Ferrous Sulfate 325 Mg Tab) 325 mg PO Q48H [facility] Stop: 09/25/21 08:59 Last Admin: 08/26/21 12:40 Dose: 325 mg Documented by: Glucagon (Glucagon For Inj 1 Mg Vial) 1 mg IM UD PRN; Protocol PRN Reason: Hypoglycemia Protocol Stop: 09/25/21 06:29 Glucose (Glucose 40% Gel 15 Gm Tube) 15 - 30 gm PO UD PRN; Protocol PRN Reason: Hypoglycemia Protocol Stop: 09/25/21 06:29 Glucose (Glucose 10 Tabs/Tube) 4 - 8 tabs PO UD PRN; Protocol PRN Reason: Hypoglycemia Protocol Stop: 09/25/21 06:29 Hydrochlorothiazide (Hydrochlorothiazide 25 Mg Tab) 25 mg PO QAM [facility] Stop: 09/25/21 08:59 Last Admin: 08/26/21 12:40 Dose: 25 mg Documented by: Insulin Aspart (Insulin Aspart Per Unit) 0 units SC Q6 FABIANA Stop: 09/25/21 06:29 Last Admin: 08/26/21 15:04 Dose: Not Given Documented by: Lisinopril (Lisinopril 20 Mg Tab) 20 mg PO DAILY [facility] Stop: 09/25/21 08:59 Last Admin: 08/26/21 12:41 Dose: 20 mg Documented by: Metoprolol Tartrate (Metoprolol Tartrate 25 Mg Tab) 25 mg PO BID [facility] Stop: 09/25/21 08:59 Last Admin: 08/26/21 12:42 Dose: 25 mg Documented by: Miscellaneous (Carbohydrates For Hypoglycemia ) 15 - 30 gm PO UD PRN PRN Reason: Hypoglycemia Treatment Stop: 09/25/21 06:29 Nitroglycerin (Nitroglycerin Sl 0.4 Mg/Tab Tab) 0.4 mg SL UD PRN PRN Reason: Chest Pain Stop: 09/25/21 06:19 Pantoprazole Sodium (Pantoprazole 40 Mg Tab) 40 mg PO QAM [facility] Stop: 09/25/21 08:59 Last Admin: 08/26/21 12:43 Dose: 40 mg Documented by: Polyethylene Glycol (Polyethylene (Miralax) 17 Gm Pack) 17 gm PO DAILY PRN PRN Reason: Constipation Stop: 09/25/21 06:19 Sertraline HCl (Sertraline Hcl 50 Mg Tablet) 50 mg PO QAM [facility] Stop: 09/25/21 08:59 Last Admin: 08/26/21 12:42 Dose: 50 mg Documented by: (1) Chest pain Chest pain type: unspecified Qualified Code(s): R07.9 - Chest pain, unspecified (2) HTN (hypertension) Hypertension type: unspecified Qualified Code(s): I10 - Essential (primary) hypertension (3) CAD (coronary artery disease) Coronary Disease-Associated Artery/Lesion type: [place] artery [place] vs. transplanted heart: [place] heart Associated angina: with stable angina Qualified Code(s): I25.118 - Atherosclerotic heart disease of [place] coronary artery with other forms of angina pectoris
[2021-08-26] MEDS ORDERED: INFLUENZA VIRUS QUAD VACCINE 0.5 ML SYR IM ONE (16:00)
[2021-08-26] MEDS ORDERED: ALUMINUM/MAGNESIUM SUSP 30 ML UDC PO STA (16:24)
--- NOTE | 2021-08-27 09:34 | Discharge Summary ---
Date of Service August 27, 2021 Admission HPI Per Admitting Provider DICTATED BY:Amos Shrestha MD DATE OF ADMISSION: 08/26/2021. CHIEF COMPLAINT: Chest pain. HISTORY OF PRESENT ILLNESS: A 56-year-old female with past medical history significant for hyperlipidemia, prediabetes, chronic pancreatitis, hypertension, CAD status post stents, morbid obesity, lumbago, chronic anemia, mood disorder, who presents with chest pain. The patient says around 6:30 p.m. last evening, she noticed left-sided chest pain, severe in nature, radiating to left shoulder, some tingly feeling in the left arm and when she was lying down, she was getting short of breath, which prompted her to come to the ER. She received aspirin, and 3 nitroglycerins and currently pain is about 3/10 in severity, shortness of breath improved. Initially, she had nausea that is better now. She seems to be getting a headache now. Denies any dizziness, no blurred visions, no earaches, no sore throat, no cough, no fever. No abdominal pain. Normal bowel and bladder movements. Ambulating okay. Admission Exam Per Admitting Provider GENERAL: The patient is morbidly obese, not in acute distress. VITAL SIGNS: Temperature 37.3, pulse 88, respiratory rate 18, blood pressure 135/74, oxygen 93% on room air. HEENT: Pupils equal, round and reactive to light. Oral mucosa moist. NECK: No JVD, no neck masses. CARDIOVASCULAR: S1 and S2 heard. Regular rate and rhythm. No murmur, no gallop. RESPIRATORY SYSTEM: Normal AP diameter. No accessory muscle use. No wheezing, no crackles. ABDOMEN: Soft, bowel sounds present, nontender, no distention. CENTRAL NERVOUS SYSTEM: Cranial nerves II-XII grossly intact, nonfocal. EXTREMITIES: No edema, no erythema. Principal Diagnosis Chest pain, no ACS and negative dobutamine stress echo Discharge Exam Lying in bed comfortably Constitutional well developed, well nourished and + morbidly obese; not ill appearing Eyes PERRL, conjunctivae normal, anicteric sclerae ENMT external ear and nose normal, oropharynx normal Neck trachea midline, no thyromegaly Respiratory no respiratory distress Auscultation: lungs clear to auscultation bilaterally Cardiovascular Rate/Rhythm: regular rate and regular rhythm; not tachycardic Heart Sounds: normal S1 and normal S2; no murmur Extremities: + edema (Trace edema bilaterally) Gastrointestinal (Abdomen) Inspection/Auscultation: normal bowel sounds; abdomen not distended Percussion/Palpation: + abdomen tender (Minimally tender epigastrium) and abdomen soft Discharge Data Allergies Allergy/AdvReac Type Severity Reaction Status Date / Time loratadine Allergy Severe DEPLETED Verified 08/26/21 02:50 O2 FROM BODY, WAS PUT IN OXYGEN CHAMBER. ketorolac Allergy Intermediate DIAPHORESIS, Verified 08/26/21 02:50 RASH Iodinated Contrast Media Allergy Mild ITCHING Verified 08/26/21 02:50 prednisone AdvReac Mild Vomiting Verified 08/26/21 02:50 ceftriaxone [From Rocephin] AdvReac Unknown Unknown Verified 08/26/21 02:50 Consultations 08/26/21 03:20 ED Decision to Admit Stat 08/26/21 08:00 Consult Cardiology Routine Hospital Course (1) Chest pain: History of CAD status post stent was admitted with precordial chest pain Serial troponins were unremarkable and EKG did not show any significant change Appreciate cardiology input and recommendation Status post negative dobutamine stress echo:: "Patient underwent dobutamine stress echocardiogram which was personally supervised. Patient achieved 85% age-predicted maximal heart rate with 20 mcg/kg/min of dobutamine without cardiac symptoms. EKG was notable for occasional ventricular ectopy throughout the study but no ischemic changes. There is a very brief run of atrial flutter at the end of the procedure which returned to sinus rhythm on slowing of heart rate with metoprolol. Echocardiogram demonstrated normal LV systolic function EF 5055% with normal augmentation with dobutamine and no evidence of ischemia. There is mild aortic sclerosis and aortic insufficiency." She will be discharged home this afternoon and no change in her medication (2) CAD (coronary artery disease): As above (3) Nausea: Complaints of nausea with epigastric discomfort This happened after fasting overnight No vomiting Diet was advanced as tolerated Remains stable will be sent home this afternoon (4) HTN (hypertension): Remains controlled on the upper side (5) Depression: Continue current medications Total Time Total Time Spent Total Time Spent (In Minutes): 35 minutes Discharge Plan Discharge Items Patient Disposition: Home - Self-Care Reason For Visit: CHEST PAIN Discharge Diagnosis: Chest pain, no ACS and negative dobutamine stress echo Condition on Discharge: Good Activity: Resume your previous activity Non-emergency contact: Primary Care Provider Call non-emergency contact if: you have any medication questions and your symptoms worsen Follow-up/Referrals: Lennie Steven DO [Primary Care Provider] - (Date & Time 08/30/2021 8:20 AM Provider Alessandro Sawyer III, MD Department [facility] ) Diet: Heart Healthy Addtl Attending Provider Instructions: Please take precautions to avoid falls No change in your cardiac medications Please give appointment with your primary care physician Pending Studies at Discharge: No Stand-Alone Forms: My [facility] [employer], Work/School Release, Smoking Cessation Medications and DC Order Prescriptions: Continued lisinopril 20 mg tablet 20 mg PO DAILY RF: 0 amlodipine [Norvasc] 5 mg tablet 5 mg PO DAILY RF: 0 ferrous sulfate 325 mg (65 mg iron) Tablet 325 mg PO Q OTHER DAY RF: 0 ascorbic acid (vitamin C) [Vitamin C] 500 mg Tablet 500 mg PO DAILY RF: 0 albuterol sulfate 90 mcg/actuation Hfa Aerosol Inhaler 2 puff INHALATION DIRECTED PRN (Reason: Shortness Of Breath) RF: 0 aspirin [Aspirin Low Dose] 81 mg Tablet,Delayed Release (Dr/Ec) 81 mg PO QAM RF: 0 nitroglycerin [Nitrostat] 0.4 mg Tablet, Sublingual 0.4 mg Sublingual DIRECTED PRN (Reason: Chest Pain) RF: 0 sertraline [Zoloft] 50 mg Tablet 50 mg PO QAM RF: 0 omeprazole magnesium [Prilosec OTC] 20 mg Tablet,Delayed Release (Dr/Ec) 20 mg PO QAM RF: 0 hydrochlorothiazide 25 mg tablet 25 mg PO QAM RF: 0 atorvastatin 40 mg tablet 40 mg PO DAILY RF: 0 metoprolol tartrate 25 mg Tablet 25 mg PO BID Qty: 60 RF: 0 Discharge Orders: Discharge Order (Routine); Ordered 08/26/21 Ordered By: Gian Almazan Admission Data Admit Date/Time: 08/26/21 04:38 Attending Provider: Gian Almazan Admit Provider: Amos Shrestha Primary Care Provider: Lennie Steven Other Providers: Amos Shrestha ; Logan Reddy Other Interventions: Discharge Summary Assessment (RN) Last Done: 08/26/21 19:41
== END 2021-08-27 00:32 | disposition home or self-care (01) | DRG 313 ==
LOC: ED 02:08 → INTOOBSV 04:38 → EDINP 04:38

== ENCOUNTER 2024-03-19 03:02 | Inpatient (IN) ==
--- OUTSIDE RECORDS SUMMARY | 2024-03-19 03:05 | External Medical Summary | Summary of Care ---
Author Name Unknown Organization [facility] Address [address] [place] [address] Phone [phone] Care Team Providers Care Centerpuncher Name Role Phone TenishaLenniely Primary Care Provider Encounter Details Date Type Department Care Team (Late st Contact Info) Description 01/04/2024 Population Health External Data Unspecified Department Allergies Active Allergy Reactions Criticality Noted Date Comments Ceftriaxone High 01/30/2020 Iodinated Contrast Media Itching 10/05/2015 Loratadine Edema Other 04/19/2008 Prednisone Hypertension High 04/30/2018 Pt states this medication made her hospitalized. Tramadol Hives 08/30/2015 documented as of this encounter (statuses as of 01/04/2024) Medications Medication Sig Dispensed Refills Start Date End Date Status aspirin 81 MG chewable tabletIndications:C oronary artery disease involving [place] coronary artery without angina pectoris Take 1 Tablet by mouth in the morning. with food.. 100 Tab 5 08/10/2015 Active Ventolin HFA 108 (90 Base) MCG/ACT Inhalation Aerosol SolutionIndications :Acute URI,Acute cough,Chronic bronchitis, unspecified chronic bronchitis type (HCC) INHALE TWO PUFFS BY MOUTH FOUR TIMES DAILY 18 g 3 08/29/2022 Active Azelastine HCl 0.1 % Nasal Solution (Astelin) Administer 1 [place] into nostril in the morning and 1 [place] before bedtime. 30 mL 12 11/13/2022 Active Carvedilol 12.5 MG Oral Tablet (Coreg) TAKE 1 TABLET MY MOUTH IN THE MORNING AND 1 TABLET BEFORE BEDTIME 180 Tablet 3 12/08/2022 Active Saline Nasal [place] 0.65 % Nasal Solution ([place]) Administer into nostril as needed. As directed. 09/06/2022 Active Nitroglycerin 0.4 MG Sublingual Tablet Sublingual (Nitrostat) Place 1 Tablet under the tongue as needed for Pain, Chest. May repeat 3 times. If chest pain continues, call 911. 25 Tablet 11 07/03/2023 Active amLODIPine Besylate 5 MG Oral Tablet (Norvasc)Indication s:HTN, goal below 140/90 Take 1 Tablet by mouth in the morning. 90 Tablet 3 07/03/2023 Active Atorvastatin Calcium 40 MG Oral Tablet (Lipitor)Indication s:Coronary artery disease involving [place] coronary artery of [place] heart without angina pectoris Take 1 Tablet by mouth in the morning. 90 Tablet 3 07/03/2023 Active Ferrous Sulfate 325 (65 Fe) MG Oral Tablet (Feosol) TAKE ONE TABLET BY MOUTH EVERY OTHER DAY 45 Tablet 3 07/03/2023 Active hydroCHLOROthiazide 25 MG Oral Tablet (Hydrodiuril)Indica tions:HTN, goal below 140/90 Take 1 Tablet by mouth in the morning. 90 Tablet 3 07/03/2023 Active Lisinopril 20 MG Oral Tablet (Prinivil)Indicatio ns:HTN, goal below 140/90 Take 1 Tablet by mouth in the morning. In the morning.. 90 Tablet 3 07/03/2023 Active Omeprazole 20 MG Oral Capsule Delayed Release (PriLOSEC)Indicatio ns:Gastroesophageal reflux disease, unspecified whether esophagitis present Take 1 Capsule by mouth in the morning. 90 Capsule 3 07/03/2023 Active Sertraline HCl 50 MG Oral Tablet (Zoloft)Indications :Mood disorder (HCC) Take 1 Tablet by mouth in the morning. 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 Increased risk for Cardiomyopathy (CM). Please click the link below into your browser for a brief summary of current clinical management recommendations for Hereditary Cardiomyopathy. TTN Dyslipidemia, goal LDL below 70 11/04/2021 Body mass index (BMI) of 40.0 to 44.9 in adult 0 12/18/2020 Overview: Per Obesity protocol - Morbid obesity due to excess calories 04/21/2019 Prediabetes 11/15/2018 Overview: Per Prediabetes protocol #1 Mood disorder 04/30/2018 Chronic bronchitis 09/20/2015 Coronary artery disease invo lving [place] coronary artery without angina pectoris 08/10/2015 Lumbago 10/10/2010 DYSLIPIDEMIA, GOAL TO BE DETERMINED 06/21/2009 Overview: Per Lipid Taxonomy. HTN, goal below 140/90 01/08/2009 Anemia 01/08/2009 documented as of this encounter (statuses as of 01/04/2024) Resolved Problems Problem Noted Date Diagnosed Date Resolved Date Body mass index (BMI) of 45. 0 to 49.9 in adult 04/06/2017 12/20/2020 Overview: Per Obesity protocol #1 CAD (coronary artery disease) 08/10/2015 10/19/2017 Lumbago 10/10/2010 08/10/2015 Abdominal pain, right upper quadrant 10/07/2010 10/19/2017 Obesity, morbid (more than 1 00 lbs over ideal weight or BMI > 40) 12/18/2009 08/10/2015 Overview: Per Obesity Protocol, #19 ICD-10 update of inactive term Mixed dyslipidemia 01/08/2009 9 Overview: Per Lipid Taxonomy. H. pylori infection 04/19/2008 10/20/19 18 Overview: Rx ordered documented as of this encounter (statuses as of 01/04/2024) Immunizations Name Administration Dates Next Due COVID-19 mRNA, LNP-s, No Pre serve, 2-Dose Series (Moderna) 12/10/2020,11/02/2020 Covid-19, Mrna, Lnp-s, Pf, B ivalent, 50 Mcg, IM, 12 yrs and above (Moderna) 07/08/2021 Pneumococcal Conjugate Vacc, 13 Valent (Prevnar) 04/21/2019 Pneumococcal Polysaccharide PPV23 (Pneumovax) 06/11/2017 Seasonal Influenza, PF, 6 M & above, IM , (FluLaval or Fluzone) 07/03/2023,04/21/2019,06/11/2017 Seasonal Influenza, Quadriva lent, No Preserve, IM 06/10/2016,08/10/2015 TD, Preservative Free 09/30/2016 TDAP, Age 7 and older, IM (Adacel) 07/06/2006 Zoster Vaccine Recombinant (Shingrix) 07/03/2023 documented as of this encounter Social History Tobacco Use Types Packs/Day Years Used Date Smoking Tobacco: Former Cigarettes 2 10 0 07/06/1990 - 07/06/2000 Smokeless Tobacco: Never Alcohol Use Standard Drinks/Week Comments No 0 (1 standard drink = 0.6 oz pur e alcohol) PHQ-2 Answer Date Recorded PHQ Adult Total Score 0 07/03/2023 Hunger Vital Sign Answer Date Recorded Within the past 12 months, y ou worried that your food would run out before you got the money to buy more. Never true 07/03/20 23 Within the past 12 months, t he food you bought just didn't last and you didn't have money to get more. Never true 07/03/2023 Childcare Answer Date Recorded Do you feel overwhelmed with taking care of a child, family member or friend? No 07/03/2023 Does your family need help f inding childcare? (Household - for ages 0-17 years) Not on file 07/03/2023 Clothing Answer Date Recorded Have you been unable to get clothing when it was really needed? No 07/03/2023 Is your family able to get c lothes or diapers when needed? (Household - for ages 0-17 years) Not on file 07/03/2023 Personal Safety Answer Date Recorded Do you feel unsafe or have concerns for your saf ety? No 07/03/2023 Do you have concerns for you r family's safety? (Household - for ages 0-17 years) Not on file 07/03/2023 Utilities Answer Date Recorded Do you have trouble paying y our heating, water, or electric bill? No 07/03/2023 Is your family able to pay t he heat, water, or electric bill? (Household - for ages 0-17 years) Not on file 07/03/2023 Does your family have access to good internet? (Household - for ages 0-17 years) Not on file 07/03/2023 Employment Status Answer Date Recorded Are you unemployed or without regular income? No 07/03/2023 Does the household have a [facility] source of income? (Household - for ages 0-17 years) Not on file 07/03/2023 Social Connections Answer Date Recorded How often do you feel lonely or isolated from th ose around you? Never 07/03/2023 Financial Resource Strain Answer Date R ecorded Do you have any trouble payi ng for your medications, or do you think you might in the future? No 07/03/2023 Does your family have troubl e paying for medicine? (Household - for ages 0-17 years) Not on file 07/03/2023 Transportation Needs Answer Date Record ed READ ONLY Do you have troubl e getting a ride to medical visits or work? Never True 07/03/2023 Does your family have a hard time getting a ride to doctors visits? (Household - for ages 0-17 years) Not on file 07/03/2023 Has lack of transportation k ept you from medical appointments, meetings, work, or from getting things needed for daily living? Check all that apply. (Adult - for ages 18 years and over) Not on file 07/03/2023 Do you (or your family) have trouble finding or paying for a ride (transportation)? (Household - for ages 0-17 years) Not on file 07/03/2023 Housing Stability Answer Date Recorded Do you currently live in a s helter or have no steady place to sleep at night? No 07/03/2023 READ ONLY Do you think you a re at risk of becoming homeless? No 07/03/2023 Does your family worry about paying for your home or becoming homeless? (Household - for ages 0-17 years) Not on file 1 Are you homeless or worried that you might be in the future? (Adult - for ages 18 years and over) Not on file 12/29/202 3 Are you (or your family) shelia eless or worried that you might be in the future? (Household - for ages 0-17 years) Not on file Food Insecurity Answer Date Recorded Do you need food for this week? No 07/03/2023 Are you able to get enough f ood for your family? (Household - for ages 0-17 years) Not on file 07/03/2023 Does your family need food t his week? (Household - for ages 0-17 years) Not on file 07/03/2023 Do you always have enough fo od for your family? (Household - for ages 0-17 years) Not on file 07/03/2023 Sex and Gender Information Value Date Recorded Sex Assigned at Not on file Gender Identity Not on file Sexual Orientation Not on file Job Start Date Occupation Industry Not on file Not on file Not on file documented as of this encounter Plan of Treatment Upcoming Encounters Date Type Department Care Team (Late st Contact Info) Description 01/20/2024 11:00 AM EDT Office Visit Cardiology, [facility] [address] [place] [id number] Sylvia Vasques PA-C [address] [place] [id number] 02/05/2024 10:30 AM EDT Imaging Radiology [address] [place] [address] Scheduled Procedures Name Priority Associated Diagnoses Date/Ti me COLONOSCOPY FLEXIBLE PROXIMAL DIAGNOSTIC Recall Screen for colon cancer Health Maintenance Due Date Last Done Comments HIV Screening 1979 Albumin/Creatinine Ratio 1982 Hepatitis B (1 of 3 - 19+ 3-dose series) 1983 HPV/Co-Test 1994 Cologuard 2009 Sigmoidoscopy 2009 Mammogram 08/30/2016 08/30/2015 Cervical Cancer Screening 01/23/2020 Pap Smear 01/23/2020 01/22/2017 Fecal Occult Blood Test 02/22/2021 02/23/2020 COVID-19 Vaccine ( season) 2023 07/08/2021, 12/10/2020, 11/02/2020 Zoster Vaccines (2 of 2) 08/28/2023 07/03/2023 Depression Screening 07/03/2024 07/03/2023 GFR 07/03/2024 07/03/2023, 12/04, 08/12/2021, Additional history exists HbA1c 07/03/2024 07/03/2023, 12/04, 04/21/2019, Additional history exists O2 ASSESSMENT COMPLETED IN PAST YEAR FOR COPD 07/03/2024 07/03/2023 DTaP,Tdap,and Td Vaccines (3 - Td or Tdap) 09/30/2026 09/30/2016, 07/06/2006 Pneumococcal Vaccine: Pediatrics (0 to 5 Years) and At-Risk Patients (6 to 64 Years) (3 of 3 - PPSV23 or PCV20) 2029 04/21/2019, 06/11/2017 Colonoscopy 03/14/2030 03/14/2020, 03/2020, 04/19/2008 Colorectal Cancer Screening 03/14/2030 Influenza Vaccine (FLU shot) Completed , 04/21/2019, 04/21/2019, Additional history exists GARDASIL-HPV IMMUNIZATION SERIES Aged Out No longer eligible based on patient's age to complete this topic MENINGOCOCCAL (MENACTRA/MENVEO) Aged Out No longer eligible based on patient's age to complete this topic documented as of this encounter Medical Devices Not on filedocumented as of this encounter Care Teams Centerpuncher Relationship Specialty Start Date End Date Lennie Steven DO [address] [place] [address] PCP - General Family Medicine 12/18/16 documented as of this encounter
--- OUTSIDE RECORDS SUMMARY | 2024-03-19 03:05 | External Medical Summary | Summary of Care ---
Author Name Unknown Organization [facility] Address [address] [facility] [place] [address] Phone [phone] Care Team Providers Care Selling Specialist Name Role Phone Lennie Steven DO Primary Care Provider Reason for Visit * Reason Onset Date Comments Health Maintenance 02/12/2024 Encounter Details Date Type Department Care Team (Late st Contact Info) Description 02/12/2024 Telephone Family Practice [facility] [place] [address] [facility] [place] [address] Lennie Steven DO [address] [facility] [place] [address] Health Maintenance Allergies Active Allergy Reactions Criticality Noted Date Comments Ceftriaxone High 01/30/2020 Iodinated Contrast Media Itching 10/05/2015 Loratadine Edema Other 04/19/2008 Prednisone Hypertension High 04/30/2018 Pt states this medication made her hospitalized. Tramadol Hives 08/30/2015 documented as of this encounter (statuses as of 03/15/2024) Medications Medication Sig Dispensed Refills Start Date End Date Status aspirin 81 MG chewable tabletIndications:C oronary artery disease involving [place] coronary artery without angina pectoris Take 1 Tablet by mouth in the morning. with food.. 100 Tab 5 08/10/2015 Active Ventolin HFA 108 (90 Base) MCG/ACT Inhalation Aerosol SolutionIndications :Acute URI,Acute cough,Chronic bronchitis, unspecified chronic bronchitis type (HCC) INHALE TWO PUFFS BY MOUTH FOUR TIMES DAILY 18 g 3 08/29/2022 Active Azelastine HCl 0.1 % Nasal Solution (Astelin) Administer 1 [place] into nostril in the morning and 1 [place] before bedtime. 30 mL 12 11/13/2022 Active Carvedilol 12.5 MG Oral Tablet (Coreg) TAKE 1 TABLET MY MOUTH IN THE MORNING AND 1 TABLET BEFORE BEDTIME 180 Tablet 3 12/08/2022 Active Saline Nasal [place] 0.65 % Nasal Solution ([place]) Administer into nostril as needed. As directed. 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 Increased risk for Cardiomyopathy (CM). Please click [...] bronchitis 09/20/2015 Coronary artery disease invo lving [place] coronary artery without angina pectoris 08/10/2015 Lumbago 10/10/2010 DYSLIPIDEMIA, GOAL TO BE DETERMINED 06/21/2009 Overview: Per Lipid Taxonomy. HTN, goal below 140/90 01/08/2009 Anemia 01/08/2009 documented as of this encounter (statuses as of 03/15/2024) Resolved Problems Problem Noted Date Diagnosed Date [...] as of this encounter (statuses as of 03/15/2024) Immunizations Name Administration Dates Next Due COVID-19 [...] No 07/03/2023 Does the household have a re lar source of income? (Household - for ages [...] 18 years and over) Not on file Are you (or your family) shelia eless [...] on file documented as of this encounter Miscellaneous Notes * Telephone Encounter - Tamika Butler LPN - 03/15/2024 9:10 AM EDT message left for patient to call back. Letter sent * Telephone Encounter - Tamika Butler LPN - 02/12/2024 9:48 AM EDT Care Gaps Comprehensive Care Outreach Last Office/Telemedicine Visit: 07/03/2023 (in office), 06/15/2020 (telemedicine) Next Office Visit: Visit date not found Hemoglobin AIC Results: Lab Results Component Value Date/Time HEMOGLOBIN A1C - [facility] 5.8 (H) 07/03/2023 10:24 AM HEMOGLOBIN A1C - [facility] 6.0 (H) 12/16/2021 02:57 PM HEMOGLOBIN A1C - [facility] 5.9 (H) 04/21/2019 02:19 PM HEMOGLOBIN A1C - [facility] 5.9 (H) 11/08/2018 01:58 PM BP Readings from Last 1 Encounters: 07/03/23 120/74 Reviewed Health Maintenance below: Health Maintenance Topic Date Due HIV Screening Never done Albumin/Creatinine Ratio Never done Hepatitis B Vaccine (1 of 3 - 19+ 3-dose series) Never done Mammogram 08/30/2016 Cervical Cancer Screening 01/23/2020 COVID-19 Vaccine ( season) 2023 Zoster Vaccines (2 of 2) 08/28/2023 Influenza Vaccine (FLU shot) (1) 03/06/2024 HbA1c 07/03/2024 GFR 07/03/2024 Depression Screening 07/03/2024 Recapture Ov Labs dec pap Mamm already scheduled Care Gap Outreach Action Taken: Left message documented in this encounter Plan of Treatment Upcoming Encounters Date Type Department Care Team (Late st Contact Info) Description 05/27/2024 3:00 PM EST Imaging Radiology [address] [place] [address] 05/30/2024 3:30 PM EST Office Visit Cardiology, [facility] [address] [place] [address] Sylvia Vasques PA-C [address] [place] [id number] Scheduled Procedures Name Priority Associated Diagnoses Date/Ti me COLONOSCOPY FLEXIBLE PROXIMAL DIAGNOSTIC Recall Screen for colon cancer Health Maintenance Due Date Last Done Comments HIV Screening 1979 Albumin/Creatinine Ratio 1982 Hepatitis B Vaccine (1 of 3 - 19+ 3-dose series) 1983 HPV/Co-Test 1994 Cologuard 2009 Sigmoidoscopy 2009 Mammogram 08/30/2016 08/30/2015 Cervical Cancer Screening 01/23/2020 Pap Smear 01/23/2020 01/22/2017 Fecal Occult Blood Test 02/22/2021 02/23/2020 Zoster Vaccines (2 of 2) 08/28/2023 07/03/2023 COVID-19 Vaccine (24 season) 2024 07/08/2021, 12/10/2020, 11/02/2020 Influenza Vaccine (FLU shot) (#1) 2024 07/03/2023, 04/21/2019, 04/21/2019, Additional history exists Depression Screening 07/03/2024 07/03/2023 GFR 07/03/2024 07/03/2023, 12/04, 08/12/2021, Additional history exists HbA1c 07/03/2024 07/03/2023, 12/04, 04/21/2019, Additional history exists O2 ASSESSMENT COMPLETED IN PAST YEAR FOR COPD 07/03/2024 07/03/2023 DTap/Tdap Vaccines (3 - Td or Tdap) 09/30/2026 09/30/2016, 07/06/2006 Pneumococcal Vaccine: Pediatrics (0 to 5 Years) and At-Risk Patients (6 to 64 Years) (3 of 3 - PPSV23 or PCV20) 2029 04/21/2019, 06/11/2017 Colonoscopy 03/14/2030 03/14/2020, 03/2020, 04/19/2008 Colorectal Cancer Screening 03/14/2030 HPV (Gardasil) Vaccine Aged Out No lo nger eligible based on patient's age to complete this topic MENINGOCOCCAL (MENACTRA/MENVEO) Aged Out No longer eligible based on patient's age to complete this topic documented as of this encounter Medical Devices Not on filedocumented as of this encounter Care Teams Selling Specialist Relationship Specialty Start Date End Date Lennie Steven DO [address] [place] [address] PCP - General Family Medicine 12/18/16 documented as of this encounter
--- OUTSIDE RECORDS SUMMARY | 2024-03-19 03:05 | External Medical Summary | Summary of Care ---
Author Name Unknown Organization [facility] Address [address] [facility] [place] [address] Phone [phone] Care Team Providers Care General Surgery Physician Assistant Name Role Phone Lennie Steven DO Primary Care Provider Reason for Visit * Reason Onset Date Comments Health Maintenance 02/12/2024 Encounter Details Date Type Department Care Team (Late st Contact Info) Description 02/12/2024 Telephone Family Practice [facility] [place] [address] [facility] [place] [address] Lennie Steven DO [address] [facility] [place] [address] Health Maintenance Allergies Active Allergy Reactions Criticality Noted Date Comments Ceftriaxone High 01/30/2020 Iodinated Contrast Media Itching 10/05/2015 Loratadine Edema Other 04/19/2008 Prednisone Hypertension High 04/30/2018 Pt states this medication made her hospitalized. Tramadol Hives 08/30/2015 documented as of this encounter (statuses as of 02/12/2024) Medications Medication Sig Dispensed Refills Start Date End Date Status aspirin 81 MG chewable tabletIndications:C oronary artery disease involving [place] coronary artery without angina pectoris Take 1 Tablet by mouth in the morning. with food.. 100 Tab 5 08/10/2015 Active Ventolin HFA 108 (90 Base) MCG/ACT Inhalation Aerosol SolutionIndications :Acute URI,Acute cough,Chronic bronchitis, unspecified chronic bronchitis type (HCC) INHALE TWO PUFFS BY MOUTH FOUR TIMES DAILY 18 g 3 08/29/2022 Active Azelastine HCl 0.1 % Nasal Solution (Astelin) Administer 1 [place] into nostril in the morning and 1 [place] before bedtime. 30 mL 12 11/13/2022 Active Carvedilol 12.5 MG Oral Tablet (Coreg) TAKE 1 TABLET MY MOUTH IN THE MORNING AND 1 TABLET BEFORE BEDTIME 180 Tablet 3 12/08/2022 Active Saline Nasal [place] 0.65 % Nasal Solution ([place]) Administer into nostril as needed. As directed. 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 Increased risk for Cardiomyopathy (CM). Please click [...] bronchitis 09/20/2015 Coronary artery disease invo lving [place] coronary artery without angina pectoris 08/10/2015 Lumbago 10/10/2010 DYSLIPIDEMIA, GOAL TO BE DETERMINED 06/21/2009 Overview: Per Lipid Taxonomy. HTN, goal below 140/90 01/08/2009 Anemia 01/08/2009 documented as of this encounter (statuses as of 02/12/2024) Resolved Problems Problem Noted Date Diagnosed Date [...] as of this encounter (statuses as of 02/12/2024) Immunizations Name Administration Dates Next Due COVID-19 [...] Description 05/27/2024 3:00 PM EST Imaging Radiology [facility] [address] [place] [address] 05/30/2024 3:30 PM EST Office Visit Cardiology, [facility] [address] [place] [address] Sylvia Vasques PA-C [address] [place] [address] Scheduled Procedures Name Priority Associated Diagnoses Date/Ti [...] Zoster Vaccines (2 of 2) 08/28/2023 07/03/2023 Influenza Vaccine (FLU shot) (#1) 2024 07/03/2023, [...] filedocumented as of this encounter Care Teams General Surgery Physician Assistant Relationship Specialty Start Date End Date Lennie Steven DO [address] [place] [address] PCP - General Family Medicine 12/18/16 documented as of this encounter
--- OUTSIDE RECORDS SUMMARY | 2024-03-19 03:05 | External Medical Summary | Summary of Care ---
Author Name Unknown Organization [facility] Address [address] [facility] [place] [address] Phone [phone] Care Team Providers Care Rice Milling Supervisor Name Role Phone Lennie Steven DO Primary Care Provider Reason for Visit * Reason Onset Date Comments Health Maintenance 02/12/2024 Encounter Details Date Type Department Care Team (Late st Contact Info) Description 02/12/2024 Telephone Family Practice [facility] [place] [address] [facility] [place] [address] Lennie Steven DO [address] [facility] [place] [address] Health Maintenance Allergies Active Allergy Reactions Criticality [...] MG chewable tabletIndications:C oronary artery disease involving [place] coronary artery without angina pectoris Take 1 Tablet by mouth in the morning. with food.. 100 Tab 5 08/10/2015 Active Ventolin HFA 108 (90 Base) MCG/ACT Inhalation Aerosol SolutionIndications :Acute URI,Acute cough,Chronic bronchitis, unspecified chronic bronchitis type (HCC) INHALE TWO PUFFS BY MOUTH FOUR TIMES DAILY 18 g 3 08/29/2022 Active Azelastine HCl 0.1 % Nasal Solution (Astelin) Administer 1 [place] into nostril in the morning and 1 [place] before bedtime. 30 mL 12 11/13/2022 Active Carvedilol 12.5 MG Oral Tablet (Coreg) TAKE 1 TABLET MY MOUTH IN THE MORNING AND 1 TABLET BEFORE BEDTIME 180 Tablet 3 12/08/2022 Active Saline Nasal [place] 0.65 % Nasal Solution ([place]) Administer into nostril as needed. As directed. [...] Oral Tablet (Lipitor)Indication s:Coronary artery disease involving [place] coronary artery of [place] heart without angina pectoris Take 1 Tablet [...] 07/22/2022 Overview: likely pathogenic TTN gene variant ([id number], p.([id number]*6) ) detected via [employer]. Increased risk for Cardiomyopathy (CM). Please click [...] bronchitis 09/20/2015 Coronary artery disease invo lving [place] coronary artery without angina pectoris 08/10/2015 Lumbago [...] Encounter - Tamika Butler LPN - 03/15/2024 9:45 AM EDT Spoke to patient. Insurance is changing and she is not going to be able to keep seeing [facility]. Change in nov. * Telephone Encounter - Tamika Butler LPN [...] Description 05/27/2024 3:00 PM EST Imaging Radiology [address] [place] [address] 05/30/2024 3:30 PM EST Office Visit Cardiology, [facility] [address] [place] [address] Sylvia Vasques PA-C [address] [place] [address] Scheduled Procedures Name Priority Associated Diagnoses Date/Ti [...] (2 of 2) 08/28/2023 07/03/2023 COVID-19 Vaccine ( season) 2024 07/08/2021, 12/10/2020, 11/02/2020 Influenza Vaccine [...] filedocumented as of this encounter Care Teams Rice Milling Supervisor Relationship Specialty Start Date End Date Lennie Steven DO [address] [place] [address] PCP - General Family Medicine 12/18/16 documented as of this encounter
[2024-03-19 03:45] LABS: Basophils # (auto) 0.04 K/uL (0.00-0.20); Basophils % (auto) 0.5 %; Eosinophils # (auto) 0.35 K/uL (0.00-0.50); Eosinophils % (auto) 4.4 %; Hemoglobin 7.8 g/dl (12.0-16.0); Immature Granulocytes # (auto) 0.03 K/uL (0.01-0.20); Immature Granulocytes % (auto) 0.4 %; Lymphocytes # (auto) 1.61 K/uL (1.20-3.40); Lymphocytes % (auto) 20.1 %; Mean Corpuscular Hemoglobin 23.8 pg (25.0-34.0); Mean Corpuscular Volume 79.3 fL (80.0-100.0); Mean Platelet Volume 9.7 fL (9.4-12.4); Monocytes # (auto) 0.82 K/uL (0.11-0.59); Monocytes % (auto) 10.2 %; Neutrophils # (auto) 5.16 K/uL (1.40-6.50); Neutrophils % (auto) 64.4 %; Platelet Count 318 K/uL (130-400); RDW Coefficient of Variation 14.9 % (11.5-14.5); RDW Standard Deviation 43.1 fL (36.4-46.3); Red Blood Count 3.28 M/uL (4.20-5.40); White Blood Count 8.01 K/ul (4.8-10.8)
[2024-03-19 03:59] LABS: BUN Creatinine Ratio 21.8 (10-20); Calcium 8.8 mg/dl (8.6-10.3); Creatinine Clr Calc Pharmacy 59.7 ml/min; Est GFR (African American) 55.1 ml/min; Est GFR (Non-African American) 47.5 ml/min; Potassium 3.5 mmol/L (3.5-5.1)
--- NOTE | 2024-03-19 04:18 | Emergency Department Note ---
History of Present Illness General Chief complaint: Abdominal Pain Stated complaint: Abdominal Pain, N/V/D Time Seen by Provider: 03/19/24 04:08 History of Present Illness Maximum Pain Intensity: 8 This 58-year-old female presents to the ER complaint of nausea and right-sided abdominal pain today. Her gallbladder surgically been removed. She has a history of iron deficiency anemia. Patient denies chest pain, dyspnea, fevers, flank pain, black or blood in the stool. No recent blood transfusion. Home Medications Medication Instructions Recorded Confirmed Type aspirin 81 mg tablet,delayed 81 mg PO QAM 05/16/18 09/06/22 History release (Symone Low Dose Aspirin) nitroglycerin 0.4 mg sublingual 0.4 mg sublingual DIRECTED PRN 05/16/18 09/06/22 History tablet (Nitrostat) Chest Pain sertraline 50 mg tablet (Zoloft) 50 mg PO QAM 05/16/18 09/06/22 History hydrochlorothiazide 25 mg tablet 25 mg PO QAM 09/01/19 09/06/22 History omeprazole magnesium 20 mg 20 mg PO QAM 09/01/19 09/06/22 History tablet,delayed release (Prilosec OTC) amlodipine 5 mg tablet (Norvasc) 5 mg PO DAILY 01/26/20 09/06/22 History ferrous sulfate 325 mg (65 mg 325 mg PO Q OTHER DAY 01/26/20 09/06/22 History iron) tablet lisinopril 20 mg tablet 20 mg PO DAILY 01/26/20 09/06/22 History atorvastatin 40 mg tablet 40 mg PO DAILY 06/02/20 09/06/22 History metoprolol tartrate 25 mg tablet 25 mg PO BID #60 tabs 06/03/20 09/06/22 Rx albuterol sulfate 90 mcg/actuation 2 puff inhalation DIRECTED PRN 08/04/20 09/06/22 History aerosol inhaler Shortness Of Breath benzonatate 100 mg capsule 100 mg PO TID PRN Cough 09/06/22 09/06/22 History fluticasone propionate 50 2 spray intranasal DAILY 09/06/22 09/06/22 History mcg/actuation nasal spray,suspension sodium chloride 0.65 % nasal spray 2 spray intranasal DIRECTED PRN 09/06/22 09/06/22 History aerosol (Saline Nasal) NASAL DRYNESS/CONGESTION lidocaine 5 % topical patch 3 patch topical DAILY #30 ea 01/26/23 Rx (Lidoderm) Allergies Allergy/AdvReac Type Severity Reaction Status Date / Time loratadine Allergy Severe DEPLETED Verified 09/06/22 19:48 O2 FROM BODY, WAS PUT IN OXYGEN CHAMBER. Iodinated Contrast Media Allergy Intermediate ITCHING Verified 09/06/22 19:48 ketorolac Allergy Intermediate DIAPHORESIS, Verified 09/06/22 19:48 RASH prednisone AdvReac Intermediate Vomiting Verified 09/06/22 19:48 ceftriaxone [From Rocephin] AdvReac Unknown Unknown Verified 09/06/22 19:48 Past Med/Surg History Problem List (Updated 03/19/24 @ 05:24 by Melissa Donovan PA-C) Pancreatitis (Acute) Chest pain (Acute) Elevated troponin (Acute) Precordial chest pain Atypical chest pain (Acute) DVT prophylaxis Acute pyelonephritis UTI (urinary tract infection), uncomplicated Acute kidney injury (Acute) Anemia (Chronic) CAD (coronary artery disease) (Chronic) HTN (hypertension) (Chronic) Dyslipidemia (Chronic) Depression (Chronic) Chronic bronchitis (Chronic) Medical History (Updated 03/19/24 @ 05:24 by Melissa Donovan PA-C) Acute kidney injury Family History Other Heart disease Social History Smoking Status: Never smoker Tobacco Type: Cigarettes Cigarettes Per Day: 1; Second Hand Exposure: No; Do You Dip or Chew Tobacco: No; Hx Alcohol Use: No Hx Substance Use: No Preferred Language: Setswana Communication Ability: Effective Program Advocate Required: No Beliefs That Will Affect Care: None marital status: Current Living Situation: Family Current Living Situation Comment: [place] current occupational status: employed Feels Safe at Home: Yes Assistive Devices: Glasses and Nebulizer Review of Systems A total of 10 systems reviewed and were otherwise negative Physical Exam Vital Signs Vital Signs - 24 hr 03/19/24 03:06 03/19/24 03:10 03/19/24 03:15 Temperature 36.7 C Temperature Source Oral Pulse Rate 99 H 84 Pulse Rate [Apical] 85 Pulse Rate from SpO2 Sensor Pulse Rhythm Regular Pulse Rhythm [Apical] Regular Respiratory Rate 18 19 19 Respiratory Effort / Characteristics Non-Labored Spontaneous Non-Labored Spontaneous Respiratory Depth Normal Normal Respiratory Pattern Regular Blood Pressure 107/52 L Blood Pressure [Right Arm] 107/52 L Blood Pressure Mean 70 Blood Pressure Mean [Right Arm] 70 Pulse Oximetry 96 97 98 Oxygen Delivery Method Room Air Room Air Room Air Sepsis Recent Fever Within 48 Hours No Sepsis New/Unexplained Change in Mental Status No Sepsis Action Taken by Nursing No Action Required 03/19/24 03:16 03/19/24 03:24 03/19/24 04:33 Temperature Temperature Source Pulse Rate 83 85 84 Pulse Rate [Apical] Pulse Rate from SpO2 Sensor 85 85 Pulse Rhythm Pulse Rhythm [Apical] Respiratory Rate 12 20 Respiratory Effort / Characteristics Respiratory Depth Respiratory Pattern Blood Pressure Blood Pressure [Right Arm] Blood Pressure Mean Blood Pressure Mean [Right Arm] Pulse Oximetry 97 98 Oxygen Delivery Method Room Air Room Air Sepsis Recent Fever Within 48 Hours Sepsis New/Unexplained Change in Mental Status Sepsis Action Taken by Nursing VITALS: Vitals are noted on the nurse's note and reviewed by myself. Vital signs stable. GENERAL: Pleasant patient, in no acute distress, nondiaphoretic, well-developed well-nourished. SKIN: Capillary reflex less than 2 seconds. HEENT: Normocephalic. PERRLA. EOMI. Nares patent. Mucous membranes moist. Neck is supple without nuchal rigidity. HEART: Regular rate and rhythm LUNGS: Clear to auscultation bilaterally without wheezes, rales or rhonchi. No retractions or accessory muscle use. ABDOMEN: Positive bowel sounds x 4. Normal tympanic percussion. Soft, tender to palpation right lower quadrant, without masses or organomegaly. Douglass sign negative. No guarding or rebound tenderness. no CVA tenderness Rectal exam: No fissures or tears, brown stool, Hemoccult positive, nurse present MUSCULOSKELETAL: No gross musculoskeletal defects. NEURO: Patient was alert and oriented to person place and time. No focal neurological deficits. Course Administered Medications Discontinued Medications Diphenhydramine HCl (Diphenhydramine 50 Mg/Ml Vial) 25 mg IV ONE ONE Stop: 03/19/24 04:16 Last Admin: 03/19/24 04:25 Dose: 25 mg Documented By: NORA Sodium Chloride (Nss) 1,000 mls @ 999 mls/hr IV .Q1H1M ONE Stop: 03/19/24 05:14 Last Admin: 03/19/24 04:25 Dose: 999 mls/hr Documented By: NORA Acetaminophen (Ofirmev) 1,000 mg in 100 mls @ 400 mls/hr IV NOW STA Stop: 03/19/24 04:28 Last Infusion: 03/19/24 04:42 Dose: Infused Documented By: Admin: 03/19/24 04:25 Dose: 400 mls/hr Documented By: NORA Medical Decision Making Medical Records Attestation: I reviewed the patient's medical records. Home Medications Current Medication List: was personally reviewed by me Laboratory Data Attestation: I reviewed the patient's lab results. 03/19/24 03:17 03/19/24 03:17 Lab Results 03/19/24 03/19/24 Range/Units 03:17 04:31 WBC 8.01 (4.8-10.8) K/ul RBC 3.28 L (4.20-5.40) M/uL Hgb 7.8 L (12.0-16.0) g/dl Hct 26.0 L (37.0-47.0) % MCV 79.3 L (80.0-100.0) fL MCH 23.8 L (25.0-34.0) pg MCHC 30.0 L (32.0-36.0) g/dL RDW Std Deviation 43.1 (36.4-46.3) fL RDW Coeff of Samantha 14.9 H (11.5-14.5) % Plt Count 318 (130-400) K/uL MPV 9.7 (9.4-12.4) fL Immature Gran % (Auto) 0.4 % Neut % (Auto) 64.4 % Lymph % (Auto) 20.1 % [place] % (Auto) 10.2 % Eos % (Auto) 4.4 % Baso % (Auto) 0.5 % Neut # (Auto) 5.16 (1.40-6.50) K/uL Lymph # (Auto) 1.61 (1.20-3.40) K/uL [facility] # (Auto) 0.82 H (0.11-0.59) K/uL Eos # (Auto) 0.35 (0.00-0.50) K/uL Baso # (Auto) 0.04 (0.00-0.20) K/uL Immature Gran # (Auto) 0.03 (0.01-0.20) K/uL Polychromasia 1+ Sodium 138 (136-145) mmol/L Potassium 3.5 (3.5-5.1) mmol/L Chloride 105 (98-107) mmol/L Carbon Dioxide 25 (21-32) mmol/L Anion Gap 8 (3-11) BUN 27 H (6-23) mg/dl Creatinine 1.24 H (0.6-1.2) mg/dl Est Cr Clr Drug Dosing 59.7 ml/min Est GFR ( Amer) 55.1 ml/min Est GFR (Non-Af Amer) 47.5 ml/min BUN/Creatinine Ratio 21.8 H (10-20) Glucose 106 H (70-99(Fasting)) mg/dl Calcium 8.8 (8.6-10.3) mg/dl Total Bilirubin 0.6 (0.2-1.0) mg/dl AST 209 H (13-39) U/L ALT 72 H (7-52) U/L Alkaline Phosphatase 202 H (34-104) U/L Total Protein 6.4 (6.0-8.3) gm/dl Albumin 3.3 L (3.4-5.0) gm/dl Globulin 3.1 (2.5-4.0) gm/dl Albumin/Globulin Ratio 1.1 (0.9-2) Lipase 1889 H (11-82) U/L Urine Color Yellow Urine Appearance Clear (Clear) Urine pH 5.0 (4.5-7.5) Ur Specific [place] 1.008 (1.000-1.030) Urine Protein Negative (Negative) Urine Glucose (UA) Negative (Negative) Urine Ketones Negative (Negative) Urine Blood Negative (Negative) Urine Nitrite Negative (Negative) Urine Bilirubin Negative (Negative) Urine Urobilinogen Negative (Negative) Ur Leukocyte Esterase Negative (Negative) Imaging Data Attestation: I personally reviewed and interpreted this imaging study as follows: Radiologist's Impression: Abdomen/Pelvis CT 03/19/24 04:14 Exam(s): CT ABDOMEN + PELVIS With Contrast IV Amt: 93 ml opti 320 EXAM: CT Abdomen and Pelvis With Intravenous Contrast CLINICAL HISTORY: Reason for exam: rlq pain. TECHNIQUE: Axial computed tomography images of the abdomen and pelvis with intravenous contrast. Automated exposure control was utilized for the study. A dose lowering technique was utilized adhering to the principles of ALARA. CONTRAST: Patient received 93 ml opti 320 of IV contrast COMPARISON: No relevant prior studies available. FINDINGS: Lung bases: Unremarkable. No mass. No consolidation. ABDOMEN: Liver: Unremarkable. No mass. Gallbladder and bile ducts: Cholecystectomy. CBD caliber measures 1.6 cm in diameter. No ductal dilation. Pancreas: Unremarkable. No mass. No ductal dilation. Spleen: Unremarkable. No splenomegaly. Adrenals: Unremarkable. No mass. Kidneys and ureters: Unremarkable. No solid mass. No hydronephrosis. Stomach and bowel: There is sigmoid colonic diverticulosis. No obstruction. No mucosal thickening. PELVIS: Appendix: No findings to suggest acute appendicitis. Bladder: Unremarkable. No mass. Reproductive: Unremarkable as visualized. ABDOMEN and PELVIS: Intraperitoneal space: Unremarkable. No free air. No significant fluid collection. Bones/joints: Mild multilevel degenerative disc disease changes seen in the lumbar spine. No acute fracture. No dislocation. Soft tissues: Unremarkable. Vasculature: Unremarkable. No abdominal aortic aneurysm. Lymph nodes: Unremarkable. No enlarged lymph nodes. IMPRESSION: 1. No acute abdominal process identified 2. No evidence of appendicitis Electronically signed by: Petey Strickland MD 03/19/24 05:28 AM [facility] Narrative Prior records/ancillary studies reviewed. Triage Nursing notes reviewed. Additional history obtained from nurse The patient's history was concerning for abdominal pain. Differential diagnosis: Etiologies such as appendicitis, diverticulitis, PUD, biliary pathology, UTI, pancreatitis, obstruction, mesenteric ischemia, aortic pathology, infections, inflammatory bowel disease, renal colic, as well as others were entertained. Physical examination findings: As above. ER treatment provided: An order was placed for continuous cardiac monitoring. The monitor shows a rate of 60-100 with a sinus rhythm per my Independent interpretation. IV fluids, Tylenol was ordered On reassessment the patient felt better. Diagnostics interpreted by me: ECG: Ordered for upper abdominal pain EKG: Normal sinus, normal intervals, no acute ST-T wave changes. Impression normal sinus rhythm independently interpreted by myself The labs Independently Interpreted by myself revealed elevated lipase. Elevated LFTs Anemia slightly lower from baseline No worrisome leukocytosis Positive Hemoccult Imaging studies: CT was reviewed and read by radiology as above Consultation: A consultation was placed with the hospitalist. The case was discussed and diagnostics were reviewed. The patient was evaluated in the ER for further treatment. Exam and history seem consistent with pancreatitis with worsening anemia and positive Hemoccult. Patient was medicated as above. Medicine is consulted case discussed. She will be mated to the medical service. By the evaluation outlined above emergent etiologies such as appendicitis, diverticulitis, PUD, biliary pathology, UTI, obstruction, mesenteric ischemia, aortic pathology, infections, inflammatory bowel disease, renal colic, as well as others were deemed relatively unlikely. The pt informed about the findings as listed above. All questions were answered and pleased with the treatment. The chart was completed utilizing [employer] Speech voice recognition software. Grammatical errors, random word insertions, pronoun errors, and incomplete sentences are an occassional consequence of this system due to software limitations, ambient noise, and hardware issues. Any formal questions or concerns about the content, text, or information contained within the body of this dictation should be directly addressed to the physician assistant women's soccer coach for clarification. Impression & Plan Pancreatitis, Anemia Discharge Plan Visit Data Chief Complaint: Abdominal Pain Stated Complaint: Abdominal Pain, N/V/D ED Provider: Kaitlin Monet ED Midlevel Provider: Melissa Donovan Discharge Problem: Pancreatitis, Anemia Patient Disposition: Admitted As Inpatient Condition: Good Forms Stand Alone Forms: My [employer] Prescriptions Prescriptions: No Action lisinopril 20 mg tablet 20 mg PO DAILY amlodipine [Norvasc] 5 mg tablet 5 mg PO DAILY ferrous sulfate 325 mg (65 mg iron) Tablet 325 mg PO Q OTHER DAY albuterol sulfate 90 mcg/actuation Hfa Aerosol Inhaler 2 puff INHALATION DIRECTED PRN (Reason: Shortness Of Breath) aspirin [Symone Low Dose Aspirin] 81 mg Tablet,Delayed Release (Dr/Ec) 81 mg PO QAM nitroglycerin [Nitrostat] 0.4 mg Tablet, Sublingual 0.4 mg Sublingual DIRECTED PRN (Reason: Chest Pain) sertraline [Zoloft] 50 mg Tablet 50 mg PO QAM omeprazole magnesium [Prilosec OTC] 20 mg Tablet,Delayed Release (Dr/Ec) 20 mg PO QAM hydrochlorothiazide 25 mg tablet 25 mg PO QAM atorvastatin 40 mg tablet 40 mg PO DAILY metoprolol tartrate 25 mg Tablet 25 mg PO BID Qty: 60 0RF lidocaine [Lidoderm] 5 % adhesive patch,medicated 3 patch topical DAILY Qty: 30 1RF Rx Instructions: leave on most painful area for up to 8 to 12 hrs benzonatate [Tessalon Perles] 100 mg Capsule 100 mg PO TID PRN (Reason: Cough) fluticasone propionate [Flonase] 50 mcg/actuation [place],Suspension 2 spray INTRANASAL DAILY Rx Instructions: administer into each nostril Saline Nasal 0.65 % Aerosol,[place] 2 spray INTRANASAL DIRECTED PRN (Reason: NASAL DRYNESS/CONGESTION) Referrals Referrals: Lennie Steven DO [Primary Care Provider] - Discharge Problem: Pancreatitis Qualifiers: Chronicity: acute Pancreatitis type: unspecified pancreatitis type Acute pancreatitis complication: unspecified Qualified Code(s): K85.90 - Acute pancreatitis without necrosis or infection, unspecified
[2024-03-19 04:19] LABS: Polychromasia 1+
[2024-03-19 04:21] LABS: Albumin Globulin Ratio 1.1 (0.9-2); Albumin Level 3.3 gm/dl (3.4-5.0); Bilirubin,Total 0.6 mg/dl (0.2-1.0); Globulin 3.1 gm/dl (2.5-4.0); Total Protein 6.4 gm/dl (6.0-8.3)
[2024-03-19] MEDS: diphenhydrAMINE 50 MG/ML VIAL IV ONE (04:25)
[2024-03-19] MEDS: SODIUM CHLORIDE 0.9% 1,000 ML IV ONE (04:25)
[2024-03-19] MEDS: ACETAMINOPHEN 1,000 MG/100 ML VIAL IV STA (04:25)
[2024-03-19 04:43] LABS: Appearance Urine Clear (Clear); Bilirubin Urine Negative (Negative); Blood Urine Negative (Negative); Color Urine Yellow; Glucose Urine UA Negative (Negative); Ketones Urine Negative (Negative); Leukocyte Esterase Urine Negative (Negative); Nitrite Urine Negative (Negative); Protein Urine Negative (Negative); Specific Gravity Urine 1.008 (1.000-1.030); Urobilinogen Urine Negative (Negative)
--- NOTE | 2024-03-19 05:29 | CT Scan Report ---
Exam(s): CT ABDOMEN + PELVIS With Contrast IV Amt: 93 ml opti 320 EXAM: CT Abdomen and Pelvis With Intravenous Contrast CLINICAL HISTORY: Reason for exam: rlq pain. TECHNIQUE: Axial computed tomography images of the abdomen and pelvis with intravenous contrast. Automated exposure control was utilized for the study. A dose lowering technique was utilized adhering to the principles of ALARA. CONTRAST: Patient received 93 ml opti 320 of IV contrast COMPARISON: No relevant prior studies available. FINDINGS: Lung bases: Unremarkable. No mass. No consolidation. ABDOMEN: Liver: Unremarkable. No mass. Gallbladder and bile ducts: Cholecystectomy. CBD caliber measures 1.6 cm in diameter. No ductal dilation. Pancreas: Unremarkable. No mass. No ductal dilation. Spleen: Unremarkable. No splenomegaly. Adrenals: Unremarkable. No mass. Kidneys and ureters: Unremarkable. No solid mass. No hydronephrosis. Stomach and bowel: There is sigmoid colonic diverticulosis. No obstruction. No mucosal thickening. PELVIS: Appendix: No findings to suggest acute appendicitis. Bladder: Unremarkable. No mass. Reproductive: Unremarkable as visualized. ABDOMEN and PELVIS: Intraperitoneal space: Unremarkable. No free air. No significant fluid collection. Bones/joints: Mild multilevel degenerative disc disease changes seen in the lumbar spine. No acute fracture. No dislocation. Soft tissues: Unremarkable. Vasculature: Unremarkable. No abdominal aortic aneurysm. Lymph nodes: Unremarkable. No enlarged lymph nodes. IMPRESSION: 1. No acute abdominal process identified 2. No evidence of appendicitis Electronically signed by: Petey Strickland MD 03/19/24 05:28 AM
[2024-03-19] MEDS: PANTOprazole 80 MG in DEXTROSE 5% 100 ML IV STA (06:49)
[2024-03-19] MEDS: FAMOTIDINE 20MG IV PUSH 20 MG/5 ML SYR IV STA (08:00)
[2024-03-19] MEDS: SODIUM CHLORIDE 0.9% 500 ML IV SCH (08:00)
[2024-03-19] MEDS: LACTATED RINGER'S 1,000 ML IV SCH (08:02)
--- NOTE | 2024-03-19 08:59 | History & Physical Report ---
Date of Service March 19, 2024 Assessment & Plan (1) Pancreatitis: Plan: 58-year-old female with past medical significant for hyperlipidemia, prediabetes, dyslipidemia, chronic bronchitis, hypertension, CAD, morbid obesity, lumbago, anemia, mood disorder, monomelic mutation TTN gene comes with abdominal pain. Pain is located in the right side abdomen. Denies nausea. Normal bowel and bladder movements. Denies any hematuria. Denies any blood in the stools. No fevers. No chest pain or shortness of breath. No cough. No headache. No runny nose or sore throat. Currently resting comfortably. Possible pancreatitis Presents with abdominal pain Lipase 1888 CT scan okay N.p.o. IV antiemetics as needed IV Dilaudid as needed LR at 200 mL/h GI consult Hypertension Patient is on amlodipine, Coreg, lisinopril and hydrochlorothiazide Currently blood pressure soft Will continue Coreg and amlodipine with holding parameters Hold lisinopril and hydrochlorothiazide and restart if blood pressure gets elevated Close monitor History of CAD s/p stents On Coreg, aspirin and statin Prediabetes Follow HbA1c levels Anemia Iron deficiency anemia Seems chronic Hemoglobin is 7.8. Usually around 9 Denies any bleeding Will check stool for Hemoccult Will check iron studies vitamin B12 and folate levels Close monitor MARIXA Presented creatinine 1.2 Baseline creatinine around 1 Holding lisinopril and hydrochlorothiazide Will follow repeat labs Hyperlipidemia On statin Obesity Needs follow-up GERD Omeprazole Mood disorder On Zoloft DVT prophylaxis Heparin subcu Stool for Hemoccult positive will DC heparin Disposition Med/telemetry Full code. History of Present Illness Chief Complaint: Abdominal pain Primary Care Provider: Lennie Steven, 58-year-old female with past medical significant for hyperlipidemia, prediabetes, dyslipidemia, chronic bronchitis, hypertension, CAD, morbid obesity, lumbago, anemia, mood disorder, monomelic mutation TTN gene comes with abdominal pain. Pain is located in the right side abdomen. Denies nausea. Normal bowel and bladder movements. Denies any hematuria. Denies any blood in the stools. No fevers. No chest pain or shortness of breath. No cough. No headache. No runny nose or sore throat. Currently resting comfortably. Past medical history. As mentioned above Past surgical history. Cardiac stent placement x 2. Colonoscopy and EGD. EGD with endoscopic ultrasound. Small bowel endoscopy with biopsy. Treated missed first trimester. Social history. Quit smoking 2000. Smoked 2 packs a day for 10 years. Alcohol very rarely.. No drug use. Family history. Father had CHF. Mother had CHF. Allergies Allergy/AdvReac Type Severity Reaction Status Date / Time loratadine Allergy Severe DEPLETED Verified 09/06/22 19:48 O2 FROM BODY, WAS PUT IN OXYGEN CHAMBER. Iodinated Contrast Media Allergy Intermediate ITCHING Verified 09/06/22 19:48 ketorolac Allergy Intermediate DIAPHORESIS, Verified 09/06/22 19:48 RASH prednisone AdvReac Intermediate Vomiting Verified 09/06/22 19:48 ceftriaxone [From [facility]] AdvReac Unknown Unknown Verified 09/06/22 19:48 Home Medications Medication Instructions Recorded Confirmed Type albuterol sulfate 90 mcg/actuation 2 puff inhalation Q6H sob 03/19/24 03/19/24 History aerosol inhaler (Ventolin HFA) amlodipine 5 mg tablet 5 mg PO DAILY 03/19/24 03/19/24 History aspirin 81 mg tablet,delayed 81 mg PO DAILY 03/19/24 03/19/24 History release atorvastatin 40 mg tablet 40 mg PO .DAILY@79903/19/24 03/19/24 History atorvastatin 40 mg tablet 40 mg PO DAILY 03/19/24 03/19/24 History carvedilol 12.5 mg tablet 12.5 mg PO .DAILY@79903/19/24 03/19/24 History carvedilol 12.5 mg tablet 12.5 mg PO BID 03/19/24 03/19/24 History ferrous sulfate 325 mg (65 mg 325 mg PO Q2D 03/19/24 03/19/24 History iron) tablet hydrochlorothiazide 25 mg tablet 25 mg PO .DAILY@79903/19/24 03/19/24 History lisinopril 20 mg tablet 20 mg PO .DAILY@79903/19/24 03/19/24 History lisinopril 20 mg tablet 20 mg PO DAILY 03/19/24 03/19/24 History omeprazole 20 mg capsule,delayed 20 mg PO .DAILY@79903/19/24 03/19/24 History release omeprazole 20 mg capsule,delayed 20 mg PO DAILY 03/19/24 03/19/24 History release sertraline 50 mg tablet 50 mg PO .DAILY@00 03/19/24 03/19/24 History sertraline 50 mg tablet 50 mg PO DAILY 03/19/24 03/19/24 History Past Med/Surg History Problem List (Updated 03/19/24 @ 05:24 by Melissa Donovan PA-C) Pancreatitis (Acute) Chest pain (Acute) Elevated troponin (Acute) Precordial chest pain Atypical chest pain (Acute) DVT prophylaxis Acute pyelonephritis UTI (urinary tract infection), uncomplicated Acute kidney injury (Acute) Anemia (Chronic) CAD (coronary artery disease) (Chronic) HTN (hypertension) (Chronic) Dyslipidemia (Chronic) Depression (Chronic) Chronic bronchitis (Chronic) Medical History (Updated 03/19/24 @ 05:24 by Melissa Donovan PA-C) Acute kidney injury Family History Other Heart disease Social History Smoking Status: Never smoker Tobacco Type: Cigarettes Cigarettes Per Day: 1; Second Hand Exposure: No; Do You Dip or Chew Tobacco: No; Hx Alcohol Use: No Hx Substance Use: No Preferred Language: Slovak Communication Ability: Effective 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 ENT- oropharynx clear Neck- supple, no JVD. Lungs- clear to auscultation no wheezing or crackles. Heart- regular rate and rhythm; no murmur, no gallop Abdomen- normal bowel sounds, soft, mild discomfort on right side of abdomen, no distension Extremities- no pretibial edema, no erythema seen Neuro- alert, oriented PERRL, EOMI; no facial palsy; no dysarthria; moves extremities. Results & Data Results & Data Vital Signs (Past 12 Hours) Vital Signs Temp Pulse Pulse Resp BP BP Pulse Ox 03/19/24 08:30 90/42 L 03/19/24 08:24 75 19 92 09/14/24 08:08 77 03/19/24 07:45 73 20 92 03/19/24 07:41 98/48 L 03/19/24 07:36 74 20 93 03/19/24 07:34 81/43 L 03/19/24 07:27 74 18 95 03/19/24 07:00 74 18 92 03/19/24 07:00 93/47 L 03/19/24 07:00 93/47 L 03/19/24 07:00 93/47 L 03/19/24 06:45 77 18 92 03/19/24 06:21 75 21 89 L 03/19/24 06:00 114/46 L 03/19/24 06:00 114/46 L 03/19/24 05:48 80 19 93 03/19/24 05:36 83 22 92 03/19/24 05:21 97 H 33 H 96 03/19/24 05:00 98 H 18 114/46 L 96 03/19/24 04:33 84 20 98 03/19/24 03:24 85 12 97 03/19/24 03:16 83 03/19/24 03:15 85 19 107/52 L 98 03/19/24 03:10 84 19 97 03/19/24 03:06 36.7 C 99 H 18 107/52 L 96 O2 Del Method 03/19/24 08:30 03/19/24 08:24 03/19/24 08:08 03/19/24 07:45 03/19/24 07:41 03/19/24 07:36 03/19/24 07:34 03/19/24 07:27 03/19/24 07:00 03/19/24 07:00 03/19/24 07:00 03/19/24 07:00 03/19/24 06:45 03/19/24 06:21 03/19/24 06:00 03/19/24 06:00 03/19/24 05:48 03/19/24 05:36 03/19/24 05:21 03/19/24 05:00 Room Air 03/19/24 04:33 Room Air 03/19/24 03:24 Room Air 03/19/24 03:16 03/19/24 03:15 Room Air 03/19/24 03:10 Room Air 03/19/24 03:06 Room Air Diagnostic Findings Laboratory Results WBC 8.01 K/ul (4.8-10.8) 03/19/24 03:17 RBC 3.28 M/uL (4.20-5.40) L 03/19/24 03:17 Hgb 7.8 g/dl (12.0-16.0) L 03/19/24 03:17 Hct 26.0 % (37.0-47.0) L 03/19/24 03:17 MCV 79.3 fL (80.0-100.0) L 03/19/24 03:17 MCH 23.8 pg (25.0-34.0) L 03/19/24 03:17 MCHC 30.0 g/dL (32.0-36.0) L 03/19/24 03:17 RDW Std Deviation 43.1 fL (36.4-46.3) 03/19/24 03:17 RDW Coeff of Samantha 14.9 % (11.5-14.5) H 03/19/24 03:17 Plt Count 318 K/uL (130-400) 03/19/24 03:17 MPV 9.7 fL (9.4-12.4) 03/19/24 03:17 Immature Gran % (Auto) 0.4 % 03/19/24 03:17 Neut % (Auto) 64.4 % 03/19/24 03:17 Lymph % (Auto) 20.1 % 03/19/24 03:17 [place] % (Auto) 10.2 % 03/19/24 03:17 Eos % (Auto) 4.4 % 03/19/24 03:17 Baso % (Auto) 0.5 % 03/19/24 03:17 Neut # (Auto) 5.16 K/uL (1.40-6.50) 03/19/24 03:17 Lymph # (Auto) 1.61 K/uL (1.20-3.40) 03/19/24 03:17 [place] # (Auto) 0.82 K/uL (0.11-0.59) H 03/19/24 03:17 Eos # (Auto) 0.35 K/uL (0.00-0.50) 03/19/24 03:17 Baso # (Auto) 0.04 K/uL (0.00-0.20) 03/19/24 03:17 Immature Gran # (Auto) 0.03 K/uL (0.01-0.20) 03/19/24 03:17 Polychromasia 1+ 03/19/24 03:17 Sodium 138 mmol/L (136-145) 03/19/24 03:17 Potassium 3.5 mmol/L (3.5-5.1) 03/19/24 03:17 Chloride 105 mmol/L (98-107) 03/19/24 03:17 Carbon Dioxide 25 mmol/L (21-32) 03/19/24 03:17 Anion Gap 8 (3-11) 03/19/24 03:17 BUN 27 mg/dl (6-23) H 03/19/24 03:17 Creatinine 1.24 mg/dl (0.6-1.2) H 03/19/24 03:17 Est Cr Clr Drug Dosing 59.7 ml/min 03/19/24 03:17 Est GFR ( Amer) 55.1 ml/min 03/19/24 03:17 Est GFR (Non-Af Amer) 47.5 ml/min 03/19/24 03:17 BUN/Creatinine Ratio 21.8 (10-20) H 03/19/24 03:17 Glucose 106 mg/dl (70-99(Fasting)) H 03/19/24 03:17 Calcium 8.8 mg/dl (8.6-10.3) 03/19/24 03:17 Total Bilirubin 0.6 mg/dl (0.2-1.0) 03/19/24 03:17 AST 209 U/L (13-39) H 03/19/24 03:17 ALT 72 U/L (7-52) H 03/19/24 03:17 Alkaline Phosphatase 202 U/L (34-104) H 03/19/24 03:17 Total Protein 6.4 gm/dl (6.0-8.3) 03/19/24 03:17 Albumin 3.3 gm/dl (3.4-5.0) L 03/19/24 03:17 Globulin 3.1 gm/dl (2.5-4.0) 03/19/24 03:17 Albumin/Globulin Ratio 1.1 (0.9-2) 03/19/24 03:17 Lipase 1889 U/L (11-82) H 03/19/24 03:17 Urine Color Yellow 03/19/24 04:31 Urine Appearance Clear (Clear) 03/19/24 04:31 Urine pH 5.0 (4.5-7.5) 03/19/24 04:31 Ur Specific [place] 1.008 (1.000-1.030) 03/19/24 04:31 Urine Protein Negative (Negative) 03/19/24 04:31 Urine Glucose (UA) Negative (Negative) 03/19/24 04:31 Urine Ketones Negative (Negative) 03/19/24 04:31 Urine Blood Negative (Negative) 03/19/24 04:31 Urine Nitrite Negative (Negative) 03/19/24 04:31 Urine Bilirubin Negative (Negative) 03/19/24 04:31 Urine Urobilinogen Negative (Negative) 03/19/24 04:31 Ur Leukocyte Esterase Negative (Negative) 03/19/24 04:31 Blood Type O Negative 03/19/24 04:27 Antibody Screen NEGATIVE 03/19/24 04:27 Impressions Abdomen/Pelvis CT 03/19/24 04:14 Exam(s): CT ABDOMEN + PELVIS With Contrast IV Amt: 93 ml opti 320 EXAM: CT Abdomen and Pelvis With Intravenous Contrast CLINICAL HISTORY: Reason for exam: rlq pain. TECHNIQUE: Axial computed tomography images of the abdomen and pelvis with intravenous contrast. Automated exposure control was utilized for the study. A dose lowering technique was utilized adhering to the principles of ALARA. CONTRAST: Patient received 93 ml opti 320 of IV contrast COMPARISON: No relevant prior studies available. FINDINGS: Lung bases: Unremarkable. No mass. No consolidation. ABDOMEN: Liver: Unremarkable. No mass. Gallbladder and bile ducts: Cholecystectomy. CBD caliber measures 1.6 cm in diameter. No ductal dilation. Pancreas: Unremarkable. No mass. No ductal dilation. Spleen: Unremarkable. No splenomegaly. Adrenals: Unremarkable. No mass. Kidneys and ureters: Unremarkable. No solid mass. No hydronephrosis. Stomach and bowel: There is sigmoid colonic diverticulosis. No obstruction. No mucosal thickening. PELVIS: Appendix: No findings to suggest acute appendicitis. Bladder: Unremarkable. No mass. Reproductive: Unremarkable as visualized. ABDOMEN and PELVIS: Intraperitoneal space: Unremarkable. No free air. No significant fluid collection. Bones/joints: Mild multilevel degenerative disc disease changes seen in the lumbar spine. No acute fracture. No dislocation. Soft tissues: Unremarkable. Vasculature: Unremarkable. No abdominal aortic aneurysm. Lymph nodes: Unremarkable. No enlarged lymph nodes. IMPRESSION: 1. No acute abdominal process identified 2. No evidence of appendicitis Electronically signed by: Petey Strickland MD 03/19/24 05:28 AM ECG Additional Comments: ECG. Normal sinus rhythm at a rate of 87. No acute ST changes seen. QTc 471. Code Status & VTE Plan VTE Prophylaxis Plan VTE Prophylaxis will be ordered: Yes (1) Pancreatitis Acute pancreatitis complication: unspecified Chronicity: acute Pancreatitis type: unspecified pancreatitis type Qualified Code(s): K85.90 - Acute pancreatitis without necrosis or infection, unspecified
[2024-03-19] MEDS ORDERED: HYDROmorphone INJ 0.5 MG/0.5 ML SYR IV PRN (10:10)
[2024-03-19] MEDS ORDERED: NITROGLYCERIN SL 0.4 MG/TAB TAB SL PRN (10:10)
[2024-03-19] MEDS ORDERED: ONDANSETRON INJ 2 MG/ML 2 ML VIAL IV PRN (10:10)
[2024-03-19 10:49] LABS: Iron 26 mcg/dl (35-150); Total Iron Binding Cap Calc 165 mcg/dl (250-450); Transferrin (FE) Percent Satur 16 % (15-50); Unsaturated Iron Binding Cap 139 mcg/dl (155-355)
[2024-03-19 11:41] LABS: Folate (Folic Acid),Ser orPlas 12.03 ng/ml (>5.38)
[2024-03-19] MEDS: ASPIRIN 81 MG ECTAB PO SCH (11:42)
[2024-03-19] MEDS: SERTRALINE HCL 50 MG TABLET PO SCH (11:43)
[2024-03-19] MEDS: PANTOprazole 40 MG TAB PO SCH (11:43)
[2024-03-19] MEDS: carvediloL 12.5 MG TAB PO SCH (11:46)
[2024-03-19] MEDS: ALBUTEROL HFA 8 GM INHALER INH SCH (12:11)
[2024-03-19] MEDS ORDERED: ALBUTEROL HFA 8 GM INHALER INH PRN (12:47)
--- NOTE | 2024-03-19 12:49 | Communication Note ---
Date of Service: March 19, 2024 Patient seen and examined at bedside. She is comfortable; not in distress. She reports that her abdominal pain has improved compared to before. Physical exam; Constitutional: WD/WN, vitals as above, NAD, sitting up in bed, pleasant, conversing easily Respiratory: normal respiratory effort, lungs clear to auscultation, no wheeze, rales, rhonchi. Normal insp/exp effort, no accessory muscle use Cardiovascular: RRR, no murmur, no edema Vessels: no JVD or carotid bruit Chest: normal inspection of chest Abdomen: Mild tenderness in right upper quadrant. Musculoskeletal: no cyanosis or clubbing, extremities motor strength 5/5 Skin: no rashes, warm and dry normal turgor Neurologic: PERRL, EOMI, accommodation nl, no face palsy, no dysarthria CN's II- XI intact bilaterally and moves all extremities Psychiatric: A+Ox3, euthymic affect Assessment/plan Possible Acute pancreatitis Patient presents with abdominal pain Lipase elevated CT abdomen pelvis test no acute finding Continue IV fluids at 100 cc/h Started on clear liquid diet; advance as tolerated Monitor blood pressure; hold off home blood pressure medication for now. Chronic conditions; Hypertensionhold home blood pressure medication CADcontinues aspirin/statin Continue other home medications Please note the above document was generated using voice recognition software. It may contain grammatical, syntax or spelling errors. Any formal questions or concerns about the content, text or information contained within the body of this dictation should be directly addressed to the provider for clarification
[2024-03-19] MEDS: HEPARIN SOD 5,000 UNIT/0.5 ML VIAL SQ SCH (13:26)
[2024-03-19] MEDS: HYDROmorphone INJ 0.5 MG/0.5 ML SYR IV PRN (23:52)
[2024-03-20 06:09] LABS: Basophils # (auto) 0.03 K/uL (0.00-0.20); Basophils % (auto) 0.6 %; Eosinophils # (auto) 0.33 K/uL (0.00-0.50); Eosinophils % (auto) 6.3 %; Hematocrit (blood only) 23.4 % (37.0-47.0); Immature Granulocytes # (auto) 0.01 K/uL (0.01-0.20); Immature Granulocytes % (auto) 0.2 %; Lymphocytes # (auto) 1.08 K/uL (1.20-3.40); Lymphocytes % (auto) 20.5 %; Mean Corpuscular Hgb Conc 29.9 g/dL (32.0-36.0); Mean Corpuscular Volume 80.1 fL (80.0-100.0); Mean Platelet Volume 9.5 fL (9.4-12.4); Monocytes # (auto) 0.55 K/uL (0.11-0.59); Monocytes % (auto) 10.5 %; Neutrophils # (auto) 3.26 K/uL (1.40-6.50); Neutrophils % (auto) 61.9 %; Platelet Count 261 K/uL (130-400); RDW Coefficient of Variation 14.8 % (11.5-14.5); RDW Standard Deviation 43.8 fL (36.4-46.3); Red Blood Count 2.92 M/uL (4.20-5.40); White Blood Count 5.26 K/ul (4.8-10.8)
[2024-03-20 06:24] LABS: Bilirubin Direct 0.6 mg/dl (0-0.2); Bilirubin,Total 0.9 mg/dl (0.2-1.0); Calcium 8.8 mg/dl (8.6-10.3); Creatinine Clr Calc Pharmacy 74.8 ml/min; Est GFR (African American) 71.4 ml/min; Est GFR (Non-African American) 61.6 ml/min; Magnesium 1.5 mg/dl (1.7-2.4); Potassium 3.9 mmol/L (3.5-5.1); Total Protein 5.8 gm/dl (6.0-8.3)
[2024-03-20 06:28] LABS: Hypochromasia Present
--- NOTE | 2024-03-20 07:56 | Hospitalist Progress Note ---
Date of Service March 20, 2024 Assessment & Plan (1) Pancreatitis: Plan: 58-year-old female with past medical significant for hyperlipidemia, prediabetes, dyslipidemia, chronic bronchitis, hypertension, CAD, morbid obesity, lumbago, anemia, mood disorder, monomelic mutation TTN gene comes with abdominal pain. Acute pancreatitis Elevated Liver enzymes Presents with abdominal pain Lipase 1888 CT abdomen pelvis did not show any acute findings Liver enzyme elevated History of prior cholecystectomy Continue supportive care with IV fluids, pain control Advance diet to low-fat Ultrasound of the liver obtained; prominence of CBD and intrahepatic ducts wo evidence of obstructive stone or mass. Awaiting MRCP. Hypertension Patient is on amlodipine, Coreg, lisinopril and hydrochlorothiazide Blood pressure on the lower side Hold antihypertensives History of CAD s/p stents On Coreg, aspirin and statin Prediabetes HbA1c of 6%; continue lifestyle interventions Anemia Iron deficiency anemia Seems chronic Hemoglobin is 7.8 on presenation. Usually around 9 Denies any bleeding Await Hemoccult CKD Presented creatinine 1.2 Baseline creatinine around 1 Holding lisinopril and hydrochlorothiazide resolved Hyperlipidemia On statin, continue Obesity Needs follow-up GERD Omeprazole, continue Mood disorder On Zoloft DVT prophylaxis Heparin subcu Disposition Med/telemetry Full code. Time spent evaluating patient, direct bedside care, chart review, placing orders, interpretation of diagnostic studies, discussion with consultants, patient, and family members, as well as other required patient management activities is 50 minutes Please note the above document was generated using voice recognition software. It may contain grammatical, syntax or spelling errors. Any formal questions or concerns about the content, text or information contained within the body of this dictation should be directly addressed to the provider for clarification Admission and Anticipated Discharge Date Admission Date: March 19, 2024 Subjective Patient seen and examined at bedside. She is comfortable; not in distress. Required 1 dose of IV Dilaudid overnight Review of Systems Review of Systems: All systems reviewed & are unremarkable except as noted in Subjective Physical Exam Physical Exam: General- Not in distress Head- atraumatic Eyes- PERRL. ENT- oropharynx clear Neck- supple, no JVD. Lungs- clear to auscultation no wheezing or crackles. Heart- regular rate and rhythm; no murmur, no gallop Abdomen- normal bowel sounds, soft, mild discomfort on right side of abdomen, no distension Extremities- no pretibial edema, no erythema seen Neuro- alert, oriented PERRL, EOMI; no facial palsy; no dysarthria; moves extremities. Results & Data Results & Data Vital Signs (Past 12 Hours) Vital Signs Temp Pulse Pulse Resp BP Pulse Ox O2 Del Method 03/20/24 07:28 36.8 C 101 H 18 116/71 92 Room Air 03/20/24 02:48 36.8 C 97 H 18 108/67 93 Room Air 03/20/24 00:41 89 03/19/24 22:12 36.8 C 98 H 18 108/63 94 Room Air (1) Pancreatitis Acute pancreatitis complication: unspecified Chronicity: acute Pancreatitis type: unspecified pancreatitis type Qualified Code(s): K85.90 - Acute pancreatitis without necrosis or infection, unspecified
--- NOTE | 2024-03-20 08:37 | Gastrointestinal Consultation ---
Date of Consultation March 20, 2024 Assessment & Plan (1) RUQ abdominal pain: Pleasant lady with right upper abdominal pain, elevated lipase but normal pancreas on CT. The normal pancreas on imaging would point against this being acute pancreatitis but she has responded well to bowel rest. The concerning point is the elevated LFT's with overnight rise and dilated CBD on CT scan. Would consider getting MRCP at some point. She may well need ERCP and/or EUS at some point. She does have anemia with hemoglobin of 7--last one before admit was 8.4 so she does have chronic anemia. She had a colonoscopy within the last few years so at some point either during this hospitalization or as an outpati ent EGD might need to be considered. If she ends up having EUS then EGD will likely be done then. Will follow for now. Since her pain is so much better diet can be advanced when testing complete. History of Present Illness Reason for Consultation: abdominal pain Attending Physician: Naresh Arechiga MD History of Present Illness 58 year old female admitted with two days of what she describes as "burning" right sided abdominal pain. Associated with this she had some nausea and vomiting. She has not had issues like this before except when she had her gallbladder removed. She quickly said she had her gallbladder out but not her appendix. As I am talking to her her pain has eased up quite a bit and she is no longer vomiting. She is tolerating clear liquid diet. She does take aspirin since she had coronary stents placed as well as another nonsteroidal. She does also take omeprazole. She has not had an EGD in the past but had a colonoscopy at [facility] a couple of years ago. Of note her LFT's were abnormal on admit and are higher today. Lipase on admit >[address] CT does not show signs of pancreatitis. CT does show 1.6 cm bile duct. Allergies Allergy/AdvReac Type Severity Reaction Status Date / Time loratadine Allergy Severe DEPLETED Verified 09/06/22 19:48 O2 FROM BODY, WAS PUT IN OXYGEN CHAMBER. Iodinated Contrast Media Allergy Intermediate ITCHING Verified 09/06/22 19:48 ketorolac Allergy Intermediate DIAPHORESIS, Verified 09/06/22 19:48 RASH prednisone AdvReac Intermediate Vomiting Verified 09/06/22 19:48 ceftriaxone [From Rocephin] AdvReac Unknown Unknown Verified 09/06/22 19:48 Home Medications Medication Instructions Recorded Confirmed Type albuterol sulfate 90 mcg/actuation 2 puff inhalation Q6H sob 03/19/24 03/19/24 History aerosol inhaler (Ventolin HFA) amlodipine 5 mg tablet 5 mg PO DAILY 03/19/24 03/19/24 History aspirin 81 mg tablet,delayed 81 mg PO DAILY 03/19/24 03/19/24 History release atorvastatin 40 mg tablet 40 mg PO .DAILY@79903/19/24 03/19/24 History atorvastatin 40 mg tablet 40 mg PO DAILY 03/19/24 03/19/24 History carvedilol 12.5 mg tablet 12.5 mg PO .DAILY@79903/19/24 03/19/24 History carvedilol 12.5 mg tablet 12.5 mg PO BID 03/19/24 03/19/24 History ferrous sulfate 325 mg (65 mg 325 mg PO Q2D 03/19/24 03/19/24 History iron) tablet hydrochlorothiazide 25 mg tablet 25 mg PO .DAILY@79903/19/24 03/19/24 History lisinopril 20 mg tablet 20 mg PO .DAILY@79903/19/24 03/19/24 History lisinopril 20 mg tablet 20 mg PO DAILY 03/19/24 03/19/24 History omeprazole 20 mg capsule,delayed 20 mg PO .DAILY@79903/19/24 03/19/24 History release omeprazole 20 mg capsule,delayed 20 mg PO DAILY 03/19/24 03/19/24 History release sertraline 50 mg tablet 50 mg PO .DAILY@79903/19/24 03/19/24 History sertraline 50 mg tablet 50 mg PO DAILY 03/19/24 03/19/24 History Patient History Medical History (Updated 03/20/24 @ 08:34 by Jm Mendez Jr, MD) Acute kidney injury Family History Other Heart disease Social History Smoking Status: Former smoker Tobacco Type: Cigarettes Cigarettes Per Day: 1; Smoking End Date: 19 years ago; Second Hand Exposure: Yes; Do You Dip or Chew Tobacco: No; Hx Alcohol Use: Yes Alcohol type: other Hx Substance Use: No Preferred Language: Greenlandic Communication Ability: Effective 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 Beliefs That Will Affect Care: None marital status: Current Living Situation: Family Current Living Situation Comment: [place] current occupational status: employed Other Information That Helps Us Care for You: No Feels Safe at Home: Yes Safety Concerns: Feels Safe At This Time Assistive Devices: Glasses Review of Systems Review of Systems: All systems reviewed & are unremarkable except as noted in HPI & below Physical Exam Physical Exam: Pleasant, in no distress Constitutional: WD/WN, vitals as above Neck: trachea midline, no thyromegaly Respiratory: normal respiratory effort, lungs clear to auscultation Cardiovascular: RRR, no murmur, no edema Gastrointestinal (Abdomen): normal bowel sounds, soft, nontender, no hepatosplenomegaly Musculoskeletal: Extremities: extremities normal to inspection Results & Data Vital Signs (Past 12 Hours) Vital Signs Temp Pulse Pulse Resp BP Pulse Ox O2 Del Method 03/20/24 07:28 36.8 C 101 H 18 116/71 92 Room Air 03/20/24 02:48 36.8 C 97 H 18 108/67 93 Room Air 03/20/24 00:41 89 03/19/24 22:12 36.8 C 98 H 18 108/63 94 Room Air Laboratory Results 03/20/24 03/19/24 03/19/24 Range/Units 05:40 10:18 03:17 WBC 5.26 (4.8-10.8) K/ul RBC 2.92 L (4.20-5.40) M/uL Hgb 7.0 L (12.0-16.0) g/dl Hct 23.4 L (37.0-47.0) % MCV 80.1 (80.0-100.0) fL MCH 24.0 L (25.0-34.0) pg MCHC 29.9 L (32.0-36.0) g/dL RDW Std Deviation 43.8 (36.4-46.3) fL RDW Coeff of Samantha 14.8 H (11.5-14.5) % Plt Count 261 (130-400) K/uL MPV 9.5 (9.4-12.4) fL Immature Gran % (Auto) 0.2 % Neut % (Auto) 61.9 % Lymph % (Auto) 20.5 % Ector % (Auto) 10.5 % Eos % (Auto) 6.3 % Baso % (Auto) 0.6 % Neut # (Auto) 3.26 (1.40-6.50) K/uL Lymph # (Auto) 1.08 L (1.20-3.40) K/uL Ector # (Auto) 0.55 (0.11-0.59) K/uL Eos # (Auto) 0.33 (0.00-0.50) K/uL Baso # (Auto) 0.03 (0.00-0.20) K/uL Immature Gran # (Auto) 0.01 (0.01-0.20) K/uL Hypochromasia Present Sodium 139 (136-145) mmol/L Potassium 3.9 (3.5-5.1) mmol/L Chloride 108 H (98-107) mmol/L Carbon Dioxide 26 (21-32) mmol/L Anion Gap 5 (3-11) BUN 16 (6-23) mg/dl Creatinine 1.00 (0.6-1.2) mg/dl Est Cr Clr Drug Dosing 74.8 ml/min Est GFR ( Amer) 71.4 ml/min Est GFR (Non-Af Amer) 61.6 ml/min BUN/Creatinine Ratio 16.0 (10-20) Glucose 82 (70-99(Fasting)) mg/dl Lactate 0.5 (0.4-2.0) mmol/L Calcium 8.8 (8.6-10.3) mg/dl Magnesium 1.5 L (1.7-2.4) mg/dl Iron 26 L (35-150) mcg/dl TIBC 165 L (250-450) mcg/dl Unsaturated IBC 139 L (155-355) mcg/dl Transferrin % Sat 16 (15-50) % Total Bilirubin 0.9 (0.2-1.0) mg/dl Direct Bilirubin 0.6 H (0-0.2) mg/dl AST 263 H (13-39) U/L ALT 175 H (7-52) U/L Alkaline Phosphatase 379 H (34-104) U/L Total Protein 5.8 L (6.0-8.3) gm/dl Albumin 3.0 L (3.4-5.0) gm/dl Triglycerides 87 (0-150) mg/dl Lipase 289 H (11-82) U/L Vitamin B12 867 (180-914) pg/ml Folate 12.03 (>5.38) ng/ml Diagnostic Findings Abdomen/Pelvis CT 03/19/24 04:14 Exam(s): CT ABDOMEN + PELVIS With Contrast IV Amt: 93 ml opti 320 EXAM: CT Abdomen and Pelvis With Intravenous Contrast CLINICAL HISTORY: Reason for exam: rlq pain. TECHNIQUE: Axial computed tomography images of the abdomen and pelvis with intravenous contrast. Automated exposure control was utilized for the study. A dose lowering technique was utilized adhering to the principles of ALARA. CONTRAST: Patient received 93 ml opti 320 of IV contrast COMPARISON: No relevant prior studies available. FINDINGS: Lung bases: Unremarkable. No mass. No consolidation. ABDOMEN: Liver: Unremarkable. No mass. Gallbladder and bile ducts: Cholecystectomy. CBD caliber measures 1.6 cm in diameter. No ductal dilation. Pancreas: Unremarkable. No mass. No ductal dilation. Spleen: Unremarkable. No splenomegaly. Adrenals: Unremarkable. No mass. Kidneys and ureters: Unremarkable. No solid mass. No hydronephrosis. Stomach and bowel: There is sigmoid colonic diverticulosis. No obstruction. No mucosal thickening. PELVIS: Appendix: No findings to suggest acute appendicitis. Bladder: Unremarkable. No mass. Reproductive: Unremarkable as visualized. ABDOMEN and PELVIS: Intraperitoneal space: Unremarkable. No free air. No significant fluid collection. Bones/joints: Mild multilevel degenerative disc disease changes seen in the lumbar spine. No acute fracture. No dislocation. Soft tissues: Unremarkable. Vasculature: Unremarkable. No abdominal aortic aneurysm. Lymph nodes: Unremarkable. No enlarged lymph nodes. IMPRESSION: 1. No acute abdominal process identified 2. No evidence of appendicitis Electronically signed by: Petey Strickland MD 03/19/24 05:28 AM
[2024-03-20] MEDS ORDERED: amLODIPine BESYLATE 5 MG TAB PO SCH (09:00)
--- NOTE | 2024-03-20 09:02 | Ultrasound Report ---
US liver CLINICAL HISTORY: elevated liver enzymes TECHNIQUE: Multiple real-time sonographic images of the right upper quadrant were obtained. Comparison: Comparison is made to CT abdomen pelvis 03/19/2024 FINDINGS: The liver is diffusely homogenous with normal contour and echogenicity. Heterogeneous echotexture is nodularity. No intrahepatic ductal dilatation is seen. Patient is stat us post cholecystectomy. The common duct measures 2.0 cm in diameter at the level of the hepatic art reynold. No stone or mass is seen. The common bile duct measures 1.2 cm at the pancreatic head. Mild intr ahepatic ductal dilation seen in the giovanny hepatis and left lobe of the liver. The visualized portion s of the pancreas appear normal. The right kidney is atrophic in appearance. No evidence of hydronephrosis or mass. No ascites or free fluid is seen in Serrano's pouch. IMPRESSION: There is prominence of the common bile duct and intrahepatic ducts without evidence of obstructive st one or mass. Patient is status post cholecystectomy. ACT 112: Negative or not required by law. Electronically signed by: Rick Carlos M.D. 03/20/2024 8:59 AM
[2024-03-20] MEDS: FERROUS SULFATE 325 MG TAB PO SCH (09:33)
--- NOTE | 2024-03-20 13:21 | Electrocardiogram Report ---
Test Reason : Blood Pressure : */* mmHG Vent. Rate : 87 BPM Atrial Rate : 87 BPM P-R Int : 188 ms QRS Dur : 102 ms QT Int : 392 ms P-R-T Axes : 62 27 61 degrees QTcB Int : 471 ms Normal sinus rhythm Normal ECG When compared with ECG of 26-Aug-2021 03:26, Premature ventricular complexes is no longer Present Confirmed by Hamilton Laws ([id number]) on 03/20/2024 1:20:50 PM Referred By: Confirmed By: Hamilton Laws
--- NOTE | 2024-03-20 16:35 | Magnetic Resonance Report ---
MR MRCP CLINICAL HISTORY: elevated live enzymes TECHNIQUE: Multiplanar multisequence MR images of the abdomen were obtained, as per MRCP protocol. . COMPARISON: Comparison is made to CT abdomen pelvis 03/19/[address] abdomen pelvis 01/26/2020 FINDINGS: Lower chest: No acute abnormality Liver: Unremarkable. No focal lesions are seen. Gallbladder and biliary tree: No calcified gallstones. Normal caliber wall. Prominent enlargement of the common bile duct measuring up to 15 mm in the giovanny hepatis. There are filling defects in the com mon bile duct compatible with stones. Intrahepatic bile ducts are enlarged and somewhat beaded in asya earance. Pancreas: Unremarkable, no focal lesions. Spleen: Unremarkable. Adrenals: Left adrenal nodule is unchanged from prior CT and may represent adenoma. Kidneys and ureters: Unremarkable. Bowel: Unremarkable. Lymph nodes Retroperitoneal: Unremarkable. Mesenteric: Unremarkable. Peritoneum: Normal Vessels: Unremarkable. Abdominal wall: Unremarkable. Bones: Unremarkable. IMPRESSION: 1. Prominence of the intra and extrahepatic bile ducts secondary to choledocholithiasis. 2. Adrenal nodules likely representing adenomas, unchanged from prior exams. ACT 112: Negative or not required by law. Electronically signed by: Rick Carlos M.D. 03/20/2024 4:33 PM
[2024-03-20 16:48] LABS: Adenovirus PCR Not Detected (NotDetected); Bordetella parapertussis PCR Not Detected (NotDetected); Bordetella pertussis PCR Not Detected (NotDetected); Chlamydia pneumoniae PCR Not Detected (NotDetected); Coronavirus 229E PCR Not Detected (NotDetected); Coronavirus CoV-2 (COVID19)PCR Not Detected (NotDetected); Coronavirus HKU1 PCR Not Detected (NotDetected); Coronavirus NL63 PCR Not Detected (NotDetected); Coronavirus OC43PCR Not Detected (NotDetected); Human Metapneumovirus PCR Not Detected (NotDetected); Influenza A PCR Not Detected (NotDetected); Influenza B PCR Not Detected (NotDetected); Mycoplasma pneumoniae PCR Not Detected (NotDetected); Parainfluenza Virus 1 PCR Not Detected (NotDetected); Parainfluenza Virus 2 PCR Not Detected (NotDetected); Parainfluenza Virus 3 PCR Not Detected (NotDetected); Parainfluenza Virus 4 PCR Not Detected (NotDetected); Respiratory Syncytial VirusPCR Not Detected (NotDetected); Rhinovirus/Enterovirus PCR Not Detected (NotDetected)
[2024-03-21 07:16] LABS: Basophils # (auto) 0.03 K/uL (0.00-0.20); Basophils % (auto) 0.4 %; Eosinophils # (auto) 0.29 K/uL (0.00-0.50); Eosinophils % (auto) 4.3 %; Hematocrit (blood only) 24.2 % (37.0-47.0); Hemoglobin 7.4 g/dl (12.0-16.0); Immature Granulocytes # (auto) 0.03 K/uL (0.01-0.20); Immature Granulocytes % (auto) 0.4 %; Lymphocytes # (auto) 1.04 K/uL (1.20-3.40); Lymphocytes % (auto) 15.5 %; Mean Corpuscular Hemoglobin 24.3 pg (25.0-34.0); Mean Corpuscular Hgb Conc 30.6 g/dL (32.0-36.0); Mean Corpuscular Volume 79.3 fL (80.0-100.0); Mean Platelet Volume 9.8 fL (9.4-12.4); Monocytes # (auto) 0.67 K/uL (0.11-0.59); Neutrophils # (auto) 4.67 K/uL (1.40-6.50); Neutrophils % (auto) 69.4 %; Platelet Count 267 K/uL (130-400); RDW Coefficient of Variation 14.9 % (11.5-14.5); RDW Standard Deviation 43.3 fL (36.4-46.3); Red Blood Count 3.05 M/uL (4.20-5.40); White Blood Count 6.73 K/ul (4.8-10.8)
[2024-03-21 07:37] LABS: RBC Morphology Unremarkable
[2024-03-21 07:40] LABS: Bilirubin,Total 0.5 mg/dl (0.2-1.0); Creatinine Clr Calc Pharmacy 92.3 ml/min; Est GFR (African American) 89.5 ml/min; Est GFR (Non-African American) 77.2 ml/min
--- NOTE | 2024-03-21 09:51 | History & Physical Bridge Note ---
Date of Service March 21, 2024 History & Physical Bridge Note I have examined the patient, reviewed the History & Physical and in the interval since the performance of the History & Physical I have noted the following changes of clinical significance: The patient had an MRCP performed that indicated the followin. Prominence of the intra and extrahepatic bile ducts secondary to choledocholithiasis. 2. Adrenal nodules likely representing adenomas, unchanged from prior exams. Patient's T bili 0.5, AST 123, ALT 124, Alk phos 379. She notes persistence of RUQ abdominal pain. Distant history of open cholecystectomy. Physical exam notable for RUQ tenderness to palpation. She is NPO. She is agreeable to an ERCP today. We will proceed with that. She is anemic and may at some point need an EGD. Last colonoscopy reportedly within the past few years. Supervising Physician Co-Signing Physician Notes I saw and examined this patient with our nurse practitioner and agree with her assessment and plan. Reviewed MRI consistent with CBD stones. Will proceed with ERCP and stone extraction today.
[2024-03-21 09:53] LABS: INR 1.1 (0.9-1.1); Prothrombin Time 11.6 Seconds (9.0-12.0)
--- NOTE | 2024-03-21 10:03 | Hospitalist Progress Note ---
Date of Service March 21, 2024 Assessment & Plan (1) Pancreatitis: Plan: 58-year-old female with past medical significant for hyperlipidemia, prediabetes, dyslipidemia, chronic bronchitis, hypertension, CAD, morbid obesity, lumbago, anemia, mood disorder, monomelic mutation TTN gene comes with abdominal pain. Acute pancreatitis Possible Choledocholithiasis Presents with abdominal pain Lipase 188 CT abdomen pelvis did not show any acute findings Liver enzyme elevated History of prior cholecystectomy MRCP shows prominence of intra and extrahepatic bile duct secondary to choledocholithiasis Patient to undergo ERCP today Continue low-fat diet Appreciate GI input Hypertension Patient is on amlodipine, Coreg, lisinopril and hydrochlorothiazide Blood pressure on the lower side Hold antihypertensives History of CAD s/p stents On Coreg, aspirin and statin Prediabetes HbA1c of 6%; continue lifestyle interventions Anemia Iron deficiency anemia Seems chronic Hemoglobin is 7.8 on presenation. Usually around 9 Denies any bleeding GI on board; will need endoscopy/colonoscopy in the future CKD Presented creatinine 1.2 Baseline creatinine around 1 Holding lisinopril and hydrochlorothiazide resolved Hyperlipidemia On statin, continue Obesity Needs follow-up GERD Omeprazole, continue Mood disorder On Zoloft DVT prophylaxis Heparin subcu on hold Disposition Patient hospitalized for acute pancreatitis and choledocholithiasis. Patient undergoing ERCP today. Full code. Time spent evaluating patient, direct bedside care, chart review, placing orders, interpretation of diagnostic studies, discussion with consultants, patient, and family members, as well as other required patient management activities is 50 minutes Please note the above document was generated using voice recognition software. It may contain grammatical, syntax or spelling errors. Any formal questions or concerns about the content, text or information contained within the body of this dictation should be directly addressed to the provider for clarification Admission and Anticipated Discharge Date Admission Date: March 19, 2024 Subjective Patient seen and examined at bedside. She is comfortable; not in distress. No significant events overnight Physical Exam Physical Exam: General- Not in distress Head- atraumatic Eyes- PERRL. ENT- oropharynx clear Neck- supple, no JVD. Lungs- clear to auscultation no wheezing or crackles. Heart- regular rate and rhythm; no murmur, no gallop Abdomen- normal bowel sounds, soft, mild discomfort on right side of abdomen, no distension Extremities- no pretibial edema, no erythema seen Neuro- alert, oriented PERRL, EOMI; no facial palsy; no dysarthria; moves extremities. Results & Data Results & Data Vital Signs (Past 12 Hours) Vital Signs Temp Pulse Pulse Resp BP BP Pulse Ox 03/21/24 08:14 37.0 C 104 H 19 142/79 H 94 03/21/24 08:00 03/21/24 07:00 101 H 03/21/24 03:59 37.3 C 03/21/24 03:47 38 C H 103 H 16 118/70 92 03/20/24 23:18 37 C 111 H 18 137/62 95 03/20/24 23:17 92 H O2 Del Method 03/21/24 08:14 Room Air 03/21/24 08:00 Room Air 03/21/24 07:00 03/21/24 03:59 03/21/24 03:47 Room Air 03/20/24 23:18 Room Air 03/20/24 23:17 (1) Pancreatitis Acute pancreatitis complication: unspecified Chronicity: acute Pancreatitis type: unspecified pancreatitis type Qualified Code(s): K85.90 - Acute pancreatitis without necrosis or infection, unspecified
--- NOTE | 2024-03-21 12:42 | Anesthesiology Consultation ---
Date of Service March 21, 2024 Assessment & Plan Chart Review Chart Review: Acceptable Risk for Surgery and Patient NOT seen in Pre Admission Testing History Surgery Operation Date: 03/21/24 10:50 Proposed Procedures p Endoscopic Retrograde Cholangiopancreatogram - Juan Orozco MD Height/Weight Height: 5 ft 6 in Weight: 111.3 kg Allergies Allergy/AdvReac Type Severity Reaction Status Date / Time loratadine Allergy Severe DEPLETED Verified 09/06/22 19:48 O2 FROM BODY, WAS PUT IN OXYGEN CHAMBER. Iodinated Contrast Media Allergy Intermediate ITCHING Verified 09/06/22 19:48 ketorolac Allergy Intermediate DIAPHORESIS, Verified 09/06/22 19:48 RASH prednisone AdvReac Intermediate Vomiting Verified 09/06/22 19:48 ceftriaxone [From Rocephin] AdvReac Unknown Unknown Verified 09/06/22 19:48 Medications Home Medications Medication Instructions Recorded Confirmed Last Taken albuterol sulfate 90 mcg/actuation 2 puff inhalation Q6H sob 03/19/24 03/19/24 Unknown aerosol inhaler (Ventolin HFA) amlodipine 5 mg tablet 5 mg PO DAILY 03/19/24 03/19/24 Unknown aspirin 81 mg tablet,delayed 81 mg PO DAILY 03/19/24 03/19/24 Unknown release atorvastatin 40 mg tablet 40 mg PO .DAILY@79903/19/24 03/19/24 Unknown atorvastatin 40 mg tablet 40 mg PO DAILY 03/19/24 03/19/24 Unknown carvedilol 12.5 mg tablet 12.5 mg PO .DAILY@79903/19/24 03/19/24 Unknown carvedilol 12.5 mg tablet 12.5 mg PO BID 03/19/24 03/19/24 Unknown ferrous sulfate 325 mg (65 mg 325 mg PO Q2D 03/19/24 03/19/24 Unknown iron) tablet hydrochlorothiazide 25 mg tablet 25 mg PO .DAILY@79903/19/24 03/19/24 Unknown lisinopril 20 mg tablet 20 mg PO .DAILY@79903/19/24 03/19/24 Unknown lisinopril 20 mg tablet 20 mg PO DAILY 03/19/24 03/19/24 Unknown omeprazole 20 mg capsule,delayed 20 mg PO .DAILY@79903/19/24 03/19/24 Unknown release omeprazole 20 mg capsule,delayed 20 mg PO DAILY 03/19/24 03/19/24 Unknown release sertraline 50 mg tablet 50 mg PO .DAILY@0800 03/19/24 03/19/24 Unknown sertraline 50 mg tablet 50 mg PO DAILY 03/19/24 03/19/24 Unknown Active Medications Generic Name Dose Route Start Last Admin Trade Name Freq PRN Reason Stop Dose Admin Aspirin 81 mg 03/19/24 10:10 03/21/24 12:23 Aspirin 81 Mg Ectab PO 04/18/24 10:09 Not Given DAILY FABIANA Ferrous Sulfate 325 mg 03/20/24 09:00 03/20/24 09:33 Ferrous Sulfate 325 Mg Tab PO 04/19/24 08:59 325 mg Q48H FABIANA Administration Heparin Sodium (Porcine) 5,000 units 03/19/24 14:00 03/21/24 05:58 Heparin Sod 5,000 Unit/0.5 Ml Vial SQ 04/18/24 13:59 Not Given Q8 FABIANA Hydromorphone HCl 0.5 mg 03/19/24 10:10 03/19/24 23:52 Hydromorphone Inj 0.5 Mg/0.5 Ml Syr IV 04/02/24 10:09 0.5 mg Q4H PRN Administration Severe Pain (Scale 7, 8, 9,10) Pantoprazole Sodium 40 mg 03/19/24 10:30 03/21/24 09:25 Pantoprazole 40 Mg Tab PO 04/18/24 10:29 40 mg DAILY FABIANA Administration Sertraline HCl 50 mg 03/19/24 10:10 03/21/24 09:25 Sertraline Hcl 50 Mg Tablet PO 04/18/24 10:09 50 mg DAILY FABIANA Administration Past Medical History Medical History Acute kidney injury Past Family History Family History Other Heart disease Social History Smoking Status: Former smoker Smoking cigarettes per day: 1 Do You Dip or Chew Tobacco: No Smoking End Date: 19 years ago Hx Alcohol Use: Yes Alcohol type: other alcohol intake frequency: holidays/special occasions only Alcohol Intake Frequency Comment: Wine cooler once or twice a month Hx Substance Use: No substance use type: does not use Physical Exam Vital Signs Last Vital Signs Temp 36.7 C 03/21/24 12:02 Pulse 100 H 03/21/24 12:02 Resp 16 03/21/24 12:02 BP 123/67 03/21/24 12:02 Pulse Ox 96 03/21/24 12:02 O2 Del Method Room Air 03/21/24 12:02 Testing Laboratory Results 03/21/24 06:37 03/21/24 06:37 PT 11.6 Seconds (9.0-12.0) 03/21/24 09:07 INR 1.1 (0.9-1.1) 03/21/24 09:07 Urine Color Yellow 03/19/24 04:31 Urine Appearance Clear (Clear) 03/19/24 04:31 Urine pH 5.0 (4.5-7.5) 03/19/24 04:31 Ur Specific Struthers 1.008 (1.000-1.030) 03/19/24 04:31 Urine Protein Negative (Negative) 03/19/24 04:31 Urine Glucose (UA) Negative (Negative) 03/19/24 04:31 Urine Ketones Negative (Negative) 03/19/24 04:31 Urine Nitrite Negative (Negative) 03/19/24 04:31 Ur Leukocyte Esterase Negative (Negative) 03/19/24 04:31 Blood Type O Negative 03/19/24 04:27 Antibody Screen NEGATIVE 03/19/24 04:27
[2024-03-21] MEDS ORDERED: fentaNYL citrate PF 100 MCG/2 ML VIAL IV PRN (15:38)
[2024-03-21] MEDS ORDERED: ATROPINE SULFATE 0.1 MG/ML 10ML SYR IV PRN (15:38)
[2024-03-21] MEDS ORDERED: ePHEDrine sulfate 50 MG/ML AMP IV PRN (15:38)
[2024-03-21] MEDS ORDERED: fentaNYL citrate PF 100 MCG/2 ML VIAL ONE (15:42)
[2024-03-21] MEDS ORDERED: MIDAZOLAM HCL 1 MG/ML 2ML VIAL ONE (15:43)
[2024-03-21] MEDS: levoFLOXacin/D5W 500 MG/100 ML BAG IV SCH (16:02)
[2024-03-21] MEDS ORDERED: HYDROCORTISONE SOD SUCCINATE 100 MG/2 ML VIAL ONE (16:13)
[2024-03-21] MEDS ORDERED: diphenhydrAMINE 50 MG/ML VIAL ONE (16:13)
[2024-03-21] MEDS: INDOMETHACIN 50 MG SUPP PR ONE (16:32)
--- NOTE | 2024-03-21 17:05 | GI REPORT ---
[facility] Patient: JULISSA CHEEMA : 1965 Sex at : Female Age: 58 Years Procedure: ERCP Date: 03/21/2024 Attending Physician: Juan Orozco MD Referring MD: Naresh Arechiga Md Indications: - Bile duct stone(s) Medications: - General Anesthesia - Indomethacin 100 mg VT Complications: - No immediate complications. Estimated Blood Loss: - Estimated blood loss was minimal. Procedure: - Prior to the procedure, a History and Physical was performed, and patient medications, allergies and sensitivities were reviewed. The patient's tolerance of previous anesthesia was reviewed. - Patient identification and proposed procedure were verified prior to the procedure by the nurse. The procedure was verified in the procedure room. - The risks and benefits of the procedure and the sedation options and risks were discussed with the patient. All questions were answered and informed consent was obtained. - Prophylactic Antibiotics: The patient requires prophylactic antibiotics as clinically indicated based on published guidelines for the planned ERCP. The patient received antibiotic therapy before the procedure. - The ercp scope was introduced through the mouth and advanced to the duodenum and used to inject contrast into the bile duct. - The ERCP was accomplished without difficulty. - The patient tolerated the procedure well. Findings: Impression: - The major papilla appeared normal. - The upper third of the main bile duct and middle third of the main bile duct were moderately dilated, with a stone causing an obstruction. - Choledocholithiasis with a partial obstruction was found. Complete removal was accomplished by biliary sphincterotomy and balloon extraction. Recommendation: - Return patient to [facility] for ongoing care. - Put patient on a clear liquid diet starting today. Procedure Code(s): - 65591, Endoscopic retrograde cholangiopancreatography (ERCP); diagnostic, including collection of specimen(s) by brushing or washing, when performed (separate procedure) Diagnosis Code(s): - K80.51, Calculus of bile duct without cholangitis or cholecystitis with obstruction CPT(R) - 2023 copyright [employer]. All Rights Reserved. The CPT codes, CCI edits and ICD codes generated are intended as suggestions and were generated based on input data. These codes are preliminary and upon assembly line inspector review may be revised to meet current compliance and payer requirements. The provider is responsible for the final determination of appropriate codes, and modifiers. Juan Orozco MD This document has been electronically signed. Note Initiated:03/21/2024 Note Completed:03/21/2024 5:04 PM [email or web address]\Results\LIVE\[id number]
[2024-03-21] MEDS: ONDANSETRON INJ 2 MG/ML 2 ML VIAL IV PRN (17:09)
--- NOTE | 2024-03-21 17:30 | Anesthesiology Progress Note ---
Date of Service March 21, 2024 Anesthesia Post Procedure Vital Signs Vital Signs: Temp Pulse Pulse Pulse Resp BP BP 03/21/24 17:20 91 H 19 115/72 03/21/24 17:10 116 H 24 149/81 H 03/21/24 17:01 36.7 C 96 H 24 132/82 03/21/24 15:23 36.4 C L 104 H 20 153/68 H 03/21/24 15:15 36.4 C L 111 H 19 161/93 H 03/21/24 13:01 93 H 03/21/24 12:02 36.7 C 100 H 16 123/67 03/21/24 08:14 37.0 C 104 H 19 142/79 H 03/21/24 08:00 03/21/24 07:00 101 H 03/21/24 03:59 37.3 C 03/21/24 03:47 38 C H 103 H 16 118/70 03/20/24 23:18 37 C 111 H 18 137/62 03/20/24 23:17 92 H 03/20/24 19:49 36.8 C 99 H 16 123/73 03/20/24 17:41 36.8 C 103 H 20 154/80 H Pulse Ox O2 Del Method O2 Flow Rate 03/21/24 17:20 96 Room Air 03/21/24 17:10 93 Room Air 03/21/24 17:01 96 Oxymask 5 03/21/24 15:23 96 Room Air 03/21/24 15:15 95 Room Air 03/21/24 13:01 03/21/24 12:02 96 Room Air 03/21/24 08:14 94 Room Air 03/21/24 08:00 Room Air 03/21/24 07:00 03/21/24 03:59 03/21/24 03:47 92 Room Air 03/20/24 23:18 95 Room Air 03/20/24 23:17 03/20/24 19:49 96 Room Air 03/20/24 17:41 94 Room Air Pain Intensity Right Upper Abdomen: Pain Intensity: 5 Transfer of Care Handoff Completed per policy Notes Mental Status: alert / awake / arousable Patient Amnestic to Procedure: Yes Nausea / Vomiting: adequately controlled Pain: adequately controlled Airway Patency, RR, SpO2: stable & adequate BP & HR: stable & adequate Hydration State: stable & adequate Anesthetic Complications: no major complications apparent and Pt Satisfied with anesthetic care
--- NOTE | 2024-03-21 17:33 | Fluoroscopy Report ---
[place] ERCP biliary ductal CLINICAL HISTORY: ADD ON ERCP COMPARISON STUDY: MRCP 03/20/2024. FLUOROSCOPY TIME: 4 minutes and 39 seconds. FLUOROSCOPY IMAGES: 6 Ka,r: 66.8 mGy FINDINGS: The ampulla was cannulated and contrast was extended into the dilated common bile duct. Mul tiple stones are seen within the common bile duct. A balloon sweep was performed. Post procedure imag es show no filling defects within the common bile duct. Mildly dilated and slightly irregular intrahe patic ducts are noted. IMPRESSION: Fluoroscopic assistance as above. ACT 112: Negative or not required by law. Electronically signed by: Fortunato Weston M.D. 03/21/2024 5:32 PM
[2024-03-22 07:03] LABS: Basophils # (auto) 0.01 K/uL (0.00-0.20); Basophils % (auto) 0.1 %; Hematocrit (blood only) 26.3 % (37.0-47.0); Immature Granulocytes # (auto) 0.03 K/uL (0.01-0.20); Immature Granulocytes % (auto) 0.4 %; Lymphocytes # (auto) 0.64 K/uL (1.20-3.40); Lymphocytes % (auto) 8.9 %; Mean Corpuscular Hgb Conc 30.4 g/dL (32.0-36.0); Mean Platelet Volume 9.5 fL (9.4-12.4); Monocytes # (auto) 0.24 K/uL (0.11-0.59); Monocytes % (auto) 3.3 %; Neutrophils # (auto) 6.29 K/uL (1.40-6.50); Neutrophils % (auto) 87.3 %; Platelet Count 270 K/uL (130-400); RDW Coefficient of Variation 14.6 % (11.5-14.5); RDW Standard Deviation 42.4 fL (36.4-46.3); Red Blood Count 3.33 M/uL (4.20-5.40); White Blood Count 7.21 K/ul (4.8-10.8)
[2024-03-22 07:23] VITALS: RESP 18
[2024-03-22 07:33] LABS: Albumin Level 3.2 gm/dl (3.4-5.0); BUN Creatinine Ratio 16.4 (10-20); Bilirubin,Total 0.7 mg/dl (0.2-1.0); Creatinine Clr Calc Pharmacy 61.2 ml/min; Est GFR (African American) 56.2 ml/min; Est GFR (Non-African American) 48.5 ml/min; Globulin 3.3 gm/dl (2.5-4.0); Potassium 4.5 mmol/L (3.5-5.1); Total Protein 6.5 gm/dl (6.0-8.3)
[2024-03-22] MEDS: hydroCHLOROthiazide 25 MG TAB PO SCH (07:53)
[2024-03-22] MEDS: ATORVASTATIN 40 MG TAB PO SCH (07:53)
[2024-03-22] MEDS: lisinopril 20 MG TAB PO SCH (07:54)
--- NOTE | 2024-03-22 09:01 | Hospitalist Progress Note ---
Date of Service March 22, 2024 Assessment & Plan (1) Pancreatitis: Plan: 58-year-old female with past medical significant for hyperlipidemia, prediabetes, dyslipidemia, chronic bronchitis, hypertension, CAD, morbid obesity, lumbago, anemia, mood disorder, monomelic mutation TTN gene comes with abdominal pain. Acute pancreatitis Choledocholithiasis Status post ERCP on 03/21 Presents with abdominal pain Lipase elevated [address] CT abdomen pelvis did not show any acute findings Liver enzyme were elevated; MRCP Was done which showed prominence of intra and extrahepatic bile duct secondary to choledocholithiasis Patient underwent ERCP on 03/21; stone causing obstruction was removed. Patient underwent biliary sphincterotomy and balloon extraction Advance diet ast tolerated Hypertension Patient is on amlodipine, Coreg, lisinopril and hydrochlorothiazide Blood pressure on the lower side Hold antihypertensives History of CAD s/p stents On Coreg, aspirin and statin Prediabetes HbA1c of 6%; continue lifestyle interventions Anemia Iron deficiency anemia Seems chronic Hemoglobin is 7.8 on presenation. Usually around 9 Denies any bleeding GI on board; will need endoscopy/colonoscopy in the future CKD Presented creatinine 1.2 Baseline creatinine around 1 Holding lisinopril and hydrochlorothiazide resolved Hyperlipidemia On statin, continue Obesity Needs follow-up GERD Omeprazole, continue Mood disorder On Zoloft DVT prophylaxis Heparin subcu on hold Disposition Possible discharge if patient continues to tolerate diet Full code. Time spent evaluating patient, direct bedside care, chart review, placing orders, interpretation of diagnostic studies, discussion with consultants, patient, and family members, as well as other required patient management activities is 50 minutes Please note the above document was generated using voice recognition software. It may contain grammatical, syntax or spelling errors. Any formal questions or concerns about the content, text or information contained within the body of this dictation should be directly addressed to the provider for clarification Admission and Anticipated Discharge Date Admission Date: March 19, 2024 Subjective Patient seen and examined at bedside. Comfortable; not in distress. Denies fever, chills, chest pain, shortness of breath, abdominal pain or urinary symptoms. No significant overnight events Review of Systems Review of Systems: All systems reviewed & are unremarkable except as noted in Subjective Physical Exam Physical Exam: General- Not in distress Head- atraumatic Eyes- PERRL. ENT- oropharynx clear Neck- supple, no JVD. Lungs- clear to auscultation no wheezing or crackles. Heart- regular rate and rhythm; no murmur, no gallop Abdomen- normal bowel sounds, soft, mild discomfort on right side of abdomen, no distension Extremities- no pretibial edema, no erythema seen Neuro- alert, oriented PERRL, EOMI; no facial palsy; no dysarthria; moves extremities. Results & Data Results & Data Vital Signs (Past 12 Hours) Vital Signs Temp Pulse Pulse Resp BP Pulse Ox O2 Del Method 03/22/24 07:35 Room Air 03/22/24 07:22 36.3 C L 85 18 122/76 96 Room Air 03/22/24 03:54 36.6 C 79 16 120/72 95 Room Air 03/21/24 23:56 76 03/21/24 23:35 36.8 C 77 16 114/70 91 Room Air (1) Pancreatitis Acute pancreatitis complication: unspecified Chronicity: acute Pancreatitis type: unspecified pancreatitis type Qualified Code(s): K85.90 - Acute pancreatitis without necrosis or infection, unspecified
--- NOTE | 2024-03-22 10:43 | Gastroenterology Progress Note ---
Date of Service March 22, 2024 Assessment & Plan (1) Choledocholithiasis: Plan: s/p ERCP. Improvement of T bili & LFTs. -OK to advance diet as tolerated. -If eating, no GI contraindications to discharge. Admission and Anticipated Discharge Date Admission Date: March 19, 2024 Supervising Physician Co-Signing Physician Notes I saw and examined this patient with our nurse practitioner and agree with her assessment and plan. Stable post ERCP no signs of pancreatitis no abdominal pain. Tolerated regular diet. Plan is for discharge today follow-up as outpatient. Subjective Patient is a 58 yo female s/p ERCP for choledocholithiasis. She is feeling better today. She is resting at bedside. She denies worsening abdominal pain or fevers. She offers no further complaints at present. T bili 0.7, AST 114, ALT 114. Afebrile. No leukocytosis. Review of Systems Gastrointestinal: + abdominal pain (improving) Physical Exam Constitutional: well developed Respiratory: normal respiratory effort Gastrointestinal (Abdomen): normal bowel sounds, soft, nontender, no hepatosplenomegaly Psychiatric: Orientation: alert and oriented x 3 Results & Data Results & Data Vital Signs (Past 12 Hours) Vital Signs Temp Pulse Pulse Resp BP Pulse Ox O2 Del Method 03/22/24 07:35 Room Air 03/22/24 07:22 36.3 C L 85 18 122/76 96 Room Air 03/22/24 07:00 78 03/22/24 03:54 36.6 C 79 16 120/72 95 Room Air 03/21/24 23:56 76 03/21/24 23:35 36.8 C 77 16 114/70 91 Room Air PG Care Time/CCT Total # of Minutes Spent Total Time Spent with Patient: Total time spent is greater than 50% in coordination of care (as documented) at patient's floor/unit and/or counseling patient: Coding Level of Care Code 03640 SUB INP/OBS CARE 50MIN Diagnoses Choledocholithiasis K80.50
[2024-03-22 10:48] VITALS: TEMP 97.7; O2SAT 97
[2024-03-22 14:26] VITALS: BP 134/67
--- NOTE | 2024-03-22 15:06 | Discharge Summary ---
Date of Service March 22, 2024 Admission HPI Per Admitting Provider 58-year-old female with past medical significant for hyperlipidemia, prediabetes, dyslipidemia, chronic bronchitis, hypertension, CAD, morbid obesity, lumbago, anemia, mood disorder, monomelic mutation TTN gene comes with abdominal pain. Pain is located in the right side abdomen. Denies nausea. Normal bowel and bladder movements. Denies any hematuria. Denies any blood in the stools. No fevers. No chest pain or shortness of breath. No cough. No headache. No runny nose or sore throat. Currently resting comfortably. Past medical history. As mentioned above Past surgical history. Cardiac stent placement x 2. Colonoscopy and EGD. EGD with endoscopic ultrasound. Small bowel endoscopy with biopsy. Treated missed first trimester. Social history. Quit smoking 2000. Smoked 2 packs a day for 10 years. Alcohol very rarely.. No drug use. Family history. Father had CHF. Mother had CHF. Admission Exam Per Admitting Provider General- Not in distress Head- atraumatic Eyes- PERRL. ENT- oropharynx clear Neck- supple, no JVD. Lungs- clear to auscultation no wheezing or crackles. Heart- regular rate and rhythm; no murmur, no gallop Abdomen- normal bowel sounds, soft, mild discomfort on right side of abdomen, no distension Extremities- no pretibial edema, no erythema seen Neuro- alert, oriented PERRL, EOMI; no facial palsy; no dysarthria; moves extremities. Principal Diagnosis Acute pancreatitis Choledocholithiasis Status post ERCP on 03/21 Discharge Exam General- Not in distress Head- atraumatic Eyes- PERRL. ENT- oropharynx clear Neck- supple, no JVD. Lungs- clear to auscultation no wheezing or crackles. Heart- regular rate and rhythm; no murmur, no gallop Abdomen- normal bowel sounds, soft, mild discomfort on right side of abdomen, no distension Extremities- no pretibial edema, no erythema seen Neuro- alert, oriented PERRL, EOMI; no facial palsy; no dysarthria; moves extremities. Discharge Data Allergies Allergy/AdvReac Type Severity Reaction Status Date / Time loratadine Allergy Severe DEPLETED Verified 09/06/22 19:48 O2 FROM BODY, WAS PUT IN OXYGEN CHAMBER. Iodinated Contrast Media Allergy Intermediate ITCHING Verified 09/06/22 19:48 ketorolac Allergy Intermediate DIAPHORESIS, Verified 09/06/22 19:48 RASH prednisone AdvReac Intermediate Vomiting Verified 09/06/22 19:48 ceftriaxone [From Rocephin] AdvReac Unknown Unknown Verified 09/06/22 19:48 Consultations 03/19/24 05:45 ED Decision to Admit Stat 03/19/24 10:10 Consult Gastroenterology Routine Procedures Performed Operation Date: 03/21/24 10:50 Actual Procedures p Endoscopic Retrograde Cholangiopancreato - Juan Debby Orozco MD Ordered Studies 03/19/24 04:14 CT Abd and Pelvis [CT abd pelvis IV con only] Stat 03/20/24 08:00 US liver Routine 03/20/24 09:19 MR MRCP Urgent 03/21/24 [place] ERCP biliary ductal Routine Hospital Course (1) Pancreatitis: 58-year-old female with past medical significant for hyperlipidemia, prediabetes, dyslipidemia, chronic bronchitis, hypertension, CAD, morbid obesity, lumbago, anemia, mood disorder, monomelic mutation TTN gene comes with abdominal pain. Acute pancreatitis Choledocholithiasis Status post ERCP on 03/21 Presents with abdominal pain Lipase elevated [address] CT abdomen pelvis did not show any acute findings Liver enzyme were elevated; MRCP Was done which showed prominence of intra and extrahepatic bile duct secondary to choledocholithiasis Patient underwent ERCP on 03/21; stone causing obstruction was removed. Patient underwent biliary sphincterotomy and balloon extraction Patient tolerated advancement of diet without any issue. She was free of any pain at the time of the discharge. Hypertension Patient is on amlodipine, Coreg, lisinopril and hydrochlorothiazide Blood pressure on the lower side. During the hospitalization. I recommended patient to gradually reintroduce her antihypertensives. Please note the above document was generated using voice recognition software. It may contain grammatical, syntax or spelling errors. Any formal questions or concerns about the content, text or information contained within the body of this dictation should be directly addressed to the provider for clarification Total Time Total Time Spent Total Time Spent (In Minutes): 45 Total Time Includes: Examination of the Patient, Discharge Planning, Medication Reconciliation, Communication With Other Providers and Other Discharge Plan Discharge Items Patient Disposition: Home - Self-Care Reason For Visit: PANCREATITIS, ANEMIA Discharge Diagnosis: Acute pancreatitis Choledocholithiasis Condition on Discharge: Good Activity: Resume your previous activity Non-emergency contact: Primary Care Provider Call non-emergency contact if: you have any medication questions and your symptoms worsen Follow-up/Referrals: Lennie Steven DO [Primary Care Provider] - Diet: Regular Addtl Attending Provider Instructions: You were admitted to the hospital due to acute inflammation of the pancreas. You underwent ERCP with removal of the stones in the common bile duct. Your blood pressure during the hospitalization was found to be on the lower side. Please check your blood pressure daily at home at the same time and gradually introduce your antihypertensive. If you notice your blood pressures greater than 130/80; start taking amlodipine. Then, continue to monitor blood pressure. If it continues to be elevated; start taking lisinopril. And gradually resume hydrochlorothiazide if it is persistently elevated. Pending Studies at Discharge: No Stand-Alone Forms: My [facility] BasisCode, Smoking Cessation Medications and DC Order Prescriptions: Continued atorvastatin 40 mg tablet 40 mg PO DAILY carvedilol 12.5 mg tablet 12.5 mg PO BID ferrous sulfate 325 mg (65 mg iron) tablet 325 mg PO Q2D omeprazole 20 mg capsule,delayed release(DR/EC) 20 mg PO DAILY albuterol sulfate [Ventolin HFA] 90 mcg/actuation HFA aerosol inhaler 2 puff INHALATION Q6H sertraline 50 mg tablet 50 mg PO DAILY atorvastatin 40 mg tablet 40 mg PO .DAILY@0800 carvedilol 12.5 mg tablet 12.5 mg PO .DAILY@0800 omeprazole 20 mg capsule,delayed release(DR/EC) 20 mg PO .DAILY@0800 sertraline 50 mg tablet 50 mg PO .DAILY@0800 aspirin [Aspir-81] 81 mg Tablet,Delayed Release (Dr/Ec) 81 mg PO DAILY Held lisinopril 20 mg tablet 20 mg PO DAILY Hold Instructions: Resume on 03/28/24. amlodipine 5 mg tablet 5 mg PO DAILY Hold Instructions: Resume on 03/28/24. lisinopril 20 mg tablet 20 mg PO .DAILY@0800 Hold Instructions: Resume on 03/28/24. hydrochlorothiazide 25 mg tablet 25 mg PO .DAILY@0800 Hold Instructions: Resume on 03/28/24. Discharge Orders: Discharge Order (Routine); Ordered 03/22/24 Ordered By: Naresh Arechiga Admission Data Admit Date/Time: 03/19/24 06:19 Attending Provider: Naresh Arechiga Admit Provider: Amos Shrestha Primary Care Provider: Lennie Steven Other Providers: Amos Shrestha; Jm Mendez Jr Other Interventions: Discharge Summary Assessment (RN) Last Done: 03/22/24 14:25
[2024-03-22 15:55] VITALS: PULSE 105
== END 2024-03-22 19:06 | disposition home or self-care (01) | DRG 409 ==
LOC: ED 03:02 → 2N 06:19